=== PATIENT | female | born 1950 | race Caucasian/White ===

== ENCOUNTER → 2016-08-15 | Outpatient (CLI) | payer BC ==
[~2016-08-15] MED LIST: ASP81TEC PO; ATR20T PO; CA C1TAB53 PO; CETI10TA17 PO; CYAN100071 PO; DCS100C PO; INSU100I10 SQ; INSU100I17 SQ; LATA2.5D5 OP; LIOT5TAB3 PO; LVT.05T PO; MAGN400C PO; MULT-963 PO; OMEP20CA12 PO; QUIN40TA17 PO; TIMO10DR OP; TRIA15CR TOP; VITA1CAP59 PO
--- NOTE | 2016-08-15 11:24 | Diagnostic Imaging Report ---
Bilateral screening mammogram. The current study was also evaluated with a Computer Aided Detection (CAD) system. INDICATION: Screening. No current complaints stated on the questionnaire. COMPARISON: 07/10/2015. FINDINGS: The breasts are composed of heterogeneously dense parenchyma which may decrease mammographic sensitivity. Numerous calcifications in the breasts more on the right side are seen similar to the prior exams. Stable nodularity in the parenchyma is also noted. Allowing for technique and positional differences, no suspicious change is seen. IMPRESSION: Dense breasts with no definite change. ACR BI-RADS Category 2: Benign findings. Result letter will be mailed to the patient. Note: At least 10% of breast cancer is not imaged by mammography. Dictated by: Dictated on workstation # [id number]
== END ==
LOC: RAD 09:51
PROVIDERS: ATTEND Nurse Practitioner Family
DX: Z12.31 Encounter for screening mammogram for malignant neoplasm of breast (principal)
CPT/HCPCS: 77067

== ENCOUNTER 2016-09-02 23:54 | Emergency (ER) | payer BC ==
[~2016-09-02] VITALS: Ht 167.6 cm; Wt 112.9 kg
[2016-09-03] MEDS ORDERED: TETANUS,DIPTH,PERTUSS P/F (BOOSTRIX) 0.5 ML VIAL IM ONE ×2 (00:50→04:15)
[2016-09-03] MEDS ORDERED: LIDOCAINE 1% INJ 20 ML (XYLOCAINE) VIAL ONE (00:50)
[2016-09-03 01:30] VITALS: BP 114/57
[2016-09-03 03:35] LABS: ALBUMIN 4.1 G/DL (3.2-4.5); BILIRUBIN,TOTAL 0.5 MG/DL (0.1-1.0); CALCIUM 8.7 MG/DL (8.5-10.1); CREATININE SERUM 1.66 MG/DL (0.60-1.30); INR 1.1 (0.8-1.4); POTASSIUM 4.5 MMOL/L (3.6-5.0); PROTHROMBIN TIME PATIENT 13.4 SEC (12.2-14.7); TOTAL PROTEIN 6.8 G/DL (6.4-8.2)
[2016-09-03 03:36] LABS: BASOPHILS # (AUTO) 0.1 10^3/uL (0.0-0.1); BASOPHILS % (AUTO) 1 % (0-10); EOSINOPHILS # (AUTO) 0.1 10^3/uL (0.0-0.3); EOSINOPHILS % (AUTO) 1 % (0-10); LYMPHOCYTES # (AUTO) 2.3 X 10^3 (1.0-4.0); LYMPHOCYTES % (AUTO) 30 % (12-44); MEAN CORPUSCULAR HEMOGLOBIN 32 PG (25-34); MEAN CORPUSCULAR HGB CONC 33 G/DL (32-36); MEAN CORPUSCULAR VOLUME 96 FL (80-99); MEAN PLATELET VOLUME 10.4 FL (7.4-10.4); MONOCYTES # (AUTO) 0.7 X 10^3 (0.0-1.0); MONOCYTES % (AUTO) 9 % (0-12); NEUTROPHILS # (AUTO) 4.5 X 10^3 (1.8-7.8); NEUTROPHILS % (AUTO) 59 % (42-75); PLATELET COUNT 235 10^3/uL (130-400); RED BLOOD COUNT 3.86 10^6/uL (4.35-5.85); RED CELL DISTRIBUTION WIDTH 14.3 % (10.0-14.5); WHITE BLOOD COUNT 7.7 10^3/uL (4.3-11.0)
--- NOTE | 2016-09-03 03:40 | ED Fall/Injury ---
General Stated Complaint: FALL,HEAD INJURY Source: patient Exam Limitations: no limitations History of Present Illness Time seen by provider: 00:05 Initial Comments This 65-year-old woman presents to the emergency room with head injury after falling in the parking lot of a local establishment. She reports she drank too much alcohol and stumbled in the parking lot resulting in injury. She denies any pain other than her forehead. She denies injury to any other part of the body. She is alert and oriented. She smells of alcohol but is not obviously intoxicated. She has 2 lacerations on her forehead with localized swelling. Bleeding is minimal. Allergies and Home Medications Allergies Uncoded Allergies: CODIENE (Allergy, 11/23/12) PCN (Allergy, 11/23/12) Home Medications Aspirin 81 Mg Tabec, 81 MG PO DAILY, (Reported) Atorvastatin 20 Mg Tablet, 20 MG PO DAILY, (Reported) Calcium Carbonate 1 Tab.chew Tab.chew, 1 TAB.CHEW PO DAILY, (Reported) Cetirizine Hcl 10 Mg Tablet, 10 MG PO DAILY, (Reported) Cyanocobalamin (Vitamin B-12) 1,000 Mcg Tablet.er, 1,000 MCG PO ONCE WEEKLY, ( Reported) Docusate Sodium 100 Mg Capsule, 100 MG PO DAILY, (Reported) Dorzolamide/Timolol 10 Ml Soln, 1 DROP OP Q12HR, (Reported) 1 DROP TO AFFECTED EYE Insulin Aspart 100 Unit/1 Ml Insuln.pen, 18 UNIT SQ AC, (Reported) Insulin Glargine,Hum.rec.anlog 300 Unit/3 Ml Insuln.pen, 17 UNITS SQ HS, ( Reported) Latanoprost 2.5 Ml Drops, 1 DROP OP HS, (Reported) 1 DROP TO AFFECTED EYE Levothyroxine Sodium 50 Mcg Tablet, 50 MCG PO DAILY, (Reported) Liothyronine Sodium 5 Mcg Tablet, 5 MCG PO DAILY, (Reported) Magnesium Oxide 400 Mg Capsule, 400 MG PO DAILY, (Reported) Multivitamin 1 Each Tablet, 1 TAB PO DAILY, (Reported) Omeprazole 20 Mg Capsule.dr, 20 MG PO DAILY, (Reported) Quinapril Hcl 40 Mg Tablet, 40 MG PO DAILY, (Reported) Triamcinolone Acetonide 15 Gm Cream.gm., 1 APPLIC TOP BID, (Reported) APPLY TO AFFECTED AREA(S) BID Vitamin B Complex 1 Cap Capsule, 1 CAP PO DAILY, (Reported) Constitutional: no symptoms reported Eyes: No Symptoms Reported Ears, Nose, Mouth, Throat: no symptoms reported Respiratory: no symptoms reported Cardiovascular: no symptoms reported Gastrointestinal: no symptoms reported Genitourinary: no symptoms reported Musculoskeletal: no symptoms reported Skin: see HPI Psychiatric/Neurological: See HPI Past Fjskjws-Hbgzpe-Grhsqv Hx Patient Social History Recent Foreign Travel: No Contact w/Someone Who Travel: No Immunizations Up To Date Date of Pneumonia Vaccine: Mar 25, 2008 Surgeries HX Surgeries: Yes Surgeries: Abdominal (gastric bypass), Eye Surgery (cataract), Hysterectomy, Orthopedic (carpal tunnel) Respiratory Hx Respiratory Disorders: No Cardiovascular Hx Cardiac Disorders: Yes Cardiac Disorders: High Cholesterol, Hypertension Neurological Hx Neurological Disorders: No Gastrointestinal Hx Gastrointestinal Disorders: No Musculoskeletal Hx Musculoskeletal Disorders: No Endocrine Hx Endocrine Disorders: Yes Endocrine Disorders: Hypothyroidsim, Diabetes, Non-Insulin dep Cancer Hx Cancer: No Psychosocial Hx Psychiatric Problems: No Integumentary HX Skin/Integumentary Disorder: No Physical Exam Vital Signs Capillary Refill : General Appearance: WD/WN, no apparent distress HEENT: PERRL/EOMI, pharynx normal, other (2 lacerations on the forehead, 2 cm and 1 cm, with localized swelling) Neck: non-tender, full range of motion, supple, normal inspection Cardiovascular: regular rate, rhythm, no edema, no murmur Respiratory: lungs clear, normal breath sounds, no respiratory distress, no accessory muscle use Gastrointestinal: normal bowel sounds, non tender, soft Back: normal inspection Extremities: normal range of motion, non-tender, normal inspection, no pedal edema 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, no motor/sensory deficits, alert, normal mood/affect, oriented x 3 Skin: normal color, warm/dry, other (see above) [place]enden Coma Score Best Eye Response: (4) Open Spontaneously Best Verbal Response: (5) Oriented Best Motor Response: (6) Obeys Commands Mattie Total: 15 Laceration Repair : Wound Location: Face Other Wound Location upper central forehead Wound Length (cm): 2 Wound's Depth, Shape: linear, sub Q Wound Explored: clean Irrigated w/ Saline (ccs): 60 Betadine Prep?: Yes Anesthesia: 1% Lidocaine Volume Anesthetic (ccs): 2 Suture: Prolene Suture Size: 5-0 Number of Sutures: 3 Sterile Dressing Applied?: No Progress/Results/Core Measures Results/Orders Lab Results Laboratory Tests Test 09/03/16 00:21 Range/Units My Orders Orders - RODOLFO RAPP MD Alcohol (09/03/16 00:21) Comprehensive Metabolic Panel (09/03/16 00:21) Protime With Inr (09/03/16 00:21) Partial Thromboplastin Time (09/03/16 00:21) Cbc With Automated Diff (09/03/16 00:21) Diagnostic Imaging Diagonstic Imaging: CT Plain Films/CT/US/NM/MRI: c-spine, head Comments CT head and cervical spine viewed by me and Stat Rad report reviewed. No acute injuries identified. Departure Impression Impression: Primary Impression: Fall on same level from stumbling Qualified Codes: W01.0XXA - Fall on same level from slipping, tripping and stumbling without subsequent striking against object, initial encounter Additional Impressions: Laceration of forehead without complication Qualified Codes: S01.81XA - Laceration without foreign body of other part of head, initial encounter Alcohol intoxication Qualified Codes: F10.129 - Alcohol abuse with intoxication, unspecified Disposition: HOME, SELF-CARE Condition: Improved Departure-Patient Inst. Decision time for Depature: 01:00 Referrals: MEDHAT MELENDEZ MD (PCP/Family) Primary Care Physician RODOLFO RAPP MD Sep 03, 2016 03:40
[2016-09-03] MEDS ORDERED: LIDOCAINE 1% INJ 20 ML (XYLOCAINE) VIAL INJ ONE (04:15)
--- NOTE | 2016-09-03 06:39 | Diagnostic Imaging Report ---
PROCEDURE: CT head and CT cervical spine without contrast. TECHNIQUE: Multiple contiguous axial images were obtained through the brain and cervical spine without the use of intravenous contrast. Sagittal and coronal reformations through the cervical spine were then performed. INDICATION: Fall with laceration to forehead. CT head: The ventricles and cortical gyral pattern are normal. There is no intracranial hemorrhage. No mass effect or shift of midline. No extra axial fluid collection. No intracranial hemorrhage. Basal cisterns and CP angles are normal. Mastoid air cells are well-aerated. No calvarial fractures. IMPRESSION: Negative CT head without. CT cervical spine: Sagittal and coronal reformatted images show good alignment. Body height is well maintained. There is loss of disc space consistent with advanced degenerative cervical disc disease. There is degenerative facet disease as well. The atlantoaxial joint is in good alignment. There are no fractures. IMPRESSION: Advanced degenerative cervical disc disease with no acute abnormalities. These findings are in agreement with the preliminary report. Dictated by: Dictated on workstation # [id number]
--- OUTSIDE RECORDS SUMMARY | 2016-09-07 04:08 | XMS REPORT | Continuity of Care Document ---
Author Author [facility] Organization [facility] Address Unknown Phone Unavailable Allergies Active Description Code Type Severity Reaction Onset Reported/Identified Relationship to Patient Clinical Status Yes CODIENE CODIENE Unknown N/A 11/23/2012 Yes PCN PCN Unknown N/A 11/23/2012 Medications Problems Date Dx Coded Attending Type Code Diagnosis Diagnosed By 03/22/2011 Ot 327.23 OBSTRUCTIVE SLEEP APNEA (ADULT) (PEDIATR 11/23/2012 MISAEL BOLDEN, ANIL Valenzuela Ot 455.6 HEMORRHOIDS NOS 11/23/2012 MISAEL BOLDEN, ANIL Valenzuela Ot V12.72 PERSONAL HISTORY OF COLONIC POLYPS 11/23/2012 MISAEL BOLDEN, ANIL Valenzuela Ot V16.0 FAMILY HX-GI MALIGNANCY 11/23/2012 MISAEL BOLDEN, ANIL Valenzuela Ot V76.51 SCREEN MAL NEOP-COLON 05/22/2014 SANDIP BOLDEN, DEBI Mcdonald Ot 793.82 05/22/2014 DEBI OROPEZA MD Ot 793.89 05/22/2014 DEBI OROPEZA MD Ot V76.12 07/10/2015 Ot 793.81 07/10/2015 Ot V76.12 07/10/2015 Ot V76.12 07/10/2015 ANIL DOUGLAS MD Ot V72.84 07/10/2015 DEBI OROPEZA MD Ot V76.12 07/10/2015 DEBI OROPEZA MD Ot 793.82 07/10/2015 DEBI OROPEZA MD Ot 793.89 07/10/2015 DEBI OROPEZA MD Ot V76.12 07/13/2015 LIU VO Ot Z12.31 07/26/2015 LIU VO Ot Z12.31 03/18/2016 ROSCOE BOLDEN, KONRAD S Ot E11.9 TYPE 2 DIABETES MELLITUS WITHOUT COMPLIC 03/18/2016 ROSCOE BOLDEN, AHMED S Ot E78.5 HYPERLIPIDEMIA, UNSPECIFIED 03/18/2016 ROSCOE BOLDEN, KONRAD S Ot I12.9 HYPERTENSIVE CHRONIC KIDNEY DISEASE W ST 03/18/2016 KONRAD MALHOTRA MD Ot N18.3 CHRONIC KIDNEY DISEASE, STAGE 3 ( MODERAT 08/15/2016 Ot V76.12 OTH SCREEN MAMMO-MALIGN NEOPLASM OF RAYRAY 08/15/2016 MISAEL BOLDEN, ANIL Valenzuela Ot V72.84 EXAM PRE-OPERATIVE NOS 08/15/2016 DEBI OROPEZA MD Ot V76.12 OTH SCREEN MAMMO-MALIGN NEOPLASM OF RAYRAY 08/15/2016 DEBI OROPEZA MD Ot 793.82 INCONCLUSIVE MAMMOGRAM 08/15/2016 DEBI OROPEZA MD Ot 793.89 OTH (ABN) FINDINGS ON RADIOLOGICAL EXAMI 08/15/2016 DEBI OROPEZA MD Ot V76.12 OTH SCREEN MAMMO-MALIGN NEOPLASM OF RAYRAY 08/15/2016 LIU VO Ot Z12.31 ENCNTR SCREEN MAMMOGRAM FOR MALIGNANT NE 08/15/2016 ROSCOE BOLDEN, KONRAD Jiménez Ot E11.9 TYPE 2 DIABETES MELLITUS WITHOUT COMPLIC 08/15/2016 KONRAD MALHOTRA MD Ot E78.5 HYPERLIPIDEMIA, UNSPECIFIED 08/15/2016 ROSCOE BOLDEN, KONRAD Jiménez Ot I12.9 HYPERTENSIVE CHRONIC KIDNEY DISEASE W ST 08/15/2016 KONRAD MALHOTRA MD Ot N18.3 CHRONIC KIDNEY DISEASE, STAGE 3 ( MODERAT 08/18/2016 LIU VO Ot Z12.31 ENCNTR SCREEN MAMMOGRAM FOR MALIGNANT NE 08/28/2016 LIU VO Ot Z12.31 ENCNTR SCREEN MAMMOGRAM FOR MALIGNANT NE Procedures Results Test Result Range Comprehensive metabolic panel - 09/03/16 00:21 Serum or plasma sodium measurement (moles/volume) 138 mmol/ L 135-145 Serum or plasma potassium measurement (moles/volume) 4.5 mmol/L 3.6-5.0 Serum or plasma chloride measurement (moles/volume) 106 mmol /L 98-107 Carbon dioxide 18 mmol/L 21-32 Serum or plasma anion gap determination (moles/volume) 14 mmol/L 5-14 Serum or plasma urea nitrogen measurement (mass/volume) 34 mg/dL 7-18 Serum or plasma creatinine measurement (mass/volume) 1.66 mg /dL 0.60-1.30 Serum or plasma urea nitrogen/creatinine mass ratio 20 NRG Serum or plasma creatinine measurement with calculation of estimated glomerular filtration rate 31 NRG Serum or plasma glucose measurement (mass/volume) 356 mg/dL 70-105 Serum or plasma calcium measurement (mass/volume) 8.7 mg/dL 8.5-10.1 Serum or plasma total bilirubin measurement (mass/volume) 0.5 mg/dL 0.1-1.0 Serum or plasma alkaline phosphatase measurement (enzymatic activity/volume) 88 U/L 40-136 Serum or plasma aspartate aminotransferase measurement (enzymatic activity/ volume) 20 U/L 5-34 Serum or plasma alanine aminotransferase measurement (enzymatic activity/volume ) 15 U/L 0-55 Serum or plasma protein measurement (mass/volume) 6.8 g/dL 6.4-8.2 Serum or plasma albumin measurement (mass/volume) 4.1 g/dL 3.2-4.5 Serum or plasma ethanol measurement (mass/volume) - 09/03/16 00:21 Serum or plasma ethanol measurement (mass/volume) 189 mg/dL <10 PT panel in platelet poor plasma by coagulation assay - 09/03/16 00:21 Prothrombin time (PT) in platelet poor plasma by coagulation assay 13.4 s 12.2-14.7 INR in platelet poor plasma or blood by coagulation assay 1.1 0.8-1.4 Activated partial thromboplastin time (aPTT) in platelet poor plasma bycoagulation assay - 09/03/16 00:21 Activated partial thromboplastin time (aPTT) in platelet poor plasma bycoagulation assay 28 s 24-35 Complete blood count (CBC) with automated white blood cell (WBC) differential - 09/03/16 00:21 Blood leukocytes automated count (number/volume) 7.7 10*3/ uL 4.3-11.0 Blood erythrocytes automated count (number/volume) 3.86 10*6 /uL 4.35-5.85 Venous blood hemoglobin measurement (mass/volume) 12.3 g/dL 11.5-16.0 Blood hematocrit (volume fraction) 37 % 35-52 Automated erythrocyte mean corpuscular volume 96 [foz_us] 80-99 Automated erythrocyte mean corpuscular hemoglobin (mass per erythrocyte) 32 pg 25-34 Automated erythrocyte mean corpuscular hemoglobin concentration measurement ( mass/volume) 33 g/dL 32-36 Automated erythrocyte distribution width ratio 14.3 % 10.0-14.5 Automated blood platelet count (count/volume) 235 10*3/uL 130-400 Automated blood platelet mean volume measurement 10.4 [foz_ us] 7.4-10.4 Automated blood neutrophils/100 leukocytes 59 % 42-75 Automated blood lymphocytes/100 leukocytes 30 % 12-44 Blood monocytes/100 leukocytes 9 % 0-12 Automated blood eosinophils/100 leukocytes 1 % 0-10 Automated blood basophils/100 leukocytes 1 % 0-10 Blood neutrophils automated count (number/volume) 4.5 10*3 1.8-7.8 Blood lymphocytes automated count (number/volume) 2.3 10*3 1.0-4.0 Blood monocytes automated count (number/volume) 0.7 10*3 0.0-1.0 Automated eosinophil count 0.1 10*3/uL 0.0-0.3 Automated blood basophil count (count/volume) 0.1 10*3/uL 0.0-0.1 Encounters ACCT No. Visit Date/Time Discharge Status Pt. Type Provider Facility Loc./Unit Complaint [id number] 09/02/2016 23:54:00 2016 01:30:00 DIS Emergency RODOLFO RAPP MD [facility] ER FALL,HEAD INJURY [id number] 04/25/2014 08:55:00 2013 23:59:59 CLS Outpatient DEBI OROPEZA MD [facility] RAD SCREENING [id number] 01/10/2013 09:05:00 2012 23:59:59 CLS Outpatient DEBI OROPEZA MD [facility] RAD SCREENING [id number] 11/23/2012 07:03:00 2012 10:10:00 DIS Outpatient ANIL DOUGLAS MD [facility] SDC POSITIVE GASTRIUM POLYPS [id number] 11/19/2012 13:19:00 2012 23:59:59 CLS Outpatient ANIL DOUGLAS MD [facility] PREOP GASTRIC POLYPS [id number] 08/15/2016 09:51:00 ACT Outpatient LIU VO [facility] RAD SCREENING [id number] 03/07/2016 08:20:00 ACT Outpatient ROSCOE BOLDEN , KONRAD Jiménez [facility] RAD HLP,CHRONIC KIDNEY DISEASE [id number] 07/10/2015 11:05:00 ACT Outpatient LIU VO [facility] RAD SCREENING [id number] 10/03/2011 09:58:00 Document Registration [id number] 03/21/2011 20:04:00 Document Registration [id number] 04/26/2010 09:32:00 Document Registration
== END 2016-09-03 01:30 | disposition home or self-care (01) ==
LOC: ER 23:54 → EDUNIT# 23:54 → ER 09-03 01:30
DX: S01.81XA Laceration without foreign body of other part of head, initial encounter (principal); F10.129 Alcohol abuse with intoxication, unspecified; Z23 Encounter for immunization; I10 Essential (primary) hypertension; E11.69 Type 2 diabetes mellitus with other specified complication; Z79.82 Long term (current) use of aspirin; Z79.4 Long term (current) use of insulin; Z79.899 Other long term (current) drug therapy; Y90.6 Blood alcohol level of 120-199 mg/100 ml; W01.0XXA Fall on same level from slipping, tripping and stumbling without subsequent striking against object, initial encounter; Y92.481 Parking lot as the place of occurrence of the external cause; Y99.8 Other external cause status
CPT/HCPCS: 12011; 36415; 70450; 72125; 80053; 80320; 85025; 85610; 85730; 90471; 90715

== ENCOUNTER 2016-09-08 09:45 | Emergency (ER) | payer BC ==
[~2016-09-08] VITALS: Ht 167.6 cm; Wt 112.5 kg
[2016-09-08 10:03] VITALS: BP 119/52
--- OUTSIDE RECORDS SUMMARY | 2016-09-23 17:48 | XMS REPORT | Continuity of Care Document ---
Author Author [facility] Organization [facility] Address Unknown Phone Unavailable Allergies Active Description [...] HYPERTENSIVE CHRONIC KIDNEY DISEASE W ST 03/18/2016 ROSCOE BOLDEN, KONRAD Jiménez Ot N18.3 CHRONIC KIDNEY DISEASE, STAGE 3 [...] TYPE 2 DIABETES MELLITUS WITHOUT COMPLIC 08/15/2016 ROSCOE BOLDEN, KONRAD Jiménez Ot E78.5 HYPERLIPIDEMIA, UNSPECIFIED 08/15/2016 ROSCOE BOLDEN, KONRAD Jiménez Ot I12.9 HYPERTENSIVE CHRONIC KIDNEY DISEASE W ST 08/15/2016 KONRAD MALHOTRA MD Ot N18.3 CHRONIC KIDNEY DISEASE, STAGE 3 ( MODERAT 08/18/2016 LIU VO Ot Z12.31 ENCNTR SCREEN MAMMOGRAM FOR MALIGNANT NE 08/28/2016 LIU VO Ot Z12.31 ENCNTR SCREEN MAMMOGRAM FOR MALIGNANT NE 09/03/2016 RODOLFO RAPP MD Ot E11.69 TYPE 2 DIABETES MELLITUS WITH OTHER SPEC 09/03/2016 RODOLFO RAPP MD Ot F10.129 ALCOHOL ABUSE WITH INTOXICATION, UNSPECI 09/03/2016 RODOLFO RAPP MD Ot I10 ESSENTIAL (PRIMARY) HYPERTENSION 09/03/2016 RODOLFO RAPP MD Ot S01.81XA LACERATION W/O FOREIGN BODY OF OTH PART 09/03/2016 RODOLFO RAPP MD Ot W01.0XXA FALL SAME LEV FROM SLIP/TRIP W/O STRIKE 09/03/2016 RODOLFO RAPP MD Ot Y90.6 BLOOD ALCOHOL LEVEL OF 120-199 MG/ 100 ML 09/03/2016 RODOLFO RAPP MD Ot Y92.[address] OF OCCURRENCE O 09/03/2016 RODOLFO RAPP MD Ot Y99.8 OTHER EXTERNAL CAUSE STATUS 09/03/2016 RODOLFO RAPP MD Ot Z23 ENCOUNTER FOR IMMUNIZATION 09/03/2016 RODOLFO RAPP MD Ot Z79.4 JACKSPOOLER (CURRENT) USE OF INSULIN 09/03/2016 RODOLFO RAPP MD Ot Z79.82 JACKSPOOLER (CURRENT) USE OF ASPIRIN 09/03/2016 RODOLFO RAPP MD Ot Z79.899 OTHER LONG-TERM (CURRENT) DRUG THERAPY 09/04/2016 RODOLFO RAPP MD Ot E11.69 TYPE 2 DIABETES MELLITUS WITH OTHER SPEC 09/04/2016 RODOLFO RAPP MD Ot F10.129 ALCOHOL ABUSE WITH INTOXICATION, UNSPECI 09/04/2016 RODOLFO RAPP MD Ot I10 ESSENTIAL (PRIMARY) HYPERTENSION 09/04/2016 RODOLFO RAPP MD Ot S01.81XA LACERATION W/O FOREIGN BODY OF OTH PART 09/04/2016 RODOLFO RAPP MD Ot W01.0XXA FALL SAME LEV FROM SLIP/TRIP W/O STRIKE 09/04/2016 RODOLFO RAPP MD Ot Y90.6 BLOOD ALCOHOL LEVEL OF 120-199 MG/ 100 ML 09/04/2016 RODOLFO RAPP MD Ot Y92.[address] OF OCCURRENCE O 09/04/2016 RODOLFO RAPP MD Ot Y99.8 OTHER EXTERNAL CAUSE STATUS 09/04/2016 RODOLFO RAPP MD Ot Z23 ENCOUNTER FOR IMMUNIZATION 09/04/2016 RODOLFO RAPP MD Ot Z79.4 LONG-TERM (CURRENT) USE OF INSULIN 09/04/2016 RODOLFO RAPP MD Ot Z79.82 LONG-TERM (CURRENT) USE OF ASPIRIN 09/04/2016 RODOLFO RAPP MD, Ot Z79.899 OTHER JACKSPOOLER (CURRENT) DRUG THERAPY 09/05/2016 RODOLFO RAPP MD Ot E11.69 TYPE 2 DIABETES MELLITUS WITH OTHER SPEC 09/05/2016 RODOLFO RAPP MD Ot F10.129 ALCOHOL ABUSE WITH INTOXICATION, UNSPECI 09/05/2016 RODOLFO RAPP MD Ot I10 ESSENTIAL (PRIMARY) HYPERTENSION 09/05/2016 RODOLFO RAPP MD Ot S01.81XA LACERATION W/O FOREIGN BODY OF OTH PART 09/05/2016 RODOLFO RAPP MD, Ot W01.0XXA FALL SAME LEV FROM SLIP/TRIP W/O STRIKE 09/05/2016 RODOLFO RAPP MD Ot Y90.6 BLOOD ALCOHOL LEVEL OF 120-199 MG/ 100 ML 09/05/2016 RODOLFO RAPP MD, Ot Y92.[address] OF OCCURRENCE O 09/05/2016 RODOLFO RAPP MD, Ot Y99.8 OTHER EXTERNAL CAUSE STATUS 09/05/2016 RODOLFO RAPP MD, Ot Z23 ENCOUNTER FOR IMMUNIZATION 09/05/2016 RODOLFO RAPP MD Ot Z79.4 LONG-TERM (CURRENT) USE OF INSULIN 09/05/2016 RODOLFO RAPP MD Ot Z79.82 JACKSPOOLER (CURRENT) USE OF ASPIRIN 09/05/2016 RODOLFO RAPP MD, Ot Z79.899 OTHER JACKSPOOLER (CURRENT) DRUG THERAPY 09/08/2016 Ot V76.12 OTH SCREEN MAMMO-MALIGN NEOPLASM OF RAYRAY 09/08/2016 MISAEL BOLDEN, ANIL Valenzuela Ot V72.84 EXAM PRE-OPERATIVE NOS 09/08/2016 DEBI OROPEZA MD Ot V76.12 OTH SCREEN MAMMO-MALIGN NEOPLASM OF RAYRAY 09/08/2016 DEBI OROPEZA MD Ot 793.82 INCONCLUSIVE MAMMOGRAM 09/08/2016 DEBI OROPEZA MD Ot 793.89 OTH (ABN) FINDINGS ON RADIOLOGICAL EXAMI 09/08/2016 DEBI OROPEZA MD Ot V76.12 OTH SCREEN MAMMO-MALIGN NEOPLASM OF RAYRAY 09/08/2016 LIU VO Ot Z12.31 ENCNTR SCREEN MAMMOGRAM FOR MALIGNANT NE 09/08/2016 KONRAD MALHOTRA MD Ot E11.9 TYPE 2 DIABETES MELLITUS WITHOUT COMPLIC 09/08/2016 KONRAD MALHOTRA MD S Ot E78.5 HYPERLIPIDEMIA, UNSPECIFIED 09/08/2016 KONRAD MALHOTRA MD S Ot I12.9 HYPERTENSIVE CHRONIC KIDNEY DISEASE W ST 09/08/2016 KONRAD MALHOTRA MD Ot N18.3 CHRONIC KIDNEY DISEASE, STAGE 3 ( MODERAT 09/08/2016 LIU VO Ot Z12.31 ENCNTR SCREEN MAMMOGRAM FOR MALIGNANT NE 09/08/2016 DEBBIE HIGGINS MD Ot S01.81XD LACERATION W/O FOREIGN BODY OF OTH PART 09/09/2016 DEBBIE HIGGINS MD Ot S01.81XD LACERATION W/O FOREIGN BODY OF OTH PART 09/15/2016 Ot V76.12 OTH SCREEN MAMMO-MALIGN NEOPLASM OF RAYRAY 09/15/2016 ANIL DOUGLAS MD Ot V72.84 EXAM PRE-OPERATIVE NOS 09/15/2016 DEBI OROPEZA MD Ot V76.12 OTH SCREEN MAMMO-MALIGN NEOPLASM OF RAYRAY 09/15/2016 DEBI OROPEZA MD Ot 793.82 INCONCLUSIVE MAMMOGRAM 09/15/2016 DEBI OROPEZA MD Ot 793.89 OTH (ABN) FINDINGS ON RADIOLOGICAL EXAMI 09/15/2016 DEBI OROPEZA MD Ot V76.12 OTH SCREEN MAMMO-MALIGN NEOPLASM OF RAYRAY 09/15/2016 LIU VO Ot Z12.31 ENCNTR SCREEN MAMMOGRAM FOR MALIGNANT NE 09/15/2016 KONRAD MALHOTRA MD Ot E11.9 TYPE 2 DIABETES MELLITUS WITHOUT COMPLIC 09/15/2016 KONRAD MALHOTRA MD S Ot E78.5 HYPERLIPIDEMIA, UNSPECIFIED 09/15/2016 KONRAD MALHOTRA MD Ot I12.9 HYPERTENSIVE CHRONIC KIDNEY DISEASE W ST 09/15/2016 KONRAD MALHOTRA MD Ot N18.3 CHRONIC KIDNEY DISEASE, STAGE 3 ( MODERAT 09/15/2016 GILDA LIUMONALISA SMITH Ot Z12.31 ENCNTR SCREEN MAMMOGRAM FOR MALIGNANT NE 09/16/2016 YULIET JOHNSON MD Ot J30.9 ALLERGIC RHINITIS, UNSPECIFIED 09/16/2016 YULIET JOHNSON MD, Ot J32.9 CHRONIC SINUSITIS, UNSPECIFIED Procedures Results Test Result Range Comprehensive metabolic [...] Status Pt. Type Provider Facility Loc./Unit Complaint [id number] 09/08/2016 09:48:00 2016 09:57:00 DIS Emergency GISELA BOLDEN, DEBBIE Valenzuela [facility] ER SUTURE REMOVAL [id number] 09/02/2016 23:54:00 2016 01:30:00 DIS Emergency DIONTE BOLDEN, RODOLFO Ortiz [facility] ER FALL,HEAD INJURY [id number] 04/25/2014 08:55:00 2013 23:59:59 CLS Outpatient DEBI OROPEZA MD [facility] RAD SCREENING [id number] 01/10/2013 09:05:00 2012 23:59:59 CLS Outpatient DEBI OROPEZA MD [facility] RAD SCREENING [id number] 11/23/2012 07:03:00 2012 10:10:00 DIS Outpatient ANIL DOUGLAS MD [facility] SDC POSITIVE GASTRIUM POLYPS [id number] 11/19/2012 13:19:00 2012 23:59:59 CLS Outpatient ANIL DOUGLAS MD [facility] PREOP GASTRIC POLYPS [id number] 09/15/2016 09:52:00 ACT Outpatient ELIZABETH BOLDEN, YULIET Rich [facility] RAD CHRONIC SINUSITIS [id number] 08/15/2016 09:51:00 ACT Outpatient LIU VOP [facility] RAD SCREENING [id number] 03/07/2016 08:20:00 ACT Outpatient ROSCOE BOLDEN , KONRAD Jiménez [facility] RAD HLP,CHRONIC KIDNEY DISEASE [id number] 07/10/2015 11:05:00 ACT Outpatient LIU VO DIRECTOR OF KIDS [facility] RAD SCREENING [id number] 10/03/2011 09:58:00 Document Registration [id number] 03/21/2011 20:04:00 Document Registration [id number] 04/26/2010 09:32:00 Document Registration
== END 2016-09-08 09:57 | disposition home or self-care (01) ==
LOC: EDUNIT# 09:45 → ER 09:48
DX: S01.81XD Laceration without foreign body of other part of head, subsequent encounter (principal)

== ENCOUNTER → 2016-09-15 | Outpatient (CLI) | payer MEDICARE, OTHER ==
--- NOTE | 2016-09-15 11:01 | Diagnostic Imaging Report ---
PROCEDURE: CT sinuses without contrast TECHNIQUE: Multiple contiguous axial images were obtained through the sinuses without the use of intravenous contrast. Coronal and sagittal reformations were then performed. INDICATION: Allergic rhinitis. There are no previous CT sinus examinations available for comparison. FINDINGS: The CT head exam performed on 09/03/16 noted mild mucosal thickening of the ethmoid sinuses. The sinuses are otherwise generally clear. On this exam, there is again mild mucosal thickening of the ethmoid sinuses. There is a dense septation extending through the left maxillary antrum and left maxillary antrum is slightly hypoplastic compared to the right. The ostiomeatal complex on the left is patent. There is very mild mucosal thickening involving the ostiomeatal complex on the right. The sinuses are otherwise clear. The sphenoid and frontal sinuses are unremarkable. The bone window show no evidence for fracture or for destructive lesion. The orbits are symmetrical and within normal limits. IMPRESSION: 1. As noted on the previous CT head exam, there is mild mucosal thickening of the ethmoid sinuses. 2. There is also a dense septation extending to the left maxillary antrum and there is mild mucosal thickening about the ostiomeatal complex on the right. The sinuses are otherwise clear. Dictated by: Dictated on workstation # [id number]
== END ==
LOC: RAD 09:52
PROVIDERS: ATTEND Otolaryngology Otolaryngology/Facial Plastic Surgery
DX: J32.9 Chronic sinusitis, unspecified (principal); J30.9 Allergic rhinitis, unspecified
CPT/HCPCS: 70486

== ENCOUNTER 2017-09-08 11:15 | Inpatient (IN) | payer MEDICARE, OTHER ==
[~2017-09-08] VITALS: Ht 167.6 cm; Wt 116.3 kg
[2017-09-08] MEDS ORDERED: fentaNYL INJECTION 100 MCG/2 ML AMP IVP ONE (11:30)
--- NOTE | 2017-09-08 11:30 | ED Hip Pain/Injury ---
General Chief Complaint: Hip/Pelvic Problems Stated Complaint: FALL History of Present Illness Date Seen by Provider: Sep 08, 2017 Time Seen by Provider: 11:26 Initial Comments Patient is 66-year-old female who is brought in by [facility] for complaints of falling and left hip pain. Patient reports she was ambulating down one step and slipped and fell onto her left hip striking her left elbow and hitting her head. She denies any head or neck pain at this time and denies any LOC. Timing/Duration: just prior to arrival Severity: mild Location: hip (L) Method of Injury: fell Allergies and Home Medications Allergies Uncoded Allergies: CODIENE (Allergy, 11/23/12) PCN (Allergy, 11/23/12) Home Medications Aspirin 81 Mg Tabec, 81 MG PO DAILY, (Reported) Atorvastatin 20 Mg Tablet, 20 MG PO DAILY, (Reported) Calcium Carbonate 1 Tab.chew Tab.chew, 1 TAB.CHEW PO DAILY, (Reported) Cetirizine Hcl 10 Mg Tablet, 10 MG PO DAILY, (Reported) Cyanocobalamin (Vitamin B-12) 1,000 Mcg Tablet.er, 1,000 MCG PO ONCE WEEKLY, ( Reported) Docusate Sodium 100 Mg Capsule, 100 MG PO DAILY, (Reported) Dorzolamide/Timolol 10 Ml Soln, 1 DROP OP Q12HR, (Reported) 1 DROP TO AFFECTED EYE Insulin Aspart 100 Unit/1 Ml Insuln.pen, 18 UNIT SQ AC, (Reported) Insulin Glargine,Hum.rec.anlog 300 Unit/3 Ml Insuln.pen, 17 UNITS SQ HS, ( Reported) Latanoprost 2.5 Ml Drops, 1 DROP OP HS, (Reported) 1 DROP TO AFFECTED EYE Levothyroxine Sodium 50 Mcg Tablet, 50 MCG PO DAILY, (Reported) Liothyronine Sodium 5 Mcg Tablet, 5 MCG PO DAILY, (Reported) Magnesium Oxide 400 Mg Capsule, 400 MG PO DAILY, (Reported) Multivitamin 1 Each Tablet, 1 TAB PO DAILY, (Reported) Omeprazole 20 Mg Capsule.dr, 20 MG PO DAILY, (Reported) Quinapril Hcl 40 Mg Tablet, 40 MG PO DAILY, (Reported) Triamcinolone Acetonide 15 Gm Cream.gm., 1 APPLIC TOP BID, (Reported) APPLY TO AFFECTED AREA(S) BID Vitamin B Complex 1 Cap Capsule, 1 CAP PO DAILY, (Reported) Patient Home Medication List Home Medication List Reviewed: Yes Constitutional: no symptoms reported, see HPI EENTM: see HPI, no symptoms reported Respiratory: no symptoms reported Cardiovascular: no symptoms reported, see HPI Gastrointestinal: no symptoms reported, see HPI Genitourinary: no symptoms reported, see HPI Musculoskeletal: see HPI, joint pain (left hip. ), other (left hip pain) Skin: no symptoms reported, see HPI Psychiatric/Neurological: No Symptoms Reported, See HPI Past Agtwyik-Abdlyt-Eaaigm Hx Patient Social History Recent Hopitalizations: No Immunizations Up To Date Date of Pneumonia Vaccine: Mar 25, 2008 Date of Influenza Vaccine: Apr 15, 2016 Seasonal Allergies Seasonal Allergies: No Surgeries Surgeries: Abdominal, Eye Surgery, Hysterectomy, Orthopedic Cardiovascular Cardiac Disorders: High Cholesterol, Hypertension Endocrine Endocrine Disorders: Hypothyroidsim, Diabetes, Non-Insulin dep HEENT HEENT Disorders: Cataract, Glaucoma Physical Exam Vital Signs Vital Signs - First Documented 09/08/17 11:15 Temp 98.3 Pulse 70 Resp 16 B/P (MAP) 147/68 (94) Pulse Ox 98 O2 Delivery Room Air Capillary Refill : General Appearance: No Apparent Distress, WD/WN HEENT: PERRL/EOMI, TMs Normal Neck: Full Range of Motion, Normal Inspection, Non Tender Cardiovascular: Regular Rate, Rhythm, No Edema, No Gallop, No JVD, No Murmur, Normal Peripheral Pulses Respiratory: Lungs Clear, Normal Breath Sounds, No Accessory Muscle Use, No Respiratory Distress Peripheral Pulses: 2+ Left Dors-Pedis (L) Gastrointestinal: Normal Bowel Sounds, No Organomegaly, No Pulsatile Mass, Non Tender, Soft Extremity: Normal Capillary Refill, No Pedal Edema, Other (left leg is shortened and externally rotated on exam. 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 Norm as Tested Skin: Normal Color, Warm/Dry Laceration Repair : Suture Size: 5-0 Progress/Results/Core Measures Results/Orders Lab Results Laboratory Tests Test 09/08/17 11:50 09/08/17 13:03 Range/Units White Blood Count 7.1 4.3-11.0 10^3/uL Red Blood Count 4.03 L 4.35-5.85 10^6/uL Hemoglobin 12.6 11.5-16.0 G/DL Hematocrit 37 35-52 % Mean Corpuscular Volume 93 80-99 FL Mean Corpuscular Hemoglobin 31 25-34 PG Mean Corpuscular Hemoglobin Concent 34 32-36 G/DL Red Cell Distribution Width 12.9 10.0-14.5 % Platelet Count 253 130-400 10^3/uL Mean Platelet Volume 10.5 H 7.4-10.4 FL Neutrophils (%) (Auto) 70 42-75 % Lymphocytes (%) (Auto) 18 12-44 % Monocytes (%) (Auto) 8 0-12 % Eosinophils (%) (Auto) 4 0-10 % Basophils (%) (Auto) 0 0-10 % Neutrophils # (Auto) 5.0 1.8-7.8 X 10^3 Lymphocytes # (Auto) 1.3 1.0-4.0 X 10^3 Monocytes # (Auto) 0.6 0.0-1.0 X 10^3 Eosinophils # (Auto) 0.3 0.0-0.3 10^3/uL Basophils # (Auto) 0.0 0.0-0.1 10^3/uL Sodium Level 138 135-145 MMOL/L Potassium Level 4.6 3.6-5.0 MMOL/L Chloride Level 106 98-107 MMOL/L Carbon Dioxide Level 23 21-32 MMOL/L Anion Gap 9 5-14 MMOL/L Blood Urea Nitrogen 34 H 7-18 MG/DL Creatinine 1.65 H 0.60-1.30 MG/DL Estimat Glomerular Filtration Rate 31 BUN/Creatinine Ratio 21 Glucose Level 131 H 70-105 MG/DL Calcium Level 9.2 8.5-10.1 MG/DL Total Bilirubin 0.6 0.1-1.0 MG/DL Aspartate Amino Transf (AST/SGOT) 26 5-34 U/L Alanine Aminotransferase (ALT/SGPT) 14 0-55 U/L Alkaline Phosphatase 114 40-136 U/L Total Protein 7.1 6.4-8.2 GM/DL Albumin 4.3 3.2-4.5 GM/DL My Orders Orders - WILSON MACIAS APRN Pelvis With Left Hip 2-3 Views (09/08/17 11:23) Cbc With Automated Diff (09/08/17 11:23) Comprehensive Metabolic Panel (09/08/17 11:23) Ua Culture If Indicated (09/08/17 11:23) Rivera Cath Insertion (09/08/17 11:23) Saline Lock/Iv-Start (09/08/17 11:23) Ct Head/Cervical Spine Wo (09/08/17 11:23) Ekg Tracing (09/08/17 11:23) Fentanyl Injection (Sublimaze Injection (09/08/17 11:30) Chest 1 View, Ap/Pa Only (09/08/17 12:21) Hydromorphone Injection (Dilaudid Inject (09/08/17 12:45) Medications Given in ED Current Medications Medications Dose Ordered Sig/Seth Route Start Time Stop Time Status Last Admin Dose Admin Fentanyl Citrate 50 mcg ONCE ONCE IVP 09/08/17 11:30 09/08/17 11:31 DC 09/08/17 11:55 50 MCG Hydromorphone HCl 0.5 mg ONCE ONCE IVP 09/08/17 12:45 09/08/17 12:46 DC 09/08/17 13:08 0.5 MG Vital Signs/I&O Vital Sign - Last 12Hours 09/08/17 09/08/17 09/08/17 11:15 11:55 13:08 Temp 98.3 97.3 97.3 Pulse 70 Resp 16 B/P (MAP) 147/68 (94) Pulse Ox 98 O2 Delivery Room Air Diagnostic Imaging Diagonstic Imaging: Xray Comments NAME: LIZETH TARIQ [facility] REC#: [id number] PT STATUS: REG ER : 1950 PHYSICIAN: WILSON MACIAS APRN ADMIT DATE: 09/08/17/ER Draft Date of Exam:09/08/17 PELVIS WITH LEFT HIP 2-3 VIEWS INDICATION: Fall with left hip pain AP pelvis and AP and lateral views of the left hip are obtained. There is a lucency in the left femoral neck in its mid to inferior portion, compatible with nondisplaced fracture. No other fractures are visualized. There are underlying degenerative changes of both hip joints of moderate severity. There is no lytic or blastic lesion. IMPRESSION: Nondisplaced left femoral neck fracture. 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 Dictated on workstation # [id number] Dict: 09/08/17 1249 Trans: 09/08/17 1252 [facility] [id number] Interpreted by: TORIN ALMAGUER MD Electronically signed by: Departure Communication (Admissions) Time/Spoke to Admitting Phy: 12:[address] Hurley will consult in regards to Insulin dependent DM and CKD. Time/Spoke to Consulting Phy: 12:41 Communication/Consulting Dr Wright will see patient this evening, play to repair in AM. Progress Notes We have achieved minimal pain control in the emergency room with 2-3 doses of 50 Micrograms of fentanyl. We will switch to Dilaudid. Impression Impression: Primary Impression: Closed left hip fracture Disposition: ADMITTED INPATIENT Condition: Stable Admissions Decision to Admit Reason: Admit from ER (Trauma) Decision to Admit/Date: Sep 08, 2017 Time/Decision to Admit Time: 12:42 Departure-Patient Inst. Referrals: MEDHAT HURLEY MD (PCP/Family) Primary Care Physician WILSON MACIAS APRN Sep 08, 2017 11:30
[2017-09-08 11:59] LABS: BASOPHILS % (AUTO) 0 % (0-10); EOSINOPHILS # (AUTO) 0.3 10^3/uL (0.0-0.3); EOSINOPHILS % (AUTO) 4 % (0-10); HEMATOCRIT 37 % (35-52); HEMOGLOBIN 12.6 G/DL (11.5-16.0); LYMPHOCYTES # (AUTO) 1.3 X 10^3 (1.0-4.0); LYMPHOCYTES % (AUTO) 18 % (12-44); MEAN CORPUSCULAR HEMOGLOBIN 31 PG (25-34); MEAN CORPUSCULAR HGB CONC 34 G/DL (32-36); MEAN CORPUSCULAR VOLUME 93 FL (80-99); MEAN PLATELET VOLUME 10.5 FL (7.4-10.4); MONOCYTES # (AUTO) 0.6 X 10^3 (0.0-1.0); MONOCYTES % (AUTO) 8 % (0-12); NEUTROPHILS % (AUTO) 70 % (42-75); PLATELET COUNT 253 10^3/uL (130-400); RED BLOOD COUNT 4.03 10^6/uL (4.35-5.85); RED CELL DISTRIBUTION WIDTH 12.9 % (10.0-14.5); WHITE BLOOD COUNT 7.1 10^3/uL (4.3-11.0)
[2017-09-08 12:20] LABS: ALBUMIN 4.3 GM/DL (3.2-4.5); BILIRUBIN,TOTAL 0.6 MG/DL (0.1-1.0); CALCIUM 9.2 MG/DL (8.5-10.1); CREATININE SERUM 1.65 MG/DL (0.60-1.30); POTASSIUM 4.6 MMOL/L (3.6-5.0); TOTAL PROTEIN 7.1 GM/DL (6.4-8.2)
--- NOTE | 2017-09-08 12:29 | Diagnostic Imaging Report ---
Clinical indication: Patient fell in hit head. Patient has no complaints of headache and neck pain. Exam: Head CT without IV contrast. Axial CT scan of the cervical spine with sagittal and coronal reformations. Comparison: CT scan of the head and cervical spine dated 09/03/2016. Findings: Head CT: There is no evidence of acute cerebral infarct, intracranial hemorrhage, or gross mass effect. The brain parenchymal volume appears appropriate for patient's age. There is normal samson-white matter distinction. There is no significant midline shift or herniation. There is no evidence of hydrocephalus. The basal cisterns are unremarkable. The skull, extracranial soft tissue, and orbits are unremarkable. There is mild ethmoid sinus, left maxillary sinus mucosal thickening. Temporal bones show no significant abnormality. Cervical spine: There is no evidence of acute cervical spine fracture or dislocation. There is no significant change at multilevel cervical spine degenerative disease with vertebral body spurs. There is at least mild central canal narrowing at the C5-C6 level due to posterior disc spurs and moderate bilateral neural foramen narrowing. There is solid intervertebral bony bridging at the C5-C6 level again seen. There is no significant neck soft tissue abnormality. Visualized upper lung tuttle are clear. Impression: 1: There is no evidence of acute intracranial process. 2: Stable cervical spine degenerative disease with no acute fracture or dislocation. Dictated by: Dictated on workstation # [id number]
[2017-09-08] MEDS ORDERED: HYDROmorphone (DILAUDID) 2 MG/ML VIAL IVP ONE (12:45)
--- NOTE | 2017-09-08 12:51 | Diagnostic Imaging Report ---
INDICATION: Fall with left hip pain. TECHNIQUE: A frontal chest was obtained at 1243 hours. FINDINGS: The heart and mediastinal silhouette are normal in appearance. The lungs are clear. There is no pneumothorax or pleural fluid. IMPRESSION: No acute process in the chest. Dictated by: Dictated on workstation # [id number]
--- NOTE | 2017-09-08 12:52 | Diagnostic Imaging Report ---
INDICATION: Fall with left hip pain AP pelvis and AP and lateral views of the left hip are obtained. There is a lucency in the left femoral neck in its mid to inferior portion, compatible with nondisplaced fracture. No other fractures are visualized. There are underlying degenerative changes of both hip joints of moderate severity. There is no lytic or blastic lesion. IMPRESSION: Nondisplaced left femoral neck fracture. 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 Dictated by: Dictated on workstation # [id number]
[2017-09-08 13:10] LABS: BILIRUBIN,URINE NEGATIVE (NEGATIVE); CLARITY,URINE CLEAR; COLOR,URINE YELLOW; GLUCOSE, URINE (UA) NEGATIVE (NEGATIVE); KETONES,URINE NEGATIVE (NEGATIVE); LEUKOCYTE ESTERASE ,URINE NEGATIVE (NEGATIVE); NITRITE,URINE NEGATIVE (NEGATIVE); PH,URINE 5 (5-9); PROTEIN,URINE NEGATIVE (NEGATIVE); UROBILINOGEN,URINE NORMAL (NORMAL)
[2017-09-08 13:33] LABS: BACTERIA,URINE NEGATIVE /HPF; WBC,URINE RARE /HPF
--- OUTSIDE RECORDS SUMMARY | 2017-09-08 13:35 | XMS REPORT | CCD ---
Author Author Janette Burns MD, [facility] Address [address] [place] [address] Phone Care Team Providers Care Glass Beveller Name Role Phone PP Unavailable CCM Unavailable Summary Purpose Interface Exchange Insurance Providers Payer name Policy type / Coverage type Covered green party ID Effective Begin Date Effective End Date WPS Medicare Part B Medicare Part B [id number] Unknown [employer] Medicare Part B [id number] Unknown Family history Father Diagnosis Age At Onset Diabetes mellitus Type 2 Unknown Heart disease Unknown Aunt Diagnosis Age At Onset Breast cancer Unknown Mother Diagnosis Age At Onset Heart disease Unknown Diabetes mellitus Type 2 Unknown Uncle Diagnosis Age At Onset Colon cancer Unknown Prostate Cancer Unknown Social History Social History Element Codes Description Effective Dates Marital status Unknown Single 11/02/2014 Number of children Unknown 0 11/02/2014 Employment Unknown Retired 11/02/[address]: 743379 Currently drinks alcohol 11/02/2014 Frequency of drinks SNOMED CT: 066125940 1-4 drinks per week 11/02/2014 Allergies, Adverse Reactions, Alerts Allergies, Adverse Reactions, Alerts data not found Past Medical History Illness Codes Condition Status Onset Date Resolved Date Bilateral primary osteoarthritis of hip ICD-9: 715.95 ICD-10: M16.0 Active 02/17/2017 Unknown Essential (primary) hypertension ICD-9: 401.9 ICD-10: I10 Active 04/14/2016 Unknown Hypothyroidism, unspecified ICD-9: 244.9 ICD-10: E03.9 Active 04/14/2016 Unknown Mixed hyperlipidemia ICD-9: 272.2 ICD-10: E78.2 Active 02/17/2017 Unknown Type 2 diabetes mellitus without complications ICD-9: 250.00 ICD-10: E11.9 Active 04/30/2016 Unknown Encounter for general adult medical examination with abnormal findings ICD-9: V70.0 ICD-10: Z00.01 Active 11/19/2016 Unknown Acute bronchitis, unspecified ICD-9: 466.0 ICD-10: J20.9 Active 11/18/2016 Unknown Cough ICD-9: 786.2 ICD-10: R05 Active 09/12/2015 Unknown Mixed hyperlipidemia ICD-9: 272.4 ICD-10: E78.2 Active 04/30/2016 Unknown Encounter for screening mammogram for malignant neoplasm of breast ICD-9: V76.12 ICD-10: Z12.31 Active 08/12/2016 Unknown Acute laryngopharyngitis ICD-9: 465.0 ICD-10: J06.0 Active 07/30/2016 Unknown Fever, unspecified ICD -9: 780.60 ICD-10: R50.9 Active 07/30/2016 Unknown Other acute sinusitis ICD-9: 461.8 ICD-10: J01.80 Active 07/30/2016 Unknown Other allergic rhinitis ICD-9: 477.8 ICD-10: J30.89 Active 06/03/2016 Unknown Allergic rhinitis due to pollen ICD-9: 477.0 ICD-10: J30.1 Active 01/16/2016 Unknown Headache ICD-9: 784.0 ICD-10: R51 Active 01/16/2016 Unknown Other effects of high altitude, initial encounter ICD-9: 993.2 ICD-10: T70.29XA Active 01/16/2016 Unknown Morbid (severe) obesity due to excess calories ICD-9: 278.01 ICD-10: E66.01 Active 12/31/2015 Unknown Acute recurrent maxillary sinusitis ICD-9: 461.0 ICD-10: J01.01 Active 09/12/2015 Unknown Influenza vaccination administered at current visit ICD-9: V04.81 Active 03/05/2015 Unknown Diabetes Unknown Active 11/02/2014 Unknown Hyperlipidemia Unknown Active 11/02/2014 Unknown Hypertension Unknown Active 11/02/2014 Unknown Hypothryroidism Unknown Active 11/02/2014 Unknown Diabetes mellitus ICD- 9: 250.00 Active 11/01/2014 Unknown ESSENTIAL HYPERTENSION ICD-9: 401.9 Active 11/01/2014 Unknown Hyperlipidemia ICD-9: 272.4 Active 11/01/2014 Unknown Hypothyroidism ICD-9: 244.9 Active 11/01/2014 Unknown Problems Condition Codes Effective Dates Condition Status Bilateral primary osteoarthritis of hip ICD-9: 715.95 ICD-10: M16.0 02/17/2017 Active Essential (primary) hypertension ICD-9: 401.9 ICD-10: I10 04/14/2016 Active Hypothyroidism, unspecified ICD-9: 244.9 ICD-10: E03.9 04/14/2016 Active Mixed hyperlipidemia ICD-9: 272.2 ICD-10: E78.2 02/17/2017 Active Type 2 diabetes mellitus without complications ICD-9: 250.00 ICD-10: E11.9 04/30/2016 Active Encounter for general adult medical examination with abnormal findings ICD-9: V70.0 ICD-10: Z00.01 11/19/2016 Active Acute bronchitis, unspecified ICD-9: 466.0 ICD-10: J20.9 11/18/2016 Active Cough ICD-9: 786.2 ICD-10: R05 09/12/2015 Active Mixed hyperlipidemia ICD-9: 272.4 ICD-10: E78.2 04/30/2016 Active Encounter for screening mammogram for malignant neoplasm of breast ICD-9: V76.12 ICD-10: Z12.31 08/12/2016 Active Acute laryngopharyngitis ICD-9: 465.0 ICD-10: J06.0 07/30/2016 Active Fever, unspecified ICD -9: 780.60 ICD-10: R50.9 07/30/2016 Active Other acute sinusitis ICD-9: 461.8 ICD-10: J01.80 07/30/2016 Active Other allergic rhinitis ICD-9: 477.8 ICD-10: J30.89 06/03/2016 Active Allergic rhinitis due to pollen ICD-9: 477.0 ICD-10: J30.1 01/16/2016 Active Headache ICD-9: 784.0 ICD-10: R51 01/16/2016 Active Other effects of high altitude, initial encounter ICD-9: 993.2 ICD-10: T70.29XA 01/16/2016 Active Morbid (severe) obesity due to excess calories ICD-9: 278.01 ICD-10: E66.01 12/31/2015 Active Acute recurrent maxillary sinusitis ICD-9: 461.0 ICD-10: J01.01 09/12/2015 Active Influenza vaccination administered at current visit ICD-9: V04.81 03/05/2015 Active Diabetes Unknown 11/02/2014 Active Hyperlipidemia Unknown 11/02/2014 Active Hypertension Unknown 11/02/2014 Active Hypothryroidism Unknown 11/02/2014 Active Diabetes mellitus ICD- 9: 250.00 11/01/2014 Active ESSENTIAL HYPERTENSION ICD-9: 401.9 11/01/2014 Active Hyperlipidemia ICD-9: 272.4 11/01/2014 Active Hypothyroidism ICD-9: 244.9 11/01/2014 Active Medications Medication Codes Instructions Start Date Stop Date Status Fill Instructions levothyroxine 50 mcg tablet RxNorm: 372988 1 Tablet(s) PO daily TAKE ONE TABLET BY MOUTH DAILY 07/22/2017 04/17/2018 Active quinapril 40 mg tablet RxNorm: 763231 Tablet(s) TAKE ONE TABLET BY MOUTH DAILY 07/22/2017 04/17/2018 Active liothyronine 5 mcg tablet RxNorm: 717739 1 Tablet(s) PO daily 07/22/2017 04/17/2018 Active quinapril 40 mg tablet RxNorm: 459723 TAKE ONE TABLET BY MOUTH DAILY 05/25/2017 07/21/2017 Inactive Tresiba FlexTouch U-200 200 unit/mL (3 mL) subcutaneous insulin pen RxNorm: 1486392 25 Unit(s) SQ daily 05/22/20172017 Active Toujeo SoloStar 300 unit/mL (1.5 mL) subcutaneous insulin pen RxNorm: 9854793 INJECT 25 UNITS UNDER THE SKIN AT BEDTIME 03/27/2017 05/21/2017 Inactive gemfibrozil 600 mg tablet RxNorm: 467549 Tablet(s) TAKE ONE TABLET BY MOUTH TWICE A DAY 03/12/2017 02/04/2018 Active Novolog Flexpen 100 unit/mL subcutaneous RxNorm: 5344686 INJECT 20 UNITS UNDER THE SKIN BEFORE MEALS 02/26/20172017 Active quinapril 40 mg tablet RxNorm: 194706 TAKE ONE TABLET BY MOUTH DAILY 02/26/2017 05/24/2017 Inactive atorvastatin 20 mg tablet RxNorm: 614096 Tablet(s) TAKE ONE TABLET BY MOUTH DAILY 11/18/2016 07/15/2017 Inactive BD Ultra-Fine Ada Pen [place] 32 gauge x 5/32" RxNorm: USE 1 FOUR TIMES A DAY 11/18/2016 04/16/2017 Inactive Dx) E11.9 OneTouch Ultra Test strips RxNorm: 1 test Miscellaneous TID No Stop Date Active E11.9 Zithromax Z-Bernabe 250 mg tablet RxNorm: 242412 1 Tablet(s) PO UD 11/18/2016 11/22/2016 Inactive liothyronine 5 mcg tablet RxNorm: 568114 1 Tablet(s) PO daily TAKE ONE TABLET BY MOUTH DAILY 11/18/2016 07/21/2017 Inactive Diamox Sequels 500 mg capsule,extended release RxNorm: 924218 1 Capsule(s) PO BID 11/18/2016 11/27/2016 Inactive levothyroxine 50 mcg tablet RxNorm: 819463 1 Tablet(s) PO daily TAKE ONE TABLET BY MOUTH DAILY 11/18/2016 07/21/2017 Inactive Novolog Flexpen 100 unit/mL subcutaneous RxNorm: 0528784 INJECT 20 UNITS UNDER THE SKIN BEFORE MEALS 10/02/20162016 Inactive liothyronine 5 mcg tablet RxNorm: 971192 TAKE ONE TABLET BY MOUTH DAILY 10/02/2016 11/17/2016 Inactive Tamiflu 75 mg capsule RxNorm: 418179 1 Capsule(s) PO BID 201607/30/2016 Inactive Tamiflu 75 mg capsule RxNorm: 525699 1 Capsule(s) PO BID 201608/04/2016 Inactive Zithromax Z-Bernabe 250 mg tablet RxNorm: 958434 1 Tablet(s) PO UD 07/30/2016 No Stop Date Active prednisone 20 mg tablet RxNorm: 735241 2 Tablet(s) PO daily 08/03/2016 Inactive BD Ultra-Fine Ada Pen [place] 32 gauge x 5/32" RxNorm: USE 1 FOUR TIMES A DAY 07/08/2016 11/17/2016 Inactive Dx) E11.9 doxycycline hyclate 100 mg capsule RxNorm: 5567990 1 Capsule(s) PO BID 06/04/2016 02/16/2017 Inactive Kenalog 40 mg/mL suspension for injection RxNorm: 7105594 Milliliter(s) Inj 06/04/2016 06/04/2016 Inactive gemfibrozil 600 mg tablet RxNorm: 935157 TAKE ONE TABLET BY MOUTH TWICE A DAY 05/09/2016 03/11/2017 Inactive quinapril 40 mg tablet RxNorm: 637246 TAKE ONE TABLET BY MOUTH DAILY 04/28/2016 02/25/2017 Inactive Novolog Flexpen 100 unit/mL subcutaneous RxNorm: 5540119 INJECT 20 UNITS UNDER THE SKIN BEFORE MEALS 04/28/20162016 Inactive Novolog Flexpen 100 unit/mL subcutaneous RxNorm: 6371512 INJECT 20 UNITS UNDER THE SKIN BEFORE MEALS 04/28/20162015 Inactive Diamox Sequels 500 mg capsule,extended release RxNorm: 287311 1 Capsule(s) PO daily 02/25/2016 03/05/2016 Inactive liothyronine 5 mcg tablet RxNorm: 063530 1 Tablet(s) PO daily TAKE ONE TABLET BY MOUTH DAILY 02/25/2016 08/22/2016 Inactive Diamox Sequels 500 mg capsule,extended release RxNorm: 019956 1 Capsule(s) PO daily 02/25/2016 02/24/2016 Inactive Toujeo SoloStar 300 unit/mL (1.5 mL) subcutaneous insulin pen RxNorm: 2008112 25 Unit(s) SQ QHS 02/25/2016 08/22/2016 Inactive BD Ultra-Fine Ada Pen [place] 32 gauge x 5/32" RxNorm: USE 1 FOUR TIMES A DAY 02/07/2016 07/07/2016 Inactive Kenalog 40 mg/mL suspension for injection RxNorm: 2790195 Milliliter(s) Inj 01/17/2016 01/17/2016 Inactive doxycycline hyclate 100 mg capsule RxNorm: 4959617 1 Capsule(s) PO BID 01/03/2016 01/02/2016 Inactive doxycycline hyclate 100 mg capsule RxNorm: 5334346 1 Capsule(s) PO BID 01/03/2016 01/12/2016 Inactive atorvastatin 20 mg tablet RxNorm: 411832 TAKE ONE TABLET BY MOUTH DAILY 12/18/2015 06/14/2016 Inactive levothyroxine 50 mcg tablet RxNorm: 627972 TAKE ONE TABLET BY MOUTH DAILY 12/18/2015 06/14/2016 Inactive atorvastatin 20 mg tablet RxNorm: 072576 TAKE ONE TABLET BY MOUTH DAILY 12/17/2015 08/12/2016 Inactive levothyroxine 50 mcg tablet RxNorm: 321710 TAKE ONE TABLET BY MOUTH DAILY 12/17/2015 12/17/2015 Inactive levothyroxine 50 mcg tablet RxNorm: 178931 TAKE ONE TABLET BY MOUTH DAILY 12/17/2015 12/16/2015 Inactive atorvastatin 20 mg tablet RxNorm: 255944 TAKE ONE TABLET BY MOUTH DAILY 12/17/2015 12/17/2015 Inactive levothyroxine 50 mcg tablet RxNorm: 852042 TAKE ONE TABLET BY MOUTH DAILY 12/17/2015 12/16/2015 Inactive atorvastatin 20 mg tablet RxNorm: 096376 TAKE ONE TABLET BY MOUTH DAILY 12/17/2015 12/16/2015 Inactive Novolog Flexpen 100 unit/mL subcutaneous RxNorm: 4741984 INJECT 20 UNITS UNDER THE SKIN BEFORE MEALS 10/30/20152015 Inactive liothyronine 5 mcg tablet RxNorm: 212959 TAKE ONE TABLET BY MOUTH DAILY 10/16/2015 02/12/2016 Inactive Tessalon Perles 100 mg capsule RxNorm: 129901 1 -2 Capsule(s) PO TID as needed 09/13/2015 09/22/2015 Inactive Kenalog 40 mg/mL suspension for injection RxNorm: 7534826 Milliliter(s) Inj 09/13/2015 09/13/2015 Inactive Levaquin 500 mg tablet RxNorm: 023985 1 Tablet(s) PO daily 09/19/2015 Inactive levothyroxine 50 mcg tablet RxNorm: 353011 TAKE ONE TABLET BY MOUTH DAILY 06/11/2015 10/08/2015 Inactive atorvastatin 20 mg tablet RxNorm: 081009 TAKE ONE TABLET BY MOUTH DAILY 06/11/2015 10/08/2015 Inactive gemfibrozil 600 mg tablet RxNorm: 296722 1 Tablet(s) PO BID 10/05/2015 Inactive quinapril 40 mg tablet RxNorm: 203417 TAKE ONE TABLET BY MOUTH DAILY 05/09/2015 04/27/2016 Inactive gemfibrozil 600 mg tablet RxNorm: 195906 TAKE ONE TABLET BY MOUTH TWICE A DAY 05/09/2015 05/02/2016 Inactive Novolog Flexpen 100 unit/mL subcutaneous RxNorm: 2424394 20 Unit(s) SQ AC 04/11/2015 10/29/2015 Inactive Breeze 2 Test Strips RxNorm: 1 Miscellaneous TID 03/19/2015 11/17/2016 Inactive DX E11.9 100 strips Breeze 2 Test Strips RxNorm: 1 Miscellaneous TID 03/19/2015 03/18/2015 Inactive DX E11.9 BD Ultra-Fine Ada Pen [place] 32 gauge x 5/32" RxNorm: USE 1 FOUR TIMES A DAY 03/14/2015 02/06/2016 Inactive Toujeo SoloStar 300 unit/mL (1.5 mL) subcutaneous insulin pen RxNorm: 9758034 25 Unit(s) SQ QHS 03/06/2015 07/03/2015 Inactive triamcinolone acetonide 55 mcg nasal spray aerosol RxNorm: 8156806 2 [place] in each NASAL daily 02/23/2015 07/22/2015 Inactive liothyronine 5 mcg tablet RxNorm: 865636 1 Tablet(s) PO daily 02/23/2015 10/15/2015 Inactive triamcinolone acetonide 55 mcg nasal spray aerosol RxNorm: 8749594 2 [place] in each NASAL daily 02/23/2015 02/22/2015 Inactive quinapril 40 mg tablet RxNorm: 464002 TAKE ONE TABLET BY MOUTH DAILY 02/12/2015 05/08/2015 Inactive quinapril 40 mg tablet RxNorm: 523111 1 Tablet(s) PO daily 02/10/2015 Inactive atorvastatin 20 mg tablet RxNorm: 457861 1 Tablet(s) PO daily 12/25/2014 06/10/2015 Inactive levothyroxine 50 mcg tablet RxNorm: 227498 1 Tablet(s) PO daily 12/25/2014 06/10/2015 Inactive BD Ultra-Fine Ada Pen [place] 32 gauge x 5/32" RxNorm: USE 1 FOUR TIMES A DAY 12/22/2014 01/20/2015 Inactive gemfibrozil 600 mg tablet RxNorm: 245945 1 Tablet(s) PO BID 07/201412/13/2014 Inactive gemfibrozil 600 mg tablet RxNorm: 736262 1 Tablet(s) PO BID 07/201405/08/2015 Inactive Lantus Solostar 100 unit/mL (3 mL) subcutaneous insulin pen RxNorm: 106704 25 Unit(s) SQ QHS 11/15/2014 03/05/2015 Inactive WelChol 625 mg tablet RxNorm: 652344 3 Tablet(s) PO BID 201411/12/2014 Inactive WelChol 625 mg tablet RxNorm: 388609 3 Tablet(s) PO BID 201412/13/2014 Inactive BD Ultra-Fine Ada Pen [place] 32 x 5/32" RxNorm: 1 test Miscellaneous QID 11/02/2014 12/22/2014 Inactive dx 250.02 quinapril 40 mg tablet RxNorm: 160234 1 Tablet(s) PO daily 12/01/2014 Inactive liothyronine 5 mcg tablet RxNorm: 001506 1 Tablet(s) PO daily 11/02/2014 01/30/2015 Inactive levothyroxine 50 mcg tablet RxNorm: 032681 1 Tablet(s) PO daily 11/02/2014 12/24/2014 Inactive atorvastatin 20 mg tablet RxNorm: 210033 1 Tablet(s) PO daily 11/02/2014 12/24/2014 Inactive Novolog Flexpen 100 unit/mL subcutaneous RxNorm: 6496179 20 Unit(s) SQ AC 11/02/2014 04/10/2015 Inactive magnesium 500 mg tablet RxNorm: 1 Tablet(s) PO daily No Start Date Active Zyrtec 10 mg tablet RxNorm: 3109549 1 Tablet(s) PO No Start Date Active Nasacort nasal RxNorm : 545812 nasal No Start Date Active Centrum Silver oral RxNorm: 05223 oral No Start Date Active B Complex 1 oral RxNorm: 03419 oral No Start Date Active Lumigan 0.01 % eye drops RxNorm: 9420744 1 gtt ou Drop(s) OPH QHS No Start Date Active Cosopt 22.3 mg-6.8 mg/mL eye drops RxNorm: 584638 1 Drop(s) ou OPH BID No Start Date Active omeprazole 20 mg capsule,delayed release RxNorm: 210151 1 Capsule(s) PO daily No Start Date Active Aspirin Low Dose 81 mg tablet,delayed release RxNorm: 563906 1 Tablet(s) PO daily No Start Date Active docusate sodium 100 mg tablet RxNorm: 1621251 Tablet(s) PO No Start Date Active triamcinolone acetonide (bulk) 100 % powder RxNorm: miscellaneous No Start Date 02/23/2015 Inactive Lantus Solostar 100 unit/mL (3 mL) subcutaneous insulin pen RxNorm: 381441 20 Unit(s) SQ QHS No Start Date 11/14/2014 Inactive Medication Administered Medication Codes Instructions Start Date Status Kenalog 40 mg/mL suspension for injection RxNorm: 5689084 Milliliter 06/04/2016 No longer Active Kenalog 40 mg/mL suspension for injection RxNorm: 7089449 Milliliter 01/17/2016 No longer Active Kenalog 40 mg/mL suspension for injection RxNorm: 6740987 Milliliter 09/13/2015 No longer Active Immunizations Vaccine Codes Date Status Influenza CVX: 141 04/04/2017 completed Influenza CVX: 141 04/26/2016 completed Influenza CVX: 141 03/06/2015 completed Assessments Condition Codes Effective Dates Mixed hyperlipidemia ICD-10: E78.2 ICD-9: 272.2 05/22/2017 Type 2 diabetes mellitus without complications ICD-10: E11.9 ICD-9: 250.00 05/22/2017 Hypothyroidism, unspecified ICD-10: E03.9 ICD-9: 244.9 05/22/2017 Essential (primary) hypertension ICD-10: I10 ICD-9: 401.9 05/22/2017 Bilateral primary osteoarthritis of hip ICD-10: M16.0 ICD-9: 715.95 02/17/2017 Encounter for general adult medical examination with abnormal findings ICD-10: Z00.01 ICD-9: V70.0 11/19/2016 Cough ICD-10: R05 ICD-9: 786.2 11/18/2016 Mixed hyperlipidemia ICD-10: E78.2 ICD-9: 272.4 11/18/2016 Acute bronchitis, unspecified ICD-10: J20.9 ICD-9: 466.0 11/18/2016 Encounter for screening mammogram for malignant neoplasm of breast ICD-10: Z12.31 ICD-9: V76.12 08/12/2016 Acute laryngopharyngitis ICD-10: J06.0 ICD-9: 465.0 07/30/2016 Other acute sinusitis ICD-10: J01.80 ICD-9: 461.8 07/30/2016 Other allergic rhinitis ICD-10: J30.89 ICD-9: 477.8 07/30/2016 Headache ICD-10: R51 ICD-9: 784.0 01/17/2016 Allergic rhinitis due to pollen ICD-10: J30.1 ICD-9: 477.0 01/17/2016 Other effects of high altitude, initial encounter ICD-10: T70.29XA ICD-9: 993.2 01/17/2016 Morbid (severe) obesity due to excess calories ICD-10: E66.01 ICD-9: 278.01 01/01/2016 Acute recurrent maxillary sinusitis ICD-10: J01.01 ICD-9: 461.0 09/13/2015 Influenza vaccination administered at current visit ICD-9: V04.81 03/06/2015 ESSENTIAL HYPERTENSION ICD-9: 401.9 03/06 Diabetes mellitus ICD-9: 250.00 2014 Hypothyroidism ICD-9: 244.9 11/02/2014 Hyperlipidemia ICD-9: 272.4 11/02/2014 Reason For Visit Reason For Visit Effective Dates Notes diabetes mellitus 05/22/2017 diabetes mellitus 02/17/2017 Annual Medicare Wellness Exam 11/19/2016 diabetes mellitus 11/18/2016 diabetes mellitus 08/12/2016 sinus congestion 07/30/2016 sinus congestion 06/04/2016 diabetes mellitus 05/01/2016 headache 01/17/2016 diabetes mellitus 01/01/2016 diabetes mellitus 10/02/2015 cough 09/13/2015 diabetes mellitus 07/03/2015 diabetes mellitus 03/06/2015 diabetes mellitus 11/02/2014 Results Observation Observation Code Item Item Code Result Date Lipid Ord30 CHOL 172 mg/dL 05/22/2017 Lipid Ord30 HDL 55.0 mg/dl 05/22/2017 Lipid Ord30 TRIG 159 mg/dL 05/22/2017 Lipid Ord30 LDL 85 mg/dL 05/22/2017 Lipid Ord30 C/HDL 3.1 Ratio 05/22/2017 Free T4 Zvj617 FREE T4 0.70 ng/dL 05/22/2017 Comp Metabolic Nbd007 NA 139 mEq/L 05/22/2017 Comp Metabolic Qgu248 K 4.6 mEq/L 05/22/2017 Comp Metabolic Ama702 CL 104 mEq/L 05/22/2017 Comp Metabolic Ezr183 CO2 23.0 mEq/L 05/22/2017 Comp Metabolic Msq738 ANION GAP 17 05/22/2017 Comp Metabolic Xpv138 GLUCOSE 154 mg/dL 05/22/2017 Comp Metabolic Ayg121 Creat 1.6 mg/dL 05/22/2017 Comp Metabolic Dsl787 eGFR 34 ml/min/1.73m2 05/22/2017 Comp Metabolic Xfb321 BUN 40 mg/dL 05/22/2017 Comp Metabolic Khp186 B/C Ratio 24.5 Ratio 05/22/2017 Comp Metabolic Edz342 CALCIUM 9.7 mg/dL 05/22/2017 Comp Metabolic Zha341 ALK PHOS 111 U/L 05/22/2017 Comp Metabolic Wmb704 AST(SGOT) 24 U/L 05/22/2017 Comp Metabolic Toi029 ALT(SGPT) 13 U/L 05/22/2017 Comp Metabolic Nqt211 BILI T 0.7 mg/dL 05/22/2017 Comp Metabolic Xhj972 ALBUMIN 4.6 g/dL 05/22/2017 Comp Metabolic Sqy839 TPRO 6.9 g/dL 05/22/2017 Comp Metabolic Sti357 GLOB 2.3 g/dL 05/22/2017 Comp Metabolic Sbc938 A/G Ratio 2.1 Ratio 05/22/2017 Comp Metabolic Swa808 Osmo 290 mOsmo 05/22/2017 Cbc With Differential Ord2 WBC 6.47 K/ul 05/22/2017 Cbc With Differential Ord2 RBC 4.10 M/ul 05/22/2017 Cbc With Differential Ord2 HGB 13.1 g/dl 05/22/2017 Cbc With Differential Ord2 Neut% 63.8 % 05/22/2017 Cbc With Differential Ord2 HCT 39.9 % 05/22/2017 Cbc With Differential Ord2 Lymph% 20.6 % 05/22/2017 Cbc With Differential Ord2 MCV 97.3 fl 05/22/2017 Cbc With Differential Ord2 [place]% 10.5 % 05/22/2017 Cbc With Differential Ord2 MCH 32.0 pg 05/22/2017 Cbc With Differential Ord2 MCHC 32.8 pg 05/22/2017 Cbc With Differential Ord2 Eos% 4.3 % 05/22/2017 Cbc With Differential Ord2 PLT 220 K/ul 05/22/2017 Cbc With Differential Ord2 Baso% 0.8 % 05/22/2017 Cbc With Differential Ord2 RDW 13.9 % 05/22/2017 Cbc With Differential Ord2 Neut ABS# 4.13 K/ul 05/22/2017 Cbc With Differential Ord2 Lymph ABS# 1.33 K/ul 05/22/2017 Cbc With Differential Ord2 [place] ABS# 0.7 K/ul 05/22/2017 Cbc With Differential Ord2 Eos ABS# 0.3 K/ul 05/22/2017 Cbc With Differential Ord2 Baso ABS# 0.1 K/ul 05/22/2017 %Hba1C Hhj689 % HbA1c 88405-0 6.4 % 05/22/2017 %Hba1C Jjm267 Gluc Ave 137 mg/dL 05/22/2017 Tsh Ord6 hTSH II 3.09 uIU/mL 05/22/2017 Lipid Ord30 CHOL 170 mg/dL 11/18/2016 Lipid Ord30 HDL 51.0 mg/dl 11/18/2016 Lipid Ord30 TRIG 105 mg/dL 11/18/2016 Lipid Ord30 LDL 98 mg/dL 11/18/2016 Lipid Ord30 C/HDL 3.3 Ratio 11/18/2016 Comp Metabolic Pvc908 NA 139 mEq/L 11/18/2016 Comp Metabolic Occ377 K 5.2 mEq/L 11/18/2016 Comp Metabolic Fko262 CL 103 mEq/L 11/18/2016 Comp Metabolic Sfm438 CO2 27.0 mEq/L 11/18/2016 Comp Metabolic Fde521 ANION GAP 14 11/18/2016 Comp Metabolic Odj785 GLUCOSE 166 mg/dL 11/18/2016 Comp Metabolic Pws096 Creat 1.7 mg/dL 11/18/2016 Comp Metabolic Bfv072 eGFR 33 ml/min/1.73m2 11/18/2016 Comp Metabolic Aeb446 BUN 37 mg/dL 11/18/2016 Comp Metabolic Lxk069 B/C Ratio 22.2 Ratio 11/18/2016 Comp Metabolic Mtj131 CALCIUM 9.1 mg/dL 11/18/2016 Comp Metabolic Iyd111 ALK PHOS 106 U/L 11/18/2016 Comp Metabolic Yal219 AST(SGOT) 20 U/L 11/18/2016 Comp Metabolic Glr346 ALT(SGPT) 13 U/L 11/18/2016 Comp Metabolic Bmu467 BILI T 0.8 mg/dL 11/18/2016 Comp Metabolic Sfm907 ALBUMIN 4.1 g/dL 11/18/2016 Comp Metabolic Psf831 TPRO 6.5 g/dL 11/18/2016 Comp Metabolic Orn764 GLOB 2.4 g/dL 11/18/2016 Comp Metabolic Zix466 A/G Ratio 1.7 Ratio 11/18/2016 Comp Metabolic May203 Osmo 290 mOsmo 11/18/2016 %Hba1C Tbf553 % HbA1c 20378-9 6.6 % 11/18/2016 %Hba1C Dbh923 Gluc Ave 143 mg/dL 11/18/2016 Free T4 Wdh010 FREE T4 0.66 ng/dL 11/18/2016 Cbc With Differential Ord2 WBC 7.43 K/ul 11/18/2016 Cbc With Differential Ord2 RBC 4.02 M/ul 11/18/2016 Cbc With Differential Ord2 HGB 12.9 g/dl 11/18/2016 Cbc With Differential Ord2 Neut% 64.7 % 11/18/2016 Cbc With Differential Ord2 HCT 38.0 % 11/18/2016 Cbc With Differential Ord2 MCV 94.5 fl 11/18/2016 Cbc With Differential Ord2 Lymph% 22.6 % 11/18/2016 Cbc With Differential Ord2 [place]% 8.2 % 11/18/2016 Cbc With Differential Ord2 MCH 32.1 pg 11/18/2016 Cbc With Differential Ord2 MCHC 33.9 pg 11/18/2016 Cbc With Differential Ord2 Eos% 4.0 % 11/18/2016 Cbc With Differential Ord2 Baso% 0.5 % 11/18/2016 Cbc With Differential Ord2 PLT 277 K/ul 11/18/2016 Cbc With Differential Ord2 Neut ABS# 4.80 K/ul 11/18/2016 Cbc With Differential Ord2 RDW 12.9 % 11/18/2016 Cbc With Differential Ord2 Lymph ABS# 1.68 K/ul 11/18/2016 Cbc With Differential Ord2 [place] ABS# 0.6 K/ul 11/18/2016 Cbc With Differential Ord2 Eos ABS# 0.3 K/ul 11/18/2016 Cbc With Differential Ord2 Baso ABS# 0.0 K/ul 11/18/2016 Tsh Ord6 hTSH II 1.86 uIU/mL 11/18/2016 C A/B FLU 0755241 Influenza A Scr Positive 07/30/2016 C A/B FLU 0051267 Influenza B Scr Negative 07/30/2016 Review of Systems System Result Effective Dates Constitutional No recent illness 2016 Constitutional No anorexia 05/22/2017 Constitutional No night sweats 2016 Constitutional No chills 05/22/2017 Constitutional No diaphoresis 05/22/2017 Constitutional No fatigue 05/22/2017 Constitutional No fever 05/22/2017 Constitutional No insomnia 05/22/2017 Constitutional No malaise 05/22/2017 Constitutional No weight loss 05/22/2017 Constitutional No weight gain 05/22/2017 Eyes No blindness 05/22/2017 Eyes No eye erythema 05/22/2017 Eyes No vision change 05/22/2017 Ears/Nose/Throat/Neck No dizziness 2016 Ears/Nose/Throat/Neck No headache 2016 Ears/Nose/Throat/Neck nasal allergies 01/2017 Cardiovascular No chest pain/pressure 01/2017 Cardiovascular No dyspnea 05/22/2017 Cardiovascular No edema 05/22/2017 Cardiovascular No fatigue 05/22/2017 Respiratory No chest congestion 2016 Respiratory No chest tightness 2016 Respiratory No dyspnea 05/22/2017 Gastrointestinal No abdominal pain 2016 Gastrointestinal No dysphagia 05/22/2017 Gastrointestinal No nausea 05/22/2017 Gastrointestinal No vomiting 05/22/2017 Genitourinary/Nephrology No anuria/oliguria 05/22/2017 Genitourinary/Nephrology No dysuria 05/22 Musculoskeletal arthralgia(s) 05/22/2017 Dermatologic No rash 05/22/2017 Dermatologic No sores 05/22/2017 Neurologic No alteration of consciousness 05/22/2017 Neurologic No dizziness 05/22/2017 Neurologic No mental status change 2016 Psychiatric No anxiety 05/22/2017 Psychiatric No depression 05/22/2017 Hematologic/Lymphatic No abnormal ecchymoses 05/22/2017 Hematologic/Lymphatic No abnormal bleeding and bruising 05/22/2017 Ears/Nose/Throat/Neck nasal discharge 01/2017 Respiratory cough 05/22/2017 Constitutional No recent illness 2016 Constitutional No anorexia 02/17/2017 Constitutional No night sweats 2016 Constitutional No chills 02/17/2017 Constitutional No diaphoresis 02/17/2017 Constitutional No fatigue 02/17/2017 Constitutional No fever 02/17/2017 Constitutional No insomnia 02/17/2017 Constitutional No malaise 02/17/2017 Constitutional No weight loss 02/17/2017 Constitutional No weight gain 02/17/2017 Eyes No blindness 02/17/2017 Eyes No eye erythema 02/17/2017 Eyes No vision change 02/17/2017 Ears/Nose/Throat/Neck No dizziness 2016 Ears/Nose/Throat/Neck No headache 2016 Ears/Nose/Throat/Neck nasal allergies 10/2016 Cardiovascular No chest pain/pressure 10/2016 Cardiovascular No dyspnea 02/17/2017 Cardiovascular No edema 02/17/2017 Cardiovascular No fatigue 02/17/2017 Respiratory No chest congestion 2016 Respiratory No chest tightness 2016 Respiratory No dyspnea 02/17/2017 Gastrointestinal No abdominal pain 2016 Gastrointestinal No dysphagia 02/17/2017 Gastrointestinal No nausea 02/17/2017 Gastrointestinal No vomiting 02/17/2017 Genitourinary/Nephrology No anuria/oliguria 02/17/2017 Genitourinary/Nephrology No dysuria 02/17 Musculoskeletal arthralgia(s) 02/17/2017 Dermatologic No rash 02/17/2017 Dermatologic No sores 02/17/2017 Neurologic No alteration of consciousness 02/17/2017 Neurologic No dizziness 02/17/2017 Neurologic No mental status change 2016 Psychiatric No anxiety 02/17/2017 Psychiatric No depression 02/17/2017 Hematologic/Lymphatic No abnormal ecchymoses 02/17/2017 Hematologic/Lymphatic No abnormal bleeding and bruising 02/17/2017 Constitutional No chills 11/19/2016 Constitutional No diaphoresis 11/19/2016 Constitutional No fever 11/19/2016 Eyes No eye discharge 11/19/2016 Eyes No eye erythema 11/19/2016 Eyes No vision change 11/19/2016 Ears/Nose/Throat/Neck No nasal allergies 11/19/2016 Cardiovascular No chest pain/pressure 12/2016 Respiratory cough 11/19/2016 Gastrointestinal No abdominal pain 2016 Neurologic No alteration of consciousness 11/19/2016 Ears/Nose/Throat/Neck No nasal discharge 11/19/2016 Respiratory No dyspnea 11/19/2016 Neurologic No mental status change 2016 Constitutional recent illness 11/18/2016 Constitutional No anorexia 11/18/2016 Constitutional No night sweats 2016 Constitutional No chills 11/18/2016 Constitutional No diaphoresis 11/18/2016 Constitutional No fatigue 11/18/2016 Constitutional No fever 11/18/2016 Constitutional No insomnia 11/18/2016 Constitutional No malaise 11/18/2016 Constitutional No weight loss 11/18/2016 Constitutional No weight gain 11/18/2016 Eyes No eye discharge 11/18/2016 Eyes No eye erythema 11/18/2016 Eyes No vision change 11/18/2016 Ears/Nose/Throat/Neck No dizziness 2016 Ears/Nose/Throat/Neck No headache 2016 Ears/Nose/Throat/Neck No nasal allergies 11/18/2016 Ears/Nose/Throat/Neck No otalgia 2016 Ears/Nose/Throat/Neck No sinus congestion 11/18/2016 Ears/Nose/Throat/Neck No sore throat 11/2016 Cardiovascular No chest pain/pressure 11/2016 Respiratory cough 11/18/2016 Gastrointestinal No abdominal pain 2016 Gastrointestinal No constipation 2016 Gastrointestinal No diarrhea 11/18/2016 Gastrointestinal nausea 11/18/2016 Gastrointestinal No vomiting 11/18/2016 Genitourinary/Nephrology No dysuria 11/18 Musculoskeletal No joint complaint 2016 Dermatologic No rash 11/18/2016 Neurologic No alteration of consciousness 11/18/2016 Respiratory productive sputum 11/18/2016 Psychiatric No anxiety 11/18/2016 Constitutional recent illness 08/12/2016 Constitutional No anorexia 08/12/2016 Constitutional No night sweats 2016 Constitutional No chills 08/12/2016 Constitutional No diaphoresis 08/12/2016 Constitutional No fatigue 08/12/2016 Constitutional No fever 08/12/2016 Constitutional No insomnia 08/12/2016 Constitutional No malaise 08/12/2016 Constitutional No weight loss 08/12/2016 Constitutional No weight gain 08/12/2016 Eyes No blindness 08/12/2016 Eyes No eye erythema 08/12/2016 Eyes No vision change 08/12/2016 Ears/Nose/Throat/Neck No dizziness 2016 Ears/Nose/Throat/Neck No headache 2016 Ears/Nose/Throat/Neck nasal allergies Cardiovascular No chest pain/pressure Cardiovascular No dyspnea 08/12/2016 Cardiovascular No edema 08/12/2016 Cardiovascular No fatigue 08/12/2016 Respiratory No chest congestion 2016 Respiratory No chest tightness 2016 Respiratory No dyspnea 08/12/2016 Gastrointestinal No abdominal pain 2016 Gastrointestinal No dysphagia 08/12/2016 Gastrointestinal No nausea 08/12/2016 Gastrointestinal No vomiting 08/12/2016 Genitourinary/Nephrology No anuria/oliguria 08/12/2016 Genitourinary/Nephrology No dysuria 08/12 Musculoskeletal No stiffness 08/12/2016 Musculoskeletal No swelling 08/12/2016 Musculoskeletal No arthralgia(s) 2016 Dermatologic No rash 08/12/2016 Dermatologic No sores 08/12/2016 Neurologic No alteration of consciousness 08/12/2016 Neurologic No dizziness 08/12/2016 Neurologic No mental status change 2016 Psychiatric No anxiety 08/12/2016 Psychiatric No depression 08/12/2016 Hematologic/Lymphatic No abnormal ecchymoses 08/12/2016 Hematologic/Lymphatic No abnormal bleeding and bruising 08/12/2016 Constitutional recent illness 07/30/2016 Constitutional No chills 07/30/2016 Constitutional No diaphoresis 07/30/2016 Constitutional No fever 07/30/2016 Eyes No eye erythema 07/30/2016 Ears/Nose/Throat/Neck nasal allergies Ears/Nose/Throat/Neck nasal discharge Ears/Nose/Throat/Neck postnasal drip Ears/Nose/Throat/Neck sinus congestion Cardiovascular No chest pain/pressure Cardiovascular No dyspnea 07/30/2016 Respiratory No chest congestion 2016 Respiratory cough 07/30/2016 Respiratory No dyspnea 07/30/2016 Gastrointestinal No abdominal pain 2016 Gastrointestinal No constipation 2016 Gastrointestinal No diarrhea 07/30/2016 Gastrointestinal No nausea 07/30/2016 Gastrointestinal No vomiting 07/30/2016 Dermatologic No rash 07/30/2016 Neurologic No alteration of consciousness 07/30/2016 Neurologic No mental status change 2016 Ears/Nose/Throat/Neck headache 2016 Constitutional recent illness 06/04/2016 Constitutional No diaphoresis 06/04/2016 Constitutional No fever 06/04/2016 Eyes No eye erythema 06/04/2016 Ears/Nose/Throat/Neck nasal allergies Ears/Nose/Throat/Neck nasal discharge Ears/Nose/Throat/Neck postnasal drip Ears/Nose/Throat/Neck sinus congestion Cardiovascular No chest pain/pressure Cardiovascular No dyspnea 06/04/2016 Respiratory cough 06/04/2016 Respiratory No dyspnea 06/04/2016 Gastrointestinal No abdominal pain 2015 Dermatologic No rash 06/04/2016 Neurologic No alteration of consciousness 06/04/2016 Neurologic No mental status change 2015 Gastrointestinal No vomiting 06/04/2016 Gastrointestinal No nausea 06/04/2016 Constitutional No recent illness 2015 Constitutional No anorexia 05/01/2016 Constitutional No night sweats 2015 Constitutional No chills 05/01/2016 Constitutional No fever 05/01/2016 Constitutional No insomnia 05/01/2016 Constitutional No malaise 05/01/2016 Constitutional No weight loss 05/01/2016 Constitutional No weight gain 05/01/2016 Constitutional No diaphoresis 05/01/2016 Constitutional No fatigue 05/01/2016 Eyes No blindness 05/01/2016 Eyes No eye erythema 05/01/2016 Eyes No vision change 05/01/2016 Ears/Nose/Throat/Neck No dizziness 2015 Ears/Nose/Throat/Neck No headache 2015 Cardiovascular No chest pain/pressure Cardiovascular No dyspnea 05/01/2016 Cardiovascular No edema 05/01/2016 Cardiovascular No fatigue 05/01/2016 Respiratory No chest congestion 2015 Respiratory No chest tightness 2015 Respiratory No dyspnea 05/01/2016 Ears/Nose/Throat/Neck nasal allergies Gastrointestinal No abdominal pain 2015 Gastrointestinal No dysphagia 05/01/2016 Gastrointestinal No nausea 05/01/2016 Gastrointestinal No vomiting 05/01/2016 Genitourinary/Nephrology No dysuria 05/01 Genitourinary/Nephrology No anuria/oliguria 05/01/2016 Musculoskeletal No stiffness 05/01/2016 Musculoskeletal No swelling 05/01/2016 Musculoskeletal No arthralgia(s) 2015 Dermatologic No rash 05/01/2016 Dermatologic No sores 05/01/2016 Neurologic No alteration of consciousness 05/01/2016 Neurologic No dizziness 05/01/2016 Neurologic No mental status change 2015 Psychiatric No anxiety 05/01/2016 Psychiatric No depression 05/01/2016 Hematologic/Lymphatic No abnormal ecchymoses 05/01/2016 Hematologic/Lymphatic No abnormal bleeding and bruising 05/01/2016 Constitutional recent illness 01/17/2016 Constitutional No anorexia 01/17/2016 Constitutional No night sweats 2015 Constitutional No chills 01/17/2016 Constitutional No diaphoresis 01/17/2016 Constitutional fatigue 01/17/2016 Constitutional No fever 01/17/2016 Constitutional No insomnia 01/17/2016 Constitutional No malaise 01/17/2016 Constitutional No weight loss 01/17/2016 Constitutional No weight gain 01/17/2016 Eyes No eye discharge 01/17/2016 Eyes No eye erythema 01/17/2016 Eyes No vision change 01/17/2016 Ears/Nose/Throat/Neck No dizziness 2015 Ears/Nose/Throat/Neck headache 2015 Ears/Nose/Throat/Neck No nasal allergies 01/17/2016 Ears/Nose/Throat/Neck No otalgia 2015 Ears/Nose/Throat/Neck sinus congestion Ears/Nose/Throat/Neck No sore throat 09/2015 Cardiovascular No chest pain/pressure 09/2015 Respiratory No cough 01/17/2016 Gastrointestinal No abdominal pain 2015 Gastrointestinal No constipation 2015 Gastrointestinal No diarrhea 01/17/2016 Gastrointestinal nausea 01/17/2016 Gastrointestinal No vomiting 01/17/2016 Musculoskeletal No joint complaint 2015 Genitourinary/Nephrology No dysuria 01/16 Dermatologic No rash 01/17/2016 Neurologic No alteration of consciousness 01/17/2016 Constitutional No recent illness 2015 Constitutional No anorexia 01/01/2016 Constitutional No night sweats 2015 Constitutional No chills 01/01/2016 Constitutional No diaphoresis 01/01/2016 Constitutional No fatigue 01/01/2016 Constitutional No fever 01/01/2016 Constitutional No insomnia 01/01/2016 Constitutional No malaise 01/01/2016 Constitutional No weight loss 01/01/2016 Constitutional No weight gain 01/01/2016 Constitutional No obesity 01/01/2016 Eyes No eye discharge 01/01/2016 Eyes No eye erythema 01/01/2016 Ears/Nose/Throat/Neck nasal allergies Ears/Nose/Throat/Neck nasal discharge Ears/Nose/Throat/Neck No otalgia 2015 Ears/Nose/Throat/Neck sinus congestion Ears/Nose/Throat/Neck No sore throat Cardiovascular No chest pain/pressure Cardiovascular No dyspnea 01/01/2016 Respiratory No chest tightness 2015 Respiratory No cigarette smoking 2015 Respiratory No dyspnea 01/01/2016 Gastrointestinal No abdominal pain 2015 Gastrointestinal No constipation 2015 Genitourinary/Nephrology No dysuria 12/31 Musculoskeletal No joint complaint 2015 Musculoskeletal No muscle weakness 2015 Musculoskeletal No myalgias 01/01/2016 Dermatologic No rash 01/01/2016 Dermatologic No sores 01/01/2016 Ears/Nose/Throat/Neck No dizziness 2015 Ears/Nose/Throat/Neck No headache 2015 Gastrointestinal No diarrhea 01/01/2016 Gastrointestinal No vomiting 01/01/2016 Gastrointestinal No odynophagia 2015 Neurologic No alteration of consciousness 01/01/2016 Psychiatric No depression 01/01/2016 Constitutional No recent illness 2015 Constitutional No anorexia 10/02/2015 Constitutional No night sweats 2015 Constitutional No chills 10/02/2015 Constitutional No diaphoresis 10/02/2015 Constitutional No fatigue 10/02/2015 Constitutional No fever 10/02/2015 Constitutional No insomnia 10/02/2015 Constitutional No malaise 10/02/2015 Constitutional No weight loss 10/02/2015 Constitutional No weight gain 10/02/2015 Constitutional obesity 10/02/2015 Eyes No vision change 10/02/2015 Ears/Nose/Throat/Neck No dizziness 2015 Ears/Nose/Throat/Neck No nasal allergies 10/02/2015 Ears/Nose/Throat/Neck No nasal discharge 10/02/2015 Cardiovascular edema 10/02/2015 Respiratory No chest congestion 2015 Respiratory No chest tightness 2015 Respiratory No cigarette smoking 2015 Respiratory No cough 10/02/2015 Gastrointestinal No constipation 2015 Gastrointestinal No diarrhea 10/02/2015 Genitourinary/Nephrology No dysuria 10/01 Musculoskeletal No bone pain 10/02/2015 Musculoskeletal No joint complaint 2015 Musculoskeletal No muscle weakness 2015 Musculoskeletal No myalgias 10/02/2015 Dermatologic No rash 10/02/2015 Dermatologic No sores 10/02/2015 Psychiatric No anxiety 10/02/2015 Psychiatric No depression 10/02/2015 Constitutional No recent illness 2015 Constitutional No anorexia 09/13/2015 Constitutional No night sweats 2015 Constitutional No chills 09/13/2015 Constitutional No diaphoresis 09/13/2015 Constitutional No fatigue 09/13/2015 Constitutional No fever 09/13/2015 Constitutional No insomnia 09/13/2015 Constitutional No malaise 09/13/2015 Constitutional No weight loss 09/13/2015 Constitutional No weight gain 09/13/2015 Constitutional No obesity 09/13/2015 Respiratory cough 09/13/2015 Respiratory productive sputum 09/13/2015 Respiratory No cigarette smoking 2015 Respiratory No chest tightness 2015 Respiratory chest congestion 09/13/2015 Respiratory dyspnea on exertion 2015 Respiratory No dyspnea 09/13/2015 Cardiovascular No chest pain/pressure Cardiovascular No dyspnea 09/13/2015 Ears/Nose/Throat/Neck nasal allergies Ears/Nose/Throat/Neck nasal discharge Ears/Nose/Throat/Neck headache 2015 Ears/Nose/Throat/Neck No otalgia 2015 Ears/Nose/Throat/Neck sinus congestion Ears/Nose/Throat/Neck No sore throat Ears/Nose/Throat/Neck otitis media 2015 Ears/Nose/Throat/Neck postnasal drip Eyes No eye discharge 09/13/2015 Eyes No eye erythema 09/13/2015 Gastrointestinal No constipation 2015 Gastrointestinal diarrhea 09/13/2015 Gastrointestinal No abdominal pain 2015 Genitourinary/Nephrology No dysuria 09/12 Musculoskeletal No myalgias 09/13/2015 Musculoskeletal No muscle weakness 2015 Musculoskeletal No joint complaint 2015 Dermatologic No rash 09/13/2015 Dermatologic No sores 09/13/2015 Constitutional No recent illness 2015 Constitutional No anorexia 07/03/2015 Constitutional No night sweats 2015 Constitutional No chills 07/03/2015 Constitutional No diaphoresis 07/03/2015 Constitutional No fatigue 07/03/2015 Constitutional No fever 07/03/2015 Constitutional No insomnia 07/03/2015 Constitutional No malaise 07/03/2015 Constitutional No weight loss 07/03/2015 Constitutional No weight gain 07/03/2015 Constitutional obesity 07/03/2015 Eyes No vision change 07/03/2015 Ears/Nose/Throat/Neck No nasal allergies 07/03/2015 Ears/Nose/Throat/Neck No nasal discharge 07/03/2015 Ears/Nose/Throat/Neck No dizziness 2015 Cardiovascular edema 07/03/2015 Respiratory No cough 07/03/2015 Respiratory No cigarette smoking 2015 Respiratory No chest congestion 2015 Respiratory No chest tightness 2015 Gastrointestinal No constipation 2015 Gastrointestinal No diarrhea 07/03/2015 Musculoskeletal No bone pain 07/03/2015 Musculoskeletal No joint complaint 2015 Musculoskeletal No myalgias 07/03/2015 Musculoskeletal No muscle weakness 2015 Genitourinary/Nephrology No dysuria 07/03 Dermatologic No rash 07/03/2015 Dermatologic No sores 07/03/2015 Psychiatric No depression 07/03/2015 Psychiatric No anxiety 07/03/2015 Constitutional night sweats 03/06/2015 Constitutional No chills 03/06/2015 Constitutional No anorexia 03/06/2015 Constitutional No recent illness 2014 Constitutional weight loss 03/06/2015 Constitutional No weight gain 03/06/2015 Constitutional obesity 03/06/2015 Constitutional No malaise 03/06/2015 Constitutional No insomnia 03/06/2015 Constitutional No fever 03/06/2015 Constitutional No fatigue 03/06/2015 Constitutional No diaphoresis 03/06/2015 Eyes No vision change 03/06/2015 Ears/Nose/Throat/Neck nasal allergies Ears/Nose/Throat/Neck No nasal discharge 03/06/2015 Ears/Nose/Throat/Neck No nasal pain 03/06 Ears/Nose/Throat/Neck No otalgia 2014 Ears/Nose/Throat/Neck No otitis media Ears/Nose/Throat/Neck No postnasal drip 03/06/2015 Cardiovascular No chest pain/pressure Cardiovascular No palpitations 2014 Cardiovascular No exercise intolerance Cardiovascular No orthopnea 03/06/2015 Cardiovascular No fatigue 03/06/2015 Respiratory No chest congestion 2014 Respiratory No cigarette smoking 2014 Respiratory No chest tightness 2014 Respiratory No productive sputum 2014 Respiratory No dyspnea 03/06/2015 Respiratory No nocturnal cough 2014 Gastrointestinal No constipation 2014 Gastrointestinal No diarrhea 03/06/2015 Gastrointestinal No nausea 03/06/2015 Gastrointestinal No melena 03/06/2015 Gastrointestinal No vomiting 03/06/2015 Genitourinary/Nephrology No dysuria 03/06 Genitourinary/Nephrology nocturia 2014 Genitourinary/Nephrology No polyuria Musculoskeletal No arthralgia(s) 2014 Musculoskeletal No myalgias 03/06/2015 Musculoskeletal No joint complaint 2014 Musculoskeletal No swelling 03/06/2015 Dermatologic No rash 03/06/2015 Dermatologic No sores 03/06/2015 Psychiatric No anxiety 03/06/2015 Psychiatric No depression 03/06/2015 Endocrine diabetes mellitus type 2 2014 Constitutional No recent illness 2014 Constitutional No anorexia 11/02/2014 Constitutional No night sweats 2014 Constitutional No chills 11/02/2014 Constitutional No diaphoresis 11/02/2014 Constitutional No fatigue 11/02/2014 Constitutional No fever 11/02/2014 Constitutional No insomnia 11/02/2014 Constitutional No malaise 11/02/2014 Constitutional No weight loss 11/02/2014 Constitutional No weight gain 11/02/2014 Eyes No eye discharge 11/02/2014 Eyes No eye erythema 11/02/2014 Ears/Nose/Throat/Neck No dizziness 2014 Ears/Nose/Throat/Neck No headache 2014 Cardiovascular No chest pain/pressure Cardiovascular No dyspnea 11/02/2014 Cardiovascular No edema 11/02/2014 Respiratory No cough 11/02/2014 Gastrointestinal No abdominal pain 2014 Gastrointestinal No constipation 2014 Gastrointestinal No diarrhea 11/02/2014 Genitourinary/Nephrology No dysuria 11/02 Musculoskeletal No joint complaint 2014 Dermatologic No rash 11/02/2014 Dermatologic No sores 11/02/2014 Neurologic No alteration of consciousness 11/02/2014 Psychiatric No anxiety 11/02/2014 Psychiatric No depression 11/02/2014 Physical Exam Exam Name System Name Item Name Status Result Effective Dates Notes Full Exam - General 1994 Constitutional general appearance Development: well developed 05/22/2017 None Full Exam - General 1994 Constitutional general appearance Development: appears stated age 1205/22/2017 None Full Exam - General 1994 Constitutional general appearance Overall: in no acute distress 05/22/2017 None Full Exam - General 1994 Constitutional general appearance Overall: well nourished 05/22/2017 None Full Exam - General 1994 Constitutional general appearance Nourishment: obese 05/22/2017 None Full Exam - General 1994 Constitutional general appearance Hygiene/Attention to Grooming: good hygiene 05/22/2017 None Full Exam - General 1994 Eyes conjunctiva /eyelids Overall: conjunctiva clear 05/22/2017 None Full Exam - General 1994 Eyes conjunctiva /eyelids Overall: cornea clear 05/22/2017 None Full Exam - General 1994 Eyes conjunctiva /eyelids Overall: eyelids normal 05/22/2017 None Full Exam - General 1994 Eyes pupils and irises Overall: pupils equal, round, reactive to light and accomodation 05/22/2017 None Full Exam - General 1994 Ears/Nose/Throat external ear Overall: normal appearance 05/22/2017 None Full Exam - General 1994 Ears/Nose/Throat external ear Overall: no masses 05/22/2017 None Full Exam - General 1994 Ears/Nose/Throat external ear Overall: normal mastoids 05/22/2017 None Full Exam - General 1994 Ears/Nose/Throat otoscopic exam Overall: external auditory canals clear 05/22/2017 None Full Exam - General 1994 Ears/Nose/Throat otoscopic exam Overall: tympanic membranes clear 05/22/2017 None Full Exam - General 1994 Ears/Nose/Throat otoscopic exam External auditory canal: minimal cerumen 05/22/2017 None Full Exam - General 1994 Ears/Nose/Throat otoscopic exam Tympanic membrane: air- fluid level 05/22/2017 None Full Exam - General 1994 Ears/Nose/Throat lips/teeth/gingiva Overall: benign lips 05/22/2017 None Full Exam - General 1995 Ears/Nose/Throat lips/teeth/gingiva Overall: normal dentition 05/22/2017 None Full Exam - General 1994 Ears/Nose/Throat lips/teeth/gingiva Overall: benign gingiva 05/22/2017 None Full Exam - General 1994 Ears/Nose/Throat lips/teeth/gingiva Overall: no masses 05/22/2017 None Full Exam - General 1994 Ears/Nose/Throat oral cavity/pharynx/larynx Overall: oral mucosa clear 05/22/2017 None Full Exam - General 1994 Ears/Nose/Throat oral cavity/pharynx/larynx Overall: oropharyngeal mucosa clear 05/22/2017 None Full Exam - General 1994 Ears/Nose/Throat oral cavity/pharynx/larynx Overall: no masses 05/22/2017 None Full Exam - General 1994 Respiratory auscultation Overall: breath sounds clear bilaterally 05/22/2017 None Full Exam - General 1994 Respiratory respiratory effort/rhythm Overall: no retractions 05/22/2017 None Full Exam - General 1994 Respiratory respiratory effort/rhythm Overall: normal rate 05/22/2017 None Full Exam - General 1994 Cardiovascular extremities Overall: no clubbing 05/22/2017 None Full Exam - General 1994 Cardiovascular auscultation of heart Overall: regular rate 05/22/2017 None Full Exam - General 1994 Cardiovascular auscultation of heart Overall: normal heart sounds 05/22/2017 None Full Exam - General 1994 Cardiovascular auscultation of heart Overall: no murmurs 05/22/2017 None Full Exam - General 1994 Abdomen abdominal exam Overall: no tenderness 05/22/2017 None Full Exam - General 1994 Abdomen abdominal exam Overall: normal bowel sounds 05/22/2017 None Full Exam - General 1994 Musculoskeletal gait and station Overall: normal gait 05/22/2017 None Full Exam - General 1994 Musculoskeletal gait and station Overall: normal station 05/22/2017 None Full Exam - General 1994 Integument inspection of skin Overall: few scattered moles, no gross abnormalities 05/22/2017 None Full Exam - General 1994 Neurologic mental status Overall: alert 05/22/2017 None Full Exam - General 1994 Neurologic mental status Overall: oriented 05/22/2017 None Full Exam - General 1994 Psychiatric orientation/consciousness Overall: oriented to person, place and time 05/22/2017 None Full Exam - General 1994 Psychiatric behavior/psychomotor activity Overall: no tics, normal psychomotor activity 05/22/2017 None Full Exam - General 1994 Psychiatric mood and affect Overall: normal mood and affect 05/22/2017 None Full Exam - General 1994 Psychiatric mood and affect Mood: happy 05/22/2017 None Full Exam - General 1994 Psychiatric appearance Overall: well-groomed, good eye contact 05/22/2017 None Full Exam - General 1994 Psychiatric thought Overall: normal form and content 05/22/2017 None Full Exam - General 1994 Constitutional general appearance Development: well developed 02/17/2017 None Full Exam - General 1994 Constitutional general appearance Development: appears stated age 0902/17/2017 None Full Exam - General 1994 Constitutional general appearance Overall: in no acute distress 02/17/2017 None Full Exam - General 1994 Constitutional general appearance Overall: well nourished 02/17/2017 None Full Exam - General 1994 Constitutional general appearance Nourishment: obese 02/17/2017 None Full Exam - General 1994 Constitutional general appearance Hygiene/Attention to Grooming: good hygiene 02/17/2017 None Full Exam - General 1994 Eyes conjunctiva /eyelids Overall: conjunctiva clear 02/17/2017 None Full Exam - General 1994 Eyes conjunctiva /eyelids Overall: cornea clear 02/17/2017 None Full Exam - General 1994 Eyes conjunctiva /eyelids Overall: eyelids normal 02/17/2017 None Full Exam - General 1994 Eyes pupils and irises Overall: pupils equal, round, reactive to light and accomodation 02/17/2017 None Full Exam - General 1994 Ears/Nose/Throat external ear Overall: normal appearance 02/17/2017 None Full Exam - General 1994 Ears/Nose/Throat external ear Overall: no masses 02/17/2017 None Full Exam - General 1994 Ears/Nose/Throat external ear Overall: normal mastoids 02/17/2017 None Full Exam - General 1994 Ears/Nose/Throat otoscopic exam Overall: external auditory canals clear 02/17/2017 None Full Exam - General 1994 Ears/Nose/Throat otoscopic exam Overall: tympanic membranes clear 02/17/2017 None Full Exam - General 1994 Ears/Nose/Throat otoscopic exam External auditory canal: minimal cerumen 02/17/2017 None Full Exam - General 1994 Ears/Nose/Throat otoscopic exam Tympanic membrane: air- fluid level 02/17/2017 None Full Exam - General 1994 Ears/Nose/Throat lips/teeth/gingiva Overall: benign lips 02/17/2017 None Full Exam - General 1995 Ears/Nose/Throat lips/teeth/gingiva Overall: normal dentition 02/17/2017 None Full Exam - General 1994 Ears/Nose/Throat lips/teeth/gingiva Overall: benign gingiva 02/17/2017 None Full Exam - General 1994 Ears/Nose/Throat lips/teeth/gingiva Overall: no masses 02/17/2017 None Full Exam - General 1994 Ears/Nose/Throat oral cavity/pharynx/larynx Overall: oral mucosa clear 02/17/2017 None Full Exam - General 1994 Ears/Nose/Throat oral cavity/pharynx/larynx Overall: oropharyngeal mucosa clear 02/17/2017 None Full Exam - General 1994 Ears/Nose/Throat oral cavity/pharynx/larynx Overall: no masses 02/17/2017 None Full Exam - General 1994 Respiratory auscultation Overall: breath sounds clear bilaterally 02/17/2017 None Full Exam - General 1994 Respiratory respiratory effort/rhythm Overall: no retractions 02/17/2017 None Full Exam - General 1994 Respiratory respiratory effort/rhythm Overall: normal rate 02/17/2017 None Full Exam - General 1994 Cardiovascular extremities Overall: no clubbing 02/17/2017 None Full Exam - General 1994 Cardiovascular auscultation of heart Overall: regular rate 02/17/2017 None Full Exam - General 1994 Cardiovascular auscultation of heart Overall: normal heart sounds 02/17/2017 None Full Exam - General 1994 Cardiovascular auscultation of heart Overall: no murmurs 02/17/2017 None Full Exam - General 1994 Abdomen abdominal exam Overall: no tenderness 02/17/2017 None Full Exam - General 1994 Abdomen abdominal exam Overall: normal bowel sounds 02/17/2017 None Full Exam - General 1994 Musculoskeletal gait and station Overall: normal gait 02/17/2017 None Full Exam - General 1994 Musculoskeletal gait and station Overall: normal station 02/17/2017 None Full Exam - General 1994 Integument inspection of skin Overall: few scattered moles, no gross abnormalities 02/17/2017 None Full Exam - General 1994 Neurologic mental status Overall: alert 02/17/2017 None Full Exam - General 1994 Neurologic mental status Overall: oriented 02/17/2017 None Full Exam - General 1994 Psychiatric orientation/consciousness Overall: oriented to person, place and time 02/17/2017 None Full Exam - General 1994 Psychiatric behavior/psychomotor activity Overall: no tics, normal psychomotor activity 02/17/2017 None Full Exam - General 1994 Psychiatric mood and affect Overall: normal mood and affect 02/17/2017 None Full Exam - General 1994 Psychiatric mood and affect Mood: happy 02/17/2017 None Full Exam - General 1994 Psychiatric appearance Overall: well-groomed, good eye contact 02/17/2017 None Full Exam - General 1994 Psychiatric thought Overall: normal form and content 02/17/2017 None Full Exam - General 1994 Constitutional general appearance Overall: well developed 11/19/2016 None Full Exam - General 1994 Constitutional general appearance Overall: in no acute distress 11/19/2016 None Full Exam - General 1994 Constitutional general appearance Overall: well nourished 11/19/2016 None Full Exam - General 1994 Constitutional general appearance Nourishment: obese 11/19/2016 None Full Exam - General 1994 Constitutional general appearance Evidence of Distress: in no acute distress 11/19/2016 None Full Exam - General 1994 Constitutional general appearance Hygiene/Attention to Grooming: good hygiene 11/19/2016 None Full Exam - General 1994 Eyes conjunctiva /eyelids Overall: conjunctiva clear 11/19/2016 None Full Exam - General 1994 Ears/Nose/Throat lips/teeth/gingiva Overall: benign lips 11/19/2016 None Full Exam - General 1994 Ears/Nose/Throat oral cavity/pharynx/larynx Overall: oral mucosa clear 11/19/2016 None Full Exam - General 1994 Respiratory respiratory effort/rhythm Overall: no retractions 11/19/2016 None Full Exam - General 1994 Respiratory respiratory effort/rhythm Overall: normal rate 11/19/2016 None Full Exam - General 1994 Musculoskeletal gait and station Overall: normal gait 11/19/2016 None Full Exam - General 1994 Musculoskeletal gait and station Overall: normal station 11/19/2016 None Full Exam - General 1994 Psychiatric orientation/consciousness Overall: oriented to person, place and time 11/19/2016 None Full Exam - General 1994 Psychiatric mood and affect Overall: normal mood and affect 11/19/2016 None Full Exam - General 1994 Psychiatric mood and affect Mood: happy 11/19/2016 None Full Exam - General 1994 Psychiatric appearance Overall: well-groomed, good eye contact 11/19/2016 None Full Exam - General 1994 Eyes conjunctiva /eyelids Overall: eyelids normal 11/19/2016 None Full Exam - General 1994 Musculoskeletal head and neck Overall: head atraumatic 11/19/2016 None Full Exam - General 1994 Constitutional general appearance Overall: well developed 11/18/2016 None Full Exam - General 1994 Constitutional general appearance Overall: in no acute distress 11/18/2016 None Full Exam - General 1994 Constitutional general appearance Overall: well nourished 11/18/2016 None Full Exam - General 1994 Constitutional general appearance Nourishment: obese 11/18/2016 None Full Exam - General 1994 Constitutional general appearance Evidence of Distress: in no acute distress 11/18/2016 None Full Exam - General 1994 Constitutional general appearance Hygiene/Attention to Grooming: good hygiene 11/18/2016 None Full Exam - General 1994 Eyes conjunctiva /eyelids Overall: conjunctiva clear 11/18/2016 None Full Exam - General 1994 Eyes conjunctiva /eyelids Overall: cornea clear 11/18/2016 None Full Exam - General 1994 Eyes conjunctiva /eyelids Overall: eyelids normal 11/18/2016 None Full Exam - General 1994 Eyes pupils and irises Overall: pupils equal, round, reactive to light and accomodation 11/18/2016 None Full Exam - General 1994 Ears/Nose/Throat external ear Overall: normal appearance 11/18/2016 None Full Exam - General 1994 Ears/Nose/Throat external ear Overall: no masses 11/18/2016 None Full Exam - General 1995 Ears/Nose/Throat external ear Overall: normal mastoids 11/18/2016 None Full Exam - General 1994 Ears/Nose/Throat otoscopic exam External auditory canal: minimal cerumen 11/18/2016 None Full Exam - General 1994 Ears/Nose/Throat otoscopic exam Tympanic membrane: air- fluid level 11/18/2016 None Full Exam - General 1994 Ears/Nose/Throat lips/teeth/gingiva Overall: benign lips 11/18/2016 None Full Exam - General 1994 Ears/Nose/Throat lips/teeth/gingiva Overall: normal dentition 11/18/2016 None Full Exam - General 1994 Ears/Nose/Throat lips/teeth/gingiva Overall: benign gingiva 11/18/2016 None Full Exam - General 1995 Ears/Nose/Throat lips/teeth/gingiva Overall: no masses 11/18/2016 None Full Exam - General 1995 Ears/Nose/Throat oral cavity/pharynx/larynx Overall: oral mucosa clear 11/18/2016 None Full Exam - General 1995 Ears/Nose/Throat oral cavity/pharynx/larynx Overall: oropharyngeal mucosa clear 11/18/2016 None Full Exam - General 1995 Ears/Nose/Throat oral cavity/pharynx/larynx Overall: no masses 11/18/2016 None Full Exam - General 1994 Respiratory auscultation Overall: breath sounds clear bilaterally 11/18/2016 None Full Exam - General 1994 Respiratory respiratory effort/rhythm Overall: no retractions 11/18/2016 None Full Exam - General 1994 Respiratory respiratory effort/rhythm Overall: normal rate 11/18/2016 None Full Exam - General 1994 Cardiovascular extremities Overall: no clubbing 11/18/2016 None Full Exam - General 1994 Cardiovascular auscultation of heart Overall: regular rate 11/18/2016 None Full Exam - General 1994 Cardiovascular auscultation of heart Overall: normal heart sounds 11/18/2016 None Full Exam - General 1994 Cardiovascular auscultation of heart Overall: no murmurs 11/18/2016 None Full Exam - General 1994 Abdomen abdominal exam Overall: no tenderness 11/18/2016 None Full Exam - General 1994 Abdomen abdominal exam Overall: normal bowel sounds 11/18/2016 None Full Exam - General 1994 Musculoskeletal gait and station Overall: normal gait 11/18/2016 None Full Exam - General 1994 Musculoskeletal gait and station Overall: normal station 11/18/2016 None Full Exam - General 1994 Integument inspection of skin Overall: few scattered moles, no gross abnormalities 11/18/2016 None Full Exam - General 1994 Psychiatric orientation/consciousness Overall: oriented to person, place and time 11/18/2016 None Full Exam - General 1994 Psychiatric behavior/psychomotor activity Overall: no tics, normal psychomotor activity 11/18/2016 None Full Exam - General 1994 Psychiatric mood and affect Overall: normal mood and affect 11/18/2016 None Full Exam - General 1994 Psychiatric mood and affect Mood: happy 11/18/2016 None Full Exam - General 1994 Psychiatric appearance Overall: well-groomed, good eye contact 11/18/2016 None Full Exam - General 1994 Constitutional general appearance Development: well developed 08/12/2016 None Full Exam - General 1994 Constitutional general appearance Development: appears stated age 0208/12/2016 None Full Exam - General 1994 Constitutional general appearance Overall: in no acute distress 08/12/2016 None Full Exam - General 1994 Constitutional general appearance Overall: well nourished 08/12/2016 None Full Exam - General 1994 Constitutional general appearance Nourishment: obese 08/12/2016 None Full Exam - General 1994 Constitutional general appearance Hygiene/Attention to Grooming: good hygiene 08/12/2016 None Full Exam - General 1994 Eyes conjunctiva /eyelids Overall: conjunctiva clear 08/12/2016 None Full Exam - General 1994 Eyes conjunctiva /eyelids Overall: cornea clear 08/12/2016 None Full Exam - General 1994 Eyes conjunctiva /eyelids Overall: eyelids normal 08/12/2016 None Full Exam - General 1994 Eyes pupils and irises Overall: pupils equal, round, reactive to light and accomodation 08/12/2016 None Full Exam - General 1994 Ears/Nose/Throat external ear Overall: normal appearance 08/12/2016 None Full Exam - General 1995 Ears/Nose/Throat external ear Overall: no masses 08/12/2016 None Full Exam - General 1994 Ears/Nose/Throat external ear Overall: normal mastoids 08/12/2016 None Full Exam - General 1994 Ears/Nose/Throat otoscopic exam Overall: external auditory canals clear 08/12/2016 None Full Exam - General 1994 Ears/Nose/Throat otoscopic exam Overall: tympanic membranes clear 08/12/2016 None Full Exam - General 1994 Ears/Nose/Throat otoscopic exam External auditory canal: minimal cerumen 08/12/2016 None Full Exam - General 1994 Ears/Nose/Throat otoscopic exam Tympanic membrane: air- fluid level 08/12/2016 None Full Exam - General 1994 Ears/Nose/Throat lips/teeth/gingiva Overall: benign lips 08/12/2016 None Full Exam - General 1994 Ears/Nose/Throat lips/teeth/gingiva Overall: normal dentition 08/12/2016 None Full Exam - General 1994 Ears/Nose/Throat lips/teeth/gingiva Overall: benign gingiva 08/12/2016 None Full Exam - General 1994 Ears/Nose/Throat lips/teeth/gingiva Overall: no masses 08/12/2016 None Full Exam - General 1994 Ears/Nose/Throat oral cavity/pharynx/larynx Overall: oral mucosa clear 08/12/2016 None Full Exam - General 1994 Ears/Nose/Throat oral cavity/pharynx/larynx Overall: oropharyngeal mucosa clear 08/12/2016 None Full Exam - General 1994 Ears/Nose/Throat oral cavity/pharynx/larynx Overall: no masses 08/12/2016 None Full Exam - General 1994 Respiratory auscultation Overall: breath sounds clear bilaterally 08/12/2016 None Full Exam - General 1994 Respiratory respiratory effort/rhythm Overall: no retractions 08/12/2016 None Full Exam - General 1994 Respiratory respiratory effort/rhythm Overall: normal rate 08/12/2016 None Full Exam - General 1994 Cardiovascular extremities Overall: no clubbing 08/12/2016 None Full Exam - General 1994 Cardiovascular auscultation of heart Overall: regular rate 08/12/2016 None Full Exam - General 1994 Cardiovascular auscultation of heart Overall: normal heart sounds 08/12/2016 None Full Exam - General 1994 Cardiovascular auscultation of heart Overall: no murmurs 08/12/2016 None Full Exam - General 1994 Abdomen abdominal exam Overall: no tenderness 08/12/2016 None Full Exam - General 1994 Abdomen abdominal exam Overall: normal bowel sounds 08/12/2016 None Full Exam - General 1994 Musculoskeletal gait and station Overall: normal gait 08/12/2016 None Full Exam - General 1994 Musculoskeletal gait and station Overall: normal station 08/12/2016 None Full Exam - General 1994 Integument inspection of skin Overall: few scattered moles, no gross abnormalities 08/12/2016 None Full Exam - General 1994 Neurologic mental status Overall: alert 08/12/2016 None Full Exam - General 1994 Neurologic mental status Overall: oriented 08/12/2016 None Full Exam - General 1994 Psychiatric orientation/consciousness Overall: oriented to person, place and time 08/12/2016 None Full Exam - General 1994 Psychiatric behavior/psychomotor activity Overall: no tics, normal psychomotor activity 08/12/2016 None Full Exam - General 1994 Psychiatric mood and affect Overall: normal mood and affect 08/12/2016 None Full Exam - General 1994 Psychiatric mood and affect Mood: happy 08/12/2016 None Full Exam - General 1994 Psychiatric appearance Overall: well-groomed, good eye contact 08/12/2016 None Full Exam - General 1994 Psychiatric thought Overall: normal form and content 08/12/2016 None Full Exam - ENT Constitutional general appearance Overall: well nourished 07/30/2016 None Full Exam - ENT Constitutional general appearance Overall: well developed 07/30/2016 None Full Exam - ENT Constitutional general appearance Overall: in no acute distress 07/30/2016 None Full Exam - ENT Ears/Nose/Throat otoscopic exam Overall: external auditory canals normal 07/30/2016 None Full Exam - ENT Ears/Nose/Throat otoscopic exam Left tympanic membrane: air -fluid level 07/30/2016 None Full Exam - ENT Ears/Nose/Throat otoscopic exam Right tympanic membrane: air-fluid level 07/30/2016 None Full Exam - ENT Ears/Nose/Throat nasal mucosa, septum, turbinates Drainage: clear 07/30/2016 None Full Exam - ENT Ears/Nose/Throat nasal mucosa, septum, turbinates Drainage: yellow 07/30/2016 None Full Exam - ENT Ears/Nose/Throat lips/ teeth/gingiva Overall: benign lips 07/30/2016 None Full Exam - ENT Ears/Nose/Throat oropharynx Posterior Pharynx: clear post nasal drainage 07/30/2016 None Full Exam - ENT Face and Head palpation Left maxillary sinus: tender 07/30/2016 None Full Exam - ENT Face and Head palpation Right maxillary sinus: tender 07/30/2016 None Full Exam - ENT Respiratory inspection Overall: no retractions 07/30/2016 None Full Exam - ENT Respiratory inspection Overall: normal rate None Full Exam - ENT Respiratory auscultation Overall: breath sounds clear bilaterally 07/30/2016 None Full Exam - ENT Cardiovascular auscultation of heart Overall: regular rate 07/30/2016 None Full Exam - ENT Cardiovascular auscultation of heart Overall: normal heart sounds 07/30/2016 None Full Exam - ENT Lymphatic palpation of lymph nodes Overall: anterior cervical chain benign 07/30/2016 None Full Exam - ENT Lymphatic palpation of lymph nodes Overall: posterior cervical chain benign 07/30/2016 None Full Exam - ENT Neurologic mood and affect Overall: normal mood 07/30/2016 None Full Exam - ENT Neurologic mood and affect Overall: normal affect 07/30/2016 None Full Exam - ENT Neurologic orientation Overall: oriented to person, place and time 07/30/2016 None Full Exam - ENT Constitutional general appearance Overall: well nourished 06/04/2016 None Full Exam - ENT Constitutional general appearance Overall: well developed 06/04/2016 None Full Exam - ENT Constitutional general appearance Overall: in no acute distress 06/04/2016 None Full Exam - ENT Ears/Nose/Throat otoscopic exam Overall: external auditory canals normal 06/04/2016 None Full Exam - ENT Ears/Nose/Throat otoscopic exam Left tympanic membrane: air -fluid level 06/04/2016 None Full Exam - ENT Ears/Nose/Throat otoscopic exam Right tympanic membrane: air-fluid level 06/04/2016 None Full Exam - ENT Ears/Nose/Throat nasal mucosa, septum, turbinates Drainage: clear 06/04/2016 None Full Exam - ENT Ears/Nose/Throat nasal mucosa, septum, turbinates Drainage: yellow 06/04/2016 None Full Exam - ENT Ears/Nose/Throat lips/ teeth/gingiva Overall: benign lips 06/04/2016 None Full Exam - ENT Ears/Nose/Throat oropharynx Posterior Pharynx: clear post nasal drainage 06/04/2016 None Full Exam - ENT Face and Head palpation Left maxillary sinus: tender 06/04/2016 None Full Exam - ENT Face and Head palpation Right maxillary sinus: tender 06/04/2016 None Full Exam - ENT Respiratory inspection Overall: no retractions 06/04/2016 None Full Exam - ENT Respiratory inspection Overall: normal rate None Full Exam - ENT Respiratory auscultation Overall: breath sounds clear bilaterally 06/04/2016 None Full Exam - ENT Cardiovascular auscultation of heart Overall: regular rate 06/04/2016 None Full Exam - ENT Cardiovascular auscultation of heart Overall: normal heart sounds 06/04/2016 None Full Exam - ENT Lymphatic palpation of lymph nodes Overall: anterior cervical chain benign 06/04/2016 None Full Exam - ENT Lymphatic palpation of lymph nodes Overall: posterior cervical chain benign 06/04/2016 None Full Exam - ENT Neurologic mood and affect Overall: normal mood 06/04/2016 None Full Exam - ENT Neurologic mood and affect Overall: normal affect 06/04/2016 None Full Exam - ENT Neurologic orientation Overall: oriented to person, place and time 06/04/2016 None Full Exam - ENT Respiratory auscultation Right lower lung field: expiratory wheezes 06/04/2016 None Full Exam - ENT Respiratory auscultation Right lower lung field: rhonchi 06/04/2016 None Full Exam - General 1994 Constitutional general appearance Development: well developed 05/01/2016 None Full Exam - General 1994 Constitutional general appearance Development: appears stated age 1105/01/2016 None Full Exam - General 1994 Constitutional general appearance Overall: in no acute distress 05/01/2016 None Full Exam - General 1994 Eyes pupils and irises Overall: pupils equal, round, reactive to light and accomodation 05/01/2016 None Full Exam - General 1994 Ears/Nose/Throat otoscopic exam Overall: external auditory canals clear 05/01/2016 None Full Exam - General 1994 Ears/Nose/Throat otoscopic exam Overall: tympanic membranes clear 05/01/2016 None Full Exam - General 1994 Ears/Nose/Throat oral cavity/pharynx/larynx Overall: oral mucosa clear 05/01/2016 None Full Exam - General 1994 Respiratory auscultation Overall: breath sounds clear bilaterally 05/01/2016 None Full Exam - General 1994 Respiratory respiratory effort/rhythm Overall: no retractions 05/01/2016 None Full Exam - General 1994 Respiratory respiratory effort/rhythm Overall: normal rate 05/01/2016 None Full Exam - General 1994 Cardiovascular auscultation of heart Overall: regular rate 05/01/2016 None Full Exam - General 1994 Cardiovascular auscultation of heart Overall: normal heart sounds 05/01/2016 None Full Exam - General 1994 Cardiovascular auscultation of heart Overall: no murmurs 05/01/2016 None Full Exam - General 1994 Abdomen abdominal exam Overall: no tenderness 05/01/2016 None Full Exam - General 1994 Abdomen abdominal exam Overall: normal bowel sounds 05/01/2016 None Full Exam - General 1994 Neurologic mental status Overall: alert 05/01/2016 None Full Exam - General 1994 Neurologic mental status Overall: oriented 05/01/2016 None Full Exam - General 1994 Psychiatric orientation/consciousness Overall: oriented to person, place and time 05/01/2016 None Full Exam - General 1994 Psychiatric mood and affect Overall: normal mood and affect 05/01/2016 None Full Exam - General 1994 Psychiatric thought Overall: normal form and content 05/01/2016 None Full Exam - General 1994 Constitutional general appearance Overall: well nourished 05/01/2016 None Full Exam - General 1994 Constitutional general appearance Nourishment: obese 05/01/2016 None Full Exam - General 1994 Constitutional general appearance Hygiene/Attention to Grooming: good hygiene 05/01/2016 None Full Exam - General 1994 Eyes conjunctiva /eyelids Overall: conjunctiva clear 05/01/2016 None Full Exam - General 1994 Eyes conjunctiva /eyelids Overall: cornea clear 05/01/2016 None Full Exam - General 1994 Eyes conjunctiva /eyelids Overall: eyelids normal 05/01/2016 None Full Exam - General 1994 Ears/Nose/Throat external ear Overall: normal appearance 05/01/2016 None Full Exam - General 1994 Ears/Nose/Throat external ear Overall: no masses 05/01/2016 None Full Exam - General 1994 Ears/Nose/Throat external ear Overall: normal mastoids 05/01/2016 None Full Exam - General 1994 Ears/Nose/Throat otoscopic exam External auditory canal: minimal cerumen 05/01/2016 None Full Exam - General 1994 Ears/Nose/Throat otoscopic exam Tympanic membrane: air- fluid level 05/01/2016 None Full Exam - General 1994 Ears/Nose/Throat lips/teeth/gingiva Overall: benign lips 05/01/2016 None Full Exam - General 1994 Ears/Nose/Throat lips/teeth/gingiva Overall: normal dentition 05/01/2016 None Full Exam - General 1994 Ears/Nose/Throat lips/teeth/gingiva Overall: benign gingiva 05/01/2016 None Full Exam - General 1994 Ears/Nose/Throat lips/teeth/gingiva Overall: no masses 05/01/2016 None Full Exam - General 1994 Ears/Nose/Throat oral cavity/pharynx/larynx Overall: oropharyngeal mucosa clear 05/01/2016 None Full Exam - General 1994 Ears/Nose/Throat oral cavity/pharynx/larynx Overall: no masses 05/01/2016 None Full Exam - General 1994 Cardiovascular extremities Overall: no clubbing 05/01/2016 None Full Exam - General 1994 Musculoskeletal gait and station Overall: normal gait 05/01/2016 None Full Exam - General 1994 Musculoskeletal gait and station Overall: normal station 05/01/2016 None Full Exam - General 1994 Integument inspection of skin Overall: few scattered moles, no gross abnormalities 05/01/2016 None Full Exam - General 1994 Psychiatric behavior/psychomotor activity Overall: no tics, normal psychomotor activity 05/01/2016 None Full Exam - General 1994 Psychiatric mood and affect Mood: happy 05/01/2016 None Full Exam - General 1994 Psychiatric appearance Overall: well-groomed, good eye contact 05/01/2016 None Full Exam - General 1994 Constitutional general appearance Overall: well developed 01/17/2016 None Full Exam - General 1994 Constitutional general appearance Overall: in no acute distress 01/17/2016 None Full Exam - General 1994 Constitutional general appearance Overall: well nourished 01/17/2016 None Full Exam - General 1994 Constitutional general appearance Nourishment: obese 01/17/2016 None Full Exam - General 1994 Constitutional general appearance Evidence of Distress: in no acute distress 01/17/2016 None Full Exam - General 1994 Constitutional general appearance Hygiene/Attention to Grooming: good hygiene 01/17/2016 None Full Exam - General 1994 Eyes conjunctiva /eyelids Overall: conjunctiva clear 01/17/2016 None Full Exam - General 1994 Eyes conjunctiva /eyelids Overall: cornea clear 01/17/2016 None Full Exam - General 1994 Eyes conjunctiva /eyelids Overall: eyelids normal 01/17/2016 None Full Exam - General 1994 Eyes pupils and irises Overall: pupils equal, round, reactive to light and accomodation 01/17/2016 None Full Exam - General 1994 Ears/Nose/Throat external ear Overall: normal appearance 01/17/2016 None Full Exam - General 1994 Ears/Nose/Throat external ear Overall: no masses 01/17/2016 None Full Exam - General 1994 Ears/Nose/Throat external ear Overall: normal mastoids 01/17/2016 None Full Exam - General 1994 Ears/Nose/Throat lips/teeth/gingiva Overall: benign lips 01/17/2016 None Full Exam - General 1994 Ears/Nose/Throat lips/teeth/gingiva Overall: normal dentition 01/17/2016 None Full Exam - General 1994 Ears/Nose/Throat lips/teeth/gingiva Overall: benign gingiva 01/17/2016 None Full Exam - General 1994 Ears/Nose/Throat lips/teeth/gingiva Overall: no masses 01/17/2016 None Full Exam - General 1994 Ears/Nose/Throat oral cavity/pharynx/larynx Overall: oral mucosa clear 01/17/2016 None Full Exam - General 1994 Ears/Nose/Throat oral cavity/pharynx/larynx Overall: oropharyngeal mucosa clear 01/17/2016 None Full Exam - General 1994 Ears/Nose/Throat oral cavity/pharynx/larynx Overall: no masses 01/17/2016 None Full Exam - General 1994 Respiratory auscultation Overall: breath sounds clear bilaterally 01/17/2016 None Full Exam - General 1994 Respiratory respiratory effort/rhythm Overall: no retractions 01/17/2016 None Full Exam - General 1994 Respiratory respiratory effort/rhythm Overall: normal rate 01/17/2016 None Full Exam - General 1994 Cardiovascular extremities Overall: no clubbing 01/17/2016 None Full Exam - General 1994 Cardiovascular auscultation of heart Overall: regular rate 01/17/2016 None Full Exam - General 1994 Cardiovascular auscultation of heart Overall: normal heart sounds 01/17/2016 None Full Exam - General 1994 Cardiovascular auscultation of heart Overall: no murmurs 01/17/2016 None Full Exam - General 1994 Abdomen abdominal exam Overall: no tenderness 01/17/2016 None Full Exam - General 1994 Abdomen abdominal exam Overall: normal bowel sounds 01/17/2016 None Full Exam - General 1994 Musculoskeletal gait and station Overall: normal gait 01/17/2016 None Full Exam - General 1994 Musculoskeletal gait and station Overall: normal station 01/17/2016 None Full Exam - General 1994 Integument inspection of skin Overall: few scattered moles, no gross abnormalities 01/17/2016 None Full Exam - General 1994 Psychiatric orientation/consciousness Overall: oriented to person, place and time 01/17/2016 None Full Exam - General 1994 Psychiatric behavior/psychomotor activity Overall: no tics, normal psychomotor activity 01/17/2016 None Full Exam - General 1994 Psychiatric mood and affect Overall: normal mood and affect 01/17/2016 None Full Exam - General 1994 Psychiatric mood and affect Mood: happy 01/17/2016 None Full Exam - General 1994 Psychiatric appearance Overall: well-groomed, good eye contact 01/17/2016 None Full Exam - General 1994 Ears/Nose/Throat otoscopic exam Tympanic membrane: air- fluid level 01/17/2016 None Full Exam - General 1994 Ears/Nose/Throat otoscopic exam External auditory canal: minimal cerumen 01/17/2016 None Full Exam - General 1994 Constitutional general appearance Overall: well developed 01/01/2016 None Full Exam - General 1994 Constitutional general appearance Overall: in no acute distress 01/01/2016 None Full Exam - General 1994 Constitutional general appearance Overall: well nourished 01/01/2016 None Full Exam - General 1994 Constitutional general appearance Nourishment: obese 01/01/2016 None Full Exam - General 1994 Constitutional general appearance Evidence of Distress: in no acute distress 01/01/2016 None Full Exam - General 1994 Constitutional general appearance Hygiene/Attention to Grooming: good hygiene 01/01/2016 None Full Exam - General 1994 Eyes conjunctiva /eyelids Overall: conjunctiva clear 01/01/2016 None Full Exam - General 1994 Eyes conjunctiva /eyelids Overall: cornea clear 01/01/2016 None Full Exam - General 1994 Eyes conjunctiva /eyelids Overall: eyelids normal 01/01/2016 None Full Exam - General 1994 Eyes pupils and irises Overall: pupils equal, round, reactive to light and accomodation 01/01/2016 None Full Exam - General 1994 Ears/Nose/Throat external ear Overall: normal appearance 01/01/2016 None Full Exam - General 1994 Ears/Nose/Throat external ear Overall: no masses 01/01/2016 None Full Exam - General 1994 Ears/Nose/Throat external ear Overall: normal mastoids 01/01/2016 None Full Exam - General 1994 Ears/Nose/Throat lips/teeth/gingiva Overall: benign lips 01/01/2016 None Full Exam - General 1994 Ears/Nose/Throat lips/teeth/gingiva Overall: normal dentition 01/01/2016 None Full Exam - General 1994 Ears/Nose/Throat lips/teeth/gingiva Overall: benign gingiva 01/01/2016 None Full Exam - General 1994 Ears/Nose/Throat lips/teeth/gingiva Overall: no masses 01/01/2016 None Full Exam - General 1994 Ears/Nose/Throat oral cavity/pharynx/larynx Overall: oral mucosa clear 01/01/2016 None Full Exam - General 1994 Ears/Nose/Throat oral cavity/pharynx/larynx Overall: oropharyngeal mucosa clear 01/01/2016 None Full Exam - General 1994 Ears/Nose/Throat oral cavity/pharynx/larynx Overall: no masses 01/01/2016 None Full Exam - General 1994 Respiratory auscultation Overall: breath sounds clear bilaterally 01/01/2016 None Full Exam - General 1994 Respiratory respiratory effort/rhythm Overall: no retractions 01/01/2016 None Full Exam - General 1994 Respiratory respiratory effort/rhythm Overall: normal rate 01/01/2016 None Full Exam - General 1994 Cardiovascular extremities Overall: no clubbing 01/01/2016 None Full Exam - General 1994 Cardiovascular auscultation of heart Overall: regular rate 01/01/2016 None Full Exam - General 1994 Cardiovascular auscultation of heart Overall: normal heart sounds 01/01/2016 None Full Exam - General 1994 Cardiovascular auscultation of heart Overall: no murmurs 01/01/2016 None Full Exam - General 1994 Abdomen abdominal exam Overall: no tenderness 01/01/2016 None Full Exam - General 1994 Abdomen abdominal exam Overall: normal bowel sounds 01/01/2016 None Full Exam - General 1994 Musculoskeletal gait and station Overall: normal gait 01/01/2016 None Full Exam - General 1994 Musculoskeletal gait and station Overall: normal station 01/01/2016 None Full Exam - General 1994 Integument inspection of skin Overall: few scattered moles, no gross abnormalities 01/01/2016 None Full Exam - General 1994 Psychiatric orientation/consciousness Overall: oriented to person, place and time 01/01/2016 None Full Exam - General 1994 Psychiatric behavior/psychomotor activity Overall: no tics, normal psychomotor activity 01/01/2016 None Full Exam - General 1994 Psychiatric mood and affect Overall: normal mood and affect 01/01/2016 None Full Exam - General 1994 Psychiatric mood and affect Mood: happy 01/01/2016 None Full Exam - General 1994 Psychiatric appearance Overall: well-groomed, good eye contact 01/01/2016 None Full Exam - General 1994 Constitutional general appearance Overall: well developed 10/02/2015 None Full Exam - General 1994 Constitutional general appearance Overall: in no acute distress 10/02/2015 None Full Exam - General 1994 Constitutional general appearance Overall: well nourished 10/02/2015 None Full Exam - General 1994 Constitutional general appearance Stature/Body Habitus: symmetric body 10/02/2015 None Full Exam - General 1994 Constitutional general appearance Nourishment: obese 10/02/2015 None Full Exam - General 1994 Constitutional general appearance Evidence of Distress: in no acute distress 10/02/2015 None Full Exam - General 1994 Constitutional general appearance Hygiene/Attention to Grooming: good hygiene 10/02/2015 None Full Exam - General 1994 Eyes conjunctiva /eyelids Overall: conjunctiva clear 10/02/2015 None Full Exam - General 1994 Eyes conjunctiva /eyelids Overall: cornea clear 10/02/2015 None Full Exam - General 1994 Eyes conjunctiva /eyelids Overall: eyelids normal 10/02/2015 None Full Exam - General 1994 Eyes pupils and irises Overall: pupils equal, round, reactive to light and accomodation 10/02/2015 None Full Exam - General 1994 Ears/Nose/Throat external ear Overall: normal appearance 10/02/2015 None Full Exam - General 1994 Ears/Nose/Throat external ear Overall: no masses 10/02/2015 None Full Exam - General 1994 Ears/Nose/Throat external ear Overall: normal mastoids 10/02/2015 None Full Exam - General 1994 Ears/Nose/Throat lips/teeth/gingiva Overall: benign lips 10/02/2015 None Full Exam - General 1994 Ears/Nose/Throat lips/teeth/gingiva Overall: normal dentition 10/02/2015 None Full Exam - General 1994 Ears/Nose/Throat lips/teeth/gingiva Overall: benign gingiva 10/02/2015 None Full Exam - General 1994 Ears/Nose/Throat lips/teeth/gingiva Overall: no masses 10/02/2015 None Full Exam - General 1994 Ears/Nose/Throat oral cavity/pharynx/larynx Overall: oral mucosa clear 10/02/2015 None Full Exam - General 1994 Ears/Nose/Throat oral cavity/pharynx/larynx Overall: oropharyngeal mucosa clear 10/02/2015 None Full Exam - General 1994 Ears/Nose/Throat oral cavity/pharynx/larynx Overall: no masses 10/02/2015 None Full Exam - General 1994 Respiratory auscultation Overall: breath sounds clear bilaterally 10/02/2015 None Full Exam - General 1994 Respiratory respiratory effort/rhythm Overall: no retractions 10/02/2015 None Full Exam - General 1994 Respiratory respiratory effort/rhythm Overall: normal rate 10/02/2015 None Full Exam - General 1994 Cardiovascular extremities Overall: no clubbing 10/02/2015 None Full Exam - General 1994 Cardiovascular auscultation of heart Overall: regular rate 10/02/2015 None Full Exam - General 1994 Cardiovascular auscultation of heart Overall: normal heart sounds 10/02/2015 None Full Exam - General 1994 Cardiovascular auscultation of heart Overall: no murmurs 10/02/2015 None Full Exam - General 1994 Abdomen abdominal exam Overall: no tenderness 10/02/2015 None Full Exam - General 1994 Abdomen abdominal exam Overall: normal bowel sounds 10/02/2015 None Full Exam - General 1994 Musculoskeletal gait and station Overall: normal gait 10/02/2015 None Full Exam - General 1994 Musculoskeletal gait and station Overall: normal station 10/02/2015 None Full Exam - General 1994 Integument inspection of skin Overall: few scattered moles, no gross abnormalities 10/02/2015 None Full Exam - General 1994 Psychiatric orientation/consciousness Overall: oriented to person, place and time 10/02/2015 None Full Exam - General 1994 Psychiatric behavior/psychomotor activity Overall: no tics, normal psychomotor activity 10/02/2015 None Full Exam - General 1994 Psychiatric mood and affect Overall: normal mood and affect 10/02/2015 None Full Exam - General 1994 Psychiatric mood and affect Mood: happy 10/02/2015 None Full Exam - General 1994 Psychiatric appearance Overall: well-groomed, good eye contact 10/02/2015 None Full Exam - General 1994 Cardiovascular extremities Overall: no clubbing 09/13/2015 None Full Exam - General 1994 Cardiovascular auscultation of heart Overall: regular rate 09/13/2015 None Full Exam - General 1994 Cardiovascular auscultation of heart Overall: normal heart sounds 09/13/2015 None Full Exam - General 1994 Cardiovascular auscultation of heart Overall: no murmurs 09/13/2015 None Full Exam - General 1994 Respiratory respiratory effort/rhythm Overall: normal rate 09/13/2015 None Full Exam - General 1994 Respiratory respiratory effort/rhythm Overall: no retractions 09/13/2015 None Full Exam - General 1994 Respiratory auscultation Overall: breath sounds clear bilaterally 09/13/2015 None Full Exam - General 1994 Ears/Nose/Throat internal nose Sinus tenderness: right frontal 09/13/2015 None Full Exam - General 1994 Ears/Nose/Throat internal nose Sinus tenderness: left frontal 09/13/2015 None Full Exam - General 1994 Ears/Nose/Throat internal nose Sinus tenderness: left maxillary 09/13/2015 None Full Exam - General 1994 Ears/Nose/Throat internal nose Sinus tenderness: right maxillary 09/13/2015 None Full Exam - General 1994 Ears/Nose/Throat internal nose Drainage: thick 09/13/2015 green Full Exam - General 1994 Ears/Nose/Throat oral cavity/pharynx/larynx Oropharynx: erythema 09/13/2015 mild Full Exam - General 1994 Ears/Nose/Throat oral cavity/pharynx/larynx Overall: oral mucosa clear 09/13/2015 None Full Exam - General 1994 Ears/Nose/Throat oral cavity/pharynx/larynx Submandibular gland: nontender 09/13/2015 None Full Exam - General 1994 Ears/Nose/Throat oral cavity/pharynx/larynx Overall: tonsils benign 09/13/2015 None Full Exam - General 1994 Ears/Nose/Throat oral cavity/pharynx/larynx Overall: no masses 09/13/2015 None Full Exam - General 1994 Ears/Nose/Throat otoscopic exam Overall: tympanic membranes clear 09/13/2015 None Full Exam - General 1994 Ears/Nose/Throat otoscopic exam Overall: external auditory canals clear 09/13/2015 None Full Exam - General 1994 Ears/Nose/Throat lips/teeth/gingiva Overall: benign gingiva 09/13/2015 None Full Exam - General 1994 Ears/Nose/Throat lips/teeth/gingiva Overall: no masses 09/13/2015 None Full Exam - General 1994 Ears/Nose/Throat lips/teeth/gingiva Overall: normal dentition 09/13/2015 None Full Exam - General 1994 Ears/Nose/Throat lips/teeth/gingiva Overall: benign lips 09/13/2015 None Full Exam - General 1994 Eyes conjunctiva /eyelids Overall: conjunctiva clear 09/13/2015 None Full Exam - General 1994 Eyes conjunctiva /eyelids Overall: eyelids normal 09/13/2015 None Full Exam - General 1994 Eyes conjunctiva /eyelids Overall: cornea clear 09/13/2015 None Full Exam - General 1994 Eyes pupils and irises Overall: pupils equal, round, reactive to light and accomodation 09/13/2015 None Full Exam - General 1994 Constitutional general appearance Overall: well nourished 09/13/2015 None Full Exam - General 1994 Constitutional general appearance Overall: well developed 09/13/2015 None Full Exam - General 1994 Constitutional general appearance Overall: in no acute distress 09/13/2015 None Full Exam - General 1994 Musculoskeletal gait and station Overall: normal station 09/13/2015 None Full Exam - General 1994 Musculoskeletal gait and station Overall: normal gait 09/13/2015 None Full Exam - General 1994 Integument inspection of skin Overall: no rash, lesions 09/13/2015 None Full Exam - General 1994 Psychiatric orientation/consciousness Overall: oriented to person, place and time 09/13/2015 None Full Exam - General 1994 Psychiatric mood and affect Overall: normal mood and affect 09/13/2015 None Full Exam - General 1994 Psychiatric appearance Overall: well-groomed, good eye contact 09/13/2015 None Full Exam - General 1994 Constitutional general appearance Overall: well nourished 07/03/2015 None Full Exam - General 1994 Constitutional general appearance Overall: well developed 07/03/2015 None Full Exam - General 1994 Constitutional general appearance Overall: in no acute distress 07/03/2015 None Full Exam - General 1994 Ears/Nose/Throat oral cavity/pharynx/larynx Overall: oropharyngeal mucosa clear 07/03/2015 None Full Exam - General 1994 Ears/Nose/Throat oral cavity/pharynx/larynx Overall: no masses 07/03/2015 None Full Exam - General 1994 Ears/Nose/Throat oral cavity/pharynx/larynx Overall: oral mucosa clear 07/03/2015 None Full Exam - General 1994 Ears/Nose/Throat lips/teeth/gingiva Overall: benign gingiva 07/03/2015 None Full Exam - General 1994 Ears/Nose/Throat lips/teeth/gingiva Overall: no masses 07/03/2015 None Full Exam - General 1994 Ears/Nose/Throat lips/teeth/gingiva Overall: normal dentition 07/03/2015 None Full Exam - General 1994 Ears/Nose/Throat lips/teeth/gingiva Overall: benign lips 07/03/2015 None Full Exam - General 1994 Ears/Nose/Throat external ear Overall: no masses 07/03/2015 None Full Exam - General 1994 Ears/Nose/Throat external ear Overall: normal appearance 07/03/2015 None Full Exam - General 1994 Ears/Nose/Throat external ear Overall: normal mastoids 07/03/2015 None Full Exam - General 1994 Eyes conjunctiva /eyelids Overall: conjunctiva clear 07/03/2015 None Full Exam - General 1994 Eyes conjunctiva /eyelids Overall: eyelids normal 07/03/2015 None Full Exam - General 1994 Eyes conjunctiva /eyelids Overall: cornea clear 07/03/2015 None Full Exam - General 1994 Eyes pupils and irises Overall: pupils equal, round, reactive to light and accomodation 07/03/2015 None Full Exam - General 1994 Respiratory respiratory effort/rhythm Overall: normal rate 07/03/2015 None Full Exam - General 1994 Respiratory respiratory effort/rhythm Overall: no retractions 07/03/2015 None Full Exam - General 1994 Respiratory auscultation Overall: breath sounds clear bilaterally 07/03/2015 None Full Exam - General 1994 Cardiovascular extremities Overall: no clubbing 07/03/2015 None Full Exam - General 1994 Cardiovascular auscultation of heart Overall: regular rate 07/03/2015 None Full Exam - General 1994 Cardiovascular auscultation of heart Overall: normal heart sounds 07/03/2015 None Full Exam - General 1994 Cardiovascular auscultation of heart Overall: no murmurs 07/03/2015 None Full Exam - General 1994 Constitutional general appearance Nourishment: obese 07/03/2015 None Full Exam - General 1994 Constitutional general appearance Evidence of Distress: in no acute distress 07/03/2015 None Full Exam - General 1994 Constitutional general appearance Hygiene/Attention to Grooming: good hygiene 07/03/2015 None Full Exam - General 1994 Constitutional general appearance Stature/Body Habitus: symmetric body 07/03/2015 None Full Exam - General 1994 Abdomen abdominal exam Overall: no tenderness 07/03/2015 None Full Exam - General 1994 Abdomen abdominal exam Overall: normal bowel sounds 07/03/2015 None Full Exam - General 1994 Musculoskeletal gait and station Overall: normal station 07/03/2015 None Full Exam - General 1994 Musculoskeletal gait and station Overall: normal gait 07/03/2015 None Full Exam - General 1994 Integument inspection of skin Overall: few scattered moles, no gross abnormalities 07/03/2015 None Full Exam - General 1994 Psychiatric orientation/consciousness Overall: oriented to person, place and time 07/03/2015 None Full Exam - General 1994 Psychiatric behavior/psychomotor activity Overall: no tics, normal psychomotor activity 07/03/2015 None Full Exam - General 1994 Psychiatric mood and affect Overall: normal mood and affect 07/03/2015 None Full Exam - General 1994 Psychiatric mood and affect Mood: happy 07/03/2015 None Full Exam - General 1994 Psychiatric appearance Overall: well-groomed, good eye contact 07/03/2015 None Full Exam - General 1994 Constitutional general appearance Overall: well developed 03/06/2015 None Full Exam - General 1994 Constitutional general appearance Overall: in no acute distress 03/06/2015 None Full Exam - General 1994 Constitutional general appearance Overall: well nourished 03/06/2015 None Full Exam - General 1994 Eyes conjunctiva /eyelids Overall: conjunctiva clear 03/06/2015 None Full Exam - General 1994 Eyes conjunctiva /eyelids Overall: cornea clear 03/06/2015 None Full Exam - General 1994 Eyes conjunctiva /eyelids Overall: eyelids normal 03/06/2015 None Full Exam - General 1994 Eyes pupils and irises Overall: pupils equal, round, reactive to light and accomodation 03/06/2015 None Full Exam - General 1994 Ears/Nose/Throat otoscopic exam Overall: external auditory canals clear 03/06/2015 None Full Exam - General 1994 Ears/Nose/Throat otoscopic exam Overall: tympanic membranes clear 03/06/2015 None Full Exam - General 1994 Ears/Nose/Throat oral cavity/pharynx/larynx Overall: oral mucosa clear 03/06/2015 None Full Exam - General 1994 Ears/Nose/Throat oral cavity/pharynx/larynx Overall: oropharyngeal mucosa clear 03/06/2015 None Full Exam - General 1994 Ears/Nose/Throat oral cavity/pharynx/larynx Overall: no masses 03/06/2015 None Full Exam - General 1994 Respiratory auscultation Overall: breath sounds clear bilaterally 03/06/2015 None Full Exam - General 1994 Respiratory respiratory effort/rhythm Overall: no retractions 03/06/2015 None Full Exam - General 1994 Respiratory respiratory effort/rhythm Overall: normal rate 03/06/2015 None Full Exam - General 1994 Cardiovascular extremities Edema present: pitting 03/06/2015 None Full Exam - General 1994 Cardiovascular extremities Edema present: severity 1+ - 4 +: 1+ 03/06/2015 None Full Exam - General 1994 Cardiovascular auscultation of heart Overall: regular rate 03/06/2015 None Full Exam - General 1994 Cardiovascular auscultation of heart Overall: normal heart sounds 03/06/2015 None Full Exam - General 1994 Abdomen abdominal exam Overall: no tenderness 03/06/2015 None Full Exam - General 1994 Abdomen abdominal exam Overall: normal bowel sounds 03/06/2015 None Full Exam - General 1994 Musculoskeletal gait and station Overall: normal gait 03/06/2015 None Full Exam - General 1994 Musculoskeletal gait and station Overall: normal station 03/06/2015 None Full Exam - General 1994 Musculoskeletal head and neck Overall: head atraumatic 03/06/2015 None Full Exam - General 1994 Musculoskeletal head and neck Overall: cervical spine benign 03/06/2015 None Full Exam - General 1994 Integument inspection of skin Overall: no rash, lesions 03/06/2015 None Full Exam - General 1994 Neurologic cranial nerves Overall: crainial nerves 2 - 12 grossly intact 03/06/2015 None Full Exam - General 1994 Psychiatric orientation/consciousness Overall: oriented to person, place and time 03/06/2015 None Full Exam - General 1994 Psychiatric orientation/consciousness Overall: oriented to person, place and time 11/02/2014 None Full Exam - General 1994 Neurologic cranial nerves Overall: crainial nerves 2 - 12 grossly intact 11/02/2014 None Full Exam - General 1994 Integument inspection of skin Overall: no rash, lesions 11/02/2014 None Full Exam - General 1994 Musculoskeletal gait and station Overall: normal station 11/02/2014 None Full Exam - General 1994 Musculoskeletal gait and station Overall: normal gait 11/02/2014 None Full Exam - General 1994 Musculoskeletal head and neck Overall: cervical spine benign 11/02/2014 None Full Exam - General 1994 Musculoskeletal head and neck Overall: head atraumatic 11/02/2014 None Full Exam - General 1994 Abdomen abdominal exam Overall: no tenderness 11/02/2014 None Full Exam - General 1994 Abdomen abdominal exam Overall: normal bowel sounds 11/02/2014 None Full Exam - General 1994 Cardiovascular auscultation of heart Overall: regular rate 11/02/2014 None Full Exam - General 1994 Cardiovascular auscultation of heart Overall: normal heart sounds 11/02/2014 None Full Exam - General 1994 Cardiovascular extremities Edema present: pitting 11/02/2014 None Full Exam - General 1994 Cardiovascular extremities Edema present: severity 1+ - 4 +: 1+ 11/02/2014 None Full Exam - General 1994 Respiratory auscultation Overall: breath sounds clear bilaterally 11/02/2014 None Full Exam - General 1994 Respiratory respiratory effort/rhythm Overall: normal rate 11/02/2014 None Full Exam - General 1994 Respiratory respiratory effort/rhythm Overall: no retractions 11/02/2014 None Full Exam - General 1994 Ears/Nose/Throat otoscopic exam Overall: tympanic membranes clear 11/02/2014 None Full Exam - General 1994 Ears/Nose/Throat otoscopic exam Overall: external auditory canals clear 11/02/2014 None Full Exam - General 1994 Ears/Nose/Throat oral cavity/pharynx/larynx Overall: oropharyngeal mucosa clear 11/02/2014 None Full Exam - General 1994 Ears/Nose/Throat oral cavity/pharynx/larynx Overall: no masses 11/02/2014 None Full Exam - General 1994 Ears/Nose/Throat oral cavity/pharynx/larynx Overall: oral mucosa clear 11/02/2014 None Full Exam - General 1994 Constitutional general appearance Overall: well nourished 11/02/2014 None Full Exam - General 1994 Constitutional general appearance Overall: well developed 11/02/2014 None Full Exam - General 1994 Constitutional general appearance Overall: in no acute distress 11/02/2014 None Full Exam - General 1994 Eyes conjunctiva /eyelids Overall: conjunctiva clear 11/02/2014 None Full Exam - General 1994 Eyes conjunctiva /eyelids Overall: eyelids normal 11/02/2014 None Full Exam - General 1994 Eyes conjunctiva /eyelids Overall: cornea clear 11/02/2014 None Full Exam - General 1994 Eyes pupils and irises Overall: pupils equal, round, reactive to light and accomodation 11/02/2014 None Procedures Procedure Codes Date INITIAL PREVENTIVE EXAM CPT-4: G0402 11/19/2016 TRIAMCINOLONE ACET INJ NOS CPT-4: J3301 06/04/2016 TRIAMCINOLONE ACET INJ NOS CPT-4: J3301 01/17/2016 TRIAMCINOLONE ACET INJ NOS CPT-4: J3301 09/13/2015 IMMUNIZATION ADMIN CPT -4: 17787 03/06/2015 FLU VACC 4 CARIDAD 3 YRS PLUS IM SNOMED CT: [id number] CPT-4: 50008 03/06/2015 Vital Signs Date Vital 05/22/2017 Blood Pressure 1: 116/54 Code : 8480-6 BMI: 39.2 Code : 71360-3 Heart Rate 1 : 76 bpm Height: 5'6" SpO2: 95% Weight: 243 lbs 02/17/2017 Blood Pressure 1: 124/58 Code : 8480-6 BMI: 39.5 Code : 74776-7 Heart Rate 1 : 73 bpm Height: 5'6" SpO2: 96% Weight: 245 lbs 11/19/2016 Blood Pressure 1: 132/76 Code : 8480-6 BMI: 39.7 Code : 82695-1 Heart Rate 1 : 78 bpm Height: 5'6" SpO2: 98% Waist Measure (cm): 127 cm Weight: 246 lbs 11/18/2016 Blood Pressure 1: 126/64 Code : 8480-6 BMI: 40.3 Code : 21758-1 Heart Rate 1 : 75 bpm Height: 5'6" SpO2: 95% Weight: 249 lbs 8 oz 08/12/2016 Blood Pressure 1: 130/72 Code : 8480-6 BMI: 40.2 Code : 57163-7 Heart Rate 1 : 77 bpm Height: 5'6" SpO2: 97% Weight: 249 lbs 07/30/2016 Blood Pressure 1: 128/60 Code : 8480-6 BMI: 40.7 Code : 44744-4 Heart Rate 1 : 76 bpm Height: 5'6" SpO2: 96% Temperature: 37.2 (C) / 98.9 (F) Weight: 252 lbs 06/04/2016 Blood Pressure 1: 124/62 Code : 8480-6 BMI: 41.0 Code : 81043-7 Heart Rate 1 : 78 bpm Height: 5'6" SpO2: 97% Weight: 254 lbs 05/01/2016 Blood Pressure 1: 128/80 Code : 8480-6 BMI: 41.5 Code : 20466-9 Heart Rate 1 : 72 bpm Height: 5'6" SpO2: 97% Weight: 257 lbs 01/17/2016 Blood Pressure 1: 130/79 Code : 8480-6 BMI: 41.6 Code : 00663-0 Heart Rate 1 : 78 bpm Height: 5'6" SpO2: 96% Weight: 258 lbs 01/01/2016 Blood Pressure 1: 128/88 Code : 8480-6 BMI: 42.0 Code : 71699-6 Heart Rate 1 : 76 bpm Height: 5'6" SpO2: 96% Weight: 260 lbs 10/02/2015 Blood Pressure 1: 136/68 Code : 8480-6 BMI: 42.0 Code : 36342-9 Heart Rate 1 : 73 bpm Height: 5'6" SpO2: 97% Weight: 260 lbs 09/13/2015 Blood Pressure 1: 144/72 Code : 8480-6 BMI: 42.6 Code : 29160-7 Heart Rate 1 : 76 bpm Height: 5'6" SpO2: 97% Weight: 264 lbs 07/03/2015 Blood Pressure 1: 138/76 Code : 8480-6 Blood Pressure 1: 150/72 Code: 8480-6 BMI: 43.4 Code: 42929-0 Heart Rate 1: 78 bpm Height: 5'6" SpO2: 98% Weight: 269 lbs 03/06/2015 Blood Pressure 1: 124/72 Code : 8480-6 BMI: 42.6 Code : 66221-0 Heart Rate 1 : 74 bpm Height: 5'6" SpO2: 96% Weight: 264 lbs 11/02/2014 Blood Pressure 1: 132/78 Code : 8480-6 BMI: 43.3 Code : 68356-2 Heart Rate 1 : 76 bpm Height: 5'6" Weight: 268 lbs Functional Status No Functional Status data History of Present Illness Symptom Name Status Result Effective Date Notes diabetes mellitus Quality insulin dependent 05/22/2017 None diabetes mellitus Severity mild 05/22/2017 None diabetes mellitus Significant Medications insulin 05/22/2017 None diabetes mellitus Alleviating Factors medication 05/22/2017 None diabetes mellitus Alleviating Factors diet 05/22/2017 None diabetes mellitus Nutrition ADA diet 05/22/2017 None diabetes mellitus Pertinent Findings dizziness 05/22/2017 from the flu/ coughing diabetes mellitus Pertinent Findings Denies nausea 05/22/2017 None diabetes mellitus Pertinent Findings Denies nocturia 05/22/2017 None diabetes mellitus Pertinent Findings Denies numbness 05/22/2017 None diabetes mellitus Pertinent Findings Denies tingling 05/22/2017 None diabetes mellitus Pertinent Findings Denies vomiting 05/22/2017 None diabetes mellitus Onset of Symptom onset as an adult 05/22/2017 None hip pain Location on the left 05/22/2017 None hip pain Location on the right 05/22/2017 None hip pain Quality sharp pain 05/22/2017 None hip pain Quality intermittent 05/22/2017 None hip pain Quality worsening 05/22/2017 None hip pain Onset and Resolution gradual in onset 05/22/2017 None hip pain Onset of Symptom 3 months ago 05/22/2017 None hip pain Frequency of Episodes daily 05/22/2017 None hip pain Pertinent Findings decreased range of motion 05/22/2017 None hip pain Pertinent Findings limping 05/22/2017 None hip pain Pertinent Findings pain with movement 05/22/2017 None hip pain Pertinent Findings stiffness 05/22/2017 None diabetes mellitus Quality insulin dependent 02/17/2017 None diabetes mellitus Severity mild 02/17/2017 None diabetes mellitus Significant Medications insulin 02/17/2017 None diabetes mellitus Alleviating Factors medication 02/17/2017 None diabetes mellitus Alleviating Factors diet 02/17/2017 None diabetes mellitus Nutrition ADA diet 02/17/2017 None diabetes mellitus Pertinent Findings dizziness 02/17/2017 from the flu/ coughing diabetes mellitus Pertinent Findings Denies nausea 02/17/2017 None diabetes mellitus Pertinent Findings Denies nocturia 02/17/2017 None diabetes mellitus Pertinent Findings Denies numbness 02/17/2017 None diabetes mellitus Pertinent Findings Denies tingling 02/17/2017 None diabetes mellitus Pertinent Findings Denies vomiting 02/17/2017 None diabetes mellitus Onset of Symptom onset as an adult 02/17/2017 None diabetes mellitus Test results Pt checking blood glucose at home, see scanned readings 2016 None diabetes mellitus Glucose monitoring twice daily 02/17/2017 None hip pain Location on the left 02/17/2017 None hip pain Location on the right 02/17/2017 None hip pain Quality sharp pain 02/17/2017 None hip pain Quality intermittent 02/17/2017 None hip pain Quality worsening 02/17/2017 None hip pain Onset and Resolution gradual in onset 02/17/2017 None hip pain Onset of Symptom 3 months ago 02/17/2017 None hip pain Frequency of Episodes daily 02/17/2017 None hip pain Pertinent Findings decreased range of motion 02/17/2017 None hip pain Pertinent Findings limping 02/17/2017 None hip pain Pertinent Findings pain with movement 02/17/2017 None hip pain Pertinent Findings stiffness 02/17/2017 None Annual Medicare Wellness Exam Alcohol Use drinks 6 days per week 11/19/2016 None Annual Medicare Wellness Exam Aspirin Use yes 11/19/2016 81mg qod Annual Medicare Wellness Exam Blood Glucose (self reported) high (126 or higher) 11/19/2016 None Annual Medicare Wellness Exam Blood Pressure (self reported ) diagnosed with hypertension 11/19/2016 None Annual Medicare Wellness Exam Cholesterol (self reported) diagnosed with elevated cholesterol 2016 None Annual Medicare Wellness Exam Depression (last 6 months) almost never 11/19/2016 None Annual Medicare Wellness Exam Depression or Hopelessness almost never 11/19/2016 None Annual Medicare Wellness Exam Describe Your Health good 11/19/2016 None Annual Medicare Wellness Exam Exercise Habits exercises 3 days per week 11/19/2016 bike 30 min Annual Medicare Wellness Exam Handling Stress usually vane effectively 11/19/2016 None Annual Medicare Wellness Exam Hours of Sleep 7 11/19/2016 None Annual Medicare Wellness Exam Interaction with Friends yes 11/19/2016 None Annual Medicare Wellness Exam Interests & Pleasure almost all of the time 11/19/2016 None Annual Medicare Wellness Exam Life Satisfaction satisfied 11/19/2016 None Annual Medicare Wellness Exam Motor Vehicle Safety always fastens seat belt: y 11/19/2016 None Annual Medicare Wellness Exam Smoking and Tobacco Use non smoker 11/19/2016 None Annual Medicare Wellness Exam Nutrition servings of vegetables / fruit per day: 4 11/19/2016 None Annual Medicare Wellness Exam Nutrition servings of high fiber / whole grain per day: 2 11/19/2016 None Annual Medicare Wellness Exam Nutrition servings of fried food / high fat foods per day: 1 2016 None Annual Medicare Wellness Exam Social & Emotional Support always 11/19/2016 None Annual Medicare Wellness Exam Stress almost never 11/19/2016 None Annual Medicare Wellness Exam Sun Exposure protects skin when outdoors: y 11/19/2016 None diabetes mellitus Quality insulin dependent 11/18/2016 None diabetes mellitus Severity mild 11/18/2016 None diabetes mellitus Significant Medications insulin 11/18/2016 None diabetes mellitus Alleviating Factors medication 11/18/2016 None diabetes mellitus Alleviating Factors diet 11/18/2016 None diabetes mellitus Nutrition ADA diet 11/18/2016 None diabetes mellitus Pertinent Findings dizziness 11/18/2016 from the flu/ coughing diabetes mellitus Pertinent Findings Denies nausea 11/18/2016 None diabetes mellitus Pertinent Findings Denies nocturia 11/18/2016 None diabetes mellitus Pertinent Findings Denies numbness 11/18/2016 None diabetes mellitus Pertinent Findings Denies tingling 11/18/2016 None diabetes mellitus Pertinent Findings Denies vomiting 11/18/2016 None diabetes mellitus Onset of Symptom onset as an adult 11/18/2016 None cough Location in the larynx 11/18/2016 None cough Quality acute None cough Quality intermittent 11/18/2016 None cough Quality hacking 11/18/2016 None cough Quality productive 11/18/2016 None cough Onset and Resolution sudden in onset 11/18/2016 None cough Onset of Symptom 1 weeks ago 11/18/2016 None cough Pertinent Findings Denies fever 11/18/2016 None cough Pertinent Findings Denies chest discomfort 11/18/2016 None cough Pertinent Findings Denies dyspnea 11/18/2016 None cough Pertinent Findings Denies hoarseness 11/18/2016 None cough Pertinent Findings Denies muscle aches 11/18/2016 None cough Pertinent Findings nasal congestion 11/18/2016 None cough Pertinent Findings sputum production 11/18/2016 None cough Pertinent Findings purulent sputum 11/18/2016 None cough Pertinent Findings post nasal drip 11/18/2016 None diabetes mellitus Test results Pt checking blood glucose at home, see scanned readings 2016 None diabetes mellitus Blood glucose levels between 60 and 120 11/18/2016 None diabetes mellitus Blood glucose levels greater than 120 11/18/2016 None diabetes mellitus Quality insulin dependent 08/12/2016 None diabetes mellitus Severity mild 08/12/2016 None diabetes mellitus Significant Medications insulin 08/12/2016 None diabetes mellitus Alleviating Factors medication 08/12/2016 None diabetes mellitus Alleviating Factors diet 08/12/2016 None diabetes mellitus Nutrition ADA diet 08/12/2016 None diabetes mellitus Pertinent Findings dizziness 08/12/2016 from the flu/ coughing diabetes mellitus Pertinent Findings Denies nausea 08/12/2016 None diabetes mellitus Pertinent Findings Denies nocturia 08/12/2016 None diabetes mellitus Onset of Symptom onset as an adult 08/12/2016 None diabetes mellitus Test results Pt checking blood glucose at home, see scanned readings 2016 None diabetes mellitus Pertinent Findings Denies tingling 08/12/2016 None diabetes mellitus Pertinent Findings Denies vomiting 08/12/2016 None diabetes mellitus Pertinent Findings Denies numbness 08/12/2016 None sinus congestion Location on both sides 07/30/2016 None sinus congestion Quality fullness 07/30/2016 None sinus congestion Quality pressure 07/30/2016 None sinus congestion Onset and Resolution sudden in onset 07/30/2016 None sinus congestion Onset of Symptom 4 days ago 07/30/2016 None sinus congestion Frequency of Episodes daily 07/30/2016 None headache Location diffusely 07/30/2016 None headache Quality constant 07/30/2016 None headache Onset and Resolution sudden in onset 07/30/2016 None headache Onset of Symptom 4 days ago 07/30/2016 None sinus congestion Pertinent Findings cough 07/30/2016 None sinus congestion Pertinent Findings Denies fever 07/30/2016 None sinus congestion Pertinent Findings hoarseness 07/30/2016 None sinus congestion Location on both sides 06/04/2016 None sinus congestion Quality constant 06/04/2016 None sinus congestion Quality fullness 06/04/2016 None sinus congestion Quality pressure 06/04/2016 None sinus congestion Onset and Resolution sudden in onset 06/04/2016 None sinus congestion Onset of Symptom 1 weeks ago 06/04/2016 None sinus congestion Frequency of Episodes daily 06/04/2016 None sinus congestion Pertinent Findings cough 06/04/2016 None sinus congestion Pertinent Findings hoarseness 06/04/2016 None sinus congestion Pertinent Findings fever 06/04/2016 None diabetes mellitus Quality insulin dependent 05/01/2016 None diabetes mellitus Severity mild 05/01/2016 None diabetes mellitus Significant Medications insulin 05/01/2016 None diabetes mellitus Alleviating Factors medication 05/01/2016 None diabetes mellitus Alleviating Factors diet 05/01/2016 None diabetes mellitus Nutrition ADA diet 05/01/2016 None diabetes mellitus Pertinent Findings Denies dizziness 05/01/2016 None diabetes mellitus Pertinent Findings Denies nausea 05/01/2016 None diabetes mellitus Pertinent Findings Denies nocturia 05/01/2016 None diabetes mellitus Onset of Symptom onset as an adult 05/01/2016 None headache Location in the frontal area 01/17/2016 None headache Location in the left temporal region 01/17/2016 None headache Quality intermittent 01/17/2016 None headache Quality sharp 01/17/2016 None headache Quality pressure 01/17/2016 None headache Onset and Resolution ongoing 01/17/2016 None headache Onset of Symptom 2 weeks ago 01/17/2016 None headache Pertinent Findings awakens from sleep 01/17/2016 None headache Pertinent Findings Denies blurred vision 01/17/2016 None headache Pertinent Findings Denies nausea 01/17/2016 None headache Pertinent Findings jaw pain 01/17/2016 None diabetes mellitus Quality insulin dependent 01/01/2016 None diabetes mellitus Severity mild 01/01/2016 None diabetes mellitus Significant Medications insulin 01/01/2016 None diabetes mellitus Alleviating Factors medication 01/01/2016 None diabetes mellitus Alleviating Factors diet 01/01/2016 None diabetes mellitus Nutrition ADA diet 01/01/2016 None diabetes mellitus Pertinent Findings Denies dizziness 01/01/2016 None diabetes mellitus Pertinent Findings Denies nausea 01/01/2016 None diabetes mellitus Pertinent Findings Denies nocturia 01/01/2016 None diabetes mellitus Onset of Symptom onset as an adult 01/01/2016 None diabetes mellitus Glucose monitoring twice daily 01/01/2016 None diabetes mellitus Test results HgbA1c level 7.0 01/01/2016 None diabetes mellitus Quality insulin dependent 10/02/2015 None diabetes mellitus Severity mild 10/02/2015 None diabetes mellitus Significant Medications insulin 10/02/2015 None diabetes mellitus Alleviating Factors medication 10/02/2015 None diabetes mellitus Alleviating Factors diet 10/02/2015 None diabetes mellitus Nutrition ADA diet 10/02/2015 None diabetes mellitus Pertinent Findings Denies dizziness 10/02/2015 None diabetes mellitus Pertinent Findings Denies nausea 10/02/2015 None diabetes mellitus Pertinent Findings Denies nocturia 10/02/2015 None diabetes mellitus Onset of Symptom onset as an adult 10/02/2015 None diabetes mellitus Test results Pt checking blood glucose at home, see scanned readings 2015 None diabetes mellitus Glucose monitoring twice daily 10/02/2015 None diabetes mellitus Test results HgbA1c level 6.5 10/02/2015 None cough Location in the lung 09/13/2015 None cough Quality productive 09/13/2015 None cough Quality interrupts sleep 09/13/2015 None cough Onset and Resolution sudden in onset 09/13/2015 None cough Onset of Symptom 2 weeks ago 09/13/2015 None cough Frequency of Episodes daily 09/13/2015 None sinus congestion Onset and Resolution sudden in onset 09/13/2015 None sinus congestion Onset of Symptom 2 weeks ago 09/13/2015 None sore throat Location on both sides 09/13/2015 None sore throat Quality dull 09/13/2015 None sore throat Quality constant 09/13/2015 None sore throat Quality aching 09/13/2015 None sore throat Quality scratchy 09/13/2015 None sore throat Onset and Resolution sudden in onset 09/13/2015 None sore throat Onset of Symptom 2 weeks ago 09/13/2015 None diabetes mellitus Quality insulin dependent 07/03/2015 None diabetes mellitus Severity mild 07/03/2015 None diabetes mellitus Significant Medications insulin 07/03/2015 None diabetes mellitus Alleviating Factors medication 07/03/2015 None diabetes mellitus Alleviating Factors diet 07/03/2015 None diabetes mellitus Nutrition ADA diet 07/03/2015 None diabetes mellitus Pertinent Findings Denies dizziness 07/03/2015 None diabetes mellitus Pertinent Findings Denies nausea 07/03/2015 None diabetes mellitus Pertinent Findings Denies nocturia 07/03/2015 None diabetes mellitus Onset of Symptom onset as an adult 07/03/2015 None diabetes mellitus Test results Pt checking blood glucose at home, see scanned readings 2015 None diabetes mellitus Glucose monitoring twice daily 07/03/2015 None diabetes mellitus Test results Pt checking blood glucose at home, see scanned readings 2014 Fasting BG 111 This AM diabetes mellitus Glucose monitoring fasting 03/06/2015 None diabetes mellitus Glucose monitoring twice daily 03/06/2015 None diabetes mellitus Exercise moderate exercise 03/06/2015 riding stationary bike 30 min a day diabetes mellitus Quality insulin dependent 03/06/2015 None diabetes mellitus Severity mild 03/06/2015 None diabetes mellitus Test results HgbA1c level 6.5 03/06/2015 None diabetes mellitus Blood glucose levels greater than 120 03/06/2015 None diabetes mellitus Blood glucose levels between 60 and 120 03/06/2015 None diabetes mellitus Significant Medications insulin 03/06/2015 None diabetes mellitus Alleviating Factors medication 03/06/2015 None diabetes mellitus Alleviating Factors diet 03/06/2015 None diabetes mellitus Nutrition ADA diet 03/06/2015 None diabetes mellitus Onset of Symptom onset as an adult 03/06/2015 None diabetes mellitus Pertinent Findings Denies dizziness 03/06/2015 None diabetes mellitus Pertinent Findings Denies nocturia 03/06/2015 None diabetes mellitus Pertinent Findings Denies nausea 03/06/2015 None diabetes mellitus Quality IDDM 11/02/2014 None diabetes mellitus Test results Pt checking blood glucose at home, see scanned readings 2014 None diabetes mellitus Glucose monitoring twice daily 11/02/2014 occ 3 x diabetes mellitus Pertinent Findings Denies dizziness 11/02/2014 None diabetes mellitus Pertinent Findings Denies dyspnea 11/02/2014 None diabetes mellitus Pertinent Findings Denies numbness 11/02/2014 None hypertension Blood Pressure Values not checking blood pressure at home 11/02/2014 None hypertension Pertinent Findings Denies anxiety 11/02/2014 None hypertension Pertinent Findings Denies dizziness 11/02/2014 None hypertension Pertinent Findings Denies dyspnea 11/02/2014 None hypertension Pertinent Findings Denies edema 11/02/2014 None hypertension Pertinent Findings obesity 11/02/2014 None hyperlipidemia Pertinent Findings Denies edema 11/02/2014 None diabetes mellitus Severity mild 11/02/2014 None diabetes mellitus Significant Medications insulin 11/02/2014 None diabetes mellitus Alleviating Factors medication 11/02/2014 None diabetes mellitus Onset of Symptom onset as an adult 11/02/2014 None Advance Directives No Advance Directive data Encounters Encounter Performer Location Codes Date ([id number]) [id number] EST. PATIENT, LEVEL IV Diagnosis: Type 2 diabetes mellitus without complications[ICD10: E11.9] Diagnosis: Mixed hyperlipidemia[ICD10: E78.2] Diagnosis: Essential (primary) hypertension[ICD10: I10] Diagnosis: Hypothyroidism, unspecified[ICD10: E03.9] Janette Hurley MD, [facility] CPT-4: 67793 05/22/2017 [id number]) [id number] EST. PATIENT, LEVEL IV Diagnosis: Type 2 diabetes mellitus without complications[ICD10: E11.9] Diagnosis: Hypothyroidism, unspecified[ICD10: E03.9] Diagnosis: Essential (primary) hypertension[ICD10: I10] Diagnosis: Mixed hyperlipidemia[ICD10: E78.2] Diagnosis: Bilateral primary osteoarthritis of hip[ICD10: M16.0] Janette Hurley MD, [facility] CPT-4: 75743 02/17/2017 [id number]) [id number] EST. PATIENT, LEVEL IV Diagnosis: Essential (primary) hypertension[ICD10: I10] Diagnosis: Mixed hyperlipidemia[ICD10: E78.2] Diagnosis: Hypothyroidism, unspecified[ICD10: E03.9] Diagnosis: Type 2 diabetes mellitus without complications[ICD10: E11.9] Diagnosis: Cough[ICD10: R05] Diagnosis: Acute bronchitis, unspecified[ICD10: J20.9] Janette Hurley MD, [facility] CPT-4: 83182 11/18/2016 ([id number]) 04579 EST. PATIENT, LEVEL IV Diagnosis: Type 2 diabetes mellitus without complications[ICD10: E11.9] Diagnosis: Hypothyroidism, unspecified[ICD10: E03.9] Diagnosis: Mixed hyperlipidemia[ICD10: E78.2] Diagnosis: Essential (primary) hypertension[ICD10: I10] Diagnosis: Encounter for screening mammogram for malignant neoplasm of breast[ ICD10: Z12.31] Janette Hurley MD, [facility] CPT-4: 41531 08/12/2016 13774 EST. PATIENT, LEVEL IV Diagnosis: Acute laryngopharyngitis[ICD10: J06.0] Diagnosis: Other acute sinusitis[ICD10: J01.80] Diagnosis: Other allergic rhinitis[ICD10: J30.89] Britta Hurley MD, [facility] CPT-4: 16411 07/30/2016 23034 EST. PATIENT, LEVEL IV Diagnosis: Other allergic rhinitis[ICD10: J30.89] Diagnosis: Other acute sinusitis[ICD10: J01.80] Britta Hurley MD, [facility] CPT-4: 24707 06/04/2016 ([id number]) [id number] EST. PATIENT, LEVEL III Diagnosis: Type 2 diabetes mellitus without complications[ICD10: E11.9] Diagnosis: Mixed hyperlipidemia[ICD10: E78.2] Janette Hurley MD, [facility] CPT-4: 16375 05/01/2016 ([id number]) 64554 EST. PATIENT, LEVEL III Diagnosis: Allergic rhinitis due to pollen[ICD10: J30.1] Diagnosis: Headache[ICD10: R51] Diagnosis: Other effects of high altitude, initial encounter[ICD10: T70.29XA] Janette Hurley MD, [facility] CPT-4: 87921 01/17/2016 ([id number]) [id number] EST. PATIENT, LEVEL IV Diagnosis: Essential (primary) hypertension[ICD10: I10] Diagnosis: Type 2 diabetes mellitus without complications[ICD10: E11.9] Diagnosis: Allergic rhinitis due to pollen[ICD10: J30.1] Diagnosis: Mixed hyperlipidemia[ICD10: E78.2] Diagnosis: Morbid (severe) obesity due to excess calories[ICD10: E66.01] Janette Hurley MD, [facility] CPT-4: 96887 01/01/2016 ([id number] [id number] EST. PATIENT, LEVEL IV Diagnosis: Type 2 diabetes mellitus without complications[ICD10: E11.9] Diagnosis: Essential (primary) hypertension[ICD10: I10] Diagnosis: Mixed hyperlipidemia[ICD10: E78.2] Diagnosis: Hypothyroidism, unspecified[ICD10: E03.9] Diagnosis: Morbid (severe) obesity due to excess calories[ICD10: E66.01] Janette Hurley MD, [facility] CPT-4: 82860 10/02/2015 ([id number]) 79965 EST. PATIENT, LEVEL III Diagnosis: Acute recurrent maxillary sinusitis[ICD10: J01.01] Diagnosis: Cough[ICD10: R05] Janette Hurley MD, [facility] CPT-4: 75122 09/13/2015 ([id number]) 07643 EST. PATIENT, LEVEL IV Diagnosis: Essential (primary) hypertension[ICD10: I10] Diagnosis: Mixed hyperlipidemia[ICD10: E78.2] Diagnosis: Hypothyroidism, unspecified[ICD10: E03.9] Diagnosis: Type 2 diabetes mellitus without complications[ICD10: E11.9] Janette Hurley MD, [facility] CPT-4: 24437 07/03/2015 ([id number]) 37662 EST. PATIENT, LEVEL III Diagnosis: Diabetes mellitus[ICD9: 250.00] Diagnosis: ESSENTIAL HYPERTENSION[ICD9: 401.9] Diagnosis: Influenza vaccination administered at current visit[ICD9: V04.81] Janette Hurley MD, [facility] CPT-4: 59669 03/06/2015 ([id number]) OFFICE VISIT, NEW - LEVEL 4 Diagnosis: Diabetes mellitus[ICD9: 250.00] Diagnosis: ESSENTIAL HYPERTENSION[ICD9: 401.9] Diagnosis: Hypothyroidism[ICD9: 244.9] Diagnosis: Hyperlipidemia[ICD9: 272.4] Janette Hurley MD, [facility] CPT-4: 52860 11/02/2014 Plan of Care Planned Activity Notes Codes Status Date Appointment: [phone] (30 min) Complex 05/22/2017 Patient Education: Patient Medication Summary Completed 05/22/2017 Patient Education: Obesity Completed 05/22/2017 Appointment: Janette Burns WPtel: [address] [place], [place] [phone] (15 min) Moderate 02/17/2017 Patient Education: Patient Medication Summary Completed 02/17/2017 Patient Education: Obesity Completed 02/17/2017 Care Plan: Comp Metabolic Pending 02/17/2017 Care Plan: Cbc With Differential Pending 02/17/2017 Care Plan: %Hba1C LOINC : 23922-9 Pending 02/17/2017 Care Plan: Tsh Pending 02/17/2017 Care Plan: Lipid Pending 02/17/2017 Care Plan: Free T4 coming Pending 02/17/2017 Appointment: Britta Ahuja WPtel: [address] [place], [place] [phone] - Welcome [facility] Medicare visit 11/19/2016 Patient Education: Patient Medication Summary Completed 11/19/2016 Appointment: Janette Burns WPtel: [address] [place], [place] [phone] (15 min) Moderate 11/18/2016 Patient Education: Patient Medication Summary Completed 11/18/2016 Referral: Syed Castaneda [address] Referral Completed 08/13/2016 Appointment: Janette Burns WPtel: [address] [place], [place] [phone] (15 min) Moderate 08/12/2016 Patient Education: Patient Medication Summary Completed 08/12/2016 Patient Education: Obesity Completed 08/12/2016 Care Plan: Comp Metabolic Pending 08/12/2016 Care Plan: Cbc With Differential Pending 08/12/2016 Care Plan: %Hba1C LOINC : 24224-7 Pending 08/12/2016 Care Plan: Tsh Pending 08/12/2016 Care Plan: Lipid Pending 08/12/2016 Care Plan: Free T4 Pending 08/12/2016 Care Plan: Referral Order SNOMED-CT : [id number] Pending 08/03/2016 Appointment: [id number] [id number] ([facility] Complex 07/30/2016 Patient Education: Patient Medication Summary Completed 07/30/2016 Appointment: Britta Ahuja [facility]el[id number] (15 min) Moderate 06/04/2016 Patient Education: Patient Medication Summary Completed 06/04/2016 Appointment: Janette Burns WPtel: [phone] (15 min) Moderate 05/01/2016 Patient Education: Patient Medication Summary Completed 05/01/2016 Patient Education: Obesity Completed 05/01/2016 Care Plan: %Hba1C pt to come tomorrow fasting LOINC : 45677-8 Pending 05/01/2016 Care Plan: Lipid Pending 05/01/2016 Patient Education: Patient Medication Summary Completed 04/15/2016 Care Plan: Tsh Pending 04/15/2016 Care Plan: Lipid Pending 04/15/2016 Patient Education: Patient Medication Summary Completed 01/17/2016 Patient Education: Obesity Completed 01/17/2016 Patient Education: Patient Medication Summary Completed 01/01/2016 Patient Education: Obesity Completed 01/01/2016 Care Plan: Free T4 Pending 01/01/2016 Care Plan: BMI Above normal followup SELF-MGMT EDUC & TRAIN 1 PT Pending 2015 Appointment: Janette Burns [facility]el[phone] (15 min) Moderate 10/02/2015 Patient Education: Patient Medication Summary Completed 10/02/2015 Patient Education: Obesity Completed 10/02/2015 Patient Education: Hypertension Completed 10/02/2015 Care Plan: Comp Metabolic Pending 10/02/2015 Care Plan: Cbc With Differential Pending 10/02/2015 Care Plan: %Hba1C LOINC : 30716-3 Pending 10/02/2015 Care Plan: Free T4 Pending 10/02/2015 Care Plan: BMI Above normal followup SELF-MGMT EDUC & TRAIN 1 PT Pending 2015 Care Plan: Tsh Pending 10/02/2015 Patient Education: Patient Medication Summary Completed 09/13/2015 Patient Education: Obesity Completed 09/13/2015 Appointment: (30 min) Complex 07/03/2015 Patient Education: Patient Medication Summary Completed 07/03/2015 Patient Education: Hypertension Completed 07/03/2015 Care Plan: Tsh Pending 07/03/2015 Care Plan: Free T4 Pending 07/03/2015 Care Plan: Comp Metabolic Pending 07/03/2015 Care Plan: Lipid Pending 07/03/2015 Care Plan: %Hba1C LOINC : 24484-1 Pending 07/03/2015 Appointment: Follow up 03/06/2015 Patient Education: Patient Medication Summary Completed 03/06/2015 Patient Education: Hypertension Completed 03/06/2015 Appointment: (S) New Patient 11/02/2014 Patient Education: Patient Medication Summary Completed 11/02/2014 Patient Education: Hypertension Completed 11/02/2014 Care Plan: COMPLETE CBC AUTOMATED LOINC : 41014-6 Ordered 11/02/2014 Appointment: (S) New Patient 10/30/2014 [facility] [place] Referral Completed Instructions No Instructions
[2017-09-08] MEDS ORDERED: LIOT5TAB3 PO (14:43)
[2017-09-08] MEDS ORDERED: FURO20TA4 PO (14:43)
[2017-09-08] MEDS ORDERED: ATOR20TA66 PO (14:43)
[2017-09-08] MEDS ORDERED: AMLO2.5T PO (14:43)
[2017-09-08] MEDS ORDERED: LEVO50TA6 PO (14:43)
[2017-09-08] MEDS ORDERED: INSU200I4 SQ (14:43)
[2017-09-08] MEDS ORDERED: INSU100I14 SQ (14:43)
[2017-09-08] MEDS ORDERED: DORZ1DRO6 OU (14:43)
[2017-09-08] MEDS ORDERED: BIMA2.5D4 OU (14:43)
[2017-09-08] MEDS ORDERED: DICL100G18 TP (14:43)
[2017-09-08] MEDS ORDERED: GEMF600T3 PO (14:43)
[2017-09-08] MEDS ORDERED: QUIN40TA14 PO (14:43)
[2017-09-08] MEDS ORDERED: ONDANSETRON 4 MG/2 ML (SDV) Z0FRAN IV PRN (14:45)
[2017-09-08] MEDS ORDERED: CATHETER FLUSH 10 ML SYR IV PRN (14:45)
[2017-09-08 15:00] VITALS: BP 137/60
[2017-09-08] MEDS ORDERED: CHOL500050 PO (15:17)
[2017-09-08] MEDS ORDERED: VITA1CAP PO (15:17)
[2017-09-08] MEDS ORDERED: CETI10TA17 PO (15:17)
[2017-09-08] MEDS ORDERED: ASPI-983 PO (15:17)
[2017-09-08] MEDS ORDERED: MAGN400T6 PO (15:17)
[2017-09-08] MEDS ORDERED: OMEP20CA12 PO (15:17)
[2017-09-08] MEDS ORDERED: MULT-1029 PO (15:17)
[2017-09-08] MEDS: NS IV 1000 ML 1,000 ML IV SCH ×2 (15:21→22:30)
[2017-09-08] MEDS: HYDROmorphone (DILAUDID) 2 MG/ML VIAL IV PRN ×4 (15:21→23:47)
[2017-09-08] MEDS ORDERED: FLUT9.9S NSEACH (15:25)
--- NOTE | 2017-09-08 16:47 | HISTORY AND PHYSICAL ---
DATE OF SERVICE: This will be for regular inpatient admission due to fracture with limited mobility and pain management issues as well as comorbidities including obesity and diabetes mellitus. HISTORY OF PRESENT ILLNESS: The patient is a 66-year-old female who presented to the Emergency Department after tripping and falling, landing on her left hip. She was found to have a nondisplaced femoral neck fracture on the left. She denies paresthesias. She denies antecedent pain. She denies loss of consciousness. REVIEW OF SYSTEMS: No recent chest pain, shortness of breath or dysuria. ALLERGIES: TO CODEINE AND PENICILLIN. MEDICATIONS: 1. Aspirin. 2. Atorvastatin. 3. Calcium. 4. Cetirizine. 5. Docusate sodium. 6. Insulin. 7. Levothyroxine. 8. Magnesium oxide. 9. Omeprazole. 10. Quinapril. PAST MEDICAL HISTORY: Significant for hypercholesterolemia, hypertension, hypothyroidism, diabetes mellitus, glaucoma and cataracts. PAST SURGICAL HISTORY: Cataract, hysterectomy. PHYSICAL EXAMINATION: GENERAL: The patient is a well-developed, well-nourished, no acute distress. HEENT: Normocephalic, atraumatic. Pupils are equal, round and reactive to light. Oropharynx is clear. NECK: Supple, no lymphadenopathy. LUNGS: Clear to auscultation bilaterally. HEART: Regular rate and rhythm. ABDOMEN: Soft, nontender, nondistended. EXTREMITIES: Left lower extremity is painful along the lateral aspect of her hip. She has symmetric pulses with symmetric sensation to light touch. She has intact dorsiflexion and plantarflexion of the toes. RADIOGRAPHS: Reveal nondisplaced left femoral neck fracture. IMPRESSION: Nondisplaced left femoral neck fracture. PLAN: Open reduction and percutaneous screw fixation, left femoral neck. The risks, benefits, options, and recovery have been discussed at length with the patient. She understands and wishes to proceed. Job ID: [id number] DocumentID: [id number] Dictated Date: 09/08/2017 16:31:50 Dehydrator Date: 09/08/2017 16:46:28 Dictated By: YULIET SWEET MD
[2017-09-08] MEDS: inSUlin (REGULAR) HUMAN 1 UNIT/0.01 ML (CHARGE PER UNIT) SC SCH ×2 (16:58→22:29)
[2017-09-08 20:00] VITALS: BP 122/58
--- NOTE | 2017-09-08 20:11 | Consultation ---
History of Present Illness History of Present Illness Patient Consulted On(angelita/time) 09/08/17 20:06 Date Seen by Provider: Sep 08, 2017 Time Seen by Provider: 19:30 Reason for Visit: left hip fracture History of Present Illness PT IS A 66 Y/O FEMALE WHO IS KNOWN TO ME FROM CLINIC. SHE PRESENTED TO THE HOSPITAL AFTER MISSING A STEP IN HER SCREENED IN PORCH AND FALLING ONTO THE CONCRETE AND STRIKING HER LEFT HIP. SHE WAS BROUGHT TO THE EMERGENCY DEPARTMENT BY HER PARTNER AND FOUND TO HAVE A NONDISPLACED LEFT FEMORAL NECK FRACTURE. Allergies and Home Medications Allergies Coded Allergies: Penicillins (Verified Allergy, Unknown, 09/08/17) RASH codeine (Verified Adverse Reaction, Unknown, 09/08/17) NAUSEA/VOMING Home Medications Amlodipine Besylate 2.5 Mg Tablet, 2.5 MG PO DAILY, (Reported) STILL TAKING QUINAPRIL / HAS NOT STARTED YET / JUST CALLED IN YESTERDAY Aspirin 81 Mg Tablet.dr, 81 MG PO Q48H, (Reported) Atorvastatin Calcium 20 Mg Tablet, 20 MG PO HS, (Reported) Bimatoprost 2.5 Ml Drops, 1 DROP OU HS, (Reported) Cetirizine HCl 10 Mg Tablet, 10 MG PO DAILY, (Reported) Cholecalciferol (Vitamin D3) 5,000 Unit Capsule, 5,000 UNIT PO DAILY, (Reported) Diclofenac Sodium 100 Gm Gel..gram., 2 GM TP QID, (Reported) APPLIES TO LEFT HIP Dorzolamide/Timolol/Pf 1 Each Droperette, 1 DROP OU BID, (Reported) Fluticasone Propionate 9.9 Ml [place].susp, 2 SPRAY NSEACH DAILY, (Reported) 2 SPRAYS PER NOSTRIL DAILY X 2 DAYS THEN 1 SPRAY DAILY Furosemide 20 Mg Tablet, 40 MG PO Q48H, (Reported) TAKES 2 (20 MG) TABLETS Gemfibrozil 600 Mg Tablet, 600 MG PO BID, (Reported) Insulin Aspart 300 Units/3 Ml Solution, 20 UNITS SQ AC, (Reported) Insulin Degludec 200 Unit/1 Ml Insuln.pen, 25 UNITS SQ HS, (Reported) WILL HOLD DOSE IF BLOOD SUGAR IS 140 OR BELOW Levothyroxine Sodium 50 Mcg Tablet, 50 MCG PO DAILY, (Reported) Liothyronine Sodium 5 Mcg Tablet, 5 MCG PO DAILY, (Reported) Magnesium Oxide 400 Mg Tablet, 400 MG PO DAILY, (Reported) Multivit-Min/FA/Lycopene/Lut 1 Each Tablet, 1 TAB PO DAILY, (Reported) Omeprazole 20 Mg Capsule.dr, 20 MG PO DAILY, (Reported) Quinapril HCl 40 Mg Tablet, 40 MG PO HS, (Reported) Vitamin B Complex 1 Each Capsule, 1 CAP PO DAILY, (Reported) Patient Home Medication List Home Medication List Reviewed: Yes Past Qkcnamq-Wsggca-Qlpcql Hx Patient Social History Alcohol Use: Occasionally Uses Number of Drinks Today: 0 Recreational Drug Use: No Smoking Status: Never a Smoker 2nd Hand Smoke Exposure: Yes Recent Foreign Travel: No Contact w/Someone Who Travel: No Recent Infectious Disease Expo: No Recent Hopitalizations: No Physical Abuse: No Sexual Abuse: No Mistreated: No Fear: No Immunizations Up To Date Date of Pneumonia Vaccine: Mar 25, 2008 Date of Influenza Vaccine: Mar 15, 2017 Seasonal Allergies Seasonal Allergies: No Surgeries History of Surgeries: Yes (GASTRIC BYPASS, CARPEL TUNNEL BILAT, CATARACTS REMOVED) Surgeries: Abdominal, Eye Surgery, Hysterectomy, Orthopedic Respiratory History of Respiratory Disorde: No Cardiovascular History of Cardiac Disorders: Yes Cardiac Disorders: High Cholesterol, Hypertension Neurological History of Neurological Disord: No Reproductive System : No Genitourinary History of Genitourinary Disor: Yes (CKD) Gastrointestinal History of Gastrointestinal Di: No Musculoskeletal History of Musculoskeletal Dis: No Endocrine History of Endocrine Disorders: Yes Endocrine Disorders: Hypothyroidsim, Diabetes, Non-Insulin dep Are Your Blood Sugars Over 250: No HEENT History of HEENT Disorders: Yes HEENT Disorders: Cataract, Glaucoma Cancer History of Cancer: No Psychosocial History of Psychiatric Problem: No Integumentary History of Skin or Integumenta: No Blood Transfusions History of Blood Disorders: No Adverse Reaction to a Blood Tr: No Reviewed Nursing Assessment Reviewed/Agree w Nursing PMH: Yes Family Medical History Significant Family History: Heart Disease, Diabetes, Hypertension Family Medial History: Cardiovascular disease 19 FATHER 19 MOTHER Diabetes mellitus 19 FATHER 19 MOTHER Glaucoma 19 FATHER 19 MOTHER Hypertension 19 FATHER 19 MOTHER Review of Systems-General Constitutional: No chills, No diaphoresis, No malaise, weakness EENTM: No hoarseness, No throat swelling Respiratory: No cough, No dyspnea on exertion Cardiovascular: No chest pain, No palpitations Gastrointestinal: No abdominal pain, No nausea, No vomiting Genitourinary: no symptoms reported : No Musculoskeletal: other (LEFT HIP PAIN) Skin: no symptoms reported Psychiatric/Neurological: Denies Anxiety, Denies Depressed All Other Systems Reviewed Negative Unless Noted: Yes Physical Exam-General Problems Physical Exam Vital Signs Vital Signs - First Documented 09/08/17 11:15 Temp 98.3 Pulse 70 Resp 16 B/P (MAP) 147/68 (94) Pulse Ox 98 O2 Delivery Room Air Capillary Refill : Less Than 3 SecondsLess Than 3 Seconds General Appearance: WD/WN, moderate distress (DUE TO PAIN) Eyes: Bilateral Eye Normal Inspection, Bilateral Eye PERRL, Bilateral Eye EOMI HEENT: PERRL/EOMI, pharynx normal Neck: non-tender, supple, normal inspection Respiratory: chest non-tender, lungs clear, normal breath sounds, no respiratory distress Cardiovascular: regular rate, rhythm, systolic murmur Gastrointestinal: normal bowel sounds, non tender, soft, no organomegaly, no pulsatile mass Rectal: deferred Extremities: normal capillary refill Neurologic/Psychiatric: alert, normal mood/affect, oriented x 3 Skin: warm/dry, other (HEMOSIDERAN PIGMENT CHANGES BILATERAL LOWER EXTREMITIES) Assessment/Plan Assessment/Plan Admission Diagnosis/Plan NONDISPLACED LEFT FEMORAL NECK FRACTURE HYPERTENSION DIABETES MELLITUS HYPOTHYROIDISM HYPERLIPIDEMIA ESOPHAGEAL REFLUX NONDISPLACED LEFT FEMORAL NECK FRACTURE - PLAN IS FOR SURGICAL FIXATION TOMORROW BY DR. SWEET. WILL THEN SEE IF PT WOULD BE ABLE TO QUALIFY OR PARTICIPATE IN INPATIENT REHAB - DEPENDING ON HIS POST-OP INSTRUCTIONS FOR ACTIVITY. HYPERTENSION - STOP QUINAPRIL AND START ON AMLODIPINE. DIABETES MELLITUS - RESTART HOME MEDICATIONS - CHECK FSBS HYPOTHYROIDISM - RESTART THYROID MEDICATIONS HYPERLIPIDEMIA - RESTART LIPITOR. ESOPHAGEAL REFLUX - RESTART OMEPRAZOLE Admission Status: Inpatient Order (span 2 midnights) Reason for Inpatient Admission: PT HAS A NONDISPLACED HIP FRACTURE, WILL NEED AT LEAST TWO MIDNIGHTS - SURGICAL FIXATION PLANNED TOMORROW WHICH WILL BE HER SECOND MIDNIGHT AND SHE WILL NEED AT LEAST ONE MORE DAY AFTER SURGERY INPATIENT AND POSSIBLY BE TRANSFERRED TO INPATIENT REHAB AFTER HIP FRACTURE REPAIR IS COMPLETED. Clinical Quality Measures DVT/VTE Risk/Contraindication: Risk Factor Score Per Nursin RFS Level Per Nursing on Admit: 4+=Very High MEDHAT MELENDEZ MD Sep 08, 2017 20:11
[2017-09-08] MEDS ORDERED: INSULIN DEGLUDEC 25 UNIT SQ SCH (21:00)
[2017-09-08] MEDS ORDERED: DORZOLAMIDE OU SCH (21:00)
[2017-09-08] MEDS ORDERED: TIMOLOL OU SCH (21:00)
[2017-09-08] MEDS ORDERED: NON-FORMULARY MEDICATION 1 EA EA (Bimatoprost (Lumigan) 1 DROP) OU SCH (21:00)
[2017-09-09 00:18] VITALS: BP 113/55
[2017-09-09] MEDS: LATANOPROST 0.005% (XALATAN) OPHTH SOLN 2.5 ML OU SCH ×2 (02:39→21:26)
[2017-09-09] MEDS: DORZOLAMIDE/TIMOLOL (COSOPT) 2-0.5% 10 ML BTL OU SCH ×3 (02:39→21:26)
[2017-09-09] MEDS: GEMFIBROZIL 600 MG (LOPID) TAB PO SCH ×3 (02:40→21:27)
[2017-09-09] MEDS: ATORVASTATIN 20 MG (LIPITOR) TABLET PO SCH ×2 (02:40→21:27)
[2017-09-09] MEDS: inSUlin DETERMIR 1 UNIT/0.01 ML (LEVEMIR) CHARGE PER UNIT SQ SCH ×2 (02:40→21:28)
[2017-09-09] MEDS: HYDROmorphone (DILAUDID) 2 MG/ML VIAL IV PRN ×3 (03:57→08:33)
[2017-09-09 04:00] VITALS: BP 160/69
[2017-09-09] MEDS: LEVOTHYROXINE 50 MCG (LEVOTHROID) TAB PO SCH (05:53)
[2017-09-09] MEDS: inSUlin ASPART (NovoLOG) 1 UNIT/0.01 ML (CHARGE PER UNIT) SC SCH ×3 (05:53→19:47)
[2017-09-09] MEDS: PANTOPRAZOLE 20 MG TABLET (PROTONIX) PO SCH (05:54)
[2017-09-09] MEDS: NS IV 1000 ML 1,000 ML IV SCH ×3 (05:55→17:42)
[2017-09-09] MEDS: inSUlin (REGULAR) HUMAN 1 UNIT/0.01 ML (CHARGE PER UNIT) SC SCH ×4 (05:57→21:27)
[2017-09-09] MEDS ORDERED: NON-FORMULARY MEDICATION 1 EA EA (Insulin Aspart (Novolog Flexpen) 20 UNITS) SQ SCH (06:00)
[2017-09-09 08:00] VITALS: BP 161/69
[2017-09-09] MEDS: amLODIPine 2.5MG (NORVASC) TAB PO SCH (08:32)
[2017-09-09] MEDS: MAGNESIUM OXIDE (MAG-OX)400 MG TAB PO SCH (08:36)
[2017-09-09] MEDS: LORATADINE (CLARITIN) 10 MG TAB PO SCH (08:36)
[2017-09-09] MEDS: VITAMIN D3 5,000 UNITS (CHOLECALCIFEROL ) CAPSULE PO SCH (08:36)
--- NOTE | 2017-09-09 08:41 | Progress Note ---
Subjective Date Seen by Provider: Sep 09, 2017 Time Seen by Provider: 08:45 Subjective/Events-last exam PT REPORTS THAT SHE IS FEELING QUITE A BIT OF DISCOMFORT FROM HER HIP - WAITING TO GO TO SURGERY TODAY. sHE REPORTS HAVING A REALLY ROUGH NIGHT LAST NIGHT. Review of Systems General: No Chills HEENT: No Visual Changes Pulmonary: No Dyspnea, No Cough Cardiovascular: No: Chest Pain, Palpitations Genitourinary: Other (AVINA IN PLACE) Musculoskeletal: leg pain (LEFT HIP PAIN) Neurological: Weakness Objective Exam Last Set of Vital Signs Vital Signs Date Time Temp Pulse Resp B/P (MAP) Pulse Ox O2 Delivery O2 Flow Rate FiO2 09/09/17 04:00 98.2 88 19 160/69 (99) 96 Room Air Capillary Refill : Less Than 3 SecondsLess Than 3 Seconds I&O Intake and Output 09/09/17 00:00 Intake Total 200 ml Output Total 1350 ml Balance -1150 ml Intake Oral 200 ml Output Urine Total 1350 ml Daily Weight Change No General: Alert, Oriented X3, Cooperative HEENT: Atraumatic, PERRLA Neck: Supple Lungs: Clear to Auscultation Heart: Regular Rate Abdomen: Normal Bowel Sounds, Soft Skin: Other (BRUISING LEFT HIP) Psych/Mental Status: Mental Status NL, Mood NL Results Lab Laboratory Tests 09/08/17 11:50: White Blood Count 7.1, Red Blood Count 4.03L, Hemoglobin 12.6, Hematocrit 37, Mean Corpuscular Volume 93, Mean Corpuscular Hemoglobin 31, Mean Corpuscular Hemoglobin Concent 34, Red Cell Distribution Width 12.9, Platelet Count 253, Mean Platelet Volume 10.5H, Neutrophils (%) (Auto) 70, Lymphocytes (%) (Auto) 18 , Monocytes (%) (Auto) 8, Eosinophils (%) (Auto) 4, Basophils (%) (Auto) 0, Neutrophils # (Auto) 5.0, Lymphocytes # (Auto) 1.3, Monocytes # (Auto) 0.6, Eosinophils # (Auto) 0.3, Basophils # (Auto) 0.0, Sodium Level 138, Potassium Level 4.6, Chloride Level 106, Carbon Dioxide Level 23, Anion Gap 9, Blood Urea Nitrogen 34H, Creatinine 1.65H, Estimat Glomerular Filtration Rate 31, BUN/ Creatinine Ratio 21, Glucose Level 131H, Calcium Level 9.2, Total Bilirubin 0.6 , Aspartate Amino Transf (AST/SGOT) 26, Alanine Aminotransferase (ALT/SGPT) 14, Alkaline Phosphatase 114, Total Protein 7.1, Albumin 4.3 09/08/17 13:03: Urine Color YELLOW, Urine Clarity CLEAR, Urine pH 5, Urine Specific [place] 1.010L, Urine Protein NEGATIVE, Urine Glucose (UA) NEGATIVE, Urine Ketones NEGATIVE, Urine Nitrite NEGATIVE, Urine Bilirubin NEGATIVE, Urine Urobilinogen NORMAL, Urine Leukocyte Esterase NEGATIVE, Urine RBC (Auto) NEGATIVE, Urine RBC NONE, Urine WBC RARE, Urine Squamous Epithelial Cells 2-5, Urine Crystals NONE, Urine Bacteria NEGATIVE, Urine Casts NONE, Urine Mucus NEGATIVE, Urine Culture Indicated NO 09/08/17 16:27: Glucometer 192H 09/08/17 20:59: Glucometer 185H 09/09/17 05:40: Glucometer 179H Assessment/Plan Assessment/Plan Assess & Plan/Chief Complaint NONDISPLACED LEFT FEMORAL NECK FRACTURE HYPERTENSION DIABETES MELLITUS HYPOTHYROIDISM HYPERLIPIDEMIA ESOPHAGEAL REFLUX NONDISPLACED LEFT FEMORAL NECK FRACTURE - PLAN IS FOR SURGICAL FIXATION TODAY BY DR. SWEET. WILL SEE IF PT WILL QUALIFY FOR INPATIENT REHAB. HYPERTENSION - STARTED ON AMLODIPINE. DIABETES MELLITUS - RESTARTED HOME MEDICATIONS - CHECK FSBS HYPOTHYROIDISM - RESTARTED THYROID MEDICATIONS HYPERLIPIDEMIA - RESTARTED LIPITOR. ESOPHAGEAL REFLUX - RESTARTED OMEPRAZOLE Clinical Quality Measures DVT/VTE Risk/Contraindication: Risk Factor Score Per Nursin RFS Level Per Nursing on Admit: 4+=Very High MEDHAT MELENDEZ MD Sep 09, 2017 08:41
[2017-09-09] MEDS ORDERED: NON-FORMULARY MEDICATION 1 EA EA (Cetirizine HCl 10 MG) PO SCH (09:00)
[2017-09-09] MEDS ORDERED: NON-FORMULARY MEDICATION 1 EA EA (Cholecalciferol (Vitamin D3) (Vitamin D) 5,000 UNIT) PO SCH (09:00)
[2017-09-09] MEDS ORDERED: OMEPRAZOLE 20 MG (PriLOSEC) CAP NON-FORMULARY PO SCH (09:00)
[2017-09-09] MEDS ORDERED: morphine PCA 30 MG/30 ML VIAL IV PRN (10:30)
[2017-09-09] MEDS ORDERED: ONDANSETRON 4 MG/2 ML (SDV) Z0FRAN IVP PRN ×2 (10:30→14:15)
[2017-09-09] MEDS ORDERED: ACETAMINOPHEN 325 MG TABLET/CAPLET (TYLENOL) PO PRN (10:30)
[2017-09-09] MEDS ORDERED: PATIENT MAY USE OWN MED,SINGLE MED PO SCH (10:45)
[2017-09-09] MEDS: LIOTHYRONINE 5 MCG PO SCH (11:27)
[2017-09-09] MEDS ORDERED: HYDROmorphone (DILAUDID) 2 MG/ML VIAL IVP PRN (11:30)
--- NOTE | 2017-09-09 11:58 | Progress Note-Pre Operative ---
Pre-Operative Progress Note H&P Reviewed The H&P was reviewed, patient examined and no changes noted. Date Seen by Provider: Sep 09, 2017 Time Seen by Provider: 11:57 Date H&P Reviewed: Sep 09, 2017 Time H&P Reviewed: 11:57 Pre-Operative Diagnosis: left femoral neck fracture, closed, nondisplaced YULIET SWEET MD Sep 09, 2017 11:58
--- NOTE | 2017-09-09 11:59 | Progress Note-Post Operative ---
Post-Operative Progess Note Surgeon (s)/Coffee Machine Technician (s) Surgeon YULIET SWEET MD Coffee Machine Technician: Ariel Francis Pre-Operative Diagnosis left femoral neck fracture, closed, nondisplaced Post-Operative Diagnosis left femoral neck fracture, closed, nondisplaced Procedure & Operative Findings Date of Procedure 09/09/17 Procedure Performed/Findings closed reduction and percutaneous fixation of the left femoral neck Anesthesia Type GETA Estimated Blood Loss Estimated blood loss (mL): 100 ml Specimens/Packing Specimens Removed none Packing: none YULIET SWEET MD Sep 09, 2017 11:59
[2017-09-09] MEDS ORDERED: ceFAZolin 2 GM IV Premixed 50 ML IV ONE (12:15)
[2017-09-09] MEDS ORDERED: fentaNYL INJECTION 100 MCG/2 ML AMP ONE (12:26)
[2017-09-09] MEDS ORDERED: LIDOCAINE PF 2% 5 ML (XYLOCAINE) VIAL ONE (12:26)
[2017-09-09] MEDS ORDERED: proPOfol 200 MG/20 ML (DIPRIVAN) VIAL IV ONE (12:26)
[2017-09-09] MEDS ORDERED: SEVOFLURANE (ULTANE) 15 ML INHAL SOLN ONE ×4 (12:26→13:33)
[2017-09-09] MEDS ORDERED: ceFAZolin 1,000 MG (ANCEF) VIAL ONE (12:27)
[2017-09-09] MEDS: LACTATED RINGERS 1,000 ML IV PRN ×2 (12:27→13:30)
[2017-09-09] MEDS ORDERED: ONDANSETRON 4 MG/2 ML (SDV) Z0FRAN ONE (13:00)
[2017-09-09] MEDS ORDERED: SUCCINYLCHOLINE INJ 100 MG/5 ML SYR ONE (13:00)
[2017-09-09] MEDS ORDERED: PHENYLEPHRINE 100 MCG/ML 10 ML (ANESTHESIA) SYR ONE (13:11)
[2017-09-09] MEDS ORDERED: BUPIVACAINE 0.5% 30 ML (SENSORCAINE) VIAL ONE (13:34)
--- NOTE | 2017-09-09 13:51 | Progress Note-Post Operative ---
Post-Operative Progess Note Surgeon (s)/Powerhouse Helper (s) Surgeon YULIET SWEET MD Powerhouse Helper: Ariel Francis Pre-Operative Diagnosis left femoral neck fracture, closed, nondisplaced Post-Operative Diagnosis left femoral neck fracture, closed, nondisplaced Procedure & Operative Findings Date of Procedure 09/09/17 Procedure Performed/Findings closed reduction and percutaneous screw fixation of the left femoral neck Anesthesia Type GETA Estimated Blood Loss Estimated blood loss (mL): minimal Specimens/Packing Specimens Removed none Packing: none YULIET SWEET MD Sep 09, 2017 13:51
--- NOTE | 2017-09-09 14:00 | Anesthesia-General Post-Op ---
General Patient Condition Mental Status/LOC: Same as Preop Cardiovascular: Satisfactory Nausea/Vomiting: Absent Respiratory: Satisfactory Pain: Controlled Complications: Absent Post Op Complications Complications None Follow Up Care/Instructions Patient Instructions None needed. Anesthesia/Patient Condition Patient Condition Patient is doing well, no complaints, stable vital signs, no apparent adverse anesthesia problems. No complications reported per nursing. UVALDO PETERSON CRNA Sep 09, 2017 14:00
[2017-09-09] MEDS: morphine INJ 10 MG/ML 1ML (SYR OR VIAL) IVP PRN ×4 (14:05→14:20)
[2017-09-09] MEDS ORDERED: morphine INJ 10 MG/ML 1ML (SYR OR VIAL) ONE (14:06)
--- NOTE | 2017-09-09 14:11 | Diagnostic Imaging Report ---
INDICATION: Left hip pinning. DESCRIPTION OF PROCEDURE: Fluoroscopy was obtained in the OR during left hip pinning. One minute and 28 seconds of fluoroscopy time was utilized. Two images were obtained demonstrating three partially threaded screws transfixing the left hip. IMPRESSION: Fluoroscopy for left hip pinning. Dictated by: Dictated on workstation # [id number]
[2017-09-09 16:00] VITALS: BP 128/56
[2017-09-09] MEDS: FUROSEMIDE 20 MG (LASIX) TAB PO SCH (16:25)
[2017-09-09] MEDS: DICLOFENAC 1% GEL 100 GM (VOLTAREN) TUBE TP SCH ×3 (16:25→21:28)
[2017-09-09 20:00] VITALS: BP 142/63
--- NOTE | 2017-09-09 20:37 | OPERATIVE REPORT ---
DATE OF SERVICE: 09/09/2017 PREOPERATIVE DIAGNOSIS: Closed nondisplaced left femoral neck fracture. POSTOPERATIVE DIAGNOSIS: Closed nondisplaced left femoral neck fracture. PROCEDURE PERFORMED: Closed reduction and percutaneous screw fixation of the left femoral neck. SURGEON: Syed Wright MD. AIR SUPPORT OPERATIONS OPERATOR: Ariel Thrasher, who assisted throughout the procedure and closed the incision. ANESTHESIA: General endotracheal by Deyanira Sen. ESTIMATED BLOOD LOSS: 100 mL. DRAINS: None. COMPLICATIONS: None. MATERIALS: Synthes cannulated 7.3 cannulated screws. POSTOPERATIVE PLAN: Toe touch weightbearing left lower extremity for 6 weeks. CONDITION: The patient was transferred to the recovery room awake and in stable condition. STATEMENT OF MEDICAL NECESSITY: The patient is a 66-year-old female, who fell yesterday sustaining a nondisplaced left femoral neck fracture. The patient was counseled regarding treatment options. It was elected to proceed with percutaneous screw fixation. The patient understood that there was a risk of nonunion and need for total hip arthroplasty in the future. DESCRIPTION OF PROCEDURE: After risks and benefits of procedure were discussed and questions were answered, informed consent was signed and placed in the chart. The operative site was confirmed in the preoperative holding area initialed by the surgeon. The patient was then transferred to the operating room. After adequate levels of general endotracheal anesthetic were obtained, a timeout was called confirming the operative site. The patient was carefully placed on the fracture table. Fluoroscopy in the AP and lateral planes revealed anatomic alignment of the femoral neck. The left hip was then prepped and draped in the usual sterile fashion. A 5 cm longitudinal incision was made on the lateral aspect of the hip. The iliotibial band was incised in line with the incision. Three guidewires were passed into the femoral head and these were all felt to be in excellent position in the AP and lateral planes. These were then overdrilled and 7.3 mm cannulated screws were placed with excellent purchase obtained. Fluoroscopy in the AP and lateral planes revealed well reduced fracture. The femur moved as a unit when viewing radiographically under C-arm control. The wound was copiously irrigated, 2-0 Vicryl was used to reapproximate the subcutaneous tissue. Skin was closed with 4-0 nylon vertical mattress interrupted fashion. The incision was infiltrated with plain Marcaine. A soft dressing was applied and the patient was transferred to recovery room awake and stable condition. Job ID: [id number] DocumentID: [id number] Dictated Date: 09/09/2017 13:57:22 Pastor Date: 09/09/2017 20:37:00 Dictated By: SYED WRIGHT MD
[2017-09-09] MEDS: ceFAZolin INJECTION 1,000 MG in NS (IVPB) 100 ML IV SCH (21:28)
[2017-09-10] VITALS (7 sets, daily range): BP systolic 120–138; BP diastolic 58–63
[2017-09-10] MEDS: NS IV 1000 ML 1,000 ML IV SCH (03:23)
[2017-09-10] MEDS: ceFAZolin INJECTION 1,000 MG in NS (IVPB) 100 ML IV SCH (05:06)
[2017-09-10 05:54] LABS: HEMOGLOBIN 10.8 G/DL (11.5-16.0)
[2017-09-10] MEDS: inSUlin ASPART (NovoLOG) 1 UNIT/0.01 ML (CHARGE PER UNIT) SC SCH ×3 (06:10→16:29)
[2017-09-10] MEDS: LEVOTHYROXINE 50 MCG (LEVOTHROID) TAB PO SCH (06:13)
[2017-09-10] MEDS: PANTOPRAZOLE 20 MG TABLET (PROTONIX) PO SCH (06:13)
[2017-09-10] MEDS: LIOTHYRONINE 5 MCG PO SCH (06:14)
--- NOTE | 2017-09-10 07:50 | Progress Note-Standard ---
Standard Progress Note Progress Notes/Assess & Plan Date Seen by Provider: Sep 10, 2017 Time Seen by Provider: 07:49 Progress/Assessment & Plan No complaints Vital Signs Date Time Temp Pulse Resp B/P (MAP) Pulse Ox O2 Delivery O2 Flow Rate FiO2 09/10/17 06:27 12 09/10/17 04:00 99.4 92 12 132/59 (83) 99 Nasal Cannula 3.00 09/10/17 01:36 99 Nasal Cannula 2.00 09/10/17 00:00 99.8 91 12 135/63 (87) 99 Nasal Cannula 3.00 09/09/17 21:00 98 Nasal Cannula 2.00 09/09/17 20:00 100.5 102 11 142/63 (89) 98 Nasal Cannula 3.00 09/09/17 19:08 97 Nasal Cannula 2.00 09/09/17 16:09 96 Nasal Cannula 2.00 09/09/17 16:00 99.1 105 128/56 (80) 93 Room Air 09/09/17 11:15 Room Air 09/09/17 08:00 98.4 94 18 161/69 (99) 91 Room Air I & O 09/10/17 07:00 Intake Total 1500 ml Output Total 2150 ml Balance -650 ml Laboratory Tests Test 09/09/17 15:41 09/09/17 20:39 09/10/17 05:44 09/10/17 06:00 Range/Units Glucometer 230 H 219 H 176 H 70-110 MG/DL Hemoglobin 10.8 L 11.5-16.0 G/DL Hematocrit 34 L 35-52 % LLE--dressing intact. Intact DF and PF of toes and ankle. Sensation intact throughout. Pulses sym. s/p ORIF L hip TTWB CLAUDIO ORDOÑEZs eval for YULIET NAVARRO MD Sep 10, 2017 07:50
[2017-09-10] MEDS ORDERED: morphine INJ 4 MG/ML 1 ML (VIAL/SYRINGE) IVP PRN (08:00)
--- NOTE | 2017-09-10 08:35 | Progress Note ---
Subjective Date Seen by Provider: Sep 10, 2017 Time Seen by Provider: 08:35 Subjective/Events-last exam PT REPORTS THAT SHE HAD ANOTHER BAD NIGHT LAST NIGHT - SHE DID NOT HAVE OPTIMAL PAIN CONTROL. SHE REPORTS THAT WORKING WITH THERAPY THIS MORNING CAUSED HER TO HAVE DIZZINESS AND NAUSEA FROM THE PAIN. Review of Systems General: Fatigue HEENT: No Head Aches Pulmonary: No Dyspnea, No Cough Cardiovascular: No: Chest Pain, Palpitations Gastrointestinal: No: Nausea, Abdominal Pain Musculoskeletal: leg pain (LEFT HIP) Neurological: Weakness, No: Confusion Objective Exam Last Set of Vital Signs Vital Signs Date Time Temp Pulse Resp B/P (MAP) Pulse Ox O2 Delivery O2 Flow Rate FiO2 09/10/17 06:27 12 09/10/17 04:00 99.4 92 132/59 (83) 99 Nasal Cannula 3.00 Capillary Refill : Less Than 3 SecondsLess Than 3 Seconds I&O Intake and Output 09/10/17 00:00 Intake Total 3101 ml Output Total 1850 ml Balance 1251 ml Intake Oral 100 ml IV Total 3001 ml Output Urine Total 1850 ml General: Alert, Oriented X3, Cooperative HEENT: Atraumatic, PERRLA Neck: Supple Lungs: Clear to Auscultation Heart: Regular Rate Abdomen: Normal Bowel Sounds, Soft Extremities: Other (SURGICAL SITE WITH OPERATIVE DRESSING IN PLACE) Neuro: Cranial Nerves 3-12 NL Psych/Mental Status: Mental Status NL, Mood NL Results Lab Laboratory Tests 09/09/17 15:41: Glucometer 230H 09/09/17 20:39: Glucometer 219H 09/10/17 05:44: Hemoglobin 10.8L, Hematocrit 34L 09/10/17 06:00: Glucometer 176H Microbiology 09/08/17 MRSA Screen - Final, Complete MRSA not isolated Assessment/Plan Assessment/Plan Assess & Plan/Chief Complaint NONDISPLACED LEFT FEMORAL NECK FRACTURE HYPERTENSION DIABETES MELLITUS HYPOTHYROIDISM HYPERLIPIDEMIA ESOPHAGEAL REFLUX NONDISPLACED LEFT FEMORAL NECK FRACTURE - SURGICAL FIXATION YESTERDAY - SEE DR. SWEET'S NOTE. PLAN FOR INPT REHAB EVAL TODAY. PAIN NOT OPTIMALLY CONTROLLED - CONTINUE WITH ORAL MEDS - MAKE SURE TO HAVE PAIN MEDICATION PRIOR TO PHYSICAL THERAPY. HYPERTENSION - STARTED ON AMLODIPINE. DIABETES MELLITUS - RESTARTED HOME MEDICATIONS - CHECK FSBS HYPOTHYROIDISM - RESTARTED THYROID MEDICATIONS HYPERLIPIDEMIA - RESTARTED LIPITOR. ESOPHAGEAL REFLUX - RESTARTED OMEPRAZOLE Clinical Quality Measures DVT/VTE Risk/Contraindication: Risk Factor Score Per Nursin RFS Level Per Nursing on Admit: 4+=Very High MEDHAT MELENDEZ MD Sep 10, 2017 08:35
[2017-09-10] MEDS: ENOXAPARIN 40 MG/0.4 ML (LOVENOX) SYR SC SCH (09:19)
[2017-09-10] MEDS: inSUlin (REGULAR) HUMAN 1 UNIT/0.01 ML (CHARGE PER UNIT) SC SCH ×4 (09:19→20:48)
[2017-09-10] MEDS: DORZOLAMIDE/TIMOLOL (COSOPT) 2-0.5% 10 ML BTL OU SCH ×2 (09:21→20:49)
[2017-09-10] MEDS: MAGNESIUM OXIDE (MAG-OX)400 MG TAB PO SCH (09:22)
[2017-09-10] MEDS: GEMFIBROZIL 600 MG (LOPID) TAB PO SCH ×2 (09:22→20:48)
[2017-09-10] MEDS: LORATADINE (CLARITIN) 10 MG TAB PO SCH (09:22)
[2017-09-10] MEDS: VITAMIN D3 5,000 UNITS (CHOLECALCIFEROL ) CAPSULE PO SCH (09:23)
[2017-09-10] MEDS: amLODIPine 2.5MG (NORVASC) TAB PO SCH (09:23)
[2017-09-10] MEDS: DICLOFENAC 1% GEL 100 GM (VOLTAREN) TUBE TP SCH ×4 (09:23→20:48)
[2017-09-10] MEDS: oxyCODONE/APAP 5/325MG (PERCOCET 5) TABLET PO PRN ×3 (09:29→18:48)
--- NOTE | 2017-09-10 10:05 | Physical Therapy Evaluation ---
PT Evaluation-General Medical Diagnosis Admission Date Sep 08, 2017 at 13:01 Medical Diagnosis: left femoral neck fracture Onset Date: Sep 08, 2017 Therapy Diagnosis Therapy Diagnosis: debility and weakness Height/Weight Height (Feet): 5 Height (Inches): 6.00 Weight (Pounds): 256 Weight (Ounces): 7.0 Precautions Precautions/Isolations: Standard Precautions Weight Bear Status Right Lower Extremity: Right Full Weight Bearing Left Lower Extremity: Left Touch Toe Bearing Referral Physician: Kyle Reason for Referral: Evaluation/Treatment Medical History Pertinent Medical History: DM, HTN, Hypothroidism Additional Medical History morbid obesity Current History slipped and fell down 1 step landing on left hip and hitting head and elbow Reviewed History: Yes Social History Home: Single Level Current Living Status: Significant Other Entry Into Home: Stairs Without Railing PT Steps Into Home: 4 PT Steps Inside Home: 2 Prior/Core FIM Prior Level of Function Functional [place] Measure 0=Not Assessed/NA 4=Minimal Assistance 1=Total Assistance 5=Supervision or Setup 2=Maximal Assistance 6=Modified [place] 3=Moderate Assistance 7=Complete [place] Bed Mobility: 7 Transfers (B,C,W/C) (FIM): 7 Gait: 7 Locomotion: 7 PT Evaluation-Current Subjective Patient agrees to PT. Pain Numeric Pain Scale: 10-Worst Possible Pain Location: Left Location Body Site: Hip Pain Description: Acute Objective Patient Orientation: Normal For Age Problem Solving: Good Attachments: Oxygen, Rivera Catheter, IV ROM/Strength ROM Lower Extremities left LE limited due to pain right LE WFL Strength Lower Extremities left LE 3/5 grossly right LE 5/5 grossly Integumentary/Posture Integumentary refer to nursing notes Bladder Incontinence: Rivera Cath Posture WNL Neuromuscular (Tone, Coordination, Reflexes) grossly intact Sensory Vision: Wears Glasses Hearing: Functional Sensation Right Lower Extremit: Intact Sensation Left Lower Extremity: Intact Transfers Functional [place] Measure 0=Not Assessed/NA 4=Minimal Assistance 1=Total Assistance 5=Supervision or Setup 2=Maximal Assistance 6=Modified [place] 3=Moderate Assistance 7=Complete [place] Transfers (B, C, W/C) (FIM): 3 Scootin Rollin Supine to/from Sit: 3 Sit to/from Stand: 3 Gait Mode of Locomotion: Walk Anticipated Mode of Locomotion: Walk Gait (FIM): 1 Distance (FIM): 1=up to 49 ft Distance: 5' Gait Level of Assist: 3 Gait Persons Needed: 1 Gait Assistive Device: FWW Comments/Gait Description Patient is able to maintain TTWB left LE, however, became light headed and diaphoretic and required assist to return to EOB to sit Balance Sitting Static: Normal Sitting Dynamic: Normal Standing Static: Fair Standing Dynamic: Fair Treatment BP, SAO2 and HR taken due to patient becoming lightheaded and diaphoretic. RN called to assist. [facility]. Assessment/Needs 66 y.o. female, will benefit from skilled PT to address functional strength and mobility to improve current LOF and to safely return to bed with family at maximum LOF. Rehab Potential: Good PT Snf Goals Snf Goals PT Cartoonist Special Effects Goals Time Frame: Sep 25, 2017 Transfers (B,C,W/C) (FIM): 6 Gait (FIM): 6 Gait distance (FIM): 3=150 ft Gait Level of Assist: 6 Gait Assistive Device: FWW Stairs (FIM): 2 # of Steps: 4 Stairs Level Of Assist: 5 PT Plan Problem List Problem List: Activity Tolerance, Functional Strength, Safety, Balance, Gait, Transfer, Bed Mobility, ROM Treatment/Plan Treatment Plan: Continue Plan of Care Treatment Plan: Bed Mobility, Education, Functional Activity Phoebe, Functional Strength, Gait, Safety, Therapeutic Exercise, Transfers Treatment Duration: Sep 25, 2017 Frequency: 11 times per week Estimated Hrs Per Day: 1 hour per day Patient and/or Family Agrees t: Yes Time/GCodes Time In: 815 Time Out: 900 Total Billed Treatment Time: 45 Total Billed Treatment 1 visit EVMod 25 min FA 20 min ERA STRAUSS PT Sep 10, 2017 10:04
--- NOTE | 2017-09-10 14:34 | Physical Therapy Daily Note ---
PT Daily Note-Current Subjective Patient agrees to PT. Rates left hip pain 7/10 with RN issuing meds. Pain Numeric Pain Scale: 7 Location: Left Location Body Site: Hip Pain Description: Acute Mental Status Patient Orientation: Normal For Age Attachments: Rivera Catheter Transfers Functional [place] Measure 0=Not Assessed/NA 4=Minimal Assistance 1=Total Assistance 5=Supervision or Setup 2=Maximal Assistance 6=Modified [place] 3=Moderate Assistance 7=Complete IndependenceIRFPAI Quality Coding Scale 6 Independent with activity with or without an assistive device 5 Patient requires set up or clean up by helper. Patient completes activity by themselves 4 Supervision or touching assist (CGA). [place] provide cues , steadying assist 3 The helper provides less than half the effort to complete the activity 2 The helper provides more than half the effort to complete the activity 1 Dependent. The helper does all the effort to complete an activity 7 Patient refused to complete or attempt activity 9 The patient did not perform the activity before the current illness or injury 88 Not attempted due to Medical conditions or safety concerns Transfers (B, C, W/C) (FIM): 4 Scootin Supine to/from Sit: 4 Sit to/from Stand: 4 Weight Bearing Right Lower Extremity: Right Full Weight Bearing Left Lower Extremity: Left Touch Toe Bearing Gait Training Gait (FIM): 1 Distance (FIM): 1=up to 49 ft Distance: 20' Gait Level of Assist: 4 Gait Persons Needed: 1 Gait Assistive Device: FWW slow, patient is able to maintain TTWB left LE with use of FWW Exercises Supine Ex: Ankle pumps, Quad Set, Heel Slides Supine Reps: 15 Seated Therapy Exercises: Ankle pumps, Long arc quads Seated Reps: 15 Assessment Patient progressing slowly with treatment plan. From a PT standpoint, patient would benefit from short stay in ARU to ensure safe return to home with significant other. PT Group Home Goals Motor Operator Goals PT Group Home Goals Time Frame: Sep 25, 2017 Transfers (B,C,W/C) (FIM): 6 Gait (FIM): 6 Gait distance (FIM): 3=150 ft Gait Level of Assist: 6 Gait Assistive Device: FWW Stairs (FIM): 2 # of Steps: 4 Stairs Level Of Assist: 5 PT Plan Treatment/Plan Treatment Plan: Continue Plan of Care Treatment Plan: Bed Mobility, Education, Functional Activity Phoebe, Functional Strength, Gait, Safety, Therapeutic Exercise, Transfers Treatment Duration: Sep 25, 2017 Frequency: 11 times per week Estimated Hrs Per Day: 1 hour per day Patient and/or Family Agrees t: Yes Discharge Recommendations Therapy D/C Recommendations: Acute Rehab Equpiment Recommendations-D/C: Front Wheeled Walker Time/GCodes Time In: 1325 Time Out: 1348 Total Billed Treatment Time: 23 Total Billed Treatment 1 visit GT 14 min EX 9 min ERA STRAUSS PT Sep 10, 2017 14:34
[2017-09-10] MEDS: inSUlin DETERMIR 1 UNIT/0.01 ML (LEVEMIR) CHARGE PER UNIT SQ SCH (20:48)
[2017-09-10] MEDS: ATORVASTATIN 20 MG (LIPITOR) TABLET PO SCH (20:48)
[2017-09-10] MEDS: LATANOPROST 0.005% (XALATAN) OPHTH SOLN 2.5 ML OU SCH (20:50)
[2017-09-11 03:49] VITALS: BP 139/63
[2017-09-11] MEDS: oxyCODONE/APAP 5/325MG (PERCOCET 5) TABLET PO PRN ×2 (04:12→09:29)
[2017-09-11 05:09] LABS: HEMOGLOBIN 9.5 G/DL (11.5-16.0)
[2017-09-11] MEDS: inSUlin (REGULAR) HUMAN 1 UNIT/0.01 ML (CHARGE PER UNIT) SC SCH (05:29)
[2017-09-11] MEDS: LEVOTHYROXINE 50 MCG (LEVOTHROID) TAB PO SCH (05:29)
[2017-09-11] MEDS: LIOTHYRONINE 5 MCG PO SCH (05:29)
[2017-09-11] MEDS: PANTOPRAZOLE 20 MG TABLET (PROTONIX) PO SCH (05:29)
--- NOTE | 2017-09-11 07:08 | Progress Note-Standard ---
Standard Progress Note Progress Notes/Assess & Plan Date Seen by Provider: Sep 11, 2017 Time Seen by Provider: 07:06 Progress/Assessment & Plan No complaints Vital Signs Date Time Temp Pulse Resp B/P (MAP) Pulse Ox O2 Delivery O2 Flow Rate FiO2 09/10/17 06:27 12 09/10/17 04:00 99.4 92 12 132/59 (83) 99 Nasal Cannula 3.00 09/10/17 01:36 99 Nasal Cannula 2.00 09/10/17 00:00 99.8 91 12 135/63 (87) 99 Nasal Cannula 3.00 09/09/17 21:00 98 Nasal Cannula 2.00 09/09/17 20:00 100.5 102 11 142/63 (89) 98 Nasal Cannula 3.00 09/09/17 19:08 97 Nasal Cannula 2.00 09/09/17 16:09 96 Nasal Cannula 2.00 09/09/17 16:00 99.1 105 128/56 (80) 93 Room Air 09/09/17 11:15 Room Air 09/09/17 08:00 98.4 94 18 161/69 (99) 91 Room Air I & O 09/10/17 07:00 Intake Total 1500 ml Output Total 2150 ml Balance -650 ml Laboratory Tests Test 09/09/17 15:41 09/09/17 20:39 09/10/17 05:44 09/10/17 06:00 Range/Units Glucometer 230 H 219 H 176 H 70-110 MG/DL Hemoglobin 10.8 L 11.5-16.0 G/DL Hematocrit 34 L 35-52 % LLE--dressing intact. Intact DF and PF of toes and ankle. Sensation intact throughout. Pulses sym. s/p ORIF L hip TTWB LE ECTOR Rivera SCDs eval for IRU Final Diagnosis no complaints Vital Signs Date Time Temp Pulse Resp B/P (MAP) Pulse Ox O2 Delivery O2 Flow Rate FiO2 09/11/17 03:49 97.7 98 16 139/63 (88) 95 Room Air 09/10/17 23:32 98.8 90 14 132/63 (86) 96 Room Air 09/10/17 20:00 98.2 97 18 128/60 (82) 97 Room Air 09/10/17 16:01 98.3 88 16 128/60 (82) 97 Nasal Cannula 3.00 09/10/17 15:00 Room Air 09/10/17 12:00 98.7 97 20 120/58 (78) 93 Nasal Cannula 3.00 09/10/17 08:30 12 09/10/17 08:30 Nasal Cannula 2.00 09/10/17 08:00 99.1 91 20 138/60 (86) 97 Nasal Cannula 2.00 09/10/17 08:00 99.1 91 20 138/60 (86) 97 Nasal Cannula 3.00 I & O 09/11/17 07:00 Intake Total 2580 ml Output Total 1900 ml Balance 680 ml Laboratory Tests Test 09/10/17 11:12 09/10/17 15:32 09/10/17 20:04 09/11/17 05:00 Range/Units Glucometer 249 H 153 H 217 H 70-110 MG/DL Hemoglobin 9.5 L 11.5-16.0 G/DL Hematocrit 29 L 35-52 % Test 09/11/17 05:08 Range/Units Glucometer 211 H 70-110 MG/DL L hip incision clean and dry. No calf tenderness s/p ORIF L hip PT/OT would benefit from IRF--ok to transfer when qualifies SCDs--spoke with nurse about lack of scds as patient is at higher risk of DVT YULIET SWEET MD Sep 11, 2017 07:08
[2017-09-11 07:58] VITALS: BP 131/62
[2017-09-11] MEDS: ASPIRIN E.C. 81 MG (ECOTRIN) TAB PO SCH ×2 (09:20→10:10)
--- NOTE | 2017-09-11 09:20 | Progress Note ---
Subjective Date Seen by Provider: Sep 11, 2017 Time Seen by Provider: 09:20 Subjective/Events-last exam PT REPORTS THAT SHE IS FEELING BETTER TODAY- HER PAIN IS IMPROVED AND SHE WORKED WITH THERAPY FAIRLY WELL THIS MORNING. Review of Systems General: Fatigue HEENT: No Dysphasia Pulmonary: No Dyspnea, No Cough Cardiovascular: No: Chest Pain Gastrointestinal: No: Nausea, Abdominal Pain Musculoskeletal: leg pain (LEFT HIP) Neurological: Weakness Objective Exam Last Set of Vital Signs Vital Signs Date Time Temp Pulse Resp B/P (MAP) Pulse Ox O2 Delivery O2 Flow Rate FiO2 09/11/17 07:58 97.4 85 18 131/62 (85) 94 Room Air 09/10/17 16:01 3.00 Capillary Refill : Less Than 3 SecondsLess Than 3 Seconds I&O Intake and Output 09/11/17 00:00 Intake Total 2480 ml Output Total 1750 ml Balance 730 ml Intake Oral 1930 ml IV Total 550 ml Output Urine Total 1750 ml General: Alert, Oriented X3, Cooperative HEENT: Atraumatic, PERRLA Neck: Supple Lungs: Clear to Auscultation, Normal Air Movement Heart: Regular Rate Abdomen: Normal Bowel Sounds, Soft Psych/Mental Status: Mental Status NL, Mood NL Results Lab Laboratory Tests 09/10/17 11:12: Glucometer 249H 09/10/17 15:32: Glucometer 153H 09/10/17 20:04: Glucometer 217H 09/11/17 05:00: Hemoglobin 9.5L, Hematocrit 29L 09/11/17 05:08: Glucometer 211H Microbiology 09/08/17 MRSA Screen - Final, Complete MRSA not isolated Assessment/Plan Assessment/Plan Assess & Plan/Chief Complaint NONDISPLACED LEFT FEMORAL NECK FRACTURE HYPERTENSION DIABETES MELLITUS HYPOTHYROIDISM HYPERLIPIDEMIA ESOPHAGEAL REFLUX UNCONTROLLED PAIN CONSTIPATION NONDISPLACED LEFT FEMORAL NECK FRACTURE - SURGICAL FIXATION ON 09/09/17 - SEE DR. SWEET'S NOTE. PLAN FOR INPT REHAB PLACEMENT TODAY. PAIN NOT OPTIMALLY CONTROLLED - CONTINUE WITH ORAL MEDS - MAKE SURE TO HAVE PAIN MEDICATION PRIOR TO PHYSICAL THERAPY. HYPERTENSION - STARTED ON AMLODIPINE. DIABETES MELLITUS - RESTARTED HOME MEDICATIONS - CHECK FSBS HYPOTHYROIDISM - RESTARTED THYROID MEDICATIONS HYPERLIPIDEMIA - RESTARTED LIPITOR. ESOPHAGEAL REFLUX - RESTARTED OMEPRAZOLE CONSTIPATION - STARTED SENNA S TODAY Clinical Quality Measures DVT/VTE Risk/Contraindication: Risk Factor Score Per Nursin RFS Level Per Nursing on Admit: 4+=Very High MEDHAT MELENDEZ MD Sep 11, 2017 09:20
[2017-09-11] MEDS: ENOXAPARIN 40 MG/0.4 ML (LOVENOX) SYR SC SCH (09:21)
[2017-09-11] MEDS: inSUlin ASPART (NovoLOG) 1 UNIT/0.01 ML (CHARGE PER UNIT) SC SCH (09:21)
[2017-09-11] MEDS: VITAMIN D3 5,000 UNITS (CHOLECALCIFEROL ) CAPSULE PO SCH (09:23)
[2017-09-11] MEDS: amLODIPine 2.5MG (NORVASC) TAB PO SCH (09:23)
[2017-09-11] MEDS: LORATADINE (CLARITIN) 10 MG TAB PO SCH (09:23)
[2017-09-11] MEDS: DORZOLAMIDE/TIMOLOL (COSOPT) 2-0.5% 10 ML BTL OU SCH (09:24)
[2017-09-11] MEDS: MAGNESIUM OXIDE (MAG-OX)400 MG TAB PO SCH (09:24)
[2017-09-11] MEDS: GEMFIBROZIL 600 MG (LOPID) TAB PO SCH (09:24)
[2017-09-11] MEDS ORDERED: SENNA W/DOCUSATE (SENOKOT S) TABLET ONE (09:25)
[2017-09-11] MEDS ORDERED: SENNA W/DOCUSATE (SENOKOT S) TABLET PO ONE (09:30)
[2017-09-11] MEDS: DICLOFENAC 1% GEL 100 GM (VOLTAREN) TUBE TP SCH (10:11)
[2017-09-11] MEDS: FUROSEMIDE 20 MG (LASIX) TAB PO SCH (10:11)
--- NOTE | 2017-09-12 03:52 | DISCHARGE SUMMARY ---
DATE OF SERVICE: DIAGNOSES: 1. Left femoral neck fracture. 2. Renal insufficiency. 3. Diabetes mellitus. 4. . 5. Hypertension. 6. Hypothyroidism. 7. Glaucoma. PROCEDURES: Open reduction and internal fixation of the left femoral neck. SUMMARY: The patient is a 66-year-old female who was admitted of the left femoral neck fracture. The following morning, she underwent open reduction and internal fixation of left femoral neck without complications. Postoperatively, she was progressing well. She had no calf tenderness. Negative Homans sign. She was tolerating her diet well and tolerating pain with oral pain medications. CONDITION AT DISCHARGE: Good. DISCHARGE DISPOSITION: Transfer to the inpatient rehabilitation unit for continued physical and occupational therapy. Job ID: [id number] DocumentID: [id number] Dictated Date: 09/11/2017 19:00:08 Gang Worker Date: 09/12/2017 03:50:56 Dictated By: YULIET SWEET MD
== END 2017-09-11 10:40 | DRG 481 ==
LOC: EDUNIT# 11:15 → ER 11:16 → 4TH 13:01
PROVIDERS: ADMIT Orthopaedic Surgery; ATTEND Orthopaedic Surgery
PROC: 0QS734Z Reposition Left Upper Femur with Internal Fixation Device, Percutaneous Approach (ICD-10-PCS; principal; 2017-09-09 12:27)
DX: S72.002A Fracture of unspecified part of neck of left femur, initial encounter for closed fracture (principal); E11.9 Type 2 diabetes mellitus without complications; I12.9 Hypertensive chronic kidney disease with stage 1 through stage 4 chronic kidney disease, or unspecified chronic kidney disease; N18.9 Chronic kidney disease, unspecified; Z68.41 Body mass index [BMI] 40.0-44.9, adult; E66.9 Obesity, unspecified; E03.9 Hypothyroidism, unspecified; H40.9 Unspecified glaucoma; K21.9 Gastro-esophageal reflux disease without esophagitis; E78.00 Pure hypercholesterolemia, unspecified; K59.00 Constipation, unspecified; Z98.84 Bariatric surgery status; W10.9XXA Fall (on) (from) unspecified stairs and steps, initial encounter; Y92.008 Other place in unspecified non-institutional (private) residence as the place of occurrence of the external cause
CPT/HCPCS: 36415; 51702; 70450; 71045; 72125; 80053; 81000; 82962; 85014; 85018; 85025; 87081; 93005; 94664; 94760; 96374; 96375

== ENCOUNTER 2017-09-11 09:33 | Inpatient (IN) | payer MEDICARE, OTHER ==
[~2017-09-11] VITALS: Ht 167.6 cm; Wt 107.0 kg
[~2017-09-11 09:33] MED LIST changes: +AMLO2.5T PO; +ASPI-983 PO; +ATOR20TA66 PO; +BIMA2.5D4 OU; +CHOL500050 PO; +DICL100G18 TP; +DORZ1DRO6 OU; +FLUT9.9S NSEACH; +FURO20TA4 PO; +GEMF600T3 PO; +INSU100I14 SQ; +INSU200I4 SQ; +LEVO50TA6 PO; +MAGN400T6 PO; +MULT-1029 PO; +QUIN40TA14 PO; +VITA1CAP PO
[2017-09-11 11:03] VITALS: BP 138/75
--- OUTSIDE RECORDS SUMMARY | 2017-09-11 11:25 | XMS REPORT | Continuity of Care Document ---
Author Author [facility] Organization [facility] Address Unknown Phone Unavailable Allergies Active Description Code Type Severity Reaction Onset Reported/Identified Relationship to Patient Clinical Status Yes CODIENE CODIENE Unknown N/A 11/23/2012 Yes PCN PCN Unknown N/ A 11/23/2012 Medications There is no data. Problems Date Dx Coded Attending Type Code [...] VO Ot Z12.31 03/18/2016 ROSCOE BOLDEN, KONRAD Jiménez Ot E11.9 TYPE 2 DIABETES MELLITUS WITHOUT COMPLIC 03/18/2016 ROSCOE BOLDEN, KONRAD Jiménez Ot E78.5 HYPERLIPIDEMIA, UNSPECIFIED 03/18/2016 ROSCOE BOLDEN, KONRAD S Ot I12.9 HYPERTENSIVE CHRONIC KIDNEY DISEASE W ST 03/18/2016 KONRAD MALHOTRA MD Ot N18.3 CHRONIC KIDNEY DISEASE, STAGE 3 (MODERAT 08/15/2016 Ot V76.12 OTH SCREEN MAMMO-MALIGN NEOPLASM OF RAYRAY 08/15/2016 MISAEL BOLDEN, ANIL Valenzuela Ot V72.84 EXAM PRE-OPERATIVE NOS 08/15/2016 SANDIP BOLDEN, DEBI Mcdonald Ot V76.12 OTH SCREEN MAMMO-MALIGN NEOPLASM OF RAYRAY 08/15/2016 DEBI OROPEZA MD Ot 793.82 INCONCLUSIVE MAMMOGRAM 08/15/2016 DEBI OROPEZA MD Ot 793.89 OTH (ABN) FINDINGS ON RADIOLOGICAL EXAMI 08/15/2016 DEBI OROPEZA MD Ot V76.12 OTH SCREEN MAMMO-MALIGN NEOPLASM OF RAYRAY 08/15/2016 LIU VO Ot Z12.31 ENCNTR SCREEN MAMMOGRAM FOR MALIGNANT NE 08/15/2016 KONRAD MALHOTRA MD Ot E11.9 TYPE 2 DIABETES MELLITUS WITHOUT COMPLIC 08/15/2016 KONRAD MALHOTRA MD Ot E78.5 HYPERLIPIDEMIA, UNSPECIFIED 08/15/2016 KONRAD MALHOTRA MD Ot I12.9 HYPERTENSIVE CHRONIC KIDNEY DISEASE W ST 08/15/2016 KONRAD MALHOTRA MD Ot N18.3 CHRONIC KIDNEY DISEASE, STAGE 3 (MODERAT 08/18/2016 LIU VO Ot Z12.31 ENCNTR SCREEN [...] Ot Y90.6 BLOOD ALCOHOL LEVEL OF 120-199 MG/100 ML 09/03/2016 RODOLFO RAPP MD Ot Y92.[address] OF OCCURRENCE O 09/03/2016 RODOLFO RAPP MD Ot Y99.8 OTHER EXTERNAL CAUSE STATUS 09/03/2016 RODOLFO RAPP MD Ot Z23 ENCOUNTER FOR IMMUNIZATION 09/03/2016 RODOLFO RAPP MD, Ot Z79.4 SNF (CURRENT) USE OF INSULIN 09/03/2016 RODOLFO RAPP MD Ot Z79.82 CORPORATE COMMUNICATIONS INTERN (CURRENT) USE OF ASPIRIN 09/03/2016 RODOLFO RAPP MD Ot Z79.899 OTHER CORPORATE COMMUNICATIONS INTERN (CURRENT) DRUG THERAPY 09/04/2016 RODOLFO RAPP MD [...] LEV FROM SLIP/TRIP W/O STRIKE 09/04/2016 RODOLFO RPAP MD Ot Y90.6 BLOOD ALCOHOL LEVEL OF 120-199 MG/100 ML 09/04/2016 RODOLFO RAPP MD Ot Y92.[address] OF OCCURRENCE O 09/04/2016 RODOLFO RAPP MD Ot Y99.8 OTHER EXTERNAL CAUSE STATUS 09/04/2016 RODOLFO RAPP MD Ot Z23 ENCOUNTER FOR IMMUNIZATION 09/04/2016 RODOLFO RAPP MD Ot Z79.4 CORPORATE COMMUNICATIONS INTERN (CURRENT) USE OF INSULIN 09/04/2016 RODOLFO RAPP MD, Ot Z79.82 CORPORATE COMMUNICATIONS INTERN (CURRENT) USE OF ASPIRIN 09/04/2016 RODOLFO RAPP MD, Ot Z79.899 OTHER SNF (CURRENT) DRUG THERAPY 09/05/2016 RODOLFO RAPP MD Ot E11.69 TYPE 2 DIABETES MELLITUS WITH OTHER SPEC 09/05/2016 RODOLFO RAPP MD Ot F10.129 ALCOHOL ABUSE WITH INTOXICATION, UNSPECI 09/05/2016 RODOLFO RAPP MD, Ot I10 ESSENTIAL (PRIMARY) HYPERTENSION 09/05/2016 RODOLFO RAPP MD, Ot S01.81XA LACERATION W/O FOREIGN BODY OF OTH PART 09/05/2016 RODOLFO RAPP MD, Ot W01.0XXA FALL SAME LEV FROM SLIP/TRIP W/O STRIKE 09/05/2016 RODOLFO RAPP MD, Ot Y90.6 BLOOD ALCOHOL LEVEL OF 120-199 MG/100 ML 09/05/2016 RODOLFO RAPP MD, Ot Y92.[address] OF OCCURRENCE O 09/05/2016 RODOLFO RAPP MD, Ot Y99.8 OTHER EXTERNAL CAUSE STATUS 09/05/2016 RODOLFO RAPP MD, Ot Z23 ENCOUNTER FOR IMMUNIZATION 09/05/2016 RODOLFO RAPP MD, Ot Z79.4 SNF (CURRENT) USE OF INSULIN 09/05/2016 RODOLFO RAPP MD Ot Z79.82 SNF (CURRENT) USE OF ASPIRIN 09/05/2016 RODOLFO RAPP MD, Ot Z79.899 OTHER CORPORATE COMMUNICATIONS INTERN (CURRENT) DRUG THERAPY 09/08/2016 Ot V76.12 OTH [...] FOR MALIGNANT NE 09/08/2016 KONRAD MALHOTRA MD S Ot E11.9 TYPE 2 DIABETES MELLITUS WITHOUT COMPLIC 09/08/2016 KONRAD MALHOTRA MD S Ot E78.5 HYPERLIPIDEMIA, UNSPECIFIED 09/08/2016 ROSCOE BOLDEN, KONRAD S Ot I12.9 HYPERTENSIVE CHRONIC KIDNEY DISEASE W ST 09/08/2016 KONRAD MALHOTRA MD S Ot N18.3 CHRONIC KIDNEY DISEASE, STAGE 3 (MODERAT 09/08/2016 LIU VO Ot Z12.31 ENCNTR SCREEN MAMMOGRAM FOR MALIGNANT NE 09/08/2016 DEBBIE HIGGINS MD Ot S01.81XD LACERATION W/O FOREIGN BODY OF OTH PART 09/09/2016 DEBBIE HIGGINS MD Ot S01.81XD LACERATION W/O FOREIGN BODY OF OTH PART 09/15/2016 Ot V76.12 OTH SCREEN MAMMO-MALIGN NEOPLASM OF RAYRAY 09/15/2016 MISAEL BOLDEN, ANIL Valenzuela Ot V72.84 EXAM PRE-OPERATIVE NOS 09/15/2016 DEBI OROPEZA MD Ot V76.12 OTH SCREEN MAMMO-MALIGN NEOPLASM OF RAYRAY 09/15/2016 DEBI OROPEZA MD Ot 793.82 INCONCLUSIVE MAMMOGRAM 09/15/2016 DEBI OROPEZA MD Ot 793.89 OTH (ABN) FINDINGS ON RADIOLOGICAL EXAMI 09/15/2016 DEBI OROPEZA MD Ot V76.12 OTH SCREEN MAMMO-MALIGN NEOPLASM OF RAYRAY 09/15/2016 LIU VO Ot Z12.31 ENCNTR SCREEN MAMMOGRAM FOR MALIGNANT NE 09/15/2016 ROSCOE BOLDEN, KONRAD S Ot E11.9 TYPE 2 DIABETES MELLITUS WITHOUT COMPLIC 09/15/2016 KONRAD MALHOTRA MD S Ot E78.5 HYPERLIPIDEMIA, UNSPECIFIED 09/15/2016 ROSCOE BOLDEN, KONRAD Jiménez Ot I12.9 HYPERTENSIVE CHRONIC KIDNEY DISEASE W ST 09/15/2016 ROSCOE BOLDEN, KONRAD Jiménez Ot N18.3 CHRONIC KIDNEY DISEASE, STAGE 3 (MODERAT 09/15/2016 LIU VO LUIS Ot Z12.31 ENCNTR SCREEN MAMMOGRAM FOR MALIGNANT NE 09/16/2016 YULIET JOHNSON MD Ot J30.9 ALLERGIC RHINITIS, UNSPECIFIED 09/16/2016 YULIET JOHNSON MD Ot J32.9 CHRONIC SINUSITIS, UNSPECIFIED 10/06/2016 YULIET JOHNSON MD, Ot J30.9 ALLERGIC RHINITIS, UNSPECIFIED 10/06/2016 YULIET JOHNSON MD, Ot J32.9 CHRONIC SINUSITIS, UNSPECIFIED Procedures There is no data. Results Test Result Range Comprehensive metabolic panel - 09/03/16 00:21 Serum or plasma sodium measurement (moles/volume) 138 mmol/L 135-145 Serum or plasma potassium measurement (moles/volume) 4.5 mmol/L 3.6-5.0 Serum or plasma chloride measurement (moles/volume) 106 mmol/L 98-107 Carbon dioxide 18 mmol/L 21-32 Serum or plasma anion gap determination (moles/volume) 14 mmol/L 5-14 Serum or plasma urea nitrogen measurement (mass/volume) 34 mg/dL 7-18 Serum or plasma creatinine measurement (mass/volume) 1.66 mg/dL 0.60-1.30 Serum or plasma urea nitrogen/creatinine mass [...] 00:21 Blood leukocytes automated count (number/volume) 7.7 10*3/uL 4.3-11.0 Blood erythrocytes automated count (number/volume) 3.86 10*6/uL 4.35-5.85 Venous blood hemoglobin measurement (mass/volume) 12.3 [...] Automated blood platelet mean volume measurement 10.4 [foz_us] 7.4-10.4 Automated blood neutrophils/100 leukocytes 59 % [...] blood basophil count (count/volume) 0.1 10*3/uL 0.0-0.1 Complete blood count (CBC) with automated white blood cell (WBC) differential - 09/08/17 11:50 Blood leukocytes automated count (number/volume) 7.1 10*3/uL 4.3-11.0 Blood erythrocytes automated count (number/volume) 4.03 10*6/uL 4.35-5.85 Venous blood hemoglobin measurement (mass/volume) 12.6 g/dL 11.5-16.0 Blood hematocrit (volume fraction) 37 % 35-52 Automated erythrocyte mean corpuscular volume 93 [foz_us] 80-99 Automated erythrocyte mean corpuscular hemoglobin (mass per erythrocyte) 31 pg 25-34 Automated erythrocyte mean corpuscular hemoglobin concentration measurement ( mass/volume) 34 g/dL 32-36 Automated erythrocyte distribution width ratio 12.9 % 10.0-14.5 Automated blood platelet count (count/volume) 253 10*3/uL 130-400 Automated blood platelet mean volume measurement 10.5 [foz_us] 7.4-10.4 Automated blood neutrophils/100 leukocytes 70 % 42-75 Automated blood lymphocytes/100 leukocytes 18 % 12-44 Blood monocytes/100 leukocytes 8 % 0-12 Automated blood eosinophils/100 leukocytes 4 % 0-10 Automated blood basophils/100 leukocytes 0 % 0-10 Blood neutrophils automated count (number/volume) 5.0 10*3 1.8-7.8 Blood lymphocytes automated count (number/volume) 1.3 10*3 1.0-4.0 Blood monocytes automated count (number/volume) 0.6 10*3 0.0-1.0 Automated eosinophil count 0.3 10*3/uL 0.0-0.3 Automated blood basophil count (count/volume) 0.0 10*3/uL 0.0-0.1 Comprehensive metabolic panel - 09/08/17 11:50 Serum or plasma sodium measurement (moles/volume) 138 mmol/L 135-145 Serum or plasma potassium measurement (moles/volume) 4.6 mmol/L 3.6-5.0 Serum or plasma chloride measurement (moles/volume) 106 mmol/L 98-107 Carbon dioxide 23 mmol/L 21-32 Serum or plasma anion gap determination (moles/volume) 9 mmol/L 5-14 Serum or plasma urea nitrogen measurement (mass/volume) 34 mg/dL 7-18 Serum or plasma creatinine measurement (mass/volume) 1.65 mg/dL 0.60-1.30 Serum or plasma urea nitrogen/creatinine mass ratio 21 NRG Serum or plasma creatinine measurement with calculation of estimated glomerular filtration rate 31 NRG Serum or plasma glucose measurement (mass/volume) 131 mg/dL 70-105 Serum or plasma calcium measurement (mass/volume) 9.2 mg/dL 8.5-10.1 Serum or plasma total bilirubin measurement (mass/volume) 0.6 mg/dL 0.1-1.0 Serum or plasma alkaline phosphatase measurement (enzymatic activity/volume) 114 U/L 40-136 Serum or plasma aspartate aminotransferase measurement (enzymatic activity/ volume) 26 U/L 5-34 Serum or plasma alanine aminotransferase measurement (enzymatic activity/volume ) 14 U/L 0-55 Serum or plasma protein measurement (mass/volume) 7.1 g/dL 6.4-8.2 Serum or plasma albumin measurement (mass/volume) 4.3 g/dL 3.2-4.5 Complete urinalysis with reflex to culture - 09/08/17 13:03 Urine color determination YELLOW NRG Urine clarity determination CLEAR NRG Urine pH measurement by test strip 5 5-9 Specific gravity of urine by test strip 1.010 1.016- 1.022 Urine protein assay by test strip, semi-quantitative NEGATIVE NEGATIVE Urine glucose detection by automated test strip NEGATIVE NEGATIVE Erythrocytes detection in urine sediment by light microscopy NEGATIVE NEGATIVE Urine ketones detection by automated test strip NEGATIVE NEGATIVE Urine nitrite detection by test strip NEGATIVE NEGATIVE Urine total bilirubin detection by test strip NEGATIVE NEGATIVE Urine urobilinogen measurement by automated test strip (mass/volume) NORMAL NORMAL Urine leukocyte esterase detection by dipstick NEGATIVE NEGATIVE Automated urine sediment erythrocyte count by microscopy (number/high power field) NONE NRG Automated urine sediment leukocyte count by microscopy (number/high power field ) RARE NRG Bacteria detection in urine sediment by light microscopy NEGATIVE NRG Squamous epithelial cells detection in urine sediment by light microscopy 2-5 NRG Crystals detection in urine sediment by light microscopy NONE NRG Casts detection in urine sediment by light microscopy NONE NRG Mucus detection in urine sediment by light microscopy NEGATIVE NRG Complete urinalysis with reflex to culture NO NRG Capillary blood glucose measurement by glucometer (mass/volume) - 09/08/17 16: 27 Capillary blood glucose measurement by glucometer (mass/volume) 192 mg/dL 70-110 Methicillin resistant Staphylococcus aureus (MRSA) screening culture - 17:19 Methicillin resistant Staphylococcus aureus (MRSA) screening culture NEG NRG Capillary blood glucose measurement by glucometer (mass/volume) - 09/08/17 20: 59 Capillary blood glucose measurement by glucometer (mass/volume) 185 mg/dL 70-110 Capillary blood glucose measurement by glucometer (mass/volume) - 09/09/17 05: 40 Capillary blood glucose measurement by glucometer (mass/volume) 179 mg/dL 70-110 Capillary blood glucose measurement by glucometer (mass/volume) - 09/09/17 15: 41 Capillary blood glucose measurement by glucometer (mass/volume) 230 mg/dL 70-110 Capillary blood glucose measurement by glucometer (mass/volume) - 09/09/17 20: 39 Capillary blood glucose measurement by glucometer (mass/volume) 219 mg/dL 70-110 Whole blood hemoglobin and hematocrit panel - 09/10/17 05:44 Venous blood hemoglobin measurement (mass/volume) 10.8 g/dL 11.5-16.0 Blood hematocrit (volume fraction) 34 % 35-52 Capillary blood glucose measurement by glucometer (mass/volume) - 09/10/17 06: 00 Capillary blood glucose measurement by glucometer (mass/volume) 176 mg/dL 70-110 Capillary blood glucose measurement by glucometer (mass/volume) - 09/10/17 11: 12 Capillary blood glucose measurement by glucometer (mass/volume) 249 mg/dL 70-110 Capillary blood glucose measurement by glucometer (mass/volume) - 09/10/17 15: 32 Capillary blood glucose measurement by glucometer (mass/volume) 153 mg/dL 70-110 Capillary blood glucose measurement by glucometer (mass/volume) - 09/10/17 20: 04 Capillary blood glucose measurement by glucometer (mass/volume) 217 mg/dL 70-110 Whole blood hemoglobin and hematocrit panel - 09/11/17 05:00 Venous blood hemoglobin measurement (mass/volume) 9.5 g/dL 11.5-16.0 Blood hematocrit (volume fraction) 29 % 35-52 Capillary blood glucose measurement by glucometer (mass/volume) - 09/11/17 05: 08 Capillary blood glucose measurement by glucometer (mass/volume) 211 mg/dL 70-110 Encounters ACCT No. Visit Date/Time Discharge Status Pt. Type Provider Facility Loc./Unit Complaint [id number] 08/28/2017 09:00:00 08/28/2017 23:59:59 CLS Preadmit LIU VO [facility] RAD SCREENING [id number] 09/15/2016 09:52:00 09/15/2016 23:59:59 CLS Outpatient ELIZABETH BOLDEN, YULIET Rich [facility] RAD CHRONIC SINUSITIS [id number] 09/08/2016 09:48:00 09/08/2016 09:57:00 DIS Emergency GISELA BOLDEN, DEBBIE Valenzuela [facility] ER SUTURE REMOVAL [id number] 09/02/2016 23:54:00 09/03/2016 01:30:00 DIS Emergency DIONTE BOLDEN, RODOLFO Ortiz [facility] ER FALL,HEAD INJURY [id number] 08/15/2016 09:51:00 08/15/2016 23:59:59 CLS Outpatient LIU VO [facility] RAD SCREENING [id number] 03/07/2016 08:20:00 03/07/2016 23:59:59 CLS Outpatient ROSCOE BOLDEN, KONRAD Jiménez [facility] RAD HLP,CHRONIC KIDNEY DISEASE [id number] 07/10/2015 11:05:00 07/10/2015 23:59:59 CLS Outpatient LIU VO [facility] RAD SCREENING [id number] 04/25/2014 08:55:00 04/25/2014 23:59:59 CLS Outpatient DEBI OROPEZA MD [facility] RAD SCREENING [id number] 01/10/2013 09:05:00 01/10/2013 23:59:59 CLS Outpatient DEBI OROPEZA MD [facility] RAD SCREENING [id number] 11/23/2012 07:03:00 11/23/2012 10:10:00 DIS Outpatient MISAEL BOLDEN, ANIL Valenzuela [facility] SDC POSITIVE GASTRIUM POLYPS [id number] 11/19/2012 13:19:00 11/19/2012 23:59:59 CLS Outpatient MISAEL BOLDEN, ANIL Valenzuela [facility] PREOP GASTRIC POLYPS [id number] 09/08/2017 11:59:00 Document Registration [id number] 10/03/2011 09:58:00 Document Registration [id number] 03/21/2011 20:04:00 Document Registration [id number] 04/26/2010 09:32:00 Document Registration [id number] 05/01/2017 08:09:29 05/01/2017 23:59:59 CLS Outpatient
--- NOTE | 2017-09-11 11:29 | Physical Therapy Evaluation ---
PT Evaluation-General Medical Diagnosis Admission Date Sep 11, 2017 at 10:30 Medical Diagnosis: left femur fracture Onset Date: Sep 06, 2017 Therapy Diagnosis Therapy Diagnosis: debility/weakness Height/Weight Height (Feet): 5 Height (Inches): 6.00 Weight (Pounds): 256 Weight (Ounces): 7.0 Precautions Precautions/Isolations: Standard Precautions Weight Bear Status Right Lower Extremity: Right Full Weight Bearing Left Lower Extremity: Left Touch Toe Bearing Referral Physician: Rajesh Reason for Referral: Evaluation/Treatment Medical History Pertinent Medical History: DM, HTN, Hypothroidism Current History Transfer to ARU Reviewed History: Yes Social History Home: Single Level Current Living Status: Significant Other Entry Into Home: Stairs Without Railing PT Steps Into Home: 4 PT Steps Inside Home: 2 Significant Other has been instructed to put in a ramp due to patient's TTWB left LE Prior/Core FIM Prior Level of Function Functional [place] Measure 0=Not Assessed/NA 4=Minimal Assistance 1=Total Assistance 5=Supervision or Setup 2=Maximal Assistance 6=Modified [place] 3=Moderate Assistance 7=Complete [place] Bed Mobility: 7 Transfers (B,C,W/C) (FIM): 7 Gait: 7 Locomotion: 7 PT Evaluation-Current Subjective Patient agrees to ARU and to participate with therapies. Pain Numeric Pain Scale: 5-Moderate Pain Location: Left Location Body Site: Hip Pain Description: Acute Objective Patient Orientation: Normal For Age Problem Solving: Good ROM/Strength ROM Lower Extremities left LE limited due to pain and edema right LE WFL Strenght Lower Extremities left LE 3/5 grossly; right LE 5/5 grossly Integumentary/Posture Integumentary refer to nursing notes Bowel Incontinence: No Bladder Incontinence: No Posture WNL Neuromuscular (Tone, Coordination, Reflexes) grossly intact Sensory Vision: Wears Glasses Hearing: Functional Sensation Right Lower Extremit: Intact Sensation Left Lower Extremity: Intact Transfers Functional [place] Measure 0=Not Assessed/NA 4=Minimal Assistance 1=Total Assistance 5=Supervision or Setup 2=Maximal Assistance 6=Modified [place] 3=Moderate Assistance 7=Complete IndependenceIRFPAI Quality Coding Scale 6 Independent with activity with or without an assistive device 5 Patient requires set up or clean up by helper. Patient completes activity by themselves 4 Supervision or touching assist (CGA). Paradox provide cues , steadying assist 3 The helper provides less than half the effort to complete the activity 2 The helper provides more than half the effort to complete the activity 1 Dependent. The helper does all the effort to complete an activity 7 Patient refused to complete or attempt activity 9 The patient did not perform the activity before the current illness or injury 88 Not attempted due to Medical conditions or safety concerns Transfers (B, C, W/C) (FIM): 4 Scootin Rollin Roll Left to Right (QC): 4 Supine to/from Sit: 4 Sit to/from Stand: 4 Sit to Lying (QC): 4 Lying to Sitting/Side of Bed(Q: 4 Sit to Stand (QC): 4 Chair/Btj-jk-Cqmpo Xfer(QC): 4 Car Transfer (QC): 4 assist for Left LE Gait Does the Patient Walk?: Yes Mode of Locomotion: Walk Anticipated Mode of Locomotion: Both Gait (FIM): 2 Distance (FIM): 8=407-08 ft Walk 10 feet (QC): 4 Walk 50 ft with 2 Turns(QC): 4 Walk 150 ft (QC): 88 Walking 10ft/uneven surface-QC: 4 Distance: 50' x 4 Gait Level of Assist: 5 Gait Persons Needed: 1 Gait Assistive Device: FWW Comments/Gait Description Patient is able to comply with TTWB left LE short distances Wheelchair Training Does the Pt Use a Wheelchair?: Yes Wheelchair (FIM): 2 Wheelchair Distance (FIM): 8=193-64 ft Distance: 50' x 2 Wheelchair Level of Assist: 4 Wheel 50 ft with 2 turns (QC): 4 Wheel 150 ft (QC): 88 Type of Wheelchair: Manual Stairs Stairs (FIM): 1 #of Steps: 1 Level of Assist: 4 1 Step (curb) (QC): 4 4 Steps (QC): 88 Assistive Device: Walker 12 Steps (QC): 9 Balance Sitting Static: Normal Sitting Dynamic: Normal Standing Static: Normal Standing Dynamic: Normal Assessment/Needs 66 y.o. female, will benefit from skilled PT to address functional strength and mobility to improve current LOF and to safely return to home with spouse at maximum LOF. 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 Time Frame: Oct 09, 2017 Transfers (B,C,W/C) (FIM): 6 Sit to Lying (QC): 6 Lying-Sitting on Side/Bed(QC): 6 Sit to Stand (QC): 6 Rollin Roll Left to Right (QC): 6 Chair/Zug-om-Omcvu Xfer(QC): 6 Car Transfer (QC): 6 Does the Patient Walk: Yes Gait (FIM): 6 Gait distance (FIM): 3=150 ft Distance: 150' Walk 10 feet (QC): 6 Walk 10ft-Uneven Surface(QC): 6 Walk 50ft with 2 Turns (QC): 6 Walk 150 ft (QC): 6 Gait Level of Assist: 6 Gait Assistive Device: FWW Stairs (FIM): 2 # of Steps: 4 1 Step (curb) (QC): 5 4 Steps (QC): 5 12 Steps (QC): 9 Stairs Level Of Assist: 5 Picking up an Object (QC): 6 PT Plan Problem List Problem List: Activity Tolerance, Gait, Bed Mobility Treatment/Plan Treatment Plan: Continue Plan of Care Treatment Plan: Bed Mobility, Education, Functional Activity Phoebe, Functional Strength, Group Therapy, Gait, Safety, Therapeutic Exercise, Transfers Treatment Duration: Oct 09, 2017 Frequency: At least 5 of 7 days/Wk (IRF) Estimated Hrs Per Day: 1.5 hours per day Patient and/or Family Agrees t: Yes Safety Risks/Education Patient Education: Safety Issues Teaching Recipient: Patient Teaching Methods: Discussion Response to Teaching: Verbalize Understanding Discharge Recommendations Therapy D/C Recommendations: Home w/ Family Support, Physical Therapy Home Care Time/GCodes Time In: 1030 Time Out: 1115 Total Billed Treatment Time: 45 Total Billed Treatment 1 visit EVModC 45 min ERA STRAUSS PT Sep 11, 2017 11:29
--- NOTE | 2017-09-11 11:38 | ST Cognitive Linguistic Eval ---
Speech Evaluation-General Medical Diagnosis Left Femoral Neck Fracture Onset Date: Sep 11, 2017 Therapy Diagnosis Therapy Diagnosis: Cognitive Linguistic Skills WNL Referral Referring Physician: Dr. Kwabena Mena Reason for Referral: Evaluation/Treatment Cognitive Evaluation Medical History Pertinent Medical History: DM, HTN, Hypothroidism Reviewed History: Yes Speech PLF-Current Status Prior Level of Function The patient denied prior challenges with speech, language, or cognition. Subjective The patient was seated upright in her wheelchair upon entrance. The patient greeted the clinician and was agreeable to participation in the cognitive evaluation. Language Eval: Auditory Comprehends Simple Yes/No Ques: Functional Indent/Objects Multiple Samuel: Functional Ident/Pics in Multiple Samuel: Functional Follows 1-Step Commands: Functional Follows Complex Directions: Functional Follows General Conversations: Functional Language Eval: Verbal Language Completes Spontaneous Greeting: Functional Produces Auto, Serial Info: Functional Imitates Simple Words/Phrases: Functional Word Finding: Functional Requests Basic Needs: Functional States Basic Personal Info: Functional Expresses Complex Ideas: Functional Cognitive Patient Orientation The patient was independently oriented to self, location, month, day of week, and year. Objective Cognitive Domain Attention: WNL Memory: WNL Problem Solving: Functional Executive Functions: WNL Objective Impression The patient displayed cognitive linguistic skills within normal limits. Communication/Social Cognition Comprehension: 6 Expression: 6 Social Interaction: 6 Problem Solvin Memory: 6 Speech Patient Assess Expression of Ideas/Wants: Expression (4) Understanding Vebal Content: Understands (4) Brief Interview-Mental Status: Yes Repetition of Three Words: Three (3) Temporal Orientation: Year: Correct (3) Temporal Orientation: Month: Accurate within 5 days(2) Temporal Orientation: Day: Correct (1) Recall : Wear to say "Sock": Yes, no cue required (2) Recall : Color: Yes, no cue required (2) Recall : Bed: Yes, no cue required (2) Speech-Plan Treatment Plan Speech Therapy Treatment Plan: Discontinue ST Evaluation, only. Frequency: Modified Program (IRF) Estimated Hrs Per Day: Other Rehab Potential: Good Safety Risks/Education Teaching Recipient: Patient Teaching Methods: Discussion Response to Teaching: Verbalize Understanding Education Topics Provided: Results, Recommendations, Plan of Care Time Speech Therapy Time In: 11:15 Speech Therapy Time Out: 11:30 Total Billed Time: 15 Billed Treatment Time 1, FRAN SANCHEZ Sep 11, 2017 11:38
[2017-09-11] MEDS ORDERED: ACETAMINOPHEN 325 MG TABLET PO PRN (11:45)
[2017-09-11] MEDS ORDERED: PATIENT MAY USE OWN MED,SINGLE MED PO SCH (11:45)
[2017-09-11] MEDS ORDERED: CATHETER FLUSH 10 ML SYR IV PRN (11:45)
--- NOTE | 2017-09-11 11:57 | Consultation ---
History of Present Illness History of Present Illness Patient Consulted On(angelita/time) 09/11/17 11:57 Date Seen by Provider: Sep 11, 2017 Time Seen by Provider: 11:00 Reason for Visit: LEFT HIP FRACTURE History of Present Illness PT WAS INITIALLY ADMITTED TO THE HOSPITAL WITH LEFT HIP FRACTURE - PT HAD SURGICAL FIXATION AND IT WAS DETERMINED THAT SHE NEEDED INPATIENT REHAB FOR FURTHER STRENGTHENING AND THERAPY. Allergies and Home Medications Allergies Coded Allergies: Penicillins (Verified Allergy, Unknown, RASH, 09/10/17) RASH codeine (Verified Adverse Reaction, Unknown, N/V, 09/10/17) NAUSEA/VOMING Home Medications Amlodipine Besylate 2.5 Mg Tablet, 2.5 MG PO DAILY, (Reported) STILL TAKING QUINAPRIL / HAS NOT STARTED YET / JUST CALLED IN YESTERDAY Aspirin 81 Mg Tablet.dr, 81 MG PO Q48H, (Reported) Atorvastatin Calcium 20 Mg Tablet, 20 MG PO HS, (Reported) Bimatoprost 2.5 Ml Drops, 1 DROP OU HS, (Reported) Cetirizine HCl 10 Mg Tablet, 10 MG PO DAILY, (Reported) Cholecalciferol (Vitamin D3) 5,000 Unit Capsule, 5,000 UNIT PO DAILY, (Reported) Diclofenac Sodium 100 Gm Gel..gram., 2 GM TP QID, (Reported) APPLIES TO LEFT HIP Dorzolamide/Timolol/Pf 1 Each Droperette, 1 DROP OU BID, (Reported) Fluticasone Propionate 9.9 Ml Orosi.susp, 2 SPRAY NSEACH DAILY, (Reported) 2 SPRAYS PER NOSTRIL DAILY X 2 DAYS THEN 1 SPRAY DAILY Furosemide 20 Mg Tablet, 40 MG PO Q48H, (Reported) TAKES 2 (20 MG) TABLETS Gemfibrozil 600 Mg Tablet, 600 MG PO BID, (Reported) Insulin Aspart 300 Units/3 Ml Solution, 20 UNITS SQ AC, (Reported) Insulin Degludec 200 Unit/1 Ml Insuln.pen, 25 UNITS SQ HS, (Reported) WILL HOLD DOSE IF BLOOD SUGAR IS 140 OR BELOW Levothyroxine Sodium 50 Mcg Tablet, 50 MCG PO DAILY, (Reported) Liothyronine Sodium 5 Mcg Tablet, 5 MCG PO DAILY, (Reported) Magnesium Oxide 400 Mg Tablet, 400 MG PO DAILY, (Reported) Multivit-Min/FA/Lycopene/Lut 1 Each Tablet, 1 TAB PO DAILY, (Reported) Omeprazole 20 Mg Capsule.dr, 20 MG PO DAILY, (Reported) Quinapril HCl 40 Mg Tablet, 40 MG PO HS, (Reported) Vitamin B Complex 1 Each Capsule, 1 CAP PO DAILY, (Reported) Patient Home Medication List Home Medication List Reviewed: Yes Past Qtkxaud-Ryfdvi-Qpkelg Hx Patient Social History Alcohol Use: Denies Use Recreational Drug Use: No Smoking Status: Never a Smoker 2nd Hand Smoke Exposure: Yes Recent Foreign Travel: No Contact w/Someone Who Travel: No Recent Infectious Disease Expo: No Recent Hopitalizations: No Immunizations Up To Date Date of Pneumonia Vaccine: Mar 25, 2017 Date of Influenza Vaccine: Mar 15, 2017 Seasonal Allergies Seasonal Allergies: No Surgeries History of Surgeries: Yes (GASTRIC BYPASS, CARPEL TUNNEL BILAT, CATARACTS REMOVED) Surgeries: Abdominal, Eye Surgery, Hysterectomy, Orthopedic Respiratory History of Respiratory Disorde: No Currently Using CPAP: No Currently Using BIPAP: No Cardiovascular History of Cardiac Disorders: Yes Cardiac Disorders: High Cholesterol, Hypertension Neurological History of Neurological Disord: No Genitourinary History of Genitourinary Disor: Yes (CKD) Gastrointestinal History of Gastrointestinal Di: No Musculoskeletal History of Musculoskeletal Dis: No Endocrine History of Endocrine Disorders: Yes Endocrine Disorders: Hypothyroidsim, Diabetes, Non-Insulin dep HEENT History of HEENT Disorders: Yes HEENT Disorders: Cataract, Glaucoma Hearing Impairment: Denies Cancer History of Cancer: No Psychosocial History of Psychiatric Problem: No Integumentary History of Skin or Integumenta: No Blood Transfusions History of Blood Disorders: No Adverse Reaction to a Blood Tr: No Reviewed Nursing Assessment Reviewed/Agree w Nursing PMH: Yes Family Medical History Significant Family History: Heart Disease, Diabetes, Hypertension Family Medial History: Cardiovascular disease 19 FATHER 19 MOTHER Diabetes mellitus 19 FATHER 19 MOTHER Glaucoma 19 FATHER 19 MOTHER Hypertension 19 FATHER 19 MOTHER Review of Systems-General Constitutional: No chills, No dizziness, No fever, No malaise, No weakness EENTM: No hoarseness, No throat pain Respiratory: No cough, No dyspnea on exertion, No short of breath Gastrointestinal: No abdominal pain, No constipation, No diarrhea, No nausea, No vomiting Genitourinary: no symptoms reported Musculoskeletal: other (LEFT HIP PAIN) Skin: no symptoms reported Psychiatric/Neurological: Denies Anxiety, Depressed All Other Systems Reviewed Negative Unless Noted: Yes Physical Exam-General Problems Physical Exam Vital Signs Vital Signs - First Documented 09/11/17 11:03 Temp 97.7 Pulse 87 Resp 18 B/P (MAP) 138/75 (96) Pulse Ox 97 O2 Delivery Room Air Capillary Refill : General Appearance: WD/WN, no apparent distress Eyes: Bilateral Eye Normal Inspection, Bilateral Eye PERRL, Bilateral Eye EOMI HEENT: PERRL/EOMI Neck: non-tender, supple, normal inspection Respiratory: chest non-tender, lungs clear, normal breath sounds, no respiratory distress Cardiovascular: regular rate, rhythm Gastrointestinal: normal bowel sounds, non tender, soft Rectal: deferred Extremities: non-tender, normal inspection, no pedal edema, no calf tenderness , normal capillary refill Neurologic/Psychiatric: dish person II-XII nml as tested, no motor/sensory deficits, alert, normal mood/affect, oriented x 3 Skin: warm/dry Lymphatic: no adenopathy Assessment/Plan Assessment/Plan Admission Diagnosis/Plan NONDISPLACED LEFT FEMORAL NECK FRACTURE HYPERTENSION DIABETES MELLITUS HYPOTHYROIDISM HYPERLIPIDEMIA ESOPHAGEAL REFLUX UNCONTROLLED PAIN CONSTIPATION NONDISPLACED LEFT FEMORAL NECK FRACTURE - SURGICAL FIXATION ON 09/09/17 - SEE DR. SWEET'S NOTE. ADMITTED TO INPATIENT REHAB TODAY. PAIN WITH IMPROVED CONTROL ON ORAL MEDS - MAKE SURE TO HAVE PAIN MEDICATION PRIOR TO PHYSICAL THERAPY. HYPERTENSION - RESTARTED ON AMLODIPINE. DIABETES MELLITUS - RESTARTED HOME MEDICATIONS - CHECK FSBS ACHS HYPOTHYROIDISM - RESTARTED THYROID MEDICATIONS HYPERLIPIDEMIA - RESTARTED LIPITOR. ESOPHAGEAL REFLUX - RESTARTED OMEPRAZOLE CONSTIPATION - STARTED SENNA S TODAY Admission Status: Inpatient Order (span 2 midnights) Reason for Inpatient Admission: PT REQUIRES INPATIENT REHAB ADMISSION AND WILL REQUIRE MORE T PATEL 2 MIDNIGHTS FOR STRENGTHENING Clinical Quality Measures DVT/VTE Risk/Contraindication: Risk Factor Score Per Nursin RFS Level Per Nursing on Admit: 4+=Very High MEDHAT MELENDEZ MD Sep 11, 2017 11:57
--- NOTE | 2017-09-11 12:54 | Occupational Therapy Eval ---
OT Evaluation-General/PLF Medical Diagnosis Admission Date Sep 11, 2017 at 10:30 Medical Diagnosis: Left Femoral Neck Fracture Onset Date: Sep 11, 2017 Therapy Diagnosis Therapy Diagnosis: Weakness Height/Weight Height (Feet): 5 Height (Inches): 6.00 Weight (Pounds): 256 Weight (Ounces): 7.0 Precautions Precautions/Isolations: Fall Prevention, Standard Precautions Weight Bear Status Weight Bearing Restriction: Touch Toe Bearing Location Restriction: L LE Referral Physician: Rajesh Referral Reason: Activity Tolerance, Self Care, Evaluation/Treatment, Strengthening/ROM Medical History Pertinent Medical History: DM, HTN, Hypothroidism Current History Pt. fell at home. Significant other present. Social History Home: Single Level Current Living Status: Significant Other Entry Into Home: Stairs Without Railing Steps Into Home: 4 Steps Inside Home: 2 ADL-Prior Level of Function ADL PLOF Comments Pt. was independent with all self care skills. DME/Equipment: Shower DME/Equipment Comments No equipment at home. Pt. states that they have a walk in shower, but only a 23 inch door to get to it, as they live in a historic home. Occupation: Retired Drive Self: Yes OT Current Status Subjective Pt. does not report pain to this therapist. Appearance Pt up in wheelchair. Agrees to shower. Mental Status/Objective Patient Orientation: Person, Place, Time, Situation Current Glasses/Contacts: Yes Upper Extremity ROM WFL bilateral UE Upper Extremity Strength 4/5 bilateral UE ADL-Treatment Functional [place] Measure 0=Not Assessed/NA 4=Minimal Assistance 1=Total Assistance 5=Supervision or Setup 2=Maximal Assistance 6=Modified [place] 3=Moderate Assistance 7=Complete IndependenceIRFPAI Quality Coding Scale 6 Independent with activity with or without an assistive device 5 Patient requires set up or clean up by helper. Patient completes activity by themselves 4 Supervision or touching assist (CGA). [place] provide cues , steadying assist 3 The helper provides less than half the effort to complete the activity 2 The helper provides more than half the effort to complete the activity 1 Dependent. The helper does all the effort to complete an activity 7 Patient refused to complete or attempt activity 9 The patient did not perform the activity before the current illness or injury 88 Not attempted due to Medical conditions or safety concerns Grooming (FIM): 5 (Set up to brush hair.) Bathing (FIM): 4 (Min assist to dry bottom in stance.) Shower/Bathe Self (QC): 4 Upper Body Dressing (FIM): 5 (SBA to don shirt and bra.) Upper Body Dressing (QC): 4 Lower Body Dressing (FIM): 3 (Pt. able to thread underwear and pants over feet. Requires assist in stance to pull them over hips. Pt. requires assist to don socks and shoes.) Lower Body Dressing (QC): 3 On/Off Footwear (QC): 2 Toileting (FIM): 4 Toileting Hygiene (QC): 4 Transfers (B, C, W/C) (FIM): 4 (Min assist for sit-stand and ambulation with walker.) Toilet/Commode Transfer (FIM): 4 Toilet Transfer (QC): 4 Shower Transfer (FIM): 4 Education OT Patient Education: Correct positioning, Modified ADL techniques, Progress toward Goal/Update tx plan, Purpose of tx/functional activities, Reviewed precautions, Rehab process, Transfer techniques Teaching Recipient: Patient Teaching Methods: Demonstration, Discussion Response to Teaching: Verbalize Understanding, Return Demonstration OT Short Term Goals Short Term Goals 1=Demonstrate adherence to instructed precautions during ADL tasks. 2=Patient will verbalize/demonstrate understanding of assistive devices/ modifications for ADL. 3=Patient will improve strength/tolerance for activity to enable patient to perform ADL's. OT Jail Goals Jail Goals Time Frame: Sep 25, 2017 Eating (FIM): 6 Eating (QC): 6 Groomin Oral Hygiene (QC): 6 Bathing(FIM): 5 Shower/Bathe Self (QC): 5 Upper Body Dressing(FIM): 6 Upper Body Dressing (QC): 6 Lower Body Dressing(FIM): 6 Lower Body Dressing (QC): 6 On/Off Footwear (QC): 6 Toileting(FIM): 6 Toileting Hygiene (QC): 6 Transfers (B,C,W/C) (FIM): 6 Toilet/Commode Transfer(FIM): 6 Toilet/Commode Transfer (QC): 6 Shower Transfer(FIM): 5 Additional Goals: 1-Demonstrate ADL Tasks, 2-Verbalize Understanding, 3- ImproveStrength/Phoebe 1=Demonstrate adherence to instructed precautions during ADL tasks. 2=Patient will verbalize/demonstrate understanding of assistive devices/ modifications for ADL. 3=Patient will improve strength/tolerance for activity to enable patient to perform ADL's. OT Education/Plan Problem List/Assessment Assessment: Decreased Activ Tolerance, Dependent Transfers, Impaired I ADL's, Impaired Self-Care Skills Discharge Recommendations Plan/Recommendations: Continue POC Therapy D/C Recommendations: Home w/ Family Support, Occupational Therapy Home Care Equpiment Recommendations-D/C: Hip Kit Comment Equipment needs will be determined closer to discharge. Treatment Plan/Plan of Care Treatment,Training & Education: Yes Patient would benefit from OT for education, treatment and training to promote independence in ADL's, mobility, safety and/or upper extremity function for ADL' s. Plan of Care: ADL Retraining, Functional Mobility, UE Funct Exercise/Act Treatment Duration: Sep 25, 2017 Frequency: At least 5 of 7 days/Wk (IRF) Estimated Hrs Per Day: 1.5 hours per day Agreement: Yes Rehab Potential: Good Time/GCodes Start Time: 11:30 Stop Time: 12:30 Total Time Billed (hr/min): 60 Billed Treatment Time 1, EVMx 15minutes, ADL x 45minutes ALEX BELLAMY OT Sep 11, 2017 12:54
--- NOTE | 2017-09-11 13:00 | PM&R Post Admission Assessment ---
Post Admission Physician Asses The preadmission screen agrees with the post admission assessment that the patient is a good candidate for inpatient rehabilitation. The patient will have a comprehensive program of inpatient rehabilitation with a goal of maximizing level of functional independence prior to discharge home with friend. The patient will have PT/OT ninety minutes per day, each discipline, five days a week for gait, strengthening, conditioning, balance, ADLs, any patient/family/caregiver training as necessary. Speech therapy to do cognitive assessment and treat as indicated. Rehabilitation nursing to assist with bowel, bladder, skin, wound care, medication administration, pain management. Ross Lift Operator to assist with discharge planning, community reentry. SCD's and Lovenox SUB cutfor DVT prophylaxis. She appears to be well motivated to participate in three hours of therapy a day. She should be able to tolerate three hours of therapy a day from a medical standpoint. She should benefit from the three hours of therapy a day. She has a reasonable discharge plan, reasonable discharge rehabilitation goals and a supportive family. She has various comorbidities that need to be closely monitored with medications and treatments adjusted on a daily basis as needed. These include: [] Barriers to discharge for this patient who had been independent prior to this are for her to be modified independent to supervision for ADLs and mobility skills prior to discharge home with friend, so as to lessen the burden of the caregivers. Risks for this patient include: 1. Fall 2. Fracture 3. DVT 4. Pulmonary embolism 5. Wound infection 6. Skin breakdown 7. Contractures 8. Poorly controlled pain 9. Urinary retention 10. UTI 11. Respiratory infection 12. Aspiration 13. Poorly controlled HTn 14. Poorly controlled DM Estimated Length of Stay: 14 days Prognosis: Rehab prognosis appears good for goal of discharge home with friend modified independent to supervision for ADLs and mobility skills. [facility] CODE 08.11 Etiologic DX Left mid cervical femoral neck fracture CLEVELAND KOROMA MD Sep 11, 2017 13:00
[2017-09-11] MEDS: DICLOFENAC 1% GEL 100 GM (VOLTAREN) TUBE TP SCH ×3 (13:43→21:14)
--- NOTE | 2017-09-11 14:22 | HISTORY AND PHYSICAL ---
DATE OF SERVICE: 09/11/2017 CHIEF COMPLAINT: Difficulty with walking. 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 The patient was admitted to [facility] and seen by orthopedics, and underwent percutaneous cannulated hip screw fixation of left femoral neck fracture on 09/09/2017. The patient was made toe-touch weightbearing left lower extremity postoperatively. The patient was started on therapies and felt to be appropriate for inpatient rehabilitation. She had been independent prior to this. Currently, she requires assistance for ADLs and mobility skills.She is mod assist for transfers.She is min assist for gait with WW for short distances.She is Min assist for Upper body dressing and mod assist for lower body dressing PAST MEDICAL HISTORY: Hypercholesterolemia, hypertension, hypothyroidism, diabetes mellitus, glaucoma, cataracts. PAST SURGICAL HISTORY: Cataract extraction with intraocular lens implant, hysterectomy. Denies any prior joint or spinal surgery. ALLERGIES: PENICILLIN, CODEINE. FAMILY HISTORY: Noncontributory. SOCIAL HISTORY: Essentially as per above. REVIEW OF SYSTEMS: Ten point review of systems significant for hip pain. MEDICATIONS: ASA 81 mg every other day, furosemide 40 mg p.o. every other day, vitamin D3 5000 units p.o. daily, Lovenox subq 40 mg daily for DVT prophylaxis, loratadine 10 mg p.o. daily, mag ox 400 mg p.o. daily, Norvasc 2.5 mg p.o. daily, Flonase 1 spray each nostril daily, vitamin B6 50 mg p.o. daily, Protonix 20 mg p.o. daily, multivitamins with minerals one tablet p.o. daily, levothyroxine 50 mcg p.o. daily, Lipitor 20 mg p.o. at bedtime, timolol eyedrops 1 drop to affected eye q.12h. Lopid 600 mg p.o. b.i.d., Xalatan one drop both eyes at bedtime, Levemir 25 units subq at bedtime, Accupril 40 mg p.o. at bedtime, sliding scale insulin regimen B, NovoLog insulin 20 units subcu AC, Voltaren gel apply topically q.i.d. to affected area, Percocet 5/325 1-2 tablets p.o. q.4 hours p.r.n. moderate pain, Tylenol 650 mg p.o. q.4 hours p.r.n. mild pain. PHYSICAL EXAMINATION: GENERAL: Significant for a pleasant female sitting in chair, somewhat obese, eating her lunch, in no acute distress. VITAL SIGNS: Within normal limits. She is afebrile, pulse is 87, respirations 18, blood pressure 130/75, O2 sat 97% on room air. HEENT: Vision, speech, hearing grossly intact. No oral lesion is noted. NECK: Supple without mass. HEART: Regular rhythm. LUNGS: Chest is clear. ABDOMEN: Soft, nontender. Bowel sounds present. EXTREMITIES: Trace edema left ankle, no calf tenderness. MUSCULOSKELETAL: She has functional active range of motion, both upper limbs and right lower limb. Left lower limb limited to hip due to recent fracture repair, distal okay. NEUROLOGIC: Sensation is grossly intact to touch. Cognition intact. Strength, she has functional strength both upper limbs. Strength, right lower extremity 5/5, left lower extremity 3/5 grossly. IMPRESSION: 1. Ambulatory dysfunction secondary to fall with resulting nondisplaced mid cervical femoral neck fracture status post percutaneous hip pinning, toe touch weightbearing, left lower extremity orthopedics.-Dr Wright 2. Hypothyroidism, on replacement. 3. Gastroesophageal reflux disease, on meds. 4. Hypertension, controlled with medication. 5. Obesity. 6. Hypercholesterolemia, on meds. 7. Diabetes mellitus type 2. 8. Glaucoma, on eyedrops. PLAN: The patient will have a comprehensive program of inpatient rehabilitation with goal to maximizing level of functional independence prior to discharge home with her friend. The patient will have PT, OT 90 minutes per day each discipline, 5 days a week for 14 days with a goal of returning home as per above, modified independent to supervision for ADLs, mobility skills. Please see post-admission physician evaluation, which is a separate document for further details. Speech therapy has assessed the patient, found her to be cognitively intact and they have signed off. Rehabilitation nursing assist with bowel, bladder, skin, wound care, medication administration, pain management and director of social media marketing with discharge planning, community reentry. Followup with Dr. Hurley, PCP and orthopedics as per the schedule. Lovenox subcu for DVT prophylaxis. Accu-Cheks q.i.d., a.c. and each day at bedtime. ESTIMATED LENGTH OF STAY: 14 days. PROGNOSIS: Rehab prognosis appears good for goal of discharging home, modified independent to supervision for ADLs and mobility skills with SO and HH. DIET: Carb consistent. CODE STATUS: Full code. Job ID: [id number] DocumentID: [id number] Dictated Date: 09/11/2017 12:56:31 Hot Roller Date: 09/11/2017 13:38:09 Dictated By: CLEVELAND KOROMA MD [facility]
[2017-09-11] MEDS: oxyCODONE/APAP 5/325MG (PERCOCET 5) TABLET PO PRN ×3 (14:27→23:17)
--- NOTE | 2017-09-11 15:09 | Therapy Group Daily Note ---
Therapy Daily Group Note Patient Education Topic Other List Below (AE for home,ARU expectations/expectations) Exercises LE Seated Exercise, UE Exercise Other/Notes Pt ambulated using FWW from room to MOU [facility] area for OT/PT group. Group consisted of introductions (name, place living, telling joke), socialization, UE /LE seated exercises, ARU description/expectations and education on AE for home use and resources. Pt was able to appropriately introduce self though required increased time to remember a funny story to tell. Pt did actively listen to peers introduce themselves. Pt contributed to conversations and discussions throughout group. Completed UE/LE exercises without difficulty. Pt verbalized understanding of different types of AE that was introduced in group. After group, pt ambulated using FWW to room and laid down in bed. Call light/phone in reach. All needs met in room. Start Time: 13:00 Stop Time: 14:20 Total Billed Treatment Time: 80 Total Billed Treatment 1-GRP FREDA WAKEFIELD Sep 11, 2017 15:09
[2017-09-11] MEDS: inSUlin (REGULAR) HUMAN 1 UNIT/0.01 ML (CHARGE PER UNIT) SC SCH ×2 (16:07→21:13)
[2017-09-11] MEDS: inSUlin ASPART (NovoLOG) 1 UNIT/0.01 ML (CHARGE PER UNIT) SC SCH (17:56)
[2017-09-11] MEDS: MILK OF MAGNESIA 400 MG/5 ML 30 ML UDC PO PRN (18:03)
[2017-09-11 18:50] VITALS: BP 123/70
[2017-09-11] MEDS: DORZOLAMIDE/TIMOLOL (COSOPT) 2-0.68% 10 ML BTL OU SCH (20:58)
[2017-09-11] MEDS: LATANOPROST 0.005% (XALATAN) OPHTH SOLN 2.5 ML OU SCH (20:59)
[2017-09-11] MEDS: SENNA W/DOCUSATE (SENOKOT S) TABLET PO SCH (21:01)
[2017-09-11] MEDS: GEMFIBROZIL 600 MG (LOPID) TAB PO SCH (21:01)
[2017-09-11] MEDS: ATORVASTATIN 20 MG (LIPITOR) TABLET PO SCH (21:01)
[2017-09-11] MEDS: QUINAPRIL 20 MG (ACCUPRIL) TAB PO SCH (21:01)
[2017-09-11] MEDS: POLYETHYLENE GLYCOL 17 GM (MIRALAX) PACK PO SCH (21:02)
[2017-09-11] MEDS: inSUlin DETERMIR 1 UNIT/0.01 ML (LEVEMIR) CHARGE PER UNIT SQ SCH (21:02)
[2017-09-12] MEDS: MULTIVIT W/MINERALS TAB (THERAGRAN M) PO SCH (05:20)
[2017-09-12] MEDS: LEVOTHYROXINE 50 MCG (LEVOTHROID) TAB PO SCH (05:20)
[2017-09-12] MEDS: oxyCODONE/APAP 5/325MG (PERCOCET 5) TABLET PO PRN ×4 (05:20→21:39)
[2017-09-12] MEDS: PANTOPRAZOLE 20 MG TABLET (PROTONIX) PO SCH (05:20)
[2017-09-12] MEDS: LIOTHYRONINE 5 MCG (CYTOMEL) TAB NON-FORMULARY PO SCH (05:20)
[2017-09-12] MEDS: inSUlin (REGULAR) HUMAN 1 UNIT/0.01 ML (CHARGE PER UNIT) SC SCH (05:38)
[2017-09-12 06:00] VITALS: BP 113/70
[2017-09-12] MEDS: GEMFIBROZIL 600 MG (LOPID) TAB PO SCH ×2 (08:13→20:37)
[2017-09-12] MEDS: SENNA W/DOCUSATE (SENOKOT S) TABLET PO SCH ×2 (08:13→20:38)
[2017-09-12] MEDS: VITAMIN D3 5,000 UNITS (CHOLECALCIFEROL ) CAPSULE PO SCH (08:13)
[2017-09-12] MEDS: LORATADINE (CLARITIN) 10 MG TAB PO SCH (08:13)
[2017-09-12] MEDS: ENOXAPARIN 40 MG/0.4 ML (LOVENOX) SYR SC SCH (08:13)
[2017-09-12] MEDS: PYRIDOXINE (VITAMIN B-6) 50 MG TABLET PO SCH (08:13)
[2017-09-12] MEDS: amLODIPine 2.5MG (NORVASC) TAB PO SCH (08:13)
[2017-09-12] MEDS: MAGNESIUM OXIDE (MAG-OX)400 MG TAB PO SCH (08:13)
[2017-09-12] MEDS: DORZOLAMIDE/TIMOLOL (COSOPT) 2-0.68% 10 ML BTL OU SCH ×2 (08:14→20:36)
[2017-09-12] MEDS: FLUTICASONE NASAL SPRAY (FLONASE) 16 GM BTL NS SCH (08:14)
[2017-09-12] MEDS: inSUlin ASPART (NovoLOG) 1 UNIT/0.01 ML (CHARGE PER UNIT) SC SCH ×4 (08:15→20:47)
[2017-09-12] MEDS: MILK OF MAGNESIA 400 MG/5 ML 30 ML UDC PO PRN ×2 (08:15→20:38)
--- NOTE | 2017-09-12 09:28 | Progress Note-Standard ---
Standard Progress Note Progress Notes/Assess & Plan Date Seen by Provider: Sep 12, 2017 Time Seen by Provider: 09:27 Progress/Assessment & Plan No complaints Vital Signs Date Time Temp Pulse Resp B/P (MAP) Pulse Ox O2 Delivery O2 Flow Rate FiO2 09/12/17 06:00 97.6 84 20 113/70 (84) 97 Room Air 09/11/17 18:50 99.0 101 18 123/70 (87) 94 Room Air 09/11/17 13:29 Room Air 09/11/17 11:03 97.7 87 18 138/75 (96) 97 Room Air I & O 09/12/17 07:00 Intake Total 750 ml Balance 750 ml Laboratory Tests Test 09/11/17 15:58 09/11/17 20:20 09/12/17 04:55 Range/Units Glucometer 125 H 159 H 125 H 70-110 MG/DL LLE--unable to perform SLR. no calf tenderness. Neg Bentley's s/p ORIF L hip continue PT/OT YULIET SWEET MD Sep 12, 2017 09:28
[2017-09-12] MEDS: DICLOFENAC 1% GEL 100 GM (VOLTAREN) TUBE TP SCH ×4 (09:47→20:40)
--- NOTE | 2017-09-12 12:06 | Physical Therapy Daily Note ---
PT Daily Note-Current Subjective Reports she walked to from the bathroom earlier with nursing. Transfers Functional [place] Measure 0=Not Assessed/NA 4=Minimal Assistance 1=Total Assistance 5=Supervision or Setup 2=Maximal Assistance 6=Modified [place] 3=Moderate Assistance 7=Complete IndependenceIRFPAI Quality Coding Scale 6 Independent with activity with or without an assistive device 5 Patient requires set up or clean up by helper. Patient completes activity by themselves 4 Supervision or touching assist (CGA). [place] provide cues , steadying assist 3 The helper provides less than half the effort to complete the activity 2 The helper provides more than half the effort to complete the activity 1 Dependent. The helper does all the effort to complete an activity 7 Patient refused to complete or attempt activity 9 The patient did not perform the activity before the current illness or injury 88 Not attempted due to Medical conditions or safety concerns Weight Bearing Right Lower Extremity: Right Full Weight Bearing Left Lower Extremity: Left Touch Toe Bearing Treatments Sit to stand with skilled cues for sequencing. Gait x 75 ft x 2 with FWW TTWB left. Pt up in chair post treatment with needs met. Assessment Current Status: Good Progress Low functional activity tolerance but pt is working to improve. Verbalized that she will walk to/from the bathroom with staff this weekend to increase her strength. PT Short Term Goals Short Term Goals Wheelchair Distance: 50' x 2 PT Standpipe Tender Goals Standpipe Tender Goals PT Alf Goals Time Frame: Oct 09, 2017 Transfers (B,C,W/C) (FIM): 6 Sit to Lying (QC): 6 Lying-Sitting on Side/Bed(QC): 6 Sit to Stand (QC): 6 Rollin Roll Left to Right (QC): 6 Chair/Bsz-jz-Upzpe Xfer(QC): 6 Car Transfer (QC): 6 Does the Patient Walk: Yes Gait (FIM): 6 Gait distance (FIM): 3=150 ft Distance: 150' Walk 10 feet (QC): 6 Walk 10ft-Uneven Surface(QC): 6 Walk 50ft with 2 Turns (QC): 6 Walk 150 ft (QC): 6 Gait Level of Assist: 6 Gait Assistive Device: FWW Stairs (FIM): 2 # of Steps: 4 1 Step (curb) (QC): 5 4 Steps (QC): 5 12 Steps (QC): 9 Stairs Level Of Assist: 5 Picking up an Object (QC): 6 PT Plan Problem List Problem List: Activity Tolerance, Functional Strength, Safety Treatment/Plan Treatment Plan: Continue Plan of Care Treatment Plan: Bed Mobility, Education, Functional Activity Phoebe, Functional Strength, Group Therapy, Gait, Safety, Therapeutic Exercise, Transfers Treatment Duration: Oct 09, 2017 Frequency: At least 5 of 7 days/Wk (IRF) Estimated Hrs Per Day: 1.5 hours per day Patient and/or Family Agrees t: Yes Safety Risks/Education Patient Education: Safety Issues Teaching Recipient: Patient Teaching Methods: Discussion Response to Teaching: Reinforcement Needed Time/GCodes Time In: 1025 Time Out: 1048 Total Billed Treatment Time: 23 Total Billed Treatment visit GT 23 FREDA DIAL PT Sep 12, 2017 12:05
--- NOTE | 2017-09-12 12:37 | Progress Note-Standard ---
Standard Progress Note Progress Notes/Assess & Plan Date Seen 09/12/17 Time Seen by Provider: 12:00 Assess & Plan/Chief Complaint Patient doing well but just not eating as much as she usually does at home and had lengthy discussions with the nurse regarding the scheduled insulin of NovoLog 20 units before meals and she has a history of hypoglycemia at night so she is open to abiding by a sliding scale with gentle insulin of NovoLog so will order sliding scale a today About to eat soup for supper Family the bedside Denies any pain currently although she does take 2 pain pills before physical therapy Bowel movement regimen is adequate No fever, vital signs stable, pleasant, up in wheelchair, family at bedside Regular rate and rhythm, clear to auscultation bilaterally No edema Assessment: Status post femoral neck fracture in need of inpatient rehabilitation for strengthening prior to going home Diabetes mellitus with frequent hypoglycemia and decreased in dietary consumption so will DC the scheduled NovoLog Hypertension Hypothyroidism GERD Plan: Monitor bowel function DC NovoLog 20 units before meals Sliding scale NovoLog a Monitor for falls MIKE PEREA DO Sep 12, 2017 12:37
[2017-09-12] MEDS ORDERED: inSUlin ASPART (NovoLOG) 1 UNIT/0.01 ML (CHARGE PER UNIT) SC SCH (16:00)
[2017-09-12 17:28] VITALS: BP 124/74
[2017-09-12] MEDS: LATANOPROST 0.005% (XALATAN) OPHTH SOLN 2.5 ML OU SCH (20:36)
[2017-09-12] MEDS: ATORVASTATIN 20 MG (LIPITOR) TABLET PO SCH (20:37)
[2017-09-12] MEDS: QUINAPRIL 20 MG (ACCUPRIL) TAB PO SCH (20:37)
[2017-09-12] MEDS: POLYETHYLENE GLYCOL 17 GM (MIRALAX) PACK PO SCH (20:38)
[2017-09-12] MEDS: inSUlin DETERMIR 1 UNIT/0.01 ML (LEVEMIR) CHARGE PER UNIT SQ SCH (20:40)
[2017-09-13 05:36] VITALS: BP 133/78
[2017-09-13] MEDS: inSUlin ASPART (NovoLOG) 1 UNIT/0.01 ML (CHARGE PER UNIT) SC SCH ×4 (05:41→20:56)
[2017-09-13] MEDS: PANTOPRAZOLE 20 MG TABLET (PROTONIX) PO SCH (05:43)
[2017-09-13] MEDS: LEVOTHYROXINE 50 MCG (LEVOTHROID) TAB PO SCH (05:43)
[2017-09-13] MEDS: MULTIVIT W/MINERALS TAB (THERAGRAN M) PO SCH (05:43)
[2017-09-13] MEDS: LIOTHYRONINE 5 MCG (CYTOMEL) TAB NON-FORMULARY PO SCH (05:44)
[2017-09-13] MEDS: VITAMIN D3 5,000 UNITS (CHOLECALCIFEROL ) CAPSULE PO SCH (08:27)
[2017-09-13] MEDS: FUROSEMIDE 20 MG (LASIX) TAB PO SCH (08:27)
[2017-09-13] MEDS: amLODIPine 2.5MG (NORVASC) TAB PO SCH (08:27)
[2017-09-13] MEDS: ASPIRIN E.C. 81 MG (ECOTRIN) TAB PO SCH (08:27)
[2017-09-13] MEDS: GEMFIBROZIL 600 MG (LOPID) TAB PO SCH ×2 (08:27→20:55)
[2017-09-13] MEDS: SENNA W/DOCUSATE (SENOKOT S) TABLET PO SCH ×2 (08:27→20:55)
[2017-09-13] MEDS: PYRIDOXINE (VITAMIN B-6) 50 MG TABLET PO SCH (08:27)
[2017-09-13] MEDS: MAGNESIUM OXIDE (MAG-OX)400 MG TAB PO SCH (08:27)
[2017-09-13] MEDS: LORATADINE (CLARITIN) 10 MG TAB PO SCH (08:27)
[2017-09-13] MEDS: oxyCODONE/APAP 5/325MG (PERCOCET 5) TABLET PO PRN ×3 (08:28→21:22)
[2017-09-13] MEDS: ENOXAPARIN 40 MG/0.4 ML (LOVENOX) SYR SC SCH (08:29)
[2017-09-13] MEDS: FLUTICASONE NASAL SPRAY (FLONASE) 16 GM BTL NS SCH (08:29)
[2017-09-13] MEDS: DORZOLAMIDE/TIMOLOL (COSOPT) 2-0.68% 10 ML BTL OU SCH ×2 (08:29→20:57)
[2017-09-13] MEDS: DICLOFENAC 1% GEL 100 GM (VOLTAREN) TUBE TP SCH ×4 (08:29→21:00)
--- NOTE | 2017-09-13 11:52 | Progress Note-Standard ---
Standard Progress Note Progress Notes/Assess & Plan Date Seen 09/13/17 Time Seen by Provider: 11:30 Assess & Plan/Chief Complaint Patient doing well + BM Family the bedside Denies any pain currently although she does take 2 pain pills before physical therapy Refuses insulin most of the time No fever, vital signs stable, pleasant, up in wheelchair, family at bedside Regular rate and rhythm, clear to auscultation bilaterally No edema Assessment: Status post femoral neck fracture in need of inpatient rehabilitation for strengthening prior to going home Diabetes mellitus with frequent hypoglycemia and decreased in dietary consumption so will DC the scheduled NovoLog Hypertension Hypothyroidism GERD Plan: Monitor bowel function Monitor for falls MIKE PEREA DO Sep 13, 2017 11:52
[2017-09-13 17:47] VITALS: BP 113/72
[2017-09-13] MEDS: QUINAPRIL 20 MG (ACCUPRIL) TAB PO SCH (20:55)
[2017-09-13] MEDS: POLYETHYLENE GLYCOL 17 GM (MIRALAX) PACK PO SCH (20:55)
[2017-09-13] MEDS: ATORVASTATIN 20 MG (LIPITOR) TABLET PO SCH (20:55)
[2017-09-13] MEDS: inSUlin DETERMIR 1 UNIT/0.01 ML (LEVEMIR) CHARGE PER UNIT SQ SCH (20:59)
[2017-09-13] MEDS: LATANOPROST 0.005% (XALATAN) OPHTH SOLN 2.5 ML OU SCH (21:23)
[2017-09-14] MEDS: oxyCODONE/APAP 5/325MG (PERCOCET 5) TABLET PO PRN ×4 (04:08→21:54)
[2017-09-14 05:43] VITALS: BP 127/73
[2017-09-14] MEDS: PANTOPRAZOLE 20 MG TABLET (PROTONIX) PO SCH (06:08)
[2017-09-14] MEDS: LEVOTHYROXINE 50 MCG (LEVOTHROID) TAB PO SCH (06:08)
[2017-09-14] MEDS: inSUlin ASPART (NovoLOG) 1 UNIT/0.01 ML (CHARGE PER UNIT) SC SCH ×4 (06:08→20:53)
[2017-09-14] MEDS: LIOTHYRONINE 5 MCG (CYTOMEL) TAB NON-FORMULARY PO SCH (06:08)
[2017-09-14] MEDS: MULTIVIT W/MINERALS TAB (THERAGRAN M) PO SCH (06:08)
--- NOTE | 2017-09-14 07:37 | Progress Note-Standard ---
Standard Progress Note Progress Notes/Assess & Plan Date Seen by Provider: Sep 14, 2017 Time Seen by Provider: 07:35 Progress/Assessment & Plan No complaints Vital Signs Date Time Temp Pulse Resp B/P (MAP) Pulse Ox O2 Delivery O2 Flow Rate FiO2 09/12/17 06:00 97.6 84 20 113/70 (84) 97 Room Air 09/11/17 18:50 99.0 101 18 123/70 (87) 94 Room Air 09/11/17 13:29 Room Air 09/11/17 11:03 97.7 87 18 138/75 (96) 97 Room Air I & O 09/12/17 07:00 Intake Total 750 ml Balance 750 ml Laboratory Tests Test 09/11/17 15:58 09/11/17 20:20 09/12/17 04:55 Range/Units Glucometer 125 H 159 H 125 H 70-110 MG/DL LLE--unable to perform SLR. no calf tenderness. Neg Bentley's s/p ORIF L hip continue PT/OT Final Diagnosis No complaints Vital Signs Date Time Temp Pulse Resp B/P (MAP) Pulse Ox O2 Delivery O2 Flow Rate FiO2 09/14/17 05:43 98.2 85 18 127/73 (91) 97 Room Air 09/13/17 17:47 96.4 79 14 113/72 (86) 95 Room Air I & O 09/14/17 07:00 Intake Total 1450 ml Balance 1450 ml Laboratory Tests Test 09/13/17 11:44 09/13/17 16:06 09/13/17 20:16 09/14/17 06:05 Range/Units Glucometer 256 H 241 H 231 H 233 H 70-110 MG/DL L hip incision clean and dry. no calf tenderness. Neg Bentley's s/p ORIF L hip continue PT/OT YULIET SWEET MD Sep 14, 2017 07:36
[2017-09-14] MEDS: MAGNESIUM OXIDE (MAG-OX)400 MG TAB PO SCH (08:48)
[2017-09-14] MEDS: VITAMIN D3 5,000 UNITS (CHOLECALCIFEROL ) CAPSULE PO SCH (08:48)
[2017-09-14] MEDS: amLODIPine 2.5MG (NORVASC) TAB PO SCH (08:48)
[2017-09-14] MEDS: LORATADINE (CLARITIN) 10 MG TAB PO SCH (08:48)
[2017-09-14] MEDS: ENOXAPARIN 40 MG/0.4 ML (LOVENOX) SYR SC SCH (08:49)
[2017-09-14] MEDS: GEMFIBROZIL 600 MG (LOPID) TAB PO SCH ×2 (08:49→20:52)
[2017-09-14] MEDS: SENNA W/DOCUSATE (SENOKOT S) TABLET PO SCH ×2 (08:50→20:52)
[2017-09-14] MEDS: PYRIDOXINE (VITAMIN B-6) 50 MG TABLET PO SCH (08:55)
[2017-09-14] MEDS: FLUTICASONE NASAL SPRAY (FLONASE) 16 GM BTL NS SCH (08:56)
[2017-09-14] MEDS: DORZOLAMIDE/TIMOLOL (COSOPT) 2-0.68% 10 ML BTL OU SCH ×2 (08:56→20:54)
[2017-09-14] MEDS: DICLOFENAC 1% GEL 100 GM (VOLTAREN) TUBE TP SCH ×4 (08:57→20:54)
--- NOTE | 2017-09-14 11:05 | Physical Therapy Daily Note ---
PT Daily Note-Current Subjective Pt. states she is in pain at 10/10 after short bout of gait and sit to sup TRF. Pt. shares that she has 2 steps at home and no railing but her room mate is having a contractor come look today at the situation. Pain Numeric Pain Scale: 10-Worst Possible Pain Location: Left Location Body Site: Knee Pain Description: Stabbing Comment: pt. states her pain extends hip to knee and is really more in her knee than Mental Status Patient Orientation: Normal For Age Transfers Functional [place] Measure 0=Not Assessed/NA 4=Minimal Assistance 1=Total Assistance 5=Supervision or Setup 2=Maximal Assistance 6=Modified [place] 3=Moderate Assistance 7=Complete IndependenceIRFPAI Quality Coding Scale 6 Independent with activity with or without an assistive device 5 Patient requires set up or clean up by helper. Patient completes activity by themselves 4 Supervision or touching assist (CGA). [place] provide cues , steadying assist 3 The helper provides less than half the effort to complete the activity 2 The helper provides more than half the effort to complete the activity 1 Dependent. The helper does all the effort to complete an activity 7 Patient refused to complete or attempt activity 9 The patient did not perform the activity before the current illness or injury 88 Not attempted due to Medical conditions or safety concerns Transfers (B, C, W/C) (FIM): 3 Scootin Rollin Supine to/from Sit: 3 Sit to/from Stand: 5 Bed to/from Chair: 5 Weight Bearing Right Lower Extremity: Right Full Weight Bearing Left Lower Extremity: Left Touch Toe Bearing Gait Training Does the Patient Walk?: Yes Gait (FIM): 2 Distance (FIM): 2=353-20 ft (50ftx2) Gait Level of Assist: 5 Gait Persons Needed: 1 Gait Assistive Device: FWW Wheelchair Training Does the Pt Use a Wheelchair?: Yes Wheelchair (FIM): 3 Wheelchair Level of Assist: 4 Type of Wheelchair: Manual instruction for turning and braking and manuevering Exercises Supine Ex: Ankle pumps, Quad Set, Rolling, Glut sets, Heel Slides, Short Arc Quads, Scooting, Hip abd/add Supine Reps: 15 Seated Therapy Exercises: Ankle pumps, Sit to stand, Long arc quads Seated Reps: 10 NuStep Minutes: 10 NuStep Workload: 2 Assessment Current Status: Good Progress pain limits function this date, sup to sit and sit to sup pts greatest challenge PT Short Term Goals Short Term Goals Wheelchair Distance: 50' x 2 PT Drum Drier Goals Drum Drier Goals PT Drum Drier Goals Time Frame: Oct 09, 2017 Transfers (B,C,W/C) (FIM): 6 Sit to Lying (QC): 6 Lying-Sitting on Side/Bed(QC): 6 Sit to Stand (QC): 6 Rollin Roll Left to Right (QC): 6 Chair/Tzr-zn-Occad Xfer(QC): 6 Car Transfer (QC): 6 Does the Patient Walk: Yes Gait (FIM): 6 Gait distance (FIM): 3=150 ft Distance: 150' Walk 10 feet (QC): 6 Walk 10ft-Uneven Surface(QC): 6 Walk 50ft with 2 Turns (QC): 6 Walk 150 ft (QC): 6 Gait Level of Assist: 6 Gait Assistive Device: FWW Stairs (FIM): 2 # of Steps: 4 1 Step (curb) (QC): 5 4 Steps (QC): 5 12 Steps (QC): 9 Stairs Level Of Assist: 5 Picking up an Object (QC): 6 PT Plan Treatment/Plan Treatment Plan: Continue Plan of Care Treatment Plan: Bed Mobility, Education, Functional Activity Phoebe, Functional Strength, Group Therapy, Gait, Safety, Therapeutic Exercise, Transfers Treatment Duration: Oct 09, 2017 Frequency: At least 5 of 7 days/Wk (IRF) Estimated Hrs Per Day: 1.5 hours per day Patient and/or Family Agrees t: Yes Safety Risks/Education Patient Education: Gait Training, Transfer Techniques, Correct Positioning, W/ C Management, Disease Process, Safety Issues Teaching Recipient: Patient Teaching Methods: Demonstration, Discussion Response to Teaching: Verbalize Understanding, Return Demonstration, Reinforcement Needed Time/GCodes Time In: 1000 Time Out: 1100 Total Billed Treatment Time: 60 Total Billed Treatment 1,GT25m,FA15m,EX20m G Codes Necessary: YOLANDA Gonzáles SCUTCHER TENDER Sep 14, 2017 11:05
--- NOTE | 2017-09-14 11:19 | Occupational Ther Daily Note ---
OT Current Status-Daily Note Subjective Pt seen in room, up in bed, agreeable to OT. Pt being given pain meds at this time. Appearance Alert, cooperative Mental Status/Objective Functional [place] Measure 0=Not Assessed/NA 4=Minimal Assistance 1=Total Assistance 5=Supervision or Setup 2=Maximal Assistance 6=Modified [place] 3=Moderate Assistance 7=Complete [place] ADL-Treatment Pt needed help to move L leg to EOB. She also had a little difficulty scooting forward to edge of bed, due to characteristics of mattress. She was able to stand from EOB with CGA, cues for hand placement, bed elevated a little. She walked slowly with CGA, FWW to bathroom and transferred with CGA to tall toilet , using grab bars and FWW. She managed clothing and hygiene herself. She got off toilet with CGA and walked to shower with CGA, FWW, transferring with min assist to shower bench, using grab bars, FWW. Pt educ use of long handled sponge for washing/drying lower legs. She bathed with help to wash bottom and CGA when standing and then walked back to toilet for dressing. She dressed upper body with setup and had pt educ in modified technique and use of dressing stick to help put pants on. CGA to stand and min assist to help pull pants up over hips, due to fatigue. Pt walked with CGA, FWW to w/c and got in chair with CGA. She was able to position w/c at sink and brushed teeth and hair with no help. Pt left up in w/c at sink, all needs met. Functional [place] Measure 0=Not Assessed/NA 4=Minimal Assistance 1=Total Assistance 5=Supervision or Setup 2=Maximal Assistance 6=Modified [place] 3=Moderate Assistance 7=Complete IndependenceIRFPAI Quality Coding Scale 6 Independent with activity with or without an assistive device 5 Patient requires set up or clean up by helper. Patient completes activity by themselves 4 Supervision or touching assist (CGA). [place] provide cues , steadying assist 3 The helper provides less than half the effort to complete the activity 2 The helper provides more than half the effort to complete the activity 1 Dependent. The helper does all the effort to complete an activity 7 Patient refused to complete or attempt activity 9 The patient did not perform the activity before the current illness or injury 88 Not attempted due to Medical conditions or safety concerns Grooming (FIM): 6 (Brushed teeth and hair, mod I, w/c level.) Bathing (FIM): 4 (CGA when standing. Help to wash bottom. washed and dried all other parts, setup. Shower bench, grab bars, hand held shower, long handled sponge) Upper Body (FIM): 5 (setup) Lower Body Dressing (FIM): 4 (A little help pulling pants up due to fatigue. pt educ use of dressing stick and mod technique. Did not do socks) Toileting (FIM): 4 (CGA to get up to manage clothing. ABle to manage hygiene. Tall toilet, grab bar) Toilet/Commode Transfer (FIM): 4 (CGA getting on and off tall toilet, grab bar , FWW.) Shower Transfer(FIM): 4 (CGA, FWW, shower bench) Education OT Patient Education: Modified ADL techniques, Purpose of tx/functional activities, Transfer techniques, Use of adapted equipment Teaching Recipient: Patient Teaching Methods: Demonstration, Discussion Response to Teaching: Verbalize Understanding, Return Demonstration OT Short Term Goals Short Term Goals 1=Demonstrate adherence to instructed precautions during ADL tasks. 2=Patient will verbalize/demonstrate understanding of assistive devices/ modifications for ADL. 3=Patient will improve strength/tolerance for activity to enable patient to perform ADL's. OT Military Science Instructor Goals Military Science Instructor Goals Time Frame: Sep 25, 2017 Eating (FIM): 6 Eating (QC): 6 Groomin Oral Hygiene (QC): 6 Bathing(FIM): 5 Shower/Bathe Self (QC): 5 Upper Body Dressing(FIM): 6 Upper Body Dressing (QC): 6 Lower Body Dressing(FIM): 6 Lower Body Dressing (QC): 6 On/Off Footwear (QC): 6 Toileting(FIM): 6 Toileting Hygiene (QC): 6 Transfers (B,C,W/C) (FIM): 6 Toilet/Commode Transfer(FIM): 6 Toilet/Commode Transfer (QC): 6 Shower Transfer(FIM): 5 Additional Goals: 1-Demonstrate ADL Tasks, 2-Verbalize Understanding, 3- ImproveStrength/[place]hoebe 1=Demonstrate adherence to instructed precautions during ADL tasks. 2=Patient will verbalize/demonstrate understanding of assistive devices/ modifications for ADL. 3=Patient will improve strength/tolerance for activity to enable patient to perform ADL's. OT Education/Plan Discharge Recommendations Plan/Recommendations: Continue POC Treatment Plan/Plan of Care Patient would benefit from OT for education, treatment and training to promote independence in ADL's, mobility, safety and/or upper extremity function for ADL' s. Plan of Care: ADL Retraining, Functional Mobility, UE Funct Exercise/Act Treatment Duration: Sep 25, 2017 Frequency: At least 5 of 7 days/Wk (IRF) Estimated Hrs Per Day: 1.5 hours per day Agreement: Yes Rehab Potential: Good Time/GCodes Start Time: 09:00 Stop Time: 10:00 Total Time Billed (hr/min): 60 Billed Treatment Time visit, 60 minutes ADL NIKIA DELUCA OT Sep 14, 2017 11:19
--- NOTE | 2017-09-14 14:25 | Occupational Ther Daily Note ---
OT Current Status-Daily Note Subjective Pt seen in room, up in w/c, agreeable to OT. Had pain meds recently. Appearance Alert, cooperative Mental Status/Objective Functional [place] Measure 0=Not Assessed/NA 4=Minimal Assistance 1=Total Assistance 5=Supervision or Setup 2=Maximal Assistance 6=Modified [place] 3=Moderate Assistance 7=Complete [place] ADL-Treatment Pt got up from w/c with SBA, pushing up from chair with both arms. Walked CGA, FWW to bathroom and managed clothing with CGA. Transferred on/off toilet with CGA, FWW and grab bar. Discussed BSC over toilet and pt preferred not to use it. Pt managed hygiene without help. Pt walked back to w/c with CGA, FWW, slow pace, with pt educ to try to get a little more distance between her feet to increase stability. Pt educ on effects on balance during ADLs when turning loose with either hand on FWW, with verbal understanding. Functional [place] Measure 0=Not Assessed/NA 4=Minimal Assistance 1=Total Assistance 5=Supervision or Setup 2=Maximal Assistance 6=Modified [place] 3=Moderate Assistance 7=Complete IndependenceIRFPAI Quality Coding Scale 6 Independent with activity with or without an assistive device 5 Patient requires set up or clean up by helper. Patient completes activity by themselves 4 Supervision or touching assist (CGA). [place] provide cues , steadying assist 3 The helper provides less than half the effort to complete the activity 2 The helper provides more than half the effort to complete the activity 1 Dependent. The helper does all the effort to complete an activity 7 Patient refused to complete or attempt activity 9 The patient did not perform the activity before the current illness or injury 88 Not attempted due to Medical conditions or safety concerns Other Treatment Pt education on 5 different bilat UE exercises with yellow theraband (gentle resistance). Pt was able to do 2 sets of 10 reps of each exercise, with initial visual and verbal cues and occasional physical assistance to do each movement correctly. Fewer cues with second set of reps. She was able to switch sides and track reps without assistance. Exercises to strengthen arms to help with transfers and standing during ADLs. Pt left up in w/c, all needs met. Education OT Patient Education: Exercise program, Progress toward Goal/Update tx plan, Purpose of tx/functional activities, Transfer techniques Teaching Recipient: Patient Teaching Methods: Demonstration, Discussion Response to Teaching: Verbalize Understanding, Return Demonstration, Reinforcement Needed OT Short Term Goals Short Term Goals 1=Demonstrate adherence to instructed precautions during ADL tasks. 2=Patient will verbalize/demonstrate understanding of assistive devices/ modifications for ADL. 3=Patient will improve strength/tolerance for activity to enable patient to perform ADL's. OT Nail Polish Brush Machine Feeder Goals Nail Polish Brush Machine Feeder Goals Time Frame: Sep 25, 2017 Eating (FIM): 6 Eating (QC): 6 Groomin Oral Hygiene (QC): 6 Bathing(FIM): 5 Shower/Bathe Self (QC): 5 Upper Body Dressing(FIM): 6 Upper Body Dressing (QC): 6 Lower Body Dressing(FIM): 6 Lower Body Dressing (QC): 6 On/Off Footwear (QC): 6 Toileting(FIM): 6 Toileting Hygiene (QC): 6 Transfers (B,C,W/C) (FIM): 6 Toilet/Commode Transfer(FIM): 6 Toilet/Commode Transfer (QC): 6 Shower Transfer(FIM): 5 Additional Goals: 1-Demonstrate ADL Tasks, 2-Verbalize Understanding, 3- ImproveStrength/[place] 1=Demonstrate adherence to instructed precautions during ADL tasks. 2=Patient will verbalize/demonstrate understanding of assistive devices/ modifications for ADL. 3=Patient will improve strength/tolerance for activity to enable patient to perform ADL's. OT Education/Plan Discharge Recommendations Plan/Recommendations: Continue POC Treatment Plan/Plan of Care Patient would benefit from OT for education, treatment and training to promote independence in ADL's, mobility, safety and/or upper extremity function for ADL' s. Plan of Care: ADL Retraining, Functional Mobility, UE Funct Exercise/Act Treatment Duration: Sep 25, 2017 Frequency: At least 5 of 7 days/Wk (IRF) Estimated Hrs Per Day: 1.5 hours per day Agreement: Yes Rehab Potential: Good Time/GCodes Start Time: 13:30 Stop Time: 14:00 Total Time Billed (hr/min): 30 Billed Treatment Time visit, ADL 10 minutes, exercise 20 minutes NIKIA DELUCA OT Sep 14, 2017 14:25
--- NOTE | 2017-09-14 14:31 | Physical Therapy Daily Note ---
PT Daily Note-Current Subjective At end of rx pt. rates pain at 8/10 in left hip and knee Pain Numeric Pain Scale: 8 Location: Left Location Body Site: Hip Pain Description: Ache Mental Status Patient Orientation: Normal For Age Transfers Functional [place] Measure 0=Not Assessed/NA 4=Minimal Assistance 1=Total Assistance 5=Supervision or Setup 2=Maximal Assistance 6=Modified [place] 3=Moderate Assistance 7=Complete IndependenceIRFPAI Quality Coding Scale 6 Independent with activity with or without an assistive device 5 Patient requires set up or clean up by helper. Patient completes activity by themselves 4 Supervision or touching assist (CGA). [place] provide cues , steadying assist 3 The helper provides less than half the effort to complete the activity 2 The helper provides more than half the effort to complete the activity 1 Dependent. The helper does all the effort to complete an activity 7 Patient refused to complete or attempt activity 9 The patient did not perform the activity before the current illness or injury 88 Not attempted due to Medical conditions or safety concerns pt. sit to stand from w/c and chair SBA, sit to supine required mod assist LLE Weight Bearing Right Lower Extremity: Right Full Weight Bearing Left Lower Extremity: Left Touch Toe Bearing Gait Training Does the Patient Walk?: Yes Gait Assistive Device: FWW 30 ft FWW CGA, slow, TTWB, pain escalates with gait and movement Exercises Supine Ex: Ankle pumps, Quad Set, Heel Slides (assist), Scooting, Hip abd/add ( assist) Supine Reps: 12 Assessment Current Status: Good Progress pain limits her function, pain meds seem to make pt. lethargic, has difficulty concentrating PT Short Term Goals Short Term Goals Wheelchair Distance: 50' x 2 PT Spark Plug Assembler Goals Group Home Goals PT Spark Plug Assembler Goals Time Frame: Oct 09, 2017 Transfers (B,C,W/C) (FIM): 6 Sit to Lying (QC): 6 Lying-Sitting on Side/Bed(QC): 6 Sit to Stand (QC): 6 Rollin Roll Left to Right (QC): 6 Chair/Lva-kj-Ftaen Xfer(QC): 6 Car Transfer (QC): 6 Does the Patient Walk: Yes Gait (FIM): 6 Gait distance (FIM): 3=150 ft Distance: 150' Walk 10 feet (QC): 6 Walk 10ft-Uneven Surface(QC): 6 Walk 50ft with 2 Turns (QC): 6 Walk 150 ft (QC): 6 Gait Level of Assist: 6 Gait Assistive Device: FWW Stairs (FIM): 2 # of Steps: 4 1 Step (curb) (QC): 5 4 Steps (QC): 5 12 Steps (QC): 9 Stairs Level Of Assist: 5 Picking up an Object (QC): 6 PT Plan Treatment/Plan Treatment Plan: Continue Plan of Care Treatment Plan: Bed Mobility, Education, Functional Activity Phoe[place], Functional Strength, Group Therapy, Gait, Safety, Therapeutic Exercise, Transfers Treatment Duration: Oct 09, 2017 Frequency: At least 5 of 7 days/Wk (IRF) Estimated Hrs Per Day: 1.5 hours per day Patient and/or Family Agrees t: Yes Safety Risks/Education Patient Education: Gait Training, Transfer Techniques, Correct Positioning, Disease Process, Safety Issues Teaching Recipient: Patient Teaching Methods: Demonstration, Discussion Response to Teaching: Verbalize Understanding, Return Demonstration, Reinforcement Needed Time/GCodes Time In: 1400 Time Out: 1430 Total Billed Treatment Time: 30 Total Billed Treatment 1,FA15m,EX15m G Codes Necessary: YOLANDA Gonzáles JIVE DEVELOPER Sep 14, 2017 14:31
[2017-09-14 18:28] VITALS: BP 134/73
--- NOTE | 2017-09-14 19:04 | PM & R (SOAP) Progress Note ---
Subjective Time Seen by Provider: 18:55 Subjective/Events-last exam Patient was seen in her room this evening Patient Mod assist for transfers Pain control adequate Appreciate PCP and DR Luo note Review of Systems Musculoskeletal: leg pain Objective Exam Last Set of Vital Signs Vital Signs Date Time Temp Pulse Resp B/P (MAP) Pulse Ox O2 Delivery O2 Flow Rate FiO2 09/14/17 18:28 97.6 88 20 134/73 (93) 100 Room Air Capillary Refill : Less Than 3 Seconds I&O Intake and Output 09/14/17 00:00 Intake Total 1450 ml Balance 1450 ml Intake Oral 1450 ml # Voids 5 # Bowel Movements 1 General: Alert, Oriented X3, Cooperative, No Acute Distress HEENT: Atraumatic, PERRLA, EOMI, Mucous Memb Moist/[place] Neck: Supple, No JVD Lungs: Clear to Auscultation Heart: Regular Rate Abdomen: Normal Bowel Sounds, Soft, No Tenderness Extremities: Other (trace edema left ankle) Neuro: Other (Strength LLE 3/5 RT %/5) Results Lab Laboratory Tests 09/11/17 20:20: Glucometer 159H 09/12/17 04:55: Glucometer 125H 09/12/17 11:27: Glucometer 227H 09/12/17 16:08: Glucometer 234H 09/12/17 20:19: Glucometer 231H 09/13/17 05:40: Glucometer 180H 09/13/17 11:44: Glucometer 256H 09/13/17 16:06: Glucometer 241H 09/13/17 20:16: Glucometer 231H 09/14/17 06:05: Glucometer 233H 09/14/17 12:12: Glucometer 271H 09/14/17 16:39: Glucometer 192H Assessment/Plan Assessment s/p orif Left nondispaced mid cervical femoral neck fracture dr rosario TTWB LLE Hypothyroidism on replacement GERD on meds HTN controlled obesity DM 2 glaucoma on eye drops Plan ContinuePT/OT Team Conference 09-16-17 Current labs and therapy notes reviewed. CLEVELAND KOROMA MD Sep 14, 2017 19:04
[2017-09-14] MEDS: QUINAPRIL 20 MG (ACCUPRIL) TAB PO SCH (20:51)
[2017-09-14] MEDS: inSUlin DETERMIR 1 UNIT/0.01 ML (LEVEMIR) CHARGE PER UNIT SQ SCH (20:52)
[2017-09-14] MEDS: ATORVASTATIN 20 MG (LIPITOR) TABLET PO SCH (20:52)
[2017-09-14] MEDS: LATANOPROST 0.005% (XALATAN) OPHTH SOLN 2.5 ML OU SCH (20:54)
[2017-09-14] MEDS: POLYETHYLENE GLYCOL 17 GM (MIRALAX) PACK PO SCH (20:56)
[2017-09-15 06:00] VITALS: BP 135/78
[2017-09-15] MEDS: inSUlin ASPART (NovoLOG) 1 UNIT/0.01 ML (CHARGE PER UNIT) SC SCH ×4 (06:25→20:54)
[2017-09-15] MEDS: LEVOTHYROXINE 50 MCG (LEVOTHROID) TAB PO SCH (06:31)
[2017-09-15] MEDS: MULTIVIT W/MINERALS TAB (THERAGRAN M) PO SCH (06:31)
[2017-09-15] MEDS: PANTOPRAZOLE 20 MG TABLET (PROTONIX) PO SCH (06:31)
[2017-09-15] MEDS: LIOTHYRONINE 5 MCG (CYTOMEL) TAB NON-FORMULARY PO SCH (06:31)
[2017-09-15] MEDS: oxyCODONE/APAP 5/325MG (PERCOCET 5) TABLET PO PRN ×4 (08:06→22:11)
[2017-09-15] MEDS: SENNA W/DOCUSATE (SENOKOT S) TABLET PO SCH ×2 (08:07→20:42)
[2017-09-15] MEDS: GEMFIBROZIL 600 MG (LOPID) TAB PO SCH ×2 (08:07→20:42)
[2017-09-15] MEDS: amLODIPine 2.5MG (NORVASC) TAB PO SCH (08:07)
[2017-09-15] MEDS: MAGNESIUM OXIDE (MAG-OX)400 MG TAB PO SCH (08:07)
[2017-09-15] MEDS: LORATADINE (CLARITIN) 10 MG TAB PO SCH (08:07)
[2017-09-15] MEDS: PYRIDOXINE (VITAMIN B-6) 50 MG TABLET PO SCH (08:07)
[2017-09-15] MEDS: ASPIRIN E.C. 81 MG (ECOTRIN) TAB PO SCH (08:08)
[2017-09-15] MEDS: FUROSEMIDE 20 MG (LASIX) TAB PO SCH (08:08)
[2017-09-15] MEDS: VITAMIN D3 5,000 UNITS (CHOLECALCIFEROL ) CAPSULE PO SCH (08:08)
[2017-09-15] MEDS: ENOXAPARIN 40 MG/0.4 ML (LOVENOX) SYR SC SCH (08:10)
[2017-09-15] MEDS: DORZOLAMIDE/TIMOLOL (COSOPT) 2-0.68% 10 ML BTL OU SCH ×2 (08:11→20:42)
[2017-09-15] MEDS: FLUTICASONE NASAL SPRAY (FLONASE) 16 GM BTL NS SCH (08:11)
[2017-09-15] MEDS: DICLOFENAC 1% GEL 100 GM (VOLTAREN) TUBE TP SCH ×4 (08:12→20:45)
--- NOTE | 2017-09-15 11:15 | Occupational Ther Daily Note ---
OT Current Status-Daily Note Subjective Pt initially seen at 8:30 but too uncomfortable so OT rescheduled to give pain meds time to work. Appearance Alert, cooperative Mental Status/Objective Functional [place] Measure 0=Not Assessed/NA 4=Minimal Assistance 1=Total Assistance 5=Supervision or Setup 2=Maximal Assistance 6=Modified [place] 3=Moderate Assistance 7=Complete [place] ADL-Treatment Pt was able to swing both legs over the edge of the bed and scoot to EOB without assistance. She stood with SBA, FWW and cues to push up, not pull up with walker. Walked with SBA, FWW to w/c and got into chair with SBA. Pt transported to sink but she locked brakes on w/c. Pt groomed, did sponge bath and dressed at sink or in the bathroom. Also discussed adapted equipment such as sock aid and dressing stick and how to obtain them. At end of tx, pt walked back to bed, SBA, FWW, sat with SBA, needed a little help to get L leg into bed but was able to get R leg in and scoot to straighten out in bed. Pt left up in bed, 4 rails up, all needs met. Pt pleased with progress today. Functional [place] Measure 0=Not Assessed/NA 4=Minimal Assistance 1=Total Assistance 5=Supervision or Setup 2=Maximal Assistance 6=Modified [place] 3=Moderate Assistance 7=Complete IndependenceIRFPAI Quality Coding Scale 6 Independent with activity with or without an assistive device 5 Patient requires set up or clean up by helper. Patient completes activity by themselves 4 Supervision or touching assist (CGA). [place] provide cues , steadying assist 3 The helper provides less than half the effort to complete the activity 2 The helper provides more than half the effort to complete the activity 1 Dependent. The helper does all the effort to complete an activity 7 Patient refused to complete or attempt activity 9 The patient did not perform the activity before the current illness or injury 88 Not attempted due to Medical conditions or safety concerns Grooming (FIM): 6 (Mod I to brush teeth, comb hair. ) Bathing (FIM): 5 (SBA when standing to wash bottom, which she was able to do by herself today. Pt educ on washing rich front before washing bottom to avoid infection. pt washed and dried all parts (chose not to wash legs or lower legs) with setup, sponge bath at sink, and also washed face and hands during bath.) Upper Body (FIM): 5 (Donned bra and shirt with setup. ) Lower Body Dressing (FIM): 5 (Pt used dressing stick to take socks off and sock aid to don them. pt educ on use of equipment. Used dressign stick to put on panties but not needed for slacks. Pt recalled modified techniques. Stood at sink to pull pants up herself, balancing on countertop or by leaning against sink. SBA when pulling pants up.) Transfers (B, C, W/C) (FIM): 4 (Able to get legs out of bed but needed help getting L leg into bed. ) Education OT Patient Education: Modified ADL techniques, Progress toward Goal/Update tx plan, Purpose of tx/functional activities, Safety issues, Transfer techniques, Use of adapted equipment Teaching Recipient: Patient Teaching Methods: Demonstration, Discussion Response to Teaching: Verbalize Understanding, Return Demonstration, Reinforcement Needed OT Short Term Goals Short Term Goals 1=Demonstrate adherence to instructed precautions during ADL tasks. 2=Patient will verbalize/demonstrate understanding of assistive devices/ modifications for ADL. 3=Patient will improve strength/tolerance for activity to enable patient to perform ADL's. OT Skilled Nursing Goals Boat Garnisher Goals Time Frame: Sep 25, 2017 Eating (FIM): 6 Eating (QC): 6 Groomin Oral Hygiene (QC): 6 Bathing(FIM): 5 Shower/Bathe Self (QC): 5 Upper Body Dressing(FIM): 6 Upper Body Dressing (QC): 6 Lower Body Dressing(FIM): 6 Lower Body Dressing (QC): 6 On/Off Footwear (QC): 6 Toileting(FIM): 6 Toileting Hygiene (QC): 6 Transfers (B,C,W/C) (FIM): 6 Toilet/Commode Transfer(FIM): 6 Toilet/Commode Transfer (QC): 6 Shower Transfer(FIM): 5 Additional Goals: 1-Demonstrate ADL Tasks, 2-Verbalize Understanding, 3- ImproveStrength/[place] 1=Demonstrate adherence to instructed precautions during ADL tasks. 2=Patient will verbalize/demonstrate understanding of assistive devices/ modifications for ADL. 3=Patient will improve strength/tolerance for activity to enable patient to perform ADL's. OT Education/Plan Discharge Recommendations Plan/Recommendations: Continue POC Treatment Plan/Plan of Care Patient would benefit from OT for education, treatment and training to promote independence in ADL's, mobility, safety and/or upper extremity function for ADL' s. Plan of Care: ADL Retraining, Functional Mobility, UE Funct Exercise/Act Treatment Duration: Sep 25, 2017 Frequency: At least 5 of 7 days/Wk (IRF) Estimated Hrs Per Day: 1.5 hours per day Agreement: Yes Rehab Potential: Good Time/GCodes Start Time: 09:00 Stop Time: 10:00 Total Time Billed (hr/min): 60 Billed Treatment Time visit, 60 minutes ADL NIKIA DELUCA OT Sep 15, 2017 11:15
--- NOTE | 2017-09-15 12:01 | Physical Therapy Daily Note ---
PT Daily Note-Current Subjective Pt laying Supine in bed upon arrival. Pt agrees to PT. Pain Numeric Pain Scale: 5-Moderate Pain Location: Left Location Body Site: Knee Pain Description: Throbbing Comment: Pt reports pain in knee while TTWB, more comfortable with flat foot. Mental Status Patient Orientation: Person, Place, Time, Situation Transfers Functional [place] Measure 0=Not Assessed/NA 4=Minimal Assistance 1=Total Assistance 5=Supervision or Setup 2=Maximal Assistance 6=Modified [place] 3=Moderate Assistance 7=Complete IndependenceIRFPAI Quality Coding Scale 6 Independent with activity with or without an assistive device 5 Patient requires set up or clean up by helper. Patient completes activity by themselves 4 Supervision or touching assist (CGA). [place] provide cues , steadying assist 3 The helper provides less than half the effort to complete the activity 2 The helper provides more than half the effort to complete the activity 1 Dependent. The helper does all the effort to complete an activity 7 Patient refused to complete or attempt activity 9 The patient did not perform the activity before the current illness or injury 88 Not attempted due to Medical conditions or safety concerns Scootin Rollin Roll Left to Right (QC): 5 Supine to/from Sit: 5 Sit to/from Stand: 5 Sit to Lying (QC): 4 Sit to Stand (QC): 5 Weight Bearing Right Lower Extremity: Right Full Weight Bearing Left Lower Extremity: Left Touch Toe Bearing Gait Training Does the Patient Walk?: Yes Distance (FIM): 3=150 ft Distance: 175' Walk 10 feet (QC): 4 Walk 50 ft with 2 Turns(QC): 4 Walk 150 ft (QC): 4 Gait Level of Assist: 4 Gait Persons Needed: 1 Gait Assistive Device: FWW Pt fatigues easily due to discomfort in L knee during ambulation. Pt has slow but steady david, no LOB. Wheelchair Training Does the Pt Use a Wheelchair?: Yes Wheelchair Distance: 3=150 ft Distance: 150' Wheelchair Level of Assist: 3 Wheel 50 ft with 2 turns (QC): 3 Type of Wheelchair: Manual Exercises Seated Therapy Exercises: Ankle pumps, Long arc quads, Hip flexion, Kicking activity Seated Reps: 15 NuStep Minutes: 10 NuStep Workload: 2 Treatments Pt transfers from Supine to EOB at [facility] then EOB to Standing at [facility]. Pt ambulates in hallway using FWW at CGA. Pt uses NuStep for 10m at [facility] 2 then Seated EX at EOM. Pt propelled back to room in [facility] at end of tx to rest Supine in bed. Pt has all needs met at end of tx including calllight in hand. Assessment Current Status: Good Progress Pt reports increased pain in L knee during ambulation which limits distance. PT Short Term Goals Short Term Goals Wheelchair Distance: 50' x 2 PT Jail Goals Economic Forecaster Goals PT Economic Forecaster Goals Time Frame: Oct 09, 2017 Transfers (B,C,W/C) (FIM): 6 Sit to Lying (QC): 6 Lying-Sitting on Side/Bed(QC): 6 Sit to Stand (QC): 6 Rollin Roll Left to Right (QC): 6 Chair/Nix[place]ig-[place]yu[place] Xfer(QC): 6 Car Transfer (QC): 6 Does the Patient Walk: Yes Gait (FIM): 6 Gait distance (FIM): 3=150 ft Distance: 150' Walk 10 feet (QC): 6 Walk 10ft-Uneven Surface(QC): 6 Walk 50ft with 2 Turns (QC): 6 Walk 150 ft (QC): 6 Gait Level of Assist: 6 Gait Assistive Device: FWW Stairs (FIM): 2 # of Steps: 4 1 Step (curb) (QC): 5 4 Steps (QC): 5 12 Steps (QC): 9 Stairs Level Of Assist: 5 Picking up an Object (QC): 6 PT Plan Problem List Problem List: Activity Tolerance, Functional Strength, Safety, Balance, Gait Treatment/Plan Treatment Plan: Continue Plan of Care Treatment Plan: Bed Mobility, Education, Functional Activity Pho[place], Functional Strength, Group Therapy, Gait, Safety, Therapeutic Exercise, Transfers Treatment Duration: Oct 09, 2017 Frequency: At least 5 of 7 days/Wk (IRF) Estimated Hrs Per Day: 1.5 hours per day Patient and/or Family Agrees t: Yes Safety Risks/Education Patient Education: Gait Training, Transfer Techniques, Correct Positioning, Safety Issues Teaching Recipient: Patient Teaching Methods: Discussion Response to Teaching: Verbalize Understanding Time/GCodes Time In: 1100 Time Out: 1200 Total Billed Treatment Time: 60 Total Billed Treatment 1, EX x2 (30m), FA (15m) & GT (15m) SHIN WELCH ROLLER OPERATOR Sep 15, 2017 12:01
--- NOTE | 2017-09-15 14:13 | PM & R (SOAP) Progress Note ---
Subjective Time Seen by Provider: 08:00 Subjective/Events-last exam Patient was seen in her room this AM Patient Mod assist for transfers Objective Exam Last Set of Vital Signs Vital Signs Date Time Temp Pulse Resp B/P (MAP) Pulse Ox O2 Delivery O2 Flow Rate FiO2 09/15/17 06:00 97.5 82 18 135/78 (97) 95 Room Air Capillary Refill : Less Than 3 Seconds I&O Intake and Output 09/15/17 00:00 Intake Total 1850 ml Balance 1850 ml Intake Oral 1850 ml # Voids 7 # Bowel Movements 1 General: Alert, Oriented X3, Cooperative, No Acute Distress HEENT: Atraumatic, PERRLA, EOMI, Mucous Memb Moist/[place] Neck: Supple, No JVD Lungs: Clear to Auscultation Heart: Regular Rate Abdomen: Normal Bowel Sounds, Soft, No Tenderness Extremities: Other (trace edema left ankle) Neuro: Other (Strength LLE 3/5 RT %/5) Results Lab Laboratory Tests 09/12/17 16:08: Glucometer 234H 09/12/17 20:19: Glucometer 231H 09/13/17 05:40: Glucometer 180H 09/13/17 11:44: Glucometer 256H 09/13/17 16:06: Glucometer 241H 09/13/17 20:16: Glucometer 231H 09/14/17 06:05: Glucometer 233H 09/14/17 12:12: Glucometer 271H 09/14/17 16:39: Glucometer 192H 09/14/17 20:23: Glucometer 257H 09/15/17 06:25: Glucometer 152H 09/15/17 11:56: Glucometer 259H Assessment/Plan Assessment s/p orif Left nondispaced mid cervical femoral neck fracture dr rosario TTWB LLE Hypothyroidism on replacement GERD on meds HTN controlled obesity DM 2 glaucoma on eye drops Plan ContinuePT/OT Team Conference tomorrow 09-16-17 Current labs and therapy notes reviewed. CLEVELAND KOROMA MD Sep 15, 2017 14:13
--- NOTE | 2017-09-15 14:31 | Occupational Ther Daily Note ---
OT Current Status-Daily Note Subjective Pt seen in potato inspector after PT, agreeable to OT. Said she is more comfortable with stool under her feet when using stationary w/c Appearance Alert, cooperative Mental Status/Objective Functional [place] Measure 0=Not Assessed/NA 4=Minimal Assistance 1=Total Assistance 5=Supervision or Setup 2=Maximal Assistance 6=Modified [place] 3=Moderate Assistance 7=Complete [place] ADL-Treatment Pt propelled w/c back to room and needed to toilet. After toileting, she walked to bed with SBA, FWW and was able to sit EOB with SBA. Cues to reach back before sitting. pt needed a little help to get L leg into bed but was able to reposition herself in bed. Pt left up in bed, 4 rails up, all needs met. Functional [place] Measure 0=Not Assessed/NA 4=Minimal Assistance 1=Total Assistance 5=Supervision or Setup 2=Maximal Assistance 6=Modified [place] 3=Moderate Assistance 7=Complete IndependenceIRFPAI Quality Coding Scale 6 Independent with activity with or without an assistive device 5 Patient requires set up or clean up by helper. Patient completes activity by themselves 4 Supervision or touching assist (CGA). [place] provide cues , steadying assist 3 The helper provides less than half the effort to complete the activity 2 The helper provides more than half the effort to complete the activity 1 Dependent. The helper does all the effort to complete an activity 7 Patient refused to complete or attempt activity 9 The patient did not perform the activity before the current illness or injury 88 Not attempted due to Medical conditions or safety concerns Toileting (FIM): 5 (SBA when standing to manage clothing. Able to manage hygiene. used BSC with flat seat which she reported was much more comfortable on her L leg and also had arms on both sides to gelp with getting up and down. FWW) Transfers (B, C, W/C) (FIM): 4 Toilet/Commode Transfer (FIM): 5 (SBA getting on and off BSC with flat seat. Pt reported arm rests were very helpful with transfer.) Other Treatment Pt did 12 minutes bilat UE exercise with arm bike set at 15W resistance, with one brief recovery period at midpoint. Worked at steady pace. To strengthen arms to help with transfers and with ADLs. Education OT Patient Education: Exercise program, Purpose of tx/functional activities, Transfer techniques, Use of adapted equipment Teaching Recipient: Patient Teaching Methods: Discussion Response to Teaching: Verbalize Understanding, Return Demonstration, Reinforcement Needed OT Short Term Goals Short Term Goals 1=Demonstrate adherence to instructed precautions during ADL tasks. 2=Patient will verbalize/demonstrate understanding of assistive devices/ modifications for ADL. 3=Patient will improve strength/tolerance for activity to enable patient to perform ADL's. OT [facility]cf Goals Chcf Goals Time Frame: Sep 25, 2017 Eating (FIM): 6 Eating (QC): 6 Groomin Oral Hygiene (QC): 6 Bathing(FIM): 5 Shower/Bathe Self (QC): 5 Upper Body Dressing(FIM): 6 Upper Body Dressing (QC): 6 Lower Body Dressing(FIM): 6 Lower Body Dressing (QC): 6 On/Off Footwear (QC): 6 Toileting(FIM): 6 Toileting Hygiene (QC): 6 Transfers (B,C,W/C) (FIM): 6 Toilet/Commode Transfer(FIM): 6 Toilet/Commode Transfer (QC): 6 Shower Transfer(FIM): 5 Additional Goals: 1-Demonstrate ADL Tasks, 2-Verbalize Understanding, 3- ImproveStrength/[place] 1=Demonstrate adherence to instructed precautions during ADL tasks. 2=Patient will verbalize/demonstrate understanding of assistive devices/ modifications for ADL. 3=Patient will improve strength/tolerance for activity to enable patient to perform ADL's. OT Education/Plan Discharge Recommendations Plan/Recommendations: Continue POC Treatment Plan/Plan of Care Patient would benefit from OT for education, treatment and training to promote independence in ADL's, mobility, safety and/or upper extremity function for ADL' s. Plan of Care: ADL Retraining, Functional Mobility, UE Funct Exercise/Act Treatment Duration: Sep 25, 2017 Frequency: At least 5 of 7 days/Wk (IRF) Estimated Hrs Per Day: 1.5 hours per day Agreement: Yes Rehab Potential: Good Time/GCodes Start Time: 13:30 Stop Time: 14:00 Total Time Billed (hr/min): 30 Billed Treatment Time visit, 15 minutes exercise, 15 minutes ADL NIKIA DELUCA OT Sep 15, 2017 14:30
--- NOTE | 2017-09-15 15:31 | Physical Therapy Daily Note ---
PT Daily Note-Current Subjective Pt laying Supine in bed upon arrival. Pt agrees to PT. Pain Numeric Pain Scale: 5-Moderate Pain Location: Left Location Body Site: Knee Pain Description: Throbbing Mental Status Patient Orientation: Person, Place, Time, Situation Transfers Functional [place] Measure 0=Not Assessed/NA 4=Minimal Assistance 1=Total Assistance 5=Supervision or Setup 2=Maximal Assistance 6=Modified [place] 3=Moderate Assistance 7=Complete IndependenceIRFPAI Quality Coding Scale 6 Independent with activity with or without an assistive device 5 Patient requires set up or clean up by helper. Patient completes activity by themselves 4 Supervision or touching assist (CGA). [place] provide cues , steadying assist 3 The helper provides less than half the effort to complete the activity 2 The helper provides more than half the effort to complete the activity 1 Dependent. The helper does all the effort to complete an activity 7 Patient refused to complete or attempt activity 9 The patient did not perform the activity before the current illness or injury 88 Not attempted due to Medical conditions or safety concerns Scootin Rollin Roll Left to Right (QC): 5 Supine to/from Sit: 5 Sit to/from Stand: 5 Sit to Lying (QC): 4 Sit to Stand (QC): 5 Weight Bearing Right Lower Extremity: Right Full Weight Bearing Left Lower Extremity: Left Touch Toe Bearing Wheelchair Training Does the Pt Use a Wheelchair?: Yes Wheelchair Distance: 3=150 ft Distance: 150' Wheelchair Level of Assist: 3 Wheel 50 ft with 2 turns (QC): 3 Wheel 150 ft (QC): 3 Type of Wheelchair: Manual Exercises Seated Therapy Exercises: Ankle pumps, Long arc quads, Hip flexion, Kicking activity, Hip abd/add Seated Reps: 20 Treatments Pt transfers from Supine to EOB then to Standing at SBA using FWW. Pt propelled to Therapy Gym in [facility]. Pt completed Seated Ex in chair. Pt returns to room to rest at end of tx with all needs met and call light in hand. Assessment Current Status: Good Progress Pt fatigued this afternoon and still reports pain in L knee. PT Short Term Goals Short Term Goals Wheelchair Distance: 150' PT Circular Knife Cutter Machine Goals Circular Knife Cutter Machine Goals PT Nursing Home Goals Time Frame: Oct 09, 2017 Transfers (B,C,W/C) (FIM): 6 Sit to Lying (QC): 6 Lying-Sitting on Side/Bed(QC): 6 Sit to Stand (QC): 6 Rollin Roll Left to Right (QC): 6 Chair/Hli-sk-[place]im[place] Xfer(QC): 6 Car Transfer (QC): 6 Does the Patient Walk: Yes Gait (FIM): 6 Gait distance (FIM): 3=150 ft Distance: 150' Walk 10 feet (QC): 6 Walk 10ft-Uneven Surface(QC): 6 Walk 50ft with 2 Turns (QC): 6 Walk 150 ft (QC): 6 Gait Level of Assist: 6 Gait Assistive Device: FWW Stairs (FIM): 2 # of Steps: 4 1 Step (curb) (QC): 5 4 Steps (QC): 5 12 Steps (QC): 9 Stairs Level Of Assist: 5 Picking up an Object (QC): 6 PT Plan Problem List Problem List: Activity Tolerance, Functional Strength, Safety, Balance, Gait Treatment/Plan Treatment Plan: Continue Plan of Care Treatment Plan: Bed Mobility, Education, Functional Activity [place], Functional Strength, Group Therapy, Gait, Safety, Therapeutic Exercise, Transfers Treatment Duration: Oct 09, 2017 Frequency: At least 5 of 7 days/Wk (IRF) Estimated Hrs Per Day: 1.5 hours per day Patient and/or Family Agrees t: Yes Safety Risks/Education Patient Education: Transfer Techniques, Correct Positioning, Safety Issues Teaching Recipient: Patient Teaching Methods: Discussion Response to Teaching: Verbalize Understanding Time/GCodes Time In: 1300 Time Out: 1330 Total Billed Treatment Time: 30 Total Billed Treatment 1, W[facility] (15m), EX (15m) SHIN WELCH RESCUE BOAT OPERATOR Sep 15, 2017 15:31
[2017-09-15 18:59] VITALS: BP 105/66
[2017-09-15] MEDS: LATANOPROST 0.005% (XALATAN) OPHTH SOLN 2.5 ML OU SCH (20:42)
[2017-09-15] MEDS: ATORVASTATIN 20 MG (LIPITOR) TABLET PO SCH (20:42)
[2017-09-15] MEDS: QUINAPRIL 20 MG (ACCUPRIL) TAB PO SCH (20:42)
[2017-09-15] MEDS: inSUlin DETERMIR 1 UNIT/0.01 ML (LEVEMIR) CHARGE PER UNIT SQ SCH (20:53)
[2017-09-15] MEDS: POLYETHYLENE GLYCOL 17 GM (MIRALAX) PACK PO SCH (20:53)
--- NOTE | 2017-09-15 21:16 | Individualized Plan of Care ---
Individualized Plan of Care Rehab Nursing IPOC Order Admission Date Sep 11, 2017 at 10:30 Current Orders Orders Admission Order(Inpt,Obs,Sdc) (09/11/17 10:39) Pt Evaluate/Treat Request (09/11/17 10:39) Request Ot Evaluate & Treat (09/11/17 10:39) Request For Cognitive Services (09/11/17 10:39) Admission Arrival Bed Request (09/11/17 10:55) Patient Visit (09/11/17 ) Speech Sound Lang Comp (09/11/17 ) Ambulate TID (09/11/17 11:37) Sequential Compression Device 08,20 (09/11/17 11:37) Dvt/Vte Risk - Notifiy Physici 08 (09/11/17 11:37) Patient Visit (09/11/17 ) Pt Eval Moderate Complexity (09/11/17 ) Code/Resuscitation (09/11/17 11:32) Accucheck Achs ACHS (09/11/17 11:32) Dressing Order & Int (Surg/Med Q48H (09/11/17 11:32) Elevate Affected Extremity (09/11/17 11:32) Ice: Apply To Affected Area (09/11/17 11:32) Incentive Spirometry (Nursing) Q2H (09/11/17 11:32) Oxygen-Administer 07,19 (09/11/17 11:32) Turn And Reposition Q2HR (09/11/17 11:32) Turn, Cough, And Deep Breathe (09/11/17 11:32) Up With Assistance As Tolerate DAILY PRN (09/11/17 11:32) Cho 60g/M 1snack (16-2000 Ángel) (09/11/17 Lunch) Aspirin Enteric Coated Tablet (Ecotrin T (09/13/17 09:00) Atorvastatin Tablet (Lipitor Tablet) (09/11/17 21:00) Cholecalciferol Capsule/Tablet (Vitamin (09/12/17 09:00) Diclofenac 1% Gel (Voltaren 1% Gel) (09/11/17 13:00) Dorzolamide/Timolol Ophth Soln (Cosopt O (09/11/17 21:00) Enoxaparin Injection (Lovenox Injection) (09/12/17 09:00) Furosemide Tablet (Lasix Tablet) (09/13/17 09:00) Gemfibrozil Tablet (Lopid Tablet) (09/11/17 21:00) Latanoprost 0.005% Ophth Soln (Xalatan 0 (09/11/17 21:00) Levothyroxine Tablet (Synthroid Tablet) (09/12/17 06:30) Liothyronine (Non-Formulary) (Cytomel (N (09/12/17 06:30) Loratadine Tablet (Claritin Tablet) (09/12/17 09:00) Magnesium Oxide Tablet (Mag Ox Tablet) (09/12/17 09:00) Pantoprazole Tablet (Protonix Tablet) (09/12/17 07:00) Patient May Use Own Med,Single (Patient (09/11/17 11:45) Oxycodone/Apap 5/325mg Tablet (Percocet (09/11/17 11:45) Sodium Chloride Flush (Catheter Flush Sy (09/11/17 11:45) Acetaminophen Tablet/Caplet (Tylenol T (09/11/17 11:45) Amlodipine Tablet (Norvasc Tablet) (09/12/17 09:00) Insulin (Regular) Human (Humulin R (Per (09/11/17 16:00) Insulin Aspart (Novolog) (Novolog (Charg (09/11/17 16:00) Insulin Determir (Per Unit) (Levemir (Pe (09/11/17 21:00) Consult Physician (09/11/17 11:32) Fluticasone Nasal [place] (Flonase Nasal S (09/12/17 09:00) Therapeutic Multivitamin Tab (Vitamins, (09/12/17 07:00) Quinapril Tablet (Accupril Tablet) (09/11/17 21:00) Pyridoxine Tablet (Vitamin B-6 Tablet) (09/12/17 09:00) Senna S Tablet (Senokot S Tablet) (09/11/17 21:00) Magnesium Hydroxide Oral Susp (Mom Oral (09/11/17 13:45) Polyethylene Glycol Powder Pkt (Miralax (09/11/17 21:00) Patient Visit (09/11/17 ) Patient Visit (09/12/17 ) Gait Training, Ea 15 Min (09/12/17 ) Insulin Aspart (Novolog) (Novolog (Charg (09/12/17 16:00) Insulin Aspart (Novolog) (Novolog (Charg (09/12/17 11:00) Patient Visit (09/14/17 ) Gait Training, Ea 15 Min (09/14/17 ) Functional Activities, Ea 15 (09/14/17 ) Exercise Therap, Ea 15 Min (09/14/17 ) Patient Visit (09/15/17 ) Exercise Therap, Ea 15 Min (09/15/17 ) Functional Activities, Ea 15 (09/15/17 ) Gait Training, Ea 15 Min (09/15/17 ) Patient Visit (09/15/17 ) Wheelchair Mgmt/Propulsn 15min (09/15/17 ) Exercise Therap, Ea 15 Min (09/15/17 ) Patient Visit (09/15/17 ) Pt Eval Moderate Complexity (09/15/17 ) Wheelchair Mgmt/Propulsn 15min (09/15/17 ) Functional Activities, Ea 15 (09/15/17 ) Other Nursing Orders: Monitor for postop constipation and urinary retention PT IPOC Problem List: Activity Tolerance, Functional Strength, Safety, Balance, Gait Treatment Plan: Continue Plan of Care Bed Mobility, Education, Functional Activity Phoebe, Functional Strength, Group Therapy, Gait, Safety, Therapeutic Exercise, Transfers Treatment Duration: Oct 09, 2017 Frequency: At least 5 of 7 days/Wk (IRF) Estimated Hrs Per Day: 1.5 hours per day OT IPOC Problems: Decreased Activ Tolerance, Dependent Transfers, Impaired I ADL's, Impaired Self-Care Skills OT Treatment, Training and Edu: Yes Plan of Care: ADL Retraining, Functional Mobility, UE Funct Exercise/Act Treatment Duration: Sep 25, 2017 Frequency: At least 5 of 7 days/Wk (IRF) Estimated Hrs Per Day: 1.[address] IPOC Speech Therapy Treatment Plan: Discontinue ST Treatment Duration: Sep 15, 2017 Frequency: Modified Program (IRF) Estimated Hrs Per Day: Other Bulk Delivery Driver/Case Mgmt Bulk Delivery Driver/Case Managemen: Discharge Planning, Patient/Family Counseling Physician IPOC Medical Issues being managed closely and that require the 24 hour availability of a physician: HTN DM Glaucoma GERD Medical Issues: Bowel/Bladder Function, DVT Prophylaxis, Falls Precautions, Infection Protection, Pain Management, Wound Care, Other (List) (as per above) Brief Synthesis of Preadmission Screen, Post-Admission Evaluation, and Therapy Evaluations: 66 yo female who had been Independent and living with her SO who fell at home sustaining a left hip fracture and now s/p Perc Pinning DR Wright ortho and TTWB LLE.PMH GERD HTN DM Chronic venousstasis changes both legs Hypercholesteremia Medical Prognosis: Good Anticipated Length of Stay: 09-25-17 Rehab Goals Modified Independent for adls and mobility at the w/c level due to TTWB LLE Anticipated discharge destinat: Home with [facility] and SO CLEVELAND KOROMA MD Sep 15, 2017 21:16
[2017-09-16 04:37] VITALS: BP 129/72
[2017-09-16] MEDS: inSUlin ASPART (NovoLOG) 1 UNIT/0.01 ML (CHARGE PER UNIT) SC SCH ×4 (06:10→21:49)
[2017-09-16] MEDS: LEVOTHYROXINE 50 MCG (LEVOTHROID) TAB PO SCH (06:11)
[2017-09-16] MEDS: MULTIVIT W/MINERALS TAB (THERAGRAN M) PO SCH (06:11)
[2017-09-16] MEDS: LIOTHYRONINE 5 MCG (CYTOMEL) TAB NON-FORMULARY PO SCH (06:11)
[2017-09-16] MEDS: PANTOPRAZOLE 20 MG TABLET (PROTONIX) PO SCH (06:12)
--- NOTE | 2017-09-16 07:30 | Progress Note-Standard ---
Standard Progress Note Progress Notes/Assess & Plan Date Seen by Provider: Sep 16, 2017 Time Seen by Provider: 07:30 Progress/Assessment & Plan No complaints Vital Signs Date Time Temp Pulse Resp B/P (MAP) Pulse Ox O2 Delivery O2 Flow Rate FiO2 09/12/17 06:00 97.6 84 20 113/70 (84) 97 Room Air 09/11/17 18:50 99.0 101 18 123/70 (87) 94 Room Air 09/11/17 13:29 Room Air 09/11/17 11:03 97.7 87 18 138/75 (96) 97 Room Air I & O 09/12/17 07:00 Intake Total 750 ml Balance 750 ml Laboratory Tests Test 09/11/17 15:58 09/11/17 20:20 09/12/17 04:55 Range/Units Glucometer 125 H 159 H 125 H 70-110 MG/DL LLE--unable to perform SLR. no calf tenderness. Neg Bentley's s/p ORIF L hip continue PT/OT Final Diagnosis No complaints LLE--incision clean and dry. no calf tenderness progressing well s/p L hip ORIF continue PT/OT YULIET SWEET MD Sep 16, 2017 07:30
[2017-09-16] MEDS: VITAMIN D3 5,000 UNITS (CHOLECALCIFEROL ) CAPSULE PO SCH (08:20)
[2017-09-16] MEDS: MAGNESIUM OXIDE (MAG-OX)400 MG TAB PO SCH (08:20)
[2017-09-16] MEDS: FLUTICASONE NASAL SPRAY (FLONASE) 16 GM BTL NS SCH (08:20)
[2017-09-16] MEDS: LORATADINE (CLARITIN) 10 MG TAB PO SCH (08:20)
[2017-09-16] MEDS: GEMFIBROZIL 600 MG (LOPID) TAB PO SCH ×2 (08:20→20:03)
[2017-09-16] MEDS: amLODIPine 2.5MG (NORVASC) TAB PO SCH (08:20)
[2017-09-16] MEDS: PYRIDOXINE (VITAMIN B-6) 50 MG TABLET PO SCH (08:20)
[2017-09-16] MEDS: DICLOFENAC 1% GEL 100 GM (VOLTAREN) TUBE TP SCH ×4 (08:20→20:04)
[2017-09-16] MEDS: DORZOLAMIDE/TIMOLOL (COSOPT) 2-0.68% 10 ML BTL OU SCH ×2 (08:20→20:02)
[2017-09-16] MEDS: ENOXAPARIN 40 MG/0.4 ML (LOVENOX) SYR SC SCH (08:20)
[2017-09-16] MEDS: SENNA W/DOCUSATE (SENOKOT S) TABLET PO SCH ×2 (08:20→20:04)
[2017-09-16] MEDS: oxyCODONE/APAP 5/325MG (PERCOCET 5) TABLET PO PRN ×3 (08:21→19:58)
--- NOTE | 2017-09-16 10:17 | PM & R (SOAP) Progress Note ---
Subjective Time Seen by Provider: 08:10 Subjective/Events-last exam Patient was seen in her room this AM.Patient SBA for dressing and Min assist for transfers Objective Exam Last Set of Vital Signs Vital Signs Date Time Temp Pulse Resp B/P (MAP) Pulse Ox O2 Delivery O2 Flow Rate FiO2 09/16/17 04:37 96.9 83 20 129/72 (91) 96 Room Air Capillary Refill : Less Than 3 Seconds I&O Intake and Output 09/16/17 00:00 Intake Total 1440 ml Balance 1440 ml Intake Oral 1440 ml # Voids 7 General: Alert, Oriented X3, Cooperative, No Acute Distress HEENT: Atraumatic, PERRLA, EOMI, Mucous Memb Moist/[place] Neck: Supple, No JVD Lungs: Clear to Auscultation Heart: Regular Rate Abdomen: Normal Bowel Sounds, Soft, No Tenderness Extremities: Other (trace edema left ankle) Skin: Other (Chronic venousstasis changes both legs) Neuro: Other (Strength LLE 3/5 RT %/5) Results Lab Laboratory Tests 09/13/17 11:44: Glucometer 256H 09/13/17 16:06: Glucometer 241H 09/13/17 20:16: Glucometer 231H 09/14/17 06:05: Glucometer 233H 09/14/17 12:12: Glucometer 271H 09/14/17 16:39: Glucometer 192H 09/14/17 20:23: Glucometer 257H 09/15/17 06:25: Glucometer 152H 09/15/17 11:56: Glucometer 259H 09/15/17 16:12: Glucometer 200H 09/15/17 20:23: Glucometer 312H 09/16/17 06:09: Glucometer 150H Assessment/Plan Assessment s/p orif Left nondispaced mid cervical femoral neck fracture dr rosario TTWB LLE Hypothyroidism on replacement GERD on meds HTN controlled obesity DM 2 glaucoma on eye drops Venoustasis discoloration both legs Plan ContinuePT/OT Current labs and therapy notes reviewed. Team Conference later today-See report for full functional update and POC and CLEVELAND STALEY MD Sep 16, 2017 10:17
--- NOTE | 2017-09-16 11:49 | Occupational Ther Daily Note ---
OT Current Status-Daily Note Subjective Pt seen in room, up in w/c, agreeable to OT. No pain mentioned. Appearance Alert, cooperative Mental Status/Objective Functional [place] Measure 0=Not Assessed/NA 4=Minimal Assistance 1=Total Assistance 5=Supervision or Setup 2=Maximal Assistance 6=Modified [place] 3=Moderate Assistance 7=Complete [place] ADL-Treatment Pt wanted to shower. She got up from w/c with SBA and walked SBA, FWW to bathroom. Got in and out of shower (bench) with CGA, FWW, grab bars. Pt washed and dried all parts with SBA when standing. Pt got dressed on flat BSC and got all clothes on with setup or SBA when standing. Pt brushed teeth and combed hair standing at sink, FWW, with SBA. No LOB observed. Pt sat in w/c with SBA Functional [place] Measure 0=Not Assessed/NA 4=Minimal Assistance 1=Total Assistance 5=Supervision or Setup 2=Maximal Assistance 6=Modified [place] 3=Moderate Assistance 7=Complete IndependenceIRFPAI Quality Coding Scale 6 Independent with activity with or without an assistive device 5 Patient requires set up or clean up by helper. Patient completes activity by themselves 4 Supervision or touching assist (CGA). Rowena provide cues , steadying assist 3 The helper provides less than half the effort to complete the activity 2 The helper provides more than half the effort to complete the activity 1 Dependent. The helper does all the effort to complete an activity 7 Patient refused to complete or attempt activity 9 The patient did not perform the activity before the current illness or injury 88 Not attempted due to Medical conditions or safety concerns Grooming (FIM): 5 (SBA standing at sink to brush teeth and comb hair, FWW. Washed face and hands in shower) Bathing (FIM): 5 (Washed and dried all parts with SBA when standing, setup. Turned water on and off and retrieved towel. Shower bench, grab bars, hand held shower, long handled sponge) Upper Body (FIM): 5 (Dressed upper body with setup,including bra and shirt) Lower Body Dressing (FIM): 5 (SBA when standing to pull pants up, FWW. Setup. used dressing stick to take socks off but did not need it for putting pants on. Used sock aid, without cues. ) Shower Transfer(FIM): 4 (CGA getting in and out of shower but SBA for sitting and standing from shower bench, with grab bars, FWW) Other Treatment Pt did 15 reps bilat UE exercise with yellow theraband with only triggering cues to do them correctly. Able to track reps and switch sides without difficulty. To strengthen arms to help with ADLs and using FWW. Pt left up in w/ c with all needs met. Education OT Patient Education: Exercise program, Progress toward Goal/Update tx plan, Purpose of tx/functional activities, Use of adapted equipment Teaching Recipient: Patient Teaching Methods: Discussion Response to Teaching: Verbalize Understanding, Return Demonstration OT Short Term Goals Short Term Goals 1=Demonstrate adherence to instructed precautions during ADL tasks. 2=Patient will verbalize/demonstrate understanding of assistive devices/ modifications for ADL. 3=Patient will improve strength/tolerance for activity to enable patient to perform ADL's. OT Network Intelligence Analyst Goals Network Intelligence Analyst Goals Time Frame: Sep 25, 2017 Eating (FIM): 6 Eating (QC): 6 Groomin Oral Hygiene (QC): 6 Bathing(FIM): 5 Shower/Bathe Self (QC): 5 Upper Body Dressing(FIM): 6 Upper Body Dressing (QC): 6 Lower Body Dressing(FIM): 6 Lower Body Dressing (QC): 6 On/Off Footwear (QC): 6 Toileting(FIM): 6 Toileting Hygiene (QC): 6 Transfers (B,C,W/C) (FIM): 6 Toilet/Commode Transfer(FIM): 6 Toilet/Commode Transfer (QC): 6 Shower Transfer(FIM): 5 Additional Goals: 1-Demonstrate ADL Tasks, 2-Verbalize Understanding, 3- ImproveStrength/Phoebe 1=Demonstrate adherence to instructed precautions during ADL tasks. 2=Patient will verbalize/demonstrate understanding of assistive devices/ modifications for ADL. 3=Patient will improve strength/tolerance for activity to enable patient to perform ADL's. OT Education/Plan Discharge Recommendations Plan/Recommendations: Continue POC Treatment Plan/Plan of Care Patient would benefit from OT for education, treatment and training to promote independence in ADL's, mobility, safety and/or upper extremity function for ADL' s. Plan of Care: ADL Retraining, Functional Mobility, UE Funct Exercise/Act Treatment Duration: Sep 25, 2017 Frequency: At least 5 of 7 days/Wk (IRF) Estimated Hrs Per Day: 1.5 hours per day Agreement: Yes Rehab Potential: Good Time/GCodes Start Time: 08:30 Stop Time: 09:30 Total Time Billed (hr/min): 60 Billed Treatment Time visit, 50 minutes ADL, 10 minutes exercise NIKIA DELUCA OT Sep 16, 2017 11:49
--- NOTE | 2017-09-16 12:01 | Physical Therapy Daily Note ---
PT Daily Note-Current Subjective Pt. states she felt like her pain might be a little better until this WOOD TECHNOLOGIST began Rx and then pain level increased from 5/10 to 8/10. Pt. c/o pain mainly in left knee lateral and posterior aspects. Pain Numeric Pain Scale: 8 Location: Left Location Body Site: Knee Pain Description: Stabbing Appearance nearly in tears, grimaces and pale palor Mental Status Patient Orientation: Normal For Age Transfers Functional [place] Measure 0=Not Assessed/NA 4=Minimal Assistance 1=Total Assistance 5=Supervision or Setup 2=Maximal Assistance 6=Modified [place] 3=Moderate Assistance 7=Complete IndependenceIRFPAI Quality Coding Scale 6 Independent with activity with or without an assistive device 5 Patient requires set up or clean up by helper. Patient completes activity by themselves 4 Supervision or touching assist (CGA). [place] provide cues , steadying assist 3 The helper provides less than half the effort to complete the activity 2 The helper provides more than half the effort to complete the activity 1 Dependent. The helper does all the effort to complete an activity 7 Patient refused to complete or attempt activity 9 The patient did not perform the activity before the current illness or injury 88 Not attempted due to Medical conditions or safety concerns Transfers (B, C, W/C) (FIM): 3 Scootin Rollin Supine to/from Sit: 3 Sit to/from Stand: 5 Bed to/from Chair: 5 Car Transfer (QC): 3 needs assist to lift LLE in out bed. Weight Bearing Right Lower Extremity: Right Full Weight Bearing Left Lower Extremity: Left Touch Toe Bearing Gait Training Does the Patient Walk?: Yes Gait (FIM): 2 Distance (FIM): 0=595-72 ft (60ftx2,40x2) Gait Level of Assist: 4 Gait Persons Needed: 1 Gait Assistive Device: FWW TTWB maintained well. pain increases with gait Exercises Supine Ex: Ankle pumps, Quad Set, Heel Slides, Short Arc Quads, Hip abd/add Supine Reps: 5 Seated Therapy Exercises: Ankle pumps, Sit to stand, Long arc quads Seated Reps: 10 Treatments pt. unable to achieve supine lying flat with LLE/hip extended, pain ensues and increases, just a few SAQs and attempts at Qsets and pt. is elevating pain. palpation reveals some tenderness at lateral aspect . [place]annone[place], DPT consulted, ROSETTA wrap was applied and request was made with nursing for XR of left knee. Assessment Current Status: Fair Progress pain greatly limits pts function and participation PT Short Term Goals Short Term Goals Wheelchair Distance: 150' PT Skilled Nursing Goals Skilled Nursing Goals PT Lower School Music Teacher Goals Time Frame: Oct 09, 2017 Transfers (B,C,W/C) (FIM): 6 Sit to Lying (QC): 6 Lying-Sitting on Side/Bed(QC): 6 Sit to Stand (QC): 6 Rollin Roll Left to Right (QC): 6 Chair/Mfj-cr-Lpeoe Xfer(QC): 6 Car Transfer (QC): 6 Does the Patient Walk: Yes Gait (FIM): 6 Gait distance (FIM): 3=150 ft Distance: 150' Walk 10 feet (QC): 6 Walk 10ft-Uneven Surface(QC): 6 Walk 50ft with 2 Turns (QC): 6 Walk 150 ft (QC): 6 Gait Level of Assist: 6 Gait Assistive Device: FWW Stairs (FIM): 2 # of Steps: 4 1 Step (curb) (QC): 5 4 Steps (QC): 5 12 Steps (QC): 9 Stairs Level Of Assist: 5 Picking up an Object (QC): 6 PT Plan Treatment/Plan Treatment Plan: Continue Plan of Care Treatment Plan: Bed Mobility, Education, Functional Activity Phoebe, Functional Strength, Group Therapy, Gait, Safety, Therapeutic Exercise, Transfers Treatment Duration: Oct 09, 2017 Frequency: At least 5 of 7 days/Wk (IRF) Estimated Hrs Per Day: 1.5 hours per day Patient and/or Family Agrees t: Yes Safety Risks/Education Patient Education: Gait Training, Transfer Techniques, Correct Positioning, Disease Process, Safety Issues Teaching Recipient: Patient Teaching Methods: Demonstration, Discussion Response to Teaching: Verbalize Understanding, Return Demonstration, Reinforcement Needed Time/GCodes Time In: 1100 Time Out: 1200 Total Billed Treatment Time: 60 Total Billed Treatment 1,GT25m,EX10m,FA25m G Codes Necessary: YOLANDA Gonzáles WOOD TECHNOLOGIST Sep 16, 2017 12:01
--- NOTE | 2017-09-16 14:28 | Therapy Group Daily Note ---
Therapy Daily Group Note Patient Education Topic Exercises (benefits of exercise, the rehab process), Other List Below Exercises LE Seated Exercise, UE Exercise Other/Notes Pt. participated in group PT OT session. Pt. came and went via w/c with leg rests. Pt. introduced herself and was social with others. Pts. participated in self lead exercise via written illustrated exercise cards that were distributed to each patient. Memory strategies and matching activity was conducted with all pts using bag toss to indicate the matches assembled on the floor. Pt. required mod assist to TRF in to bed after Rx. Grace at hand Start Time: 13:00 Stop Time: 14:15 Total Billed Treatment Time: 75 Total Billed Treatment 1,GRP YOLANDA SU HUMANITIES INSTRUCTOR Sep 16, 2017 14:28
[2017-09-16 18:58] VITALS: BP 130/78
[2017-09-16] MEDS: LATANOPROST 0.005% (XALATAN) OPHTH SOLN 2.5 ML OU SCH (20:02)
[2017-09-16] MEDS: QUINAPRIL 20 MG (ACCUPRIL) TAB PO SCH (20:03)
[2017-09-16] MEDS: ATORVASTATIN 20 MG (LIPITOR) TABLET PO SCH (20:03)
[2017-09-16] MEDS: POLYETHYLENE GLYCOL 17 GM (MIRALAX) PACK PO SCH (20:04)
--- NOTE | 2017-09-16 20:32 | Diagnostic Imaging Report ---
EXAM: KNEE, LEFT, 3 VIEWS INDICATION: Fall. Left knee pain. COMPARISON: None. FINDINGS: No fracture or malalignment. Mild tricompartmental degenerative changes. No effusion. Vascular calcifications. No radiopaque foreign bodies. IMPRESSION: No acute radiographic findings in the left knee. Mild tricompartmental degenerative changes. Dictated by: Dictated on workstation # [id number]
[2017-09-16] MEDS: inSUlin DETERMIR 1 UNIT/0.01 ML (LEVEMIR) CHARGE PER UNIT SQ SCH (21:48)
[2017-09-17] MEDS: oxyCODONE/APAP 5/325MG (PERCOCET 5) TABLET PO PRN ×4 (02:24→21:24)
[2017-09-17 06:26] VITALS: BP 124/72
[2017-09-17] MEDS: MULTIVIT W/MINERALS TAB (THERAGRAN M) PO SCH (06:39)
[2017-09-17] MEDS: PANTOPRAZOLE 20 MG TABLET (PROTONIX) PO SCH (06:39)
[2017-09-17] MEDS: LEVOTHYROXINE 50 MCG (LEVOTHROID) TAB PO SCH (06:39)
[2017-09-17] MEDS: LIOTHYRONINE 5 MCG (CYTOMEL) TAB NON-FORMULARY PO SCH (06:40)
[2017-09-17] MEDS: inSUlin ASPART (NovoLOG) 1 UNIT/0.01 ML (CHARGE PER UNIT) SC SCH ×4 (06:43→21:27)
[2017-09-17] MEDS: MAGNESIUM OXIDE (MAG-OX)400 MG TAB PO SCH (08:49)
[2017-09-17] MEDS: VITAMIN D3 5,000 UNITS (CHOLECALCIFEROL ) CAPSULE PO SCH (08:49)
[2017-09-17] MEDS: GEMFIBROZIL 600 MG (LOPID) TAB PO SCH ×2 (08:49→21:24)
[2017-09-17] MEDS: LORATADINE (CLARITIN) 10 MG TAB PO SCH (08:49)
[2017-09-17] MEDS: PYRIDOXINE (VITAMIN B-6) 50 MG TABLET PO SCH (08:49)
[2017-09-17] MEDS: DICLOFENAC 1% GEL 100 GM (VOLTAREN) TUBE TP SCH ×4 (08:49→21:27)
[2017-09-17] MEDS: amLODIPine 2.5MG (NORVASC) TAB PO SCH (08:49)
[2017-09-17] MEDS: ASPIRIN E.C. 81 MG (ECOTRIN) TAB PO SCH (08:49)
[2017-09-17] MEDS: ENOXAPARIN 40 MG/0.4 ML (LOVENOX) SYR SC SCH (08:50)
[2017-09-17] MEDS: FLUTICASONE NASAL SPRAY (FLONASE) 16 GM BTL NS SCH (08:54)
[2017-09-17] MEDS: SENNA W/DOCUSATE (SENOKOT S) TABLET PO SCH ×2 (08:54→21:24)
[2017-09-17] MEDS: FUROSEMIDE 20 MG (LASIX) TAB PO SCH (08:54)
[2017-09-17] MEDS: DORZOLAMIDE/TIMOLOL (COSOPT) 2-0.68% 10 ML BTL OU SCH ×2 (08:54→20:43)
--- NOTE | 2017-09-17 10:12 | PM & R (SOAP) Progress Note ---
Subjective Time Seen by Provider: 09:35 Subjective/Events-last exam Patient was seen in her room this AM Patient Mod assist for transfers Objective Exam Last Set of Vital Signs Vital Signs Date Time Temp Pulse Resp B/P (MAP) Pulse Ox O2 Delivery O2 Flow Rate FiO2 09/17/17 06:26 98.4 74 17 124/72 (89) 96 Room Air Capillary Refill : Less Than 3 Seconds I&O Intake and Output 09/17/17 00:00 Intake Total 950 ml Balance 950 ml Intake Oral 950 ml # Voids 5 # Bowel Movements 2 General: Alert, Oriented X3, Cooperative, No Acute Distress HEENT: Atraumatic, PERRLA, EOMI, Mucous Memb Moist/[place] Neck: Supple, No JVD Lungs: Clear to Auscultation Heart: Regular Rate Abdomen: Normal Bowel Sounds, Soft, No Tenderness Extremities: Other (trace edema left ankle) Skin: Other (Chronic venousstasis changes both legs) Neuro: Other (Strength LLE 3/5 RT %/5) Results Lab Laboratory Tests 09/14/17 12:12: Glucometer 271H 09/14/17 16:39: Glucometer 192H 09/14/17 20:23: Glucometer 257H 09/15/17 06:25: Glucometer 152H 09/15/17 11:56: Glucometer 259H 09/15/17 16:12: Glucometer 200H 09/15/17 20:23: Glucometer 312H 09/16/17 06:09: Glucometer 150H 09/16/17 11:28: Glucometer 252H 09/16/17 16:13: Glucometer 272H 09/16/17 20:49: Glucometer 222H 09/17/17 06:12: Glucometer 132H Assessment/Plan Assessment s/p orif Left nondispaced mid cervical femoral neck fracture dr rosario TTWB LLE Hypothyroidism on replacement GERD on meds HTN controlled obesity DM 2 glaucoma on eye drops Venoustasis discoloration both legs Plan ContinuePT/OT Current labs and therapy notes reviewed. Team Conference held yesterday-See report for full functional update and POC and ELOS Discharge set tentatively for the 13th CLEVELAND KOROMA MD Sep 17, 2017 10:12
--- NOTE | 2017-09-17 12:47 | Physical Therapy Daily Note ---
PT Daily Note-Current Subjective Pt sitting at EOB upon arrival. Pt agrees to PT. Pain Numeric Pain Scale: 7 Location: Left Location Body Site: Knee Pain Description: Ache, Stabbing, Sharp Comment: Pt reports constant pain in L knee w/intermittent sharp pain, inc. w/EX Mental Status Patient Orientation: Person, Place, Time, Situation Transfers Functional [place] Measure 0=Not Assessed/NA 4=Minimal Assistance 1=Total Assistance 5=Supervision or Setup 2=Maximal Assistance 6=Modified [place] 3=Moderate Assistance 7=Complete IndependenceIRFPAI Quality Coding Scale 6 Independent with activity with or without an assistive device 5 Patient requires set up or clean up by helper. Patient completes activity by themselves 4 Supervision or touching assist (CGA). [place] provide cues , steadying assist 3 The helper provides less than half the effort to complete the activity 2 The helper provides more than half the effort to complete the activity 1 Dependent. The helper does all the effort to complete an activity 7 Patient refused to complete or attempt activity 9 The patient did not perform the activity before the current illness or injury 88 Not attempted due to Medical conditions or safety concerns Scootin Sit to/from Stand: 5 Sit to Stand (QC): 5 Weight Bearing Right Lower Extremity: Right Full Weight Bearing Left Lower Extremity: Left Touch Toe Bearing Gait Training Does the Patient Walk?: Yes Distance (FIM): 3=150 ft Distance: 200' Walk 10 feet (QC): 5 Walk 50 ft with 2 Turns(QC): 5 Walk 150 ft (QC): 5 Gait Level of Assist: 5 Gait Persons Needed: 1 Gait Assistive Device: FWW Pt has slow but steady david, walks flat footed for increased comfort but very little WB on LLE. Wheelchair Training Does the Pt Use a Wheelchair?: Yes Wheelchair Distance: 3=150 ft Distance: 150' Wheelchair Level of Assist: 5 Wheel 50 ft with 2 turns (QC): 5 Wheel 150 ft (QC): 5 Type of Wheelchair: Manual Exercises Seated Therapy Exercises: Ankle pumps, Long arc quads, Hip flexion, Kicking activity, Hip abd/add (10 reps) Seated Reps: 20 NuStep Minutes: 10 NuStep Workload: 2 Treatments Pt transfers from recliner to standing using FWW at [facility]. Pt ambulates in hallway using FWW at [facility]. As pt tires from walk, pt transfers to [facility] and propels in hallway. Pt uses NuStep for 10m at WL 2 followed by Seated Ex with rest in between. Pt returns to room at end of tx with all needs met, including call light. Assessment Current Status: Good Progress Pt reports knee feeling better than yesterday although still experiencing increase in pain with EX. PT Short Term Goals Short Term Goals Wheelchair Distance: 150' PT Shear Assembler Goals Shear Assembler Goals PT Shear Assembler Goals Time Frame: Oct 09, 2017 Transfers (B,C,W/C) (FIM): 6 Sit to Lying (QC): 6 Lying-Sitting on Side/Bed(QC): 6 Sit to Stand (QC): 6 Rollin Roll Left to Right (QC): 6 Chair/Pkt-db-Tdkje Xfer(QC): 6 Car Transfer (QC): 6 Does the Patient Walk: Yes Gait (FIM): 6 Gait distance (FIM): 3=150 ft Distance: 150' Walk 10 feet (QC): 6 Walk 10ft-Uneven Surface(QC): 6 Walk 50ft with 2 Turns (QC): 6 Walk 150 ft (QC): 6 Gait Level of Assist: 6 Gait Assistive Device: FWW Stairs (FIM): 2 # of Steps: 4 1 Step (curb) (QC): 5 4 Steps (QC): 5 12 Steps (QC): 9 Stairs Level Of Assist: 5 Picking up an Object (QC): 6 PT Plan Problem List Problem List: Activity Tolerance, Functional Strength, Safety, Balance, Gait, Transfer Treatment/Plan Treatment Plan: Continue Plan of Care Treatment Plan: Bed Mobility, Education, Functional Activity Pho[place], Functional Strength, Group Therapy, Gait, Safety, Therapeutic Exercise, Transfers Treatment Duration: Oct 09, 2017 Frequency: At least 5 of 7 days/Wk (IRF) Estimated Hrs Per Day: 1.5 hours per day Patient and/or Family Agrees t: Yes Safety Risks/Education Patient Education: Gait Training, Transfer Techniques, Correct Positioning, W/ C Management, Safety Issues Teaching Recipient: Patient Teaching Methods: Discussion Response to Teaching: Verbalize Understanding Time/GCodes Time In: 900 Time Out: 1000 Total Billed Treatment Time: 60 Total Billed Treatment 1, GT (15m), EX x2 (30m) & WCH (15m) SHIN WELCH SEWAGE SCREEN OPERATOR Sep 17, 2017 12:47
--- NOTE | 2017-09-17 15:03 | Occupational Ther Daily Note ---
OT Current Status-Daily Note Subjective Pt seen in room, up in recliner, agreeable to OT. Requested pain meds from nursing prior to PT Appearance Alert, cooperative Mental Status/Objective Functional [place] Measure 0=Not Assessed/NA 4=Minimal Assistance 1=Total Assistance 5=Supervision or Setup 2=Maximal Assistance 6=Modified [place] 3=Moderate Assistance 7=Complete [place] ADL-Treatment Pt wanted to shower. Got up out of recliner with SBA, FWW and walked SBA, FWW to bathroom, Got on and off BSC with SBA and managed clothing with SBA, FWW. Also managed hygiene. Walked SBA, FWW to shower and got in shower with SBA, FWW. Pt washed and dried all parts and then walked back to BSC to dress with setup or SBA, FWW. Walked to sink to brush teeth FWW, SBA and then to w/c. No LOB observed and pt appears to be maintaining WB status. Functional [place] Measure 0=Not Assessed/NA 4=Minimal Assistance 1=Total Assistance 5=Supervision or Setup 2=Maximal Assistance 6=Modified [place] 3=Moderate Assistance 7=Complete IndependenceIRFPAI Quality Coding Scale 6 Independent with activity with or without an assistive device 5 Patient requires set up or clean up by helper. Patient completes activity by themselves 4 Supervision or touching assist (CGA). [place] provide cues , steadying assist 3 The helper provides less than half the effort to complete the activity 2 The helper provides more than half the effort to complete the activity 1 Dependent. The helper does all the effort to complete an activity 7 Patient refused to complete or attempt activity 9 The patient did not perform the activity before the current illness or injury 88 Not attempted due to Medical conditions or safety concerns Grooming (FIM): 5 (SBA, FWW to brush teeth at sink. Washed face and hands with setup, combed hair) Bathing (FIM): 5 (Washed and dried all parts. setup. Shower bench, sponge bath , grab bars, long handled sponge) Upper Body (FIM): 5 (Undressed and dressed with setup) Lower Body Dressing (FIM): 5 (SBA when standing tp manage clothing. Dressing stick, sock aid, FWW. No LOB observed) Toileting (FIM): 5 (SBA for clothing management. BSC, FWW. Also managed hygiene ) Transfers (B, C, W/C) (FIM): 5 (In and out of reclienr with SBA, FWW) Toilet/Commode Transfer (FIM): 5 (On and off BSC with SBA, FWW. Skilled cues for hand position) Other Treatment Once up in w/c, pt recalled 4 of 5 theraband exercises with no skilled cues and did them correctly. To strengthen arms to help with transfers and ADLs. Pt left up in w/c, all needs met. Education OT Patient Education: Exercise program, Progress toward Goal/Update tx plan, Purpose of tx/functional activities, Transfer techniques Teaching Recipient: Patient Teaching Methods: Discussion Response to Teaching: Verbalize Understanding, Return Demonstration OT Short Term Goals Short Term Goals 1=Demonstrate adherence to instructed precautions during ADL tasks. 2=Patient will verbalize/demonstrate understanding of assistive devices/ modifications for ADL. 3=Patient will improve strength/tolerance for activity to enable patient to perform ADL's. OT [facility] Goals Tableau Report Developer Goals Time Frame: Sep 25, 2017 Eating (FIM): 6 Eating (QC): 6 Groomin Oral Hygiene (QC): 6 Bathing(FIM): 5 Shower/Bathe Self (QC): 5 Upper Body Dressing(FIM): 6 Upper Body Dressing (QC): 6 Lower Body Dressing(FIM): 6 Lower Body Dressing (QC): 6 On/Off Footwear (QC): 6 Toileting(FIM): 6 Toileting Hygiene (QC): 6 Transfers (B,C,W/C) (FIM): 6 Toilet/Commode Transfer(FIM): 6 Toilet/Commode Transfer (QC): 6 Shower Transfer(FIM): 5 Additional Goals: 1-Demonstrate ADL Tasks, 2-Verbalize Understanding, 3- ImproveStrength/[place] 1=Demonstrate adherence to instructed precautions during ADL tasks. 2=Patient will verbalize/demonstrate understanding of assistive devices/ modifications for ADL. 3=Patient will improve strength/tolerance for activity to enable patient to perform ADL's. OT Education/Plan Discharge Recommendations Plan/Recommendations: Continue POC Treatment Plan/Plan of Care Patient would benefit from OT for education, treatment and training to promote independence in ADL's, mobility, safety and/or upper extremity function for ADL' s. Plan of Care: ADL Retraining, Functional Mobility, UE Funct Exercise/Act Treatment Duration: Sep 25, 2017 Frequency: At least 5 of 7 days/Wk (IRF) Estimated Hrs Per Day: 1.5 hours per day Agreement: Yes Rehab Potential: Good Time/GCodes Start Time: 08:00 Stop Time: 09:00 Total Time Billed (hr/min): 60 Billed Treatment Time visit, 50 minutes ADL, 10 minutes exercise NIKIA DELUCA OT Sep 17, 2017 15:03
--- NOTE | 2017-09-17 15:29 | Occupational Ther Daily Note ---
OT Current Status-Daily Note Subjective Pt seen in room, up in recliner, agreeable to OT. Pain not mentioned. Mental Status/Objective Functional [place] Measure 0=Not Assessed/NA 4=Minimal Assistance 1=Total Assistance 5=Supervision or Setup 2=Maximal Assistance 6=Modified [place] 3=Moderate Assistance 7=Complete [place] ADL-Treatment Pt got up out of recliner with SBA, FWW and walked to bathroom with SBA, FWW, no LOB. Pt toileted with SBA, BSC and then walked with SBA, FWW to w/c. Functional [place] Measure 0=Not Assessed/NA 4=Minimal Assistance 1=Total Assistance 5=Supervision or Setup 2=Maximal Assistance 6=Modified [place] 3=Moderate Assistance 7=Complete IndependenceIRFPAI Quality Coding Scale 6 Independent with activity with or without an assistive device 5 Patient requires set up or clean up by helper. Patient completes activity by themselves 4 Supervision or touching assist (CGA). [place] provide cues , steadying assist 3 The helper provides less than half the effort to complete the activity 2 The helper provides more than half the effort to complete the activity 1 Dependent. The helper does all the effort to complete an activity 7 Patient refused to complete or attempt activity 9 The patient did not perform the activity before the current illness or injury 88 Not attempted due to Medical conditions or safety concerns Toileting (FIM): 5 Toilet/Commode Transfer (FIM): 5 Other Treatment Pt helped propel w/c to gym. She did bilat UE activities with 1# weight on each arm, including graded clothespins and nuts and bolts. To strengthen arms to help with weight bearing with FWW when toileting and dressing. Care transferred to PT at end of tx. Education OT Patient Education: Progress toward Goal/Update tx plan, Purpose of tx/ functional activities Teaching Recipient: Patient Teaching Methods: Discussion Response to Teaching: Verbalize Understanding OT Short Term Goals Short Term Goals 1=Demonstrate adherence to instructed precautions during ADL tasks. 2=Patient will verbalize/demonstrate understanding of assistive devices/ modifications for ADL. 3=Patient will improve strength/tolerance for activity to enable patient to perform ADL's. OT [facility] Goals Senior Care Goals Time Frame: Sep 25, 2017 Eating (FIM): 6 Eating (QC): 6 Groomin Oral Hygiene (QC): 6 Bathing(FIM): 5 Shower/Bathe Self (QC): 5 Upper Body Dressing(FIM): 6 Upper Body Dressing (QC): 6 Lower Body Dressing(FIM): 6 Lower Body Dressing (QC): 6 On/Off Footwear (QC): 6 Toileting(FIM): 6 Toileting Hygiene (QC): 6 Transfers (B,C,W/C) (FIM): 6 Toilet/Commode Transfer(FIM): 6 Toilet/Commode Transfer (QC): 6 Shower Transfer(FIM): 5 Additional Goals: 1-Demonstrate ADL Tasks, 2-Verbalize Understanding, 3- ImproveStrength/[place] 1=Demonstrate adherence to instructed precautions during ADL tasks. 2=Patient will verbalize/demonstrate understanding of assistive devices/ modifications for ADL. 3=Patient will improve strength/tolerance for activity to enable patient to perform ADL's. OT Education/Plan Discharge Recommendations Plan/Recommendations: Continue POC Treatment Plan/Plan of Care Patient would benefit from OT for education, treatment and training to promote independence in ADL's, mobility, safety and/or upper extremity function for ADL' s. Plan of Care: ADL Retraining, Functional Mobility, UE Funct Exercise/Act Treatment Duration: Sep 25, 2017 Frequency: At least 5 of 7 days/Wk (IRF) Estimated Hrs Per Day: 1.5 hours per day Agreement: Yes Rehab Potential: Good Time/GCodes Start Time: 13:00 Stop Time: 13:30 Total Time Billed (hr/min): 30 Billed Treatment Time visit, 25 minutes exercise, 5 minutes NIKIA DELUCA OT Sep 17, 2017 15:28
--- NOTE | 2017-09-17 16:32 | Physical Therapy Daily Note ---
PT Daily Note-Current Subjective Pt sitting in [facility] in Therapy Gym after just finishing with OT upon arrival. Pt agrees to PT. Pain Numeric Pain Scale: 5-Moderate Pain Location: Left Location Body Site: Knee Pain Description: Ache Mental Status Patient Orientation: Person, Place, Time, Situation Transfers Functional [place] Measure 0=Not Assessed/NA 4=Minimal Assistance 1=Total Assistance 5=Supervision or Setup 2=Maximal Assistance 6=Modified [place] 3=Moderate Assistance 7=Complete IndependenceIRFPAI Quality Coding Scale 6 Independent with activity with or without an assistive device 5 Patient requires set up or clean up by helper. Patient completes activity by themselves 4 Supervision or touching assist (CGA). [place] provide cues , steadying assist 3 The helper provides less than half the effort to complete the activity 2 The helper provides more than half the effort to complete the activity 1 Dependent. The helper does all the effort to complete an activity 7 Patient refused to complete or attempt activity 9 The patient did not perform the activity before the current illness or injury 88 Not attempted due to Medical conditions or safety concerns Scootin Sit to/from Stand: 5 Sit to Stand (QC): 5 Weight Bearing Right Lower Extremity: Right Full Weight Bearing Left Lower Extremity: Left Touch Toe Bearing Gait Training Does the Patient Walk?: Yes Gait Level of Assist: 5 Gait Persons Needed: 1 Gait Assistive Device: FWW Wheelchair Training Does the Pt Use a Wheelchair?: No Stair Training Stair Training: Handrails/: 2 handrails #of Steps: 8 1 Step (curb) (QC): 4 4 Steps (QC): 4 Stairs: Pattern: Step to Level of Assist: 4 Pt completes 4 single pink steps in //bars before wanting to try the staircase. Pt completes 1 set of 4 stairs on staircase before resting. Exercises Seated Therapy Exercises: Ankle pumps, Long arc quads, Hip flexion, Kicking activity, Hip abd/add Seated Reps: 15 Treatments Pt completes Seated Ex in chair with rest. Pt then completes standing weight shifting before completing 4 pink steps in //bars. Pt then completes 1 set of 4 stairs on staircase then transfers back [facility] to rest. Pt propels WCh back to room and transfers to recliner at end of tx to rest. Pt has all needs met, including call light. Assessment Current Status: Good Progress Pt is motivated to get better and will push herself to progress. PT Short Term Goals Short Term Goals Wheelchair Distance: 150' PT Quarrying Specialist Goals Quarrying Specialist Goals PT Quarrying Specialist Goals Time Frame: Oct 09, 2017 Transfers (B,C,W/C) (FIM): 6 Sit to Lying (QC): 6 Lying-Sitting on Side/Bed(QC): 6 Sit to Stand (QC): 6 Rollin Roll Left to Right (QC): 6 Chair/Jhd-dd-Vmhpg Xfer(QC): 6 Car Transfer (QC): 6 Does the Patient Walk: Yes Gait (FIM): 6 Gait distance (FIM): 3=150 ft Distance: 150' Walk 10 feet (QC): 6 Walk 10ft-Uneven Surface(QC): 6 Walk 50ft with 2 Turns (QC): 6 Walk 150 ft (QC): 6 Gait Level of Assist: 6 Gait Assistive Device: FWW Stairs (FIM): 2 # of Steps: 4 1 Step (curb) (QC): 5 4 Steps (QC): 5 12 Steps (QC): 9 Stairs Level Of Assist: 5 Picking up an Object (QC): 6 PT Plan Problem List Problem List: Activity Tolerance, Functional Strength, Safety, Balance, Gait Treatment/Plan Treatment Plan: Continue Plan of Care Treatment Plan: Bed Mobility, Education, Functional Activity [place], Functional Strength, Group Therapy, Gait, Safety, Therapeutic Exercise, Transfers Treatment Duration: Oct 09, 2017 Frequency: At least 5 of 7 days/Wk (IRF) Estimated Hrs Per Day: 1.5 hours per day Patient and/or Family Agrees t: Yes Safety Risks/Education Patient Education: Gait Training, Transfer Techniques, Steps, Correct Positioning, Safety Issues Teaching Recipient: Patient Teaching Methods: Discussion Response to Teaching: Verbalize Understanding Time/GCodes Time In: 1330 Time Out: 1400 Total Billed Treatment Time: 30 Total Billed Treatment 1, EX (15m) & GT (15m) SHIN WELCH RAINBOW TROUT FARM MANAGER Sep 17, 2017 16:32
[2017-09-17 18:16] VITALS: BP 104/66
[2017-09-17] MEDS: POLYETHYLENE GLYCOL 17 GM (MIRALAX) PACK PO SCH (21:23)
[2017-09-17] MEDS: QUINAPRIL 20 MG (ACCUPRIL) TAB PO SCH (21:24)
[2017-09-17] MEDS: ATORVASTATIN 20 MG (LIPITOR) TABLET PO SCH (21:24)
[2017-09-17] MEDS: LATANOPROST 0.005% (XALATAN) OPHTH SOLN 2.5 ML OU SCH (21:25)
[2017-09-17] MEDS: inSUlin DETERMIR 1 UNIT/0.01 ML (LEVEMIR) CHARGE PER UNIT SQ SCH (21:27)
[2017-09-18] MEDS: oxyCODONE/APAP 5/325MG (PERCOCET 5) TABLET PO PRN ×4 (02:05→21:19)
[2017-09-18 05:16] VITALS: BP 118/69
[2017-09-18] MEDS: inSUlin ASPART (NovoLOG) 1 UNIT/0.01 ML (CHARGE PER UNIT) SC SCH ×4 (05:55→21:24)
[2017-09-18] MEDS: LEVOTHYROXINE 50 MCG (LEVOTHROID) TAB PO SCH (06:02)
[2017-09-18] MEDS: MULTIVIT W/MINERALS TAB (THERAGRAN M) PO SCH (06:02)
[2017-09-18] MEDS: PANTOPRAZOLE 20 MG TABLET (PROTONIX) PO SCH (06:02)
[2017-09-18] MEDS: LIOTHYRONINE 5 MCG (CYTOMEL) TAB NON-FORMULARY PO SCH (06:03)
--- NOTE | 2017-09-18 07:05 | Progress Note-Standard ---
Standard Progress Note Progress Notes/Assess & Plan Date Seen by Provider: Sep 18, 2017 Time Seen by Provider: 07:04 Progress/Assessment & Plan No complaints Vital Signs Date Time Temp Pulse Resp B/P (MAP) Pulse Ox O2 Delivery O2 Flow Rate FiO2 09/12/17 06:00 97.6 84 20 113/70 (84) 97 Room Air 09/11/17 18:50 99.0 101 18 123/70 (87) 94 Room Air 09/11/17 13:29 Room Air 09/11/17 11:03 97.7 87 18 138/75 (96) 97 Room Air I & O 09/12/17 07:00 Intake Total 750 ml Balance 750 ml Laboratory Tests Test 09/11/17 15:58 09/11/17 20:20 09/12/17 04:55 Range/Units Glucometer 125 H 159 H 125 H 70-110 MG/DL LLE--unable to perform SLR. no calf tenderness. Neg Bentley's s/p ORIF L hip continue PT/OT Final Diagnosis no complaints R hip incision clean and dry no calf tenderness s/p left hip ORIF continue PT/OT YULIET SWEET MD Sep 18, 2017 07:05
[2017-09-18] MEDS: PYRIDOXINE (VITAMIN B-6) 50 MG TABLET PO SCH (07:54)
[2017-09-18] MEDS: amLODIPine 2.5MG (NORVASC) TAB PO SCH (07:54)
[2017-09-18] MEDS: LORATADINE (CLARITIN) 10 MG TAB PO SCH (07:54)
[2017-09-18] MEDS: VITAMIN D3 5,000 UNITS (CHOLECALCIFEROL ) CAPSULE PO SCH (07:54)
[2017-09-18] MEDS: MAGNESIUM OXIDE (MAG-OX)400 MG TAB PO SCH (07:54)
[2017-09-18] MEDS: SENNA W/DOCUSATE (SENOKOT S) TABLET PO SCH ×2 (07:55→21:19)
[2017-09-18] MEDS: ENOXAPARIN 40 MG/0.4 ML (LOVENOX) SYR SC SCH (07:58)
[2017-09-18] MEDS: DICLOFENAC 1% GEL 100 GM (VOLTAREN) TUBE TP SCH ×4 (07:58→21:21)
[2017-09-18] MEDS: FLUTICASONE NASAL SPRAY (FLONASE) 16 GM BTL NS SCH (07:59)
[2017-09-18] MEDS: DORZOLAMIDE/TIMOLOL (COSOPT) 2-0.68% 10 ML BTL OU SCH ×2 (07:59→21:20)
--- NOTE | 2017-09-18 07:59 | PM & R (SOAP) Progress Note ---
Subjective Time Seen by Provider: 07:45 Subjective/Events-last exam Patient was seen in her room this AM Patient min assist for transfers Accucheks noted Discussed case with RN Dr Wright in to see this AM Xray left knee appreciated Review of Systems Musculoskeletal: leg pain Objective Exam Last Set of Vital Signs Vital Signs Date Time Temp Pulse Resp B/P (MAP) Pulse Ox O2 Delivery O2 Flow Rate FiO2 09/18/17 05:16 97.9 71 18 118/69 (85) 95 Room Air Capillary Refill : Less Than 3 Seconds I&O Intake and Output 09/18/17 00:00 Intake Total 1410 ml Balance 1410 ml Intake Oral 1410 ml # Voids 7 # Bowel Movements 1 General: Alert, Oriented X3, Cooperative, No Acute Distress HEENT: Atraumatic, PERRLA, EOMI, Mucous Memb Moist/[place] Neck: Supple, No JVD Lungs: Clear to Auscultation Heart: Regular Rate Abdomen: Normal Bowel Sounds, Soft, No Tenderness Extremities: Other (trace edema left ankle) Skin: Other (Chronic venousstasis changes both legs) Neuro: Other (Strength LLE 3/5 RT %/5) Results Lab Laboratory Tests 09/15/17 11:56: Glucometer 259H 09/15/17 16:12: Glucometer 200H 09/15/17 20:23: Glucometer 312H 09/16/17 06:09: Glucometer 150H 09/16/17 11:28: Glucometer 252H 09/16/17 16:13: Glucometer 272H 09/16/17 20:49: Glucometer 222H 09/17/17 06:12: Glucometer 132H 09/17/17 11:05: Glucometer 247H 09/17/17 15:51: Glucometer 172H 09/17/17 20:38: Glucometer 244H 09/18/17 04:33: Glucometer 167H Assessment/Plan Assessment s/p orif Left nondispaced mid cervical femoral neck fracture dr rosario TTWB LLE Hypothyroidism on replacement GERD on meds HTN controlled obesity DM 2 glaucoma on eye drops Venoustasis discoloration both legs Plan ContinuePT/OT Current labs and therapy notes reviewed. Team Conference held 09-16-17-See report for full functional update and POC and ELOS Discharge set tentatively for the th Xray left knee shows mild djd CLEVELAND KOROMA MD Sep 18, 2017 07:59
[2017-09-18] MEDS: GEMFIBROZIL 600 MG (LOPID) TAB PO SCH ×2 (08:03→21:19)
--- NOTE | 2017-09-18 10:00 | Physical Therapy Daily Note ---
PT Daily Note-Current Subjective Pt. states she feels she has made progress and is happy that she completed the stairs yesterday but doesnt want to do them today Pain Numeric Pain Scale: 4 Location: Left Location Body Site: Knee Pain Description: Ache, Stabbing, Throbbing, Burning Appearance appears in more pain with attempts at supine therex Mental Status Patient Orientation: Normal For Age Transfers Functional [place] Measure 0=Not Assessed/NA 4=Minimal Assistance 1=Total Assistance 5=Supervision or Setup 2=Maximal Assistance 6=Modified [place] 3=Moderate Assistance 7=Complete IndependenceIRFPAI Quality Coding Scale 6 Independent with activity with or without an assistive device 5 Patient requires set up or clean up by helper. Patient completes activity by themselves 4 Supervision or touching assist (CGA). [place] provide cues , steadying assist 3 The helper provides less than half the effort to complete the activity 2 The helper provides more than half the effort to complete the activity 1 Dependent. The helper does all the effort to complete an activity 7 Patient refused to complete or attempt activity 9 The patient did not perform the activity before the current illness or injury 88 Not attempted due to Medical conditions or safety concerns Transfers (B, C, W/C) (FIM): 5 Scootin Rollin Supine to/from Sit: 5 Sit to/from Stand: 5 Weight Bearing Right Lower Extremity: Right Full Weight Bearing Left Lower Extremity: Left Touch Toe Bearing Gait Training Does the Patient Walk?: Yes Gait (FIM): 5 Distance (FIM): 3=150 ft (x2) Gait Level of Assist: 5 Gait Persons Needed: 1 Gait Assistive Device: FWW Exercises Supine Ex: Ankle pumps, Rolling, Heel Slides, Short Arc Quads Supine Reps: 10 Seated Therapy Exercises: Ankle pumps, Sit to stand, Long arc quads Seated Reps: 10 NuStep Minutes: 10 NuStep Workload: 10 Treatments unable to tolerate supine therex, pain increases with attempts to QS or even extend hip to nuetral. on Nustep leg presses x 12 Assessment Current Status: Good Progress PT Short Term Goals Short Term Goals Wheelchair Distance: 150' PT Mcc Goals Mcc Goals PT Modular Home Crew Member Goals Time Frame: Oct 09, 2017 Transfers (B,C,W/C) (FIM): 6 Sit to Lying (QC): 6 Lying-Sitting on Side/Bed(QC): 6 Sit to Stand (QC): 6 Rollin Roll Left to Right (QC): 6 Chair/Naw-ig-Gihxl Xfer(QC): 6 Car Transfer (QC): 6 Does the Patient Walk: Yes Gait (FIM): 6 Gait distance (FIM): 3=150 ft Distance: 150' Walk 10 feet (QC): 6 Walk 10ft-Uneven Surface(QC): 6 Walk 50ft with 2 Turns (QC): 6 Walk 150 ft (QC): 6 Gait Level of Assist: 6 Gait Assistive Device: FWW Stairs (FIM): 2 # of Steps: 4 1 Step (curb) (QC): 5 4 Steps (QC): 5 12 Steps (QC): 9 Stairs Level Of Assist: 5 Picking up an Object (QC): 6 PT Plan Treatment/Plan Treatment Plan: Continue Plan of Care Treatment Plan: Bed Mobility, Education, Functional Activity [place], Functional Strength, Group Therapy, Gait, Safety, Therapeutic Exercise, Transfers Treatment Duration: Oct 09, 2017 Frequency: At least 5 of 7 days/Wk (IRF) Estimated Hrs Per Day: 1.5 hours per day Patient and/or Family Agrees t: Yes Safety Risks/Education Patient Education: Gait Training, Transfer Techniques, Correct Positioning, Disease Process, Safety Issues Teaching Recipient: Patient Teaching Methods: Demonstration, Discussion Response to Teaching: Verbalize Understanding, Return Demonstration, Reinforcement Needed Time/GCodes Time In: 900 Time Out: 1000 Total Billed Treatment Time: 60 Total Billed Treatment 1,FA25m,GT20m,EX15m G Codes Necessary: YOLANDA Gonzáles PTA Sep 18, 2017 09:59
--- NOTE | 2017-09-18 12:43 | Occupational Ther Daily Note ---
OT Current Status-Daily Note Subjective Pt seen in room, up in w/c, agreeable to OT. No pain mentioned. Appearance Alert, cooperative Mental Status/Objective Functional [place] Measure 0=Not Assessed/NA 4=Minimal Assistance 1=Total Assistance 5=Supervision or Setup 2=Maximal Assistance 6=Modified [place] 3=Moderate Assistance 7=Complete [place] ADL-Treatment Pt walked to closet to retrieved clean clothes, SBA, FWW then transported them to bathroom. Toileted, showered and dressed on BSC, then walked back to her w/ c. Pt left up in w/c, with all goals met. Functional [place] Measure 0=Not Assessed/NA 4=Minimal Assistance 1=Total Assistance 5=Supervision or Setup 2=Maximal Assistance 6=Modified [place] 3=Moderate Assistance 7=Complete IndependenceIRFPAI Quality Coding Scale 6 Independent with activity with or without an assistive device 5 Patient requires set up or clean up by helper. Patient completes activity by themselves 4 Supervision or touching assist (CGA). [place] provide cues , steadying assist 3 The helper provides less than half the effort to complete the activity 2 The helper provides more than half the effort to complete the activity 1 Dependent. The helper does all the effort to complete an activity 7 Patient refused to complete or attempt activity 9 The patient did not perform the activity before the current illness or injury 88 Not attempted due to Medical conditions or safety concerns Bathing (FIM): 5 (Pt washed and dried all parts, with SBA when standing. Shower bench, grab bar, hand held shower, long handled sponge. Pt lost her balance when drying her bottom and recognized that she needed to be holding on to grab bar. OT assisted her a little to correct it) Upper Body (FIM): 5 (Pt retrieved clean clothes from closet with SBA, FWW and pt education to keep walked in front and get close to load. Donned clothing without help) Lower Body Dressing (FIM): 5 (Pt retrieved clean clothes from closet with SBA, FWW. Donned clothing with dressing stick, sock aid, SBA FWW to pull pants up over hips) Toileting (FIM): 5 (SBA for clothing management. Managed hygiene. BSC, FWW) Toilet/Commode Transfer (FIM): 5 (SBA getting on and off BSC, with FWW. Skilled cue to push up from BSC, not pull up from walker) Shower Transfer(FIM): 5 (SBA getting in and out of shower and on/off shower bench, with grab bar, FWW) Education OT Patient Education: Progress toward Goal/Update tx plan, Purpose of tx/ functional activities, Safety issues Teaching Recipient: Patient Teaching Methods: Discussion Response to Teaching: Verbalize Understanding, Reinforcement Needed OT Short Term Goals Short Term Goals 1=Demonstrate adherence to instructed precautions during ADL tasks. 2=Patient will verbalize/demonstrate understanding of assistive devices/ modifications for ADL. 3=Patient will improve strength/tolerance for activity to enable patient to perform ADL's. OT Senior Care Goals Senior Care Goals Time Frame: Sep 25, 2017 Eating (FIM): 6 Eating (QC): 6 Groomin Oral Hygiene (QC): 6 Bathing(FIM): 5 Shower/Bathe Self (QC): 5 Upper Body Dressing(FIM): 6 Upper Body Dressing (QC): 6 Lower Body Dressing(FIM): 6 Lower Body Dressing (QC): 6 On/Off Footwear (QC): 6 Toileting(FIM): 6 Toileting Hygiene (QC): 6 Transfers (B,C,W/C) (FIM): 6 Toilet/Commode Transfer(FIM): 6 Toilet/Commode Transfer (QC): 6 Shower Transfer(FIM): 5 Additional Goals: 1-Demonstrate ADL Tasks, 2-Verbalize Understanding, 3- ImproveStrength/Phoebe 1=Demonstrate adherence to instructed precautions during ADL tasks. 2=Patient will verbalize/demonstrate understanding of assistive devices/ modifications for ADL. 3=Patient will improve strength/tolerance for activity to enable patient to perform ADL's. OT Education/Plan Discharge Recommendations Plan/Recommendations: Continue POC Treatment Plan/Plan of Care Patient would benefit from OT for education, treatment and training to promote independence in ADL's, mobility, safety and/or upper extremity function for ADL' s. Plan of Care: ADL Retraining, Functional Mobility, UE Funct Exercise/Act Treatment Duration: Sep 25, 2017 Frequency: At least 5 of 7 days/Wk (IRF) Estimated Hrs Per Day: 1.5 hours per day Agreement: Yes Rehab Potential: Good Time/GCodes Start Time: 08:00 Stop Time: 09:00 Total Time Billed (hr/min): 60 Billed Treatment Time visit, 60 minutes ADL NIKIA DELUCA OT Sep 18, 2017 12:43
--- NOTE | 2017-09-18 15:01 | Therapy Group Daily Note ---
Therapy Daily Group Note Patient Education Topic Energy Cons Exercises LE Seated Exercise, UE Exercise Other/Notes Pt was [facility]. Group consisted of introductions (name, place living, word association with 'wind'), socialization, ARU description/expectation, seated UE/LE exercises, education topic energy conservation/work simplification, pt stories about medical diagnoses and words of encouragement. Pt was able to introduce self appropriately and actively listened to peers. Pt was able to complete UE/LE seated exercises. Pt contributed to conversations during discussions to demonstrated knowledge of educational topics. Pt was able to give one word of encouragement to fellow patients. After therapy, pt lying in bed with call light/phone in reach. All needs met in room. Start Time: 13:00 Stop Time: 14:15 Total Billed Treatment Time: 75 Total Billed Treatment 1-GRP FREDA WAKEFIELD Sep 18, 2017 15:01
[2017-09-18 18:10] VITALS: BP 144/75
[2017-09-18] MEDS: QUINAPRIL 20 MG (ACCUPRIL) TAB PO SCH (21:19)
[2017-09-18] MEDS: POLYETHYLENE GLYCOL 17 GM (MIRALAX) PACK PO SCH (21:19)
[2017-09-18] MEDS: ATORVASTATIN 20 MG (LIPITOR) TABLET PO SCH (21:19)
[2017-09-18] MEDS: LATANOPROST 0.005% (XALATAN) OPHTH SOLN 2.5 ML OU SCH (21:21)
[2017-09-18] MEDS: inSUlin DETERMIR 1 UNIT/0.01 ML (LEVEMIR) CHARGE PER UNIT SQ SCH (21:24)
[2017-09-19] MEDS: oxyCODONE/APAP 5/325MG (PERCOCET 5) TABLET PO PRN ×4 (00:54→21:09)
[2017-09-19] MEDS: inSUlin ASPART (NovoLOG) 1 UNIT/0.01 ML (CHARGE PER UNIT) SC SCH ×4 (05:38→21:08)
[2017-09-19 06:00] VITALS: BP 118/71
[2017-09-19] MEDS: MULTIVIT W/MINERALS TAB (THERAGRAN M) PO SCH (06:01)
[2017-09-19] MEDS: LEVOTHYROXINE 50 MCG (LEVOTHROID) TAB PO SCH (06:01)
[2017-09-19] MEDS: PANTOPRAZOLE 20 MG TABLET (PROTONIX) PO SCH (06:01)
[2017-09-19] MEDS: LIOTHYRONINE 5 MCG (CYTOMEL) TAB NON-FORMULARY PO SCH (06:02)
[2017-09-19] MEDS: PYRIDOXINE (VITAMIN B-6) 50 MG TABLET PO SCH (08:05)
[2017-09-19] MEDS: SENNA W/DOCUSATE (SENOKOT S) TABLET PO SCH ×2 (08:05→21:10)
[2017-09-19] MEDS: ASPIRIN E.C. 81 MG (ECOTRIN) TAB PO SCH (08:05)
[2017-09-19] MEDS: VITAMIN D3 5,000 UNITS (CHOLECALCIFEROL ) CAPSULE PO SCH (08:05)
[2017-09-19] MEDS: amLODIPine 2.5MG (NORVASC) TAB PO SCH (08:05)
[2017-09-19] MEDS: GEMFIBROZIL 600 MG (LOPID) TAB PO SCH ×2 (08:05→21:09)
[2017-09-19] MEDS: FUROSEMIDE 20 MG (LASIX) TAB PO SCH (08:06)
[2017-09-19] MEDS: LORATADINE (CLARITIN) 10 MG TAB PO SCH (08:06)
[2017-09-19] MEDS: MAGNESIUM OXIDE (MAG-OX)400 MG TAB PO SCH (08:06)
[2017-09-19] MEDS: FLUTICASONE NASAL SPRAY (FLONASE) 16 GM BTL NS SCH (08:07)
[2017-09-19] MEDS: DORZOLAMIDE/TIMOLOL (COSOPT) 2-0.68% 10 ML BTL OU SCH ×2 (08:08→21:12)
[2017-09-19] MEDS: DICLOFENAC 1% GEL 100 GM (VOLTAREN) TUBE TP SCH ×4 (08:08→21:12)
[2017-09-19] MEDS: ENOXAPARIN 40 MG/0.4 ML (LOVENOX) SYR SC SCH (08:10)
--- NOTE | 2017-09-19 11:16 | Progress Note-Hospitalist ---
Subjective HPI/CC On Admission Date Seen by Provider: Sep 19, 2017 Time Seen by Provider: 10:30 Subjective/Events-last exam Patient doing well with physical therapy and standing and using walker Reviewed blood sugar trends Denies any significant pain except for after therapy Reviewed therapy protocol documentation BM+ Review of Systems Musculoskeletal: leg pain Objective Exam Vital Signs Vital Signs Date Time Temp Pulse Resp B/P (MAP) Pulse Ox O2 Delivery O2 Flow Rate FiO2 09/13/17 05:36 96.7 80 19 133/78 (96) 96 Room Air Capillary Refill : Less Than 3 Seconds General Appearance: No Apparent Distress, WD/WN Respiratory: Lungs Clear, Normal Breath Sounds Cardiovascular: Regular Rate, Rhythm, No Edema Neurologic/Psychiatric: Alert, Oriented x3, No Motor/Sensory Deficits, Normal Mood/Affect Results/Procedures Lab Patient resulted labs reviewed. Assessment/Plan Assessment and Plan Assess & Plan/Chief Complaint Status post femoral neck fracture in need of inpatient rehabilitation for strengthening prior to going home Diabetes mellitus with frequent hypoglycemia Hypertension Hypothyroidism GERD Plan: Monitor bowel function Monitor for falls Clinical Quality Measures DVT/VTE Risk/Contraindication: Risk Factor Score Per Nursin RFS Level Per Nursing on Admit: 4+=Very High MIKE PEREA DO Sep 19, 2017 11:16
--- NOTE | 2017-09-19 12:35 | Physical Therapy Daily Note ---
PT Daily Note-Current Subjective Pt agreeable to treatment. Transfers Functional [place] Measure 0=Not Assessed/NA 4=Minimal Assistance 1=Total Assistance 5=Supervision or Setup 2=Maximal Assistance 6=Modified [place] 3=Moderate Assistance 7=Complete IndependenceIRFPAI Quality Coding Scale 6 Independent with activity with or without an assistive device 5 Patient requires set up or clean up by helper. Patient completes activity by themselves 4 Supervision or touching assist (CGA). [place] provide cues , steadying assist 3 The helper provides less than half the effort to complete the activity 2 The helper provides more than half the effort to complete the activity 1 Dependent. The helper does all the effort to complete an activity 7 Patient refused to complete or attempt activity 9 The patient did not perform the activity before the current illness or injury 88 Not attempted due to Medical conditions or safety concerns Weight Bearing Right Lower Extremity: Right Full Weight Bearing Left Lower Extremity: Left Touch Toe Bearing Gait Training Distance: 75 Gait Persons Needed: 1 Gait Assistive Device: FWW Ambulated 75 ft x 2 trials with FWW and SBA. Verbal cues to maintain ttwb. Stair Training Stair Training: Handrails/: 2 handrails #of Steps: 4 Stairs: Pattern: Step to Level of Assist: 4 Difficulty maintaining TTWB during stair training. Exercises Seated Therapy Exercises: Ankle pumps, Long arc quads, Hip flexion Seated Reps: 10 Assessment Patient is gaining strength and function as a result of therapy. She will benefit from continued PT. PT Short Term Goals Short Term Goals Wheelchair Distance: 150' PT Radiation Therapy Technician Goals Radiation Therapy Technician Goals PT Radiation Therapy Technician Goals Time Frame: Oct 09, 2017 Transfers (B,C,W/C) (FIM): 6 Sit to Lying (QC): 6 Lying-Sitting on Side/Bed(QC): 6 Sit to Stand (QC): 6 Rollin Roll Left to Right (QC): 6 Chair/[id number]-[id number] Xfer(QC): 6 Car Transfer (QC): 6 Does the Patient Walk: Yes Gait (FIM): 6 Gait distance (FIM): 3=150 ft Distance: 150' Walk 10 feet (QC): 6 Walk 10ft-Uneven Surface(QC): 6 Walk 50ft with 2 Turns (QC): 6 Walk 150 ft (QC): 6 Gait Level of Assist: 6 Gait Assistive Device: FWW Stairs (FIM): 2 # of Steps: 4 1 Step (curb) (QC): 5 4 Steps (QC): 5 12 Steps (QC): 9 Stairs Level Of Assist: 5 Picking up an Object (QC): 6 PT Plan Treatment/Plan Treatment Plan: Continue Plan of Care Treatment Plan: Bed Mobility, Education, Functional Activity Phoebe, Functional Strength, Group Therapy, Gait, Safety, Therapeutic Exercise, Transfers Treatment Duration: Oct 09, 2017 Frequency: At least 5 of 7 days/Wk (IRF) Estimated Hrs Per Day: 1.5 hours per day Patient and/or Family Agrees t: Yes Time/GCodes Time In: 1050 Time Out: 1105 Total Billed Treatment Time: 15 Total Billed Treatment visit, gait 15 BRIANNA ESPINAL PT Sep 19, 2017 12:35
[2017-09-19 17:50] VITALS: BP 123/72
[2017-09-19] MEDS: inSUlin DETERMIR 1 UNIT/0.01 ML (LEVEMIR) CHARGE PER UNIT SQ SCH (21:08)
[2017-09-19] MEDS: QUINAPRIL 20 MG (ACCUPRIL) TAB PO SCH (21:09)
[2017-09-19] MEDS: ATORVASTATIN 20 MG (LIPITOR) TABLET PO SCH (21:10)
[2017-09-19] MEDS: POLYETHYLENE GLYCOL 17 GM (MIRALAX) PACK PO SCH (21:11)
[2017-09-19] MEDS: LATANOPROST 0.005% (XALATAN) OPHTH SOLN 2.5 ML OU SCH (21:11)
[2017-09-20] MEDS: oxyCODONE/APAP 5/325MG (PERCOCET 5) TABLET PO PRN ×3 (05:01→20:22)
[2017-09-20] MEDS: inSUlin ASPART (NovoLOG) 1 UNIT/0.01 ML (CHARGE PER UNIT) SC SCH ×4 (05:06→20:34)
[2017-09-20] MEDS: LIOTHYRONINE 5 MCG (CYTOMEL) TAB NON-FORMULARY PO SCH (05:08)
[2017-09-20] MEDS: LEVOTHYROXINE 50 MCG (LEVOTHROID) TAB PO SCH (05:08)
[2017-09-20] MEDS: PANTOPRAZOLE 20 MG TABLET (PROTONIX) PO SCH (05:08)
[2017-09-20] MEDS: MULTIVIT W/MINERALS TAB (THERAGRAN M) PO SCH (05:08)
[2017-09-20 05:40] VITALS: BP 124/73
[2017-09-20] MEDS: LORATADINE (CLARITIN) 10 MG TAB PO SCH (08:15)
[2017-09-20] MEDS: MAGNESIUM OXIDE (MAG-OX)400 MG TAB PO SCH (08:15)
[2017-09-20] MEDS: VITAMIN D3 5,000 UNITS (CHOLECALCIFEROL ) CAPSULE PO SCH (08:15)
[2017-09-20] MEDS: amLODIPine 2.5MG (NORVASC) TAB PO SCH (08:15)
[2017-09-20] MEDS: GEMFIBROZIL 600 MG (LOPID) TAB PO SCH ×2 (08:15→20:23)
[2017-09-20] MEDS: PYRIDOXINE (VITAMIN B-6) 50 MG TABLET PO SCH (08:15)
[2017-09-20] MEDS: SENNA W/DOCUSATE (SENOKOT S) TABLET PO SCH ×2 (08:15→20:22)
[2017-09-20] MEDS: ENOXAPARIN 40 MG/0.4 ML (LOVENOX) SYR SC SCH (08:16)
[2017-09-20] MEDS: DICLOFENAC 1% GEL 100 GM (VOLTAREN) TUBE TP SCH ×4 (08:17→20:34)
[2017-09-20] MEDS: FLUTICASONE NASAL SPRAY (FLONASE) 16 GM BTL NS SCH (08:18)
[2017-09-20] MEDS: DORZOLAMIDE/TIMOLOL (COSOPT) 2-0.68% 10 ML BTL OU SCH ×2 (08:18→20:35)
--- NOTE | 2017-09-20 10:45 | Progress Note-Standard ---
Standard Progress Note Progress Notes/Assess & Plan Date Seen by Provider: Sep 20, 2017 Time Seen by Provider: 10:43 Progress/Assessment & Plan No complaints Vital Signs Date Time Temp Pulse Resp B/P (MAP) Pulse Ox O2 Delivery O2 Flow Rate FiO2 09/12/17 06:00 97.6 84 20 113/70 (84) 97 Room Air 09/11/17 18:50 99.0 101 18 123/70 (87) 94 Room Air 09/11/17 13:29 Room Air 09/11/17 11:03 97.7 87 18 138/75 (96) 97 Room Air I & O 09/12/17 07:00 Intake Total 750 ml Balance 750 ml Laboratory Tests Test 09/11/17 15:58 09/11/17 20:20 09/12/17 04:55 Range/Units Glucometer 125 H 159 H 125 H 70-110 MG/DL LLE--unable to perform SLR. no calf tenderness. Neg Bentley's s/p ORIF L hip continue PT/OT Final Diagnosis no complaints Vital Signs Date Time Temp Pulse Resp B/P (MAP) Pulse Ox O2 Delivery O2 Flow Rate FiO2 09/20/17 05:40 97.3 70 19 124/73 (90) 97 Room Air 09/19/17 17:50 98.0 74 18 123/72 (89) 96 Room Air I & O 09/20/17 07:00 Intake Total 1790 ml Balance 1790 ml Laboratory Tests Test 09/19/17 16:03 09/19/17 21:04 09/20/17 05:00 Range/Units Glucometer 186 H 230 H 162 H 70-110 MG/DL L hip incision benign no calf tenderness s/p ORIF L hip continue PT/OT DC hip sutures Thursday YULIET SWEET MD Sep 20, 2017 10:45
--- NOTE | 2017-09-20 12:44 | Progress Note-Hospitalist ---
Subjective HPI/CC On Admission Date Seen by Provider: Sep 20, 2017 Time Seen by Provider: 13:00 Subjective/Events-last exam Patient doing very well Eating soup Pain is controlled Got out of bed on her own this morning Walks with walker Objective Exam Vital Signs Vital Signs Date Time Temp Pulse Resp B/P (MAP) Pulse Ox O2 Delivery O2 Flow Rate FiO2 09/14/17 05:43 98.2 85 18 127/73 (91) 97 Room Air Capillary Refill : Less Than 3 Seconds General Appearance: No Apparent Distress, WD/WN Respiratory: Lungs Clear, Normal Breath Sounds Cardiovascular: Regular Rate, Rhythm Neurologic/Psychiatric: Alert, Oriented x3, Normal Mood/Affect Results/Procedures Lab Patient resulted labs reviewed. Assessment/Plan Assessment and Plan Assess & Plan/Chief Complaint Status post femoral neck fracture in need of inpatient rehabilitation for strengthening prior to going home Diabetes mellitus with frequent hypoglycemia Hypertension Hypothyroidism GERD Plan: Monitor bowel function Monitor for falls Clinical Quality Measures DVT/VTE Risk/Contraindication: Risk Factor Score Per Nursin RFS Level Per Nursing on Admit: 4+=Very High MIKE PEREA DO Sep 20, 2017 12:43
[2017-09-20 18:10] VITALS: BP 118/72
[2017-09-20] MEDS: POLYETHYLENE GLYCOL 17 GM (MIRALAX) PACK PO SCH (20:18)
[2017-09-20] MEDS: QUINAPRIL 20 MG (ACCUPRIL) TAB PO SCH (20:22)
[2017-09-20] MEDS: ATORVASTATIN 20 MG (LIPITOR) TABLET PO SCH (20:22)
[2017-09-20] MEDS: inSUlin DETERMIR 1 UNIT/0.01 ML (LEVEMIR) CHARGE PER UNIT SQ SCH (20:33)
[2017-09-20] MEDS: LATANOPROST 0.005% (XALATAN) OPHTH SOLN 2.5 ML OU SCH (20:37)
[2017-09-21 05:55] VITALS: BP 122/71
[2017-09-21] MEDS: inSUlin ASPART (NovoLOG) 1 UNIT/0.01 ML (CHARGE PER UNIT) SC SCH ×4 (05:57→21:01)
[2017-09-21] MEDS: LEVOTHYROXINE 50 MCG (LEVOTHROID) TAB PO SCH (06:18)
[2017-09-21] MEDS: MULTIVIT W/MINERALS TAB (THERAGRAN M) PO SCH (06:18)
[2017-09-21] MEDS: LIOTHYRONINE 5 MCG (CYTOMEL) TAB NON-FORMULARY PO SCH (06:18)
[2017-09-21] MEDS: PANTOPRAZOLE 20 MG TABLET (PROTONIX) PO SCH (06:18)
[2017-09-21] MEDS: PYRIDOXINE (VITAMIN B-6) 50 MG TABLET PO SCH (08:28)
[2017-09-21] MEDS: LORATADINE (CLARITIN) 10 MG TAB PO SCH (08:28)
[2017-09-21] MEDS: GEMFIBROZIL 600 MG (LOPID) TAB PO SCH ×2 (08:28→20:49)
[2017-09-21] MEDS: ASPIRIN E.C. 81 MG (ECOTRIN) TAB PO SCH (08:28)
[2017-09-21] MEDS: VITAMIN D3 5,000 UNITS (CHOLECALCIFEROL ) CAPSULE PO SCH (08:28)
[2017-09-21] MEDS: MAGNESIUM OXIDE (MAG-OX)400 MG TAB PO SCH (08:28)
[2017-09-21] MEDS: amLODIPine 2.5MG (NORVASC) TAB PO SCH (08:28)
[2017-09-21] MEDS: oxyCODONE/APAP 5/325MG (PERCOCET 5) TABLET PO PRN ×3 (08:29→20:56)
[2017-09-21] MEDS: FUROSEMIDE 20 MG (LASIX) TAB PO SCH (08:29)
[2017-09-21] MEDS: ENOXAPARIN 40 MG/0.4 ML (LOVENOX) SYR SC SCH (08:32)
[2017-09-21] MEDS: DORZOLAMIDE/TIMOLOL (COSOPT) 2-0.68% 10 ML BTL OU SCH ×2 (08:33→20:58)
[2017-09-21] MEDS: FLUTICASONE NASAL SPRAY (FLONASE) 16 GM BTL NS SCH (08:33)
[2017-09-21] MEDS: DICLOFENAC 1% GEL 100 GM (VOLTAREN) TUBE TP SCH ×4 (08:34→20:50)
[2017-09-21] MEDS: SENNA W/DOCUSATE (SENOKOT S) TABLET PO SCH ×2 (10:07→20:50)
--- NOTE | 2017-09-21 10:08 | Physical Therapy Daily Note ---
PT Daily Note-Current Subjective Pt. agrees to Rx. States she feels better. Still has pain in supine while attempting to extend hip to neutral. Pt. states she has some bathroom construction going on at her home and hopes to wait til Sun to DC Pain Numeric Pain Scale: 5-Moderate Pain Location: Left Location Body Site: Hip Pain Description: Ache Comment: in estension Transfers Functional [place] Measure 0=Not Assessed/NA 4=Minimal Assistance 1=Total Assistance 5=Supervision or Setup 2=Maximal Assistance 6=Modified [place] 3=Moderate Assistance 7=Complete IndependenceIRFPAI Quality Coding Scale 6 Independent with activity with or without an assistive device 5 Patient requires set up or clean up by helper. Patient completes activity by themselves 4 Supervision or touching assist (CGA). [place] provide cues , steadying assist 3 The helper provides less than half the effort to complete the activity 2 The helper provides more than half the effort to complete the activity 1 Dependent. The helper does all the effort to complete an activity 7 Patient refused to complete or attempt activity 9 The patient did not perform the activity before the current illness or injury 88 Not attempted due to Medical conditions or safety concerns Transfers (B, C, W/C) (FIM): 6 Scootin Rollin Supine to/from Sit: 6 Sit to/from Stand: 6 Bed to/from Chair: 6 Weight Bearing Right Lower Extremity: Right Full Weight Bearing Left Lower Extremity: Left Touch Toe Bearing Gait Training Does the Patient Walk?: Yes Gait (FIM): 6 Distance (FIM): 3=150 ft (175x2) Gait Level of Assist: 6 Gait Persons Needed: 0 Gait Assistive Device: FWW slow, practiced side stepping left and right to prep for home in small bthrm Stair Training Stair Training: Handrails/: 2 handrails Stairs (FIM): 5 #of Steps: 4 Stairs: Pattern: Step to Level of Assist: 5 household exception Exercises Supine Ex: Ankle pumps, Quad Set, Rolling, Heel Slides, Short Arc Quads, Scooting, Hip abd/add Supine Reps: 12 Seated Therapy Exercises: Ankle pumps, Sit to stand, Long arc quads Seated Reps: 12 Assessment Current Status: Good Progress PT Short Term Goals Short Term Goals Wheelchair Distance: 150' PT Sprinkling System Installer Goals Chcf Goals PT Chcf Goals Time Frame: Oct 09, 2017 Transfers (B,C,W/C) (FIM): 6 Sit to Lying (QC): 6 Lying-Sitting on Side/Bed(QC): 6 Sit to Stand (QC): 6 Rollin Roll Left to Right (QC): 6 Chair/Xis-pw-Bxeqb Xfer(QC): 6 Car Transfer (QC): 6 Does the Patient Walk: Yes Gait (FIM): 6 Gait distance (FIM): 3=150 ft Distance: 150' Walk 10 feet (QC): 6 Walk 10ft-Uneven Surface(QC): 6 Walk 50ft with 2 Turns (QC): 6 Walk 150 ft (QC): 6 Gait Level of Assist: 6 Gait Assistive Device: FWW Stairs (FIM): 2 # of Steps: 4 1 Step (curb) (QC): 5 4 Steps (QC): 5 12 Steps (QC): 9 Stairs Level Of Assist: 5 Picking up an Object (QC): 6 PT Plan Treatment/Plan Treatment Plan: Continue Plan of Care Treatment Plan: Bed Mobility, Education, Functional Activity [place], Functional Strength, Group Therapy, Gait, Safety, Therapeutic Exercise, Transfers Treatment Duration: Oct 09, 2017 Frequency: At least 5 of 7 days/Wk (IRF) Estimated Hrs Per Day: 1.5 hours per day Patient and/or Family Agrees t: Yes Safety Risks/Education Patient Education: Gait Training, Transfer Techniques, Steps, Correct Positioning, Safety Issues Teaching Recipient: Patient Teaching Methods: Demonstration, Discussion Response to Teaching: Verbalize Understanding, Return Demonstration, Reinforcement Needed Time/GCodes Time In: 900 Time Out: 1000 Total Billed Treatment Time: 60 Total Billed Treatment 1,FA25m,GT20m,EX15m G Codes Necessary: YOLANDA Gonzáles FIRST LINE PRODUCTION SUPERVISOR Sep 21, 2017 10:08
--- NOTE | 2017-09-21 11:30 | Occupational Ther Daily Note ---
OT Current Status-Daily Note Subjective Pt seen in room, up in bed, agreeable to OT. No pain mentioned but she reported having muscle spasms in her hip over the weekend. Appearance Alert, cooperative Mental Status/Objective Functional [place] Measure 0=Not Assessed/NA 4=Minimal Assistance 1=Total Assistance 5=Supervision or Setup 2=Maximal Assistance 6=Modified [place] 3=Moderate Assistance 7=Complete [place] ADL-Treatment Pt got out of bed without help and sit to stand without assistance or cues. Walked to bathroom with FWW and did toilet and shower transfers. Walked back to room and brushed teeth at sink. Returned to w/c without help, FWW. Functional [place] Measure 0=Not Assessed/NA 4=Minimal Assistance 1=Total Assistance 5=Supervision or Setup 2=Maximal Assistance 6=Modified [place] 3=Moderate Assistance 7=Complete IndependenceIRFPAI Quality Coding Scale 6 Independent with activity with or without an assistive device 5 Patient requires set up or clean up by helper. Patient completes activity by themselves 4 Supervision or touching assist (CGA). [place] provide cues , steadying assist 3 The helper provides less than half the effort to complete the activity 2 The helper provides more than half the effort to complete the activity 1 Dependent. The helper does all the effort to complete an activity 7 Patient refused to complete or attempt activity 9 The patient did not perform the activity before the current illness or injury 88 Not attempted due to Medical conditions or safety concerns Grooming (FIM): 6 (Brushed teeth and combed hair, standing at sink, with FWW for balance and support. Washed face and hands in shower) Bathing (FIM): 6 (Washed and dried all parts except back. SHower bench, grab gar, long handled sponge) Upper Body (FIM): 5 (Doffed and donned clothing, including bra, without assistance except setup) Lower Body Dressing (FIM): 5 (Doffed and donned clothing without assistance, except setup. Used dressign stick to take socks off and sock aide to put socks on. FWW for balancing when standing) Toileting (FIM): 6 (Managed clothing and hygiene, BSC, FWW for balance when standing) Toilet/Commode Transfer (FIM): 6 (On/off BSC, using FWW. Uses flat top BSC) Shower Transfer(FIM): 5 (SBA getting in and out of shower, on and off shower bench, with grab bar and FWW.) Other Treatment Theraband upgraded to red (moderate resistance). pt did 10 reps bilat UE ex and recalled all the exercises. Reps dropped to 10 due to increasing resistance. Pt left up in recliner, all needs met. Education OT Patient Education: Home exercise program, Progress toward Goal/Update tx plan, Purpose of tx/functional activities Teaching Recipient: Patient Teaching Methods: Discussion Response to Teaching: Verbalize Understanding, Reinforcement Needed OT Short Term Goals Short Term Goals 1=Demonstrate adherence to instructed precautions during ADL tasks. 2=Patient will verbalize/demonstrate understanding of assistive devices/ modifications for ADL. 3=Patient will improve strength/tolerance for activity to enable patient to perform ADL's. OT Long-Term Goals Nursery Helper Goals Time Frame: Sep 25, 2017 Eating (FIM): 6 Eating (QC): 6 Groomin Oral Hygiene (QC): 6 Bathing(FIM): 5 Shower/Bathe Self (QC): 5 Upper Body Dressing(FIM): 6 Upper Body Dressing (QC): 6 Lower Body Dressing(FIM): 6 Lower Body Dressing (QC): 6 On/Off Footwear (QC): 6 Toileting(FIM): 6 Toileting Hygiene (QC): 6 Transfers (B,C,W/C) (FIM): 6 Toilet/Commode Transfer(FIM): 6 Toilet/Commode Transfer (QC): 6 Shower Transfer(FIM): 5 Additional Goals: 1-Demonstrate ADL Tasks, 2-Verbalize Understanding, 3- ImproveStrength/Phoebe 1=Demonstrate adherence to instructed precautions during ADL tasks. 2=Patient will verbalize/demonstrate understanding of assistive devices/ modifications for ADL. 3=Patient will improve strength/tolerance for activity to enable patient to perform ADL's. OT Education/Plan Discharge Recommendations Plan/Recommendations: Continue POC Treatment Plan/Plan of Care Patient would benefit from OT for education, treatment and training to promote independence in ADL's, mobility, safety and/or upper extremity function for ADL' s. Plan of Care: ADL Retraining, Functional Mobility, UE Funct Exercise/Act Treatment Duration: Sep 25, 2017 Frequency: At least 5 of 7 days/Wk (IRF) Estimated Hrs Per Day: 1.5 hours per day Agreement: Yes Rehab Potential: Good Time/GCodes Start Time: 08:00 Stop Time: 09:00 Total Time Billed (hr/min): 60 Billed Treatment Time visit, 50 minutes ADL, 10 minutes exercise NIKIA DELUCA OT Sep 21, 2017 11:30
--- NOTE | 2017-09-21 14:30 | Therapy Group Daily Note ---
Therapy Daily Group Note Patient Education Topic Other List Below (memory strategies, ) Exercises Other (eye exercises, neck/cervical exercises) Other/Notes Pt. participated in group PT OT session this date. Pt. ambulated to from with FWW. Pts. introduced selves and were social sharing names and discussing their strategies for memory for important everyday life ie, medications, Dr appointments, food on/in stove. Pts. participated in memory activity as well as eye exercises and neck/cervical exercises. Pt. to room after groups . Grace at hand Start Time: 13:00 Stop Time: 14:00 Total Billed Treatment Time: 60 Total Billed Treatment 1,GRP YOLANDA SU DIETARY DIRECTOR Sep 21, 2017 14:30
[2017-09-21 17:45] VITALS: BP 126/72
--- NOTE | 2017-09-21 18:27 | PM & R (SOAP) Progress Note ---
Subjective Time Seen by Provider: 18:20 Subjective/Events-last exam Patient was seen in her room this evening Appreciate DR Rodriguez note Patient modified Independent for transfers Xray of knee shows only mild DJD Objective Exam Last Set of Vital Signs Vital Signs Date Time Temp Pulse Resp B/P (MAP) Pulse Ox O2 Delivery O2 Flow Rate FiO2 09/21/17 08:46 Room Air 09/21/17 05:55 97.4 68 18 122/71 (88) 98 Capillary Refill : Less Than 3 Seconds I&O Intake and Output 09/21/17 00:00 Intake Total 1490 ml Balance 1490 ml Intake Oral 1490 ml # Voids 6 # Bowel Movements 1 General: Alert, Oriented X3, Cooperative, No Acute Distress HEENT: Atraumatic, PERRLA, EOMI, Mucous Memb Moist/[place] Neck: Supple, No JVD Lungs: Clear to Auscultation Heart: Regular Rate Abdomen: Normal Bowel Sounds, Soft, No Tenderness Extremities: Other (trace edema left ankle) Skin: Other (Chronic venousstasis changes both legs) Neuro: Other (Strength LLE 3/5 RT %/5) Results Lab Laboratory Tests 09/18/17 21:21: Glucometer 254H 09/19/17 05:08: Glucometer 178H 09/19/17 10:30: Glucometer 333H 09/19/17 16:03: Glucometer 186H 09/19/17 21:04: Glucometer 230H 09/20/17 05:00: Glucometer 162H 09/20/17 11:09: Glucometer 192H 09/20/17 15:55: Glucometer 219H 09/20/17 20:21: Glucometer 414*H 09/21/17 05:33: Glucometer 126H 09/21/17 11:16: Glucometer 262H 09/21/17 17:20: Glucometer 192H Assessment/Plan Assessment s/p orif Left nondispaced mid cervical femoral neck fracture dr rosario TTWB LLE Hypothyroidism on replacement GERD on meds HTN controlled obesity DM 2-controlled glaucoma on eye drops Venoustasis discoloration both legs Plan ContinuePT/OT Current labs and therapy notes reviewed. Discharge remains set tentatively for the 13th Xray left knee shows mild djd Next Team Conference set for 09-23-17 CLEVELAND KOROMA MD Sep 21, 2017 18:27
[2017-09-21] MEDS: ATORVASTATIN 20 MG (LIPITOR) TABLET PO SCH (20:49)
[2017-09-21] MEDS: POLYETHYLENE GLYCOL 17 GM (MIRALAX) PACK PO SCH (20:50)
[2017-09-21] MEDS: QUINAPRIL 20 MG (ACCUPRIL) TAB PO SCH (20:50)
[2017-09-21] MEDS: LATANOPROST 0.005% (XALATAN) OPHTH SOLN 2.5 ML OU SCH (20:58)
[2017-09-21] MEDS: inSUlin DETERMIR 1 UNIT/0.01 ML (LEVEMIR) CHARGE PER UNIT SQ SCH (21:01)
[2017-09-22 06:00] VITALS: BP 112/70
[2017-09-22] MEDS: LIOTHYRONINE 5 MCG (CYTOMEL) TAB NON-FORMULARY PO SCH (06:08)
[2017-09-22] MEDS: LEVOTHYROXINE 50 MCG (LEVOTHROID) TAB PO SCH (06:08)
[2017-09-22] MEDS: MULTIVIT W/MINERALS TAB (THERAGRAN M) PO SCH (06:08)
[2017-09-22] MEDS: inSUlin ASPART (NovoLOG) 1 UNIT/0.01 ML (CHARGE PER UNIT) SC SCH ×4 (06:08→20:07)
[2017-09-22] MEDS: PANTOPRAZOLE 20 MG TABLET (PROTONIX) PO SCH (06:08)
--- NOTE | 2017-09-22 08:11 | PM & R (SOAP) Progress Note ---
Subjective Time Seen by Provider: 07:30 Subjective/Events-last exam Patient was seen in her room this AM Patient Modified Independent for transfers Discussed case with RN yesterday Patient managing her own sliding scale insulin regimen as she has done at home Patient indicates that she will be going home Thursday with SO rather then Thursday09-25-17 as modification to home need more time.Accucheks monitored Objective Exam Last Set of Vital Signs Vital Signs Date Time Temp Pulse Resp B/P (MAP) Pulse Ox O2 Delivery O2 Flow Rate FiO2 09/22/17 06:00 97.0 68 18 112/70 (84) 99 Room Air Capillary Refill : Less Than 3 Seconds I&O Intake and Output 09/22/17 00:00 Intake Total 1460 ml Balance 1460 ml Intake Oral 1460 ml # Voids 7 # Bowel Movements 1 General: Alert, Oriented X3, Cooperative, No Acute Distress HEENT: Atraumatic, PERRLA, EOMI, Mucous Memb Moist/[place] Neck: Supple, No JVD Lungs: Clear to Auscultation Heart: Regular Rate Abdomen: Normal Bowel Sounds, Soft, No Tenderness Extremities: Other (trace edema left ankle) Skin: Other (Chronic venousstasis changes both legs) Neuro: Other (Strength LLE 3/5 RT %/5) Results Lab Laboratory Tests 09/19/17 10:30: Glucometer 333H 09/19/17 16:03: Glucometer 186H 09/19/17 21:04: Glucometer 230H 09/20/17 05:00: Glucometer 162H 09/20/17 11:09: Glucometer 192H 09/20/17 15:55: Glucometer 219H 09/20/17 20:21: Glucometer 414*H 09/21/17 05:33: Glucometer 126H 09/21/17 11:16: Glucometer 262H 09/21/17 17:20: Glucometer 192H 09/21/17 21:00: Glucometer 315H 09/22/17 05:12: Glucometer 100 Assessment/Plan Assessment s/p orif Left nondispaced mid cervical femoral neck fracture dr rosario TTWB LLE Hypothyroidism on replacement GERD on meds HTN controlled obesity DM 2-controlled glaucoma on eye drops Venoustasis discoloration both legs Plan ContinuePT/OT Current labs and therapy notes reviewed. Discharge remains reset tentatively to Thursday the as per above Xray left knee shows mild djd Next Team Conference set for tomorrow 09-23-17 CLEVELAND KOROMA MD Sep 22, 2017 08:11
[2017-09-22] MEDS: LORATADINE (CLARITIN) 10 MG TAB PO SCH (08:54)
[2017-09-22] MEDS: PYRIDOXINE (VITAMIN B-6) 50 MG TABLET PO SCH (08:54)
[2017-09-22] MEDS: VITAMIN D3 5,000 UNITS (CHOLECALCIFEROL ) CAPSULE PO SCH (08:54)
[2017-09-22] MEDS: amLODIPine 2.5MG (NORVASC) TAB PO SCH (08:54)
[2017-09-22] MEDS: GEMFIBROZIL 600 MG (LOPID) TAB PO SCH ×2 (08:54→19:53)
[2017-09-22] MEDS: MAGNESIUM OXIDE (MAG-OX)400 MG TAB PO SCH (08:55)
[2017-09-22] MEDS: FLUTICASONE NASAL SPRAY (FLONASE) 16 GM BTL NS SCH (08:57)
[2017-09-22] MEDS: SENNA W/DOCUSATE (SENOKOT S) TABLET PO SCH ×2 (08:57→19:54)
[2017-09-22] MEDS: DORZOLAMIDE/TIMOLOL (COSOPT) 2-0.68% 10 ML BTL OU SCH ×2 (08:59→19:54)
[2017-09-22] MEDS: ENOXAPARIN 40 MG/0.4 ML (LOVENOX) SYR SC SCH (08:59)
[2017-09-22] MEDS: DICLOFENAC 1% GEL 100 GM (VOLTAREN) TUBE TP SCH ×4 (09:00→19:56)
[2017-09-22] MEDS: oxyCODONE/APAP 5/325MG (PERCOCET 5) TABLET PO PRN ×3 (09:09→19:56)
--- NOTE | 2017-09-22 10:10 | Occupational Ther Daily Note ---
OT Current Status-Daily Note Subjective Pt sitting in w/c, agrees to treatment. Reports 4/10 pain in left hip. Mental Status/Objective Functional [place] Measure 0=Not Assessed/NA 4=Minimal Assistance 1=Total Assistance 5=Supervision or Setup 2=Maximal Assistance 6=Modified [place] 3=Moderate Assistance 7=Complete [place] ADL-Treatment Pt requests bathing this morning. Sit to stand with modified independence. Pt retrieved underwear from closet using FWW for balance. Other clothes are already in bathroom. Gait to restroom with FWW, TTWB left LE. Pt transferred to shower with SBA using grab bars for safety. Doffed gown without assistance. Used dressing stick to doff underwear and socks. Sponge bath completed seated on shower bench. Pt able to wash/dry all areas with modified independence. Don bra and shirt after set up. Pt donned underwear and pants after set up. Dons socks without assistance using sock aid. Grooming tasks completed standing at sink. Pt brushed teeth and combed hair with modified independence. Functional [place] Measure 0=Not Assessed/NA 4=Minimal Assistance 1=Total Assistance 5=Supervision or Setup 2=Maximal Assistance 6=Modified [place] 3=Moderate Assistance 7=Complete IndependenceIRFPAI Quality Coding Scale 6 Independent with activity with or without an assistive device 5 Patient requires set up or clean up by helper. Patient completes activity by themselves 4 Supervision or touching assist (CGA). [place] provide cues , steadying assist 3 The helper provides less than half the effort to complete the activity 2 The helper provides more than half the effort to complete the activity 1 Dependent. The helper does all the effort to complete an activity 7 Patient refused to complete or attempt activity 9 The patient did not perform the activity before the current illness or injury 88 Not attempted due to Medical conditions or safety concerns Grooming (FIM): 6 Oral Hygiene (QC): 6 Bathing (FIM): 6 Shower/Bathe Self (QC): 6 Upper Body (FIM): 5 Upper Body Dressing (QC): 5 Lower Body Dressing (QC): 5 Shower Transfer(FIM): 5 Other Treatment Pt completed bilateral UE exercises to promote increased strength needed for ADLs and transfers. Pt completed five UE exercises x15 reps with moderate resistance (red) theraband. Pt able to recall all exercises from previous treatment. Brief rest breaks between exercises. Pt siting in w/c with needs met after session. OT Short Term Goals Short Term Goals 1=Demonstrate adherence to instructed precautions during ADL tasks. 2=Patient will verbalize/demonstrate understanding of assistive devices/ modifications for ADL. 3=Patient will improve strength/tolerance for activity to enable patient to perform ADL's. OT Custodial Goals Custodial Goals Time Frame: Sep 25, 2017 Eating (FIM): 6 Eating (QC): 6 Groomin Oral Hygiene (QC): 6 Bathing(FIM): 5 Shower/Bathe Self (QC): 5 Upper Body Dressing(FIM): 6 Upper Body Dressing (QC): 6 Lower Body Dressing(FIM): 6 Lower Body Dressing (QC): 6 On/Off Footwear (QC): 6 Toileting(FIM): 6 Toileting Hygiene (QC): 6 Transfers (B,C,W/C) (FIM): 6 Toilet/Commode Transfer(FIM): 6 Toilet/Commode Transfer (QC): 6 Shower Transfer(FIM): 5 Additional Goals: 1-Demonstrate ADL Tasks, 2-Verbalize Understanding, 3- ImproveStrength/[place] 1=Demonstrate adherence to instructed precautions during ADL tasks. 2=Patient will verbalize/demonstrate understanding of assistive devices/ modifications for ADL. 3=Patient will improve strength/tolerance for activity to enable patient to perform ADL's. OT Education/Plan Discharge Recommendations Plan/Recommendations: Continue POC Treatment Plan/Plan of Care Patient would benefit from OT for education, treatment and training to promote independence in ADL's, mobility, safety and/or upper extremity function for ADL' s. Plan of Care: ADL Retraining, Functional Mobility, UE Funct Exercise/Act Treatment Duration: Sep 25, 2017 Frequency: At least 5 of 7 days/Wk (IRF) Estimated Hrs Per Day: 1.5 hours per day Agreement: Yes Rehab Potential: Good Time/GCodes Start Time: 08:00 Stop Time: 09:00 Total Time Billed (hr/min): 60 Billed Treatment Time 1 visit, ADLx3(40minutes), EX(20minutes) BERKLEY NEVES OT Sep 22, 2017 10:10
--- NOTE | 2017-09-22 12:14 | Physical Therapy Daily Note ---
PT Daily Note-Current Subjective Pt sitting in recliner upon arrival. Pt agrees to PT. Pt reports pain is managing better with taking pain med about 1 hr. before PT. Pain Numeric Pain Scale: 3 Location: Left Location Body Site: Knee Pain Description: Ache Mental Status Patient Orientation: Person, Place, Time, Situation Transfers Functional [place] Measure 0=Not Assessed/NA 4=Minimal Assistance 1=Total Assistance 5=Supervision or Setup 2=Maximal Assistance 6=Modified [place] 3=Moderate Assistance 7=Complete IndependenceIRFPAI Quality Coding Scale 6 Independent with activity with or without an assistive device 5 Patient requires set up or clean up by helper. Patient completes activity by themselves 4 Supervision or touching assist (CGA). [place] provide cues , steadying assist 3 The helper provides less than half the effort to complete the activity 2 The helper provides more than half the effort to complete the activity 1 Dependent. The helper does all the effort to complete an activity 7 Patient refused to complete or attempt activity 9 The patient did not perform the activity before the current illness or injury 88 Not attempted due to Medical conditions or safety concerns Scootin Sit to/from Stand: 5 Sit to Stand (QC): 5 Weight Bearing Right Lower Extremity: Right Full Weight Bearing Left Lower Extremity: Left Touch Toe Bearing Gait Training Does the Patient Walk?: Yes Distance (FIM): 3=150 ft Distance: 150 Walk 10 feet (QC): 5 Walk 50 ft with 2 Turns(QC): 5 Walk 150 ft (QC): 5 Gait Level of Assist: 5 Gait Persons Needed: 1 Gait Assistive Device: FWW Wheelchair Training Does the Pt Use a Wheelchair?: Yes Type of Wheelchair: Manual Exercises Seated Therapy Exercises: Ankle pumps, Long arc quads, Hip flexion, Kicking activity Seated Reps: 20 Standing: Side steps Treatments Pt transfers using FWW at SBA. Pt ambulates in hallway using FWW at SBA. Pt completes Seated EX in chair followed by sidestepping in therapy commons. Pt and CASTING TECHNICIAN discuss pain management improvement, discharge for Thursday, as well as pts upcoming appts and home health, upon discharge. Pt returns to room to rest in recliner at end of tx with all needs met, including call light in hand. Assessment Current Status: Good Progress Pt reports pain is better managed during treatment today and attributes to taking pain med approx 1 hr before tx. Pt and CASTING TECHNICIAN discuss ways to continue to better manage pts pain. PT Short Term Goals Short Term Goals Wheelchair Distance: 150' PT Fbi Sharpshooter Goals Usp Goals PT Fbi Sharpshooter Goals Time Frame: Oct 09, 2017 Transfers (B,C,W/C) (FIM): 6 Sit to Lying (QC): 6 Lying-Sitting on Side/Bed(QC): 6 Sit to Stand (QC): 6 Rollin Roll Left to Right (QC): 6 Chair/Kwb-zv-Grauw Xfer(QC): 6 Car Transfer (QC): 6 Does the Patient Walk: Yes Gait (FIM): 6 Gait distance (FIM): 3=150 ft Distance: 150' Walk 10 feet (QC): 6 Walk 10ft-Uneven Surface(QC): 6 Walk 50ft with 2 Turns (QC): 6 Walk 150 ft (QC): 6 Gait Level of Assist: 6 Gait Assistive Device: FWW Stairs (FIM): 2 # of Steps: 4 1 Step (curb) (QC): 5 4 Steps (QC): 5 12 Steps (QC): 9 Stairs Level Of Assist: 5 Picking up an Object (QC): 6 PT Plan Problem List Problem List: Activity Tolerance, Functional Strength, Gait Treatment/Plan Treatment Plan: Continue Plan of Care Treatment Plan: Bed Mobility, Education, Functional Activity Pho[place]be, Functional Strength, Group Therapy, Gait, Safety, Therapeutic Exercise, Transfers Treatment Duration: Oct 09, 2017 Frequency: At least 5 of 7 days/Wk (IRF) Estimated Hrs Per Day: 1.5 hours per day Patient and/or Family Agrees t: Yes Safety Risks/Education Patient Education: Gait Training, Correct Positioning, Safety Issues Teaching Recipient: Patient Teaching Methods: Discussion Response to Teaching: Verbalize Understanding Time/GCodes Time In: 1000 Time Out: 1100 Total Billed Treatment Time: 60 Total Billed Treatment 1, GT (15m), EX (15m), FA x2 (30m) G Codes Necessary: SHIN Hendricks CASTING TECHNICIAN Sep 22, 2017 12:14
--- NOTE | 2017-09-22 13:36 | Occupational Ther Daily Note ---
OT Current Status-Daily Note Subjective Pt sitting in w/c, agrees to treatment. Pt reports pain in left hip, states she is sore from being in bed. Mental Status/Objective Functional [place] Measure 0=Not Assessed/NA 4=Minimal Assistance 1=Total Assistance 5=Supervision or Setup 2=Maximal Assistance 6=Modified [place] 3=Moderate Assistance 7=Complete [place] ADL-Treatment Functional [place] Measure 0=Not Assessed/NA 4=Minimal Assistance 1=Total Assistance 5=Supervision or Setup 2=Maximal Assistance 6=Modified [place] 3=Moderate Assistance 7=Complete IndependenceIRFPAI Quality Coding Scale 6 Independent with activity with or without an assistive device 5 Patient requires set up or clean up by helper. Patient completes activity by themselves 4 Supervision or touching assist (CGA). [place] provide cues , steadying assist 3 The helper provides less than half the effort to complete the activity 2 The helper provides more than half the effort to complete the activity 1 Dependent. The helper does all the effort to complete an activity 7 Patient refused to complete or attempt activity 9 The patient did not perform the activity before the current illness or injury 88 Not attempted due to Medical conditions or safety concerns Other Treatment Pt performed w/c mobility to therapy gym without assistance. Arm bike x12 minutes to increase overall strength and activity tolerance needed for functional tasks. Pt completed task with moderate resistance and steady pace. No rest breaks needed. Pt completed fine motor task with nuts and bolts using bilateral UE with 1# weights in place to increase strength and coordination/ manipulation skills. Pt returned to room, sitting in w/c with needs met after session. OT Short Term Goals Short Term Goals 1=Demonstrate adherence to instructed precautions during ADL tasks. 2=Patient will verbalize/demonstrate understanding of assistive devices/ modifications for ADL. 3=Patient will improve strength/tolerance for activity to enable patient to perform ADL's. OT Alf Goals Alf Goals Time Frame: Sep 25, 2017 Eating (FIM): 6 Eating (QC): 6 Groomin Oral Hygiene (QC): 6 Bathing(FIM): 5 Shower/Bathe Self (QC): 5 Upper Body Dressing(FIM): 6 Upper Body Dressing (QC): 6 Lower Body Dressing(FIM): 6 Lower Body Dressing (QC): 6 On/Off Footwear (QC): 6 Toileting(FIM): 6 Toileting Hygiene (QC): 6 Transfers (B,C,W/C) (FIM): 6 Toilet/Commode Transfer(FIM): 6 Toilet/Commode Transfer (QC): 6 Shower Transfer(FIM): 5 Additional Goals: 1-Demonstrate ADL Tasks, 2-Verbalize Understanding, 3- ImproveStrength/[place] 1=Demonstrate adherence to instructed precautions during ADL tasks. 2=Patient will verbalize/demonstrate understanding of assistive devices/ modifications for ADL. 3=Patient will improve strength/tolerance for activity to enable patient to perform ADL's. OT Education/Plan Discharge Recommendations Plan/Recommendations: Continue POC Treatment Plan/Plan of Care Patient would benefit from OT for education, treatment and training to promote independence in ADL's, mobility, safety and/or upper extremity function for ADL' s. Plan of Care: ADL Retraining, Functional Mobility, UE Funct Exercise/Act Treatment Duration: Sep 25, 2017 Frequency: At least 5 of 7 days/Wk (IRF) Estimated Hrs Per Day: 1.5 hours per day Agreement: Yes Rehab Potential: Good Time/GCodes Start Time: 13:00 Stop Time: 13:30 Total Time Billed (hr/min): 30 Billed Treatment Time 1 visit, EXx2(30minutes) BERKLEY NEVES OT Sep 22, 2017 13:36
--- NOTE | 2017-09-22 15:24 | Physical Therapy Daily Note ---
PT Daily Note-Current Subjective Pt in [facility] upon arrival. Pt reports increased pain after morning treatment, when returning to bed. Pt reports taking pain med approx 1 hr previous to treatment. Pt agrees to PT. Pain Numeric Pain Scale: 3 Location: Left Location Body Site: Knee Pain Description: Ache Mental Status Patient Orientation: Person, Place, Time, Situation Transfers Functional [place] Measure 0=Not Assessed/NA 4=Minimal Assistance 1=Total Assistance 5=Supervision or Setup 2=Maximal Assistance 6=Modified [place] 3=Moderate Assistance 7=Complete IndependenceIRFPAI Quality Coding Scale 6 Independent with activity with or without an assistive device 5 Patient requires set up or clean up by helper. Patient completes activity by themselves 4 Supervision or touching assist (CGA). [place] provide cues , steadying assist 3 The helper provides less than half the effort to complete the activity 2 The helper provides more than half the effort to complete the activity 1 Dependent. The helper does all the effort to complete an activity 7 Patient refused to complete or attempt activity 9 The patient did not perform the activity before the current illness or injury 88 Not attempted due to Medical conditions or safety concerns Scootin Sit to/from Stand: 6 Sit to Stand (QC): 6 Weight Bearing Right Lower Extremity: Right Full Weight Bearing Left Lower Extremity: Left Touch Toe Bearing Gait Training Does the Patient Walk?: Yes Distance (FIM): 1=up to 49 ft Distance: 25 Walk 10 feet (QC): 6 Gait Level of Assist: 6 Gait Persons Needed: 1 Gait Assistive Device: FWW Wheelchair Training Does the Pt Use a Wheelchair?: Yes Wheelchair Distance: 3=150 ft Distance: 150 Wheelchair Level of Assist: 6 Wheel 50 ft with 2 turns (QC): 6 Wheel 150 ft (QC): 6 Type of Wheelchair: Manual Exercises NuStep Minutes: 11 NuStep Workload: 5 Treatments Pt propels self to therapy gym. Pt transfers using SPT at Mod I, to the NuStep. Pt uses NuStep for 11m at WL5. Pt returns to room to use restroom, then rest [facility] at end of tx, with all needs met, including call light in hand. Assessment Current Status: Good Progress Pt strength is improving and pt is only limited by increased pain, at this time. PT Short Term Goals Short Term Goals Wheelchair Distance: 150' PT Detention Goals Fluid Power Mechanic Goals PT Fluid Power Mechanic Goals Time Frame: Oct 09, 2017 Transfers (B,C,W/C) (FIM): 6 Sit to Lying (QC): 6 Lying-Sitting on Side/Bed(QC): 6 Sit to Stand (QC): 6 Rollin Roll Left to Right (QC): 6 Chair/Ocf-co-Zxcjh Xfer(QC): 6 Car Transfer (QC): 6 Does the Patient Walk: Yes Gait (FIM): 6 Gait distance (FIM): 3=150 ft Distance: 150' Walk 10 feet (QC): 6 Walk 10ft-Uneven Surface(QC): 6 Walk 50ft with 2 Turns (QC): 6 Walk 150 ft (QC): 6 Gait Level of Assist: 6 Gait Assistive Device: FWW Stairs (FIM): 2 # of Steps: 4 1 Step (curb) (QC): 5 4 Steps (QC): 5 12 Steps (QC): 9 Stairs Level Of Assist: 5 Picking up an Object (QC): 6 PT Plan Problem List Problem List: Activity Tolerance, Functional Strength, Gait Treatment/Plan Treatment Plan: Continue Plan of Care Treatment Plan: Bed Mobility, Education, Functional Activity [place], Functional Strength, Group Therapy, Gait, Safety, Therapeutic Exercise, Transfers Treatment Duration: Oct 09, 2017 Frequency: At least 5 of 7 days/Wk (IRF) Estimated Hrs Per Day: 1.5 hours per day Patient and/or Family Agrees t: Yes Safety Risks/Education Patient Education: Gait Training, Correct Positioning, Safety Issues Teaching Recipient: Patient Teaching Methods: Discussion Response to Teaching: Verbalize Understanding Time/GCodes Time In: 1415 Time Out: 1445 Total Billed Treatment Time: 30 Total Billed Treatment 1, FA (15m), EX (15m) G Codes Necessary: SHIN Hendricks CARPET TECHNICIAN Sep 22, 2017 15:24
[2017-09-22 17:30] VITALS: BP 102/65
[2017-09-22] MEDS: QUINAPRIL 20 MG (ACCUPRIL) TAB PO SCH (19:53)
[2017-09-22] MEDS: ATORVASTATIN 20 MG (LIPITOR) TABLET PO SCH (19:53)
[2017-09-22] MEDS: POLYETHYLENE GLYCOL 17 GM (MIRALAX) PACK PO SCH (19:54)
[2017-09-22] MEDS: LATANOPROST 0.005% (XALATAN) OPHTH SOLN 2.5 ML OU SCH (19:54)
[2017-09-22] MEDS: inSUlin DETERMIR 1 UNIT/0.01 ML (LEVEMIR) CHARGE PER UNIT SQ SCH (20:07)
[2017-09-23 05:51] VITALS: BP 111/71
[2017-09-23] MEDS: LEVOTHYROXINE 50 MCG (LEVOTHROID) TAB PO SCH (05:55)
[2017-09-23] MEDS: LIOTHYRONINE 5 MCG (CYTOMEL) TAB NON-FORMULARY PO SCH (05:55)
[2017-09-23] MEDS: MULTIVIT W/MINERALS TAB (THERAGRAN M) PO SCH (05:55)
[2017-09-23] MEDS: PANTOPRAZOLE 20 MG TABLET (PROTONIX) PO SCH (05:55)
[2017-09-23] MEDS: inSUlin ASPART (NovoLOG) 1 UNIT/0.01 ML (CHARGE PER UNIT) SC SCH ×4 (05:55→21:27)
--- NOTE | 2017-09-23 07:48 | Progress Note-Standard ---
Standard Progress Note Progress Notes/Assess & Plan Date Seen by Provider: Sep 23, 2017 Time Seen by Provider: 07:47 Progress/Assessment & Plan No complaints Vital Signs Date Time Temp Pulse Resp B/P (MAP) Pulse Ox O2 Delivery O2 Flow Rate FiO2 09/12/17 06:00 97.6 84 20 113/70 (84) 97 Room Air 09/11/17 18:50 99.0 101 18 123/70 (87) 94 Room Air 09/11/17 13:29 Room Air 09/11/17 11:03 97.7 87 18 138/75 (96) 97 Room Air I & O 09/12/17 07:00 Intake Total 750 ml Balance 750 ml Laboratory Tests Test 09/11/17 15:58 09/11/17 20:20 09/12/17 04:55 Range/Units Glucometer 125 H 159 H 125 H 70-110 MG/DL LLE--unable to perform SLR. no calf tenderness. Neg Bentley's s/p ORIF L hip continue PT/OT Final Diagnosis no complaints L hip incision clean and dry no calf tenderness s/p ORIF l hip continue PT/OT YULIET SWEET MD Sep 23, 2017 07:48
[2017-09-23] MEDS: PYRIDOXINE (VITAMIN B-6) 50 MG TABLET PO SCH (08:00)
[2017-09-23] MEDS: amLODIPine 2.5MG (NORVASC) TAB PO SCH (08:01)
[2017-09-23] MEDS: ENOXAPARIN 40 MG/0.4 ML (LOVENOX) SYR SC SCH (08:01)
[2017-09-23] MEDS: oxyCODONE/APAP 5/325MG (PERCOCET 5) TABLET PO PRN ×3 (08:01→21:26)
[2017-09-23] MEDS: FUROSEMIDE 20 MG (LASIX) TAB PO SCH (08:01)
[2017-09-23] MEDS: VITAMIN D3 5,000 UNITS (CHOLECALCIFEROL ) CAPSULE PO SCH (08:01)
[2017-09-23] MEDS: MAGNESIUM OXIDE (MAG-OX)400 MG TAB PO SCH (08:01)
[2017-09-23] MEDS: GEMFIBROZIL 600 MG (LOPID) TAB PO SCH ×2 (08:01→21:19)
[2017-09-23] MEDS: DICLOFENAC 1% GEL 100 GM (VOLTAREN) TUBE TP SCH ×4 (08:01→21:19)
[2017-09-23] MEDS: ASPIRIN E.C. 81 MG (ECOTRIN) TAB PO SCH (08:01)
[2017-09-23] MEDS: LORATADINE (CLARITIN) 10 MG TAB PO SCH (08:01)
[2017-09-23] MEDS: DORZOLAMIDE/TIMOLOL (COSOPT) 2-0.68% 10 ML BTL OU SCH ×2 (08:03→21:17)
[2017-09-23] MEDS: FLUTICASONE NASAL SPRAY (FLONASE) 16 GM BTL NS SCH (08:03)
[2017-09-23] MEDS: SENNA W/DOCUSATE (SENOKOT S) TABLET PO SCH ×2 (08:04→21:19)
--- NOTE | 2017-09-23 08:19 | PM & R (SOAP) Progress Note ---
Subjective Time Seen by Provider: 08:00 Subjective/Events-last exam Patient was seen in her rrom this AM.Patient Modified Independent for transfers Appreciate DR Luo note Objective Exam Last Set of Vital Signs Vital Signs Date Time Temp Pulse Resp B/P (MAP) Pulse Ox O2 Delivery O2 Flow Rate FiO2 09/23/17 05:51 96.9 73 20 111/71 (84) 97 Room Air Capillary Refill : Less Than 3 Seconds I&O Intake and Output 09/23/17 00:00 Intake Total 1340 ml Balance 1340 ml Intake Oral 1340 ml # Voids 4 # Bowel Movements 1 General: Alert, Oriented X3, Cooperative, No Acute Distress HEENT: Atraumatic, PERRLA, EOMI, Mucous Memb Moist/[place] Neck: Supple, No JVD Lungs: Clear to Auscultation Heart: Regular Rate Abdomen: Normal Bowel Sounds, Soft, No Tenderness Extremities: Other (trace edema left ankle) Skin: Other (Chronic venousstasis changes both legs) Neuro: Other (Strength LLE 3/5 RT %/5) Results Lab Laboratory Tests 09/20/17 11:09: Glucometer 192H 09/20/17 15:55: Glucometer 219H 09/20/17 20:21: Glucometer 414*H 09/21/17 05:33: Glucometer 126H 09/21/17 11:16: Glucometer 262H 09/21/17 17:20: Glucometer 192H 09/21/17 21:00: Glucometer 315H 09/22/17 05:12: Glucometer 100 09/22/17 11:26: Glucometer 257H 09/22/17 16:05: Glucometer 152H 09/22/17 20:02: Glucometer 393H 09/23/17 05:36: Glucometer 146H Assessment/Plan Assessment s/p orif Left nondispaced mid cervical femoral neck fracture dr rosario TTWB LLE Hypothyroidism on replacement GERD on meds HTN controlled obesity DM 2-controlled glaucoma on eye drops Venoustasis discoloration both legs Plan ContinuePT/OT Current labs and therapy notes reviewed. Discharge remains reset tentatively to Thursday the as per above Xray left knee shows mild djd Team Conference set for later today-See report for full functional update and POC and to confirm discharge date Dr Patti Crabtree/Thomas covering my service while I am away from 09/24/17 -thru CLEVELAND KOROMA MD Sep 23, 2017 08:19
--- NOTE | 2017-09-23 10:08 | Occupational Ther Daily Note ---
OT Current Status-Daily Note Subjective Pt sitting in w/c, agrees to treatment. 2/10 left hip pain Mental Status/Objective Functional [place] Measure 0=Not Assessed/NA 4=Minimal Assistance 1=Total Assistance 5=Supervision or Setup 2=Maximal Assistance 6=Modified [place] 3=Moderate Assistance 7=Complete [place] ADL-Treatment Pt sit to stand with modified independence. Pt retrieved clothing from closet using FWW for balance. Gait to restroom with FWW, TTWB left LE. Transfer to [facility] with modified independence. Pt able to complete toileting hygiene and clothing management with modified independence. Pt completed seated sponge bath, able to wash/dry all areas. Don bra and pullover shirt with modified independence. Pt able to start pants over bilateral feet. Stood with modified independence for pant hike using FWW for balance. Pt donned socks with cues for use of sock aid. Grooming tasks completed standing at sink. Pt brushed teeth and combed hair with modified independence. Functional [place] Measure 0=Not Assessed/NA 4=Minimal Assistance 1=Total Assistance 5=Supervision or Setup 2=Maximal Assistance 6=Modified [place] 3=Moderate Assistance 7=Complete IndependenceIRFPAI Quality Coding Scale 6 Independent with activity with or without an assistive device 5 Patient requires set up or clean up by helper. Patient completes activity by themselves 4 Supervision or touching assist (CGA). [place] provide cues , steadying assist 3 The helper provides less than half the effort to complete the activity 2 The helper provides more than half the effort to complete the activity 1 Dependent. The helper does all the effort to complete an activity 7 Patient refused to complete or attempt activity 9 The patient did not perform the activity before the current illness or injury 88 Not attempted due to Medical conditions or safety concerns Grooming (FIM): 6 Oral Hygiene (QC): 6 Bathing (FIM): 6 Upper Body (FIM): 6 Upper Body Dressing (QC): 6 Lower Body Dressing (FIM): 5 Toileting (FIM): 6 Toileting Hygiene (QC): 6 Toilet/Commode Transfer (FIM): 6 Other Treatment Pt completed bilateral UE exercises to increase strength needed for ADLs and transfers. Pt performed shoulder flexion, forward press, biceps curls, and wrist flex/ext x15 reps with 2# dowel ella. Brief rest breaks between exercises. Pt sitting in w/c with needs met after session. OT Short Term Goals Short Term Goals 1=Demonstrate adherence to instructed precautions during ADL tasks. 2=Patient will verbalize/demonstrate understanding of assistive devices/ modifications for ADL. 3=Patient will improve strength/tolerance for activity to enable patient to perform ADL's. OT Exceptional Children Teacher Assistant Goals Exceptional Children Teacher Assistant Goals Time Frame: Sep 25, 2017 Eating (FIM): 6 Eating (QC): 6 Groomin Oral Hygiene (QC): 6 Bathing(FIM): 5 Shower/Bathe Self (QC): 5 Upper Body Dressing(FIM): 6 Upper Body Dressing (QC): 6 Lower Body Dressing(FIM): 6 Lower Body Dressing (QC): 6 On/Off Footwear (QC): 6 Toileting(FIM): 6 Toileting Hygiene (QC): 6 Transfers (B,C,W/C) (FIM): 6 Toilet/Commode Transfer(FIM): 6 Toilet/Commode Transfer (QC): 6 Shower Transfer(FIM): 5 Additional Goals: 1-Demonstrate ADL Tasks, 2-Verbalize Understanding, 3- ImproveStrength/Phoebe 1=Demonstrate adherence to instructed precautions during ADL tasks. 2=Patient will verbalize/demonstrate understanding of assistive devices/ modifications for ADL. 3=Patient will improve strength/tolerance for activity to enable patient to perform ADL's. OT Education/Plan Discharge Recommendations Plan/Recommendations: Continue POC Treatment Plan/Plan of Care Patient would benefit from OT for education, treatment and training to promote independence in ADL's, mobility, safety and/or upper extremity function for ADL' s. Plan of Care: ADL Retraining, Functional Mobility, UE Funct Exercise/Act Treatment Duration: Sep 25, 2017 Frequency: At least 5 of 7 days/Wk (IRF) Estimated Hrs Per Day: 1.5 hours per day Agreement: Yes Rehab Potential: Good Time/GCodes Start Time: 08:00 Stop Time: 09:00 Total Time Billed (hr/min): 60 Billed Treatment Time 1 visit, ADLx3(45minutes), EX(15minutes) BERKLEY NEVES OT Sep 23, 2017 10:08
--- NOTE | 2017-09-23 10:55 | Physical Therapy Daily Note ---
PT Daily Note-Current Subjective Pt. states she still notes increased pain in left hip with attempts to lay supine with hip at neutral. Still not sleeping well and has poor appetite Pain Numeric Pain Scale: 6 Location: Left Location Body Site: Hip Pain Description: Ache Mental Status Patient Orientation: Normal For Age Transfers Functional [place] Measure 0=Not Assessed/NA 4=Minimal Assistance 1=Total Assistance 5=Supervision or Setup 2=Maximal Assistance 6=Modified [place] 3=Moderate Assistance 7=Complete IndependenceIRFPAI Quality Coding Scale 6 Independent with activity with or without an assistive device 5 Patient requires set up or clean up by helper. Patient completes activity by themselves 4 Supervision or touching assist (CGA). [place] provide cues , steadying assist 3 The helper provides less than half the effort to complete the activity 2 The helper provides more than half the effort to complete the activity 1 Dependent. The helper does all the effort to complete an activity 7 Patient refused to complete or attempt activity 9 The patient did not perform the activity before the current illness or injury 88 Not attempted due to Medical conditions or safety concerns Transfers (B, C, W/C) (FIM): 6 Scootin Rollin Supine to/from Sit: 6 Sit to/from Stand: 6 Bed to/from Chair: 6 Car Transfer (QC): 6 Weight Bearing Right Lower Extremity: Right Full Weight Bearing Left Lower Extremity: Left Touch Toe Bearing Gait Training Does the Patient Walk?: Yes Gait (FIM): 6 Distance (FIM): 3=150 ft (175x2) Gait Level of Assist: 6 Gait Persons Needed: 0 Gait Assistive Device: FWW Wheelchair Training Does the Pt Use a Wheelchair?: No Exercises Supine Ex: Ankle pumps, Quad Set, Rolling, Glut sets, Knee to chest, Short Arc Quads, Scooting, Hip abd/add Supine Reps: 12 Seated Therapy Exercises: Ankle pumps, Sit to stand, Long arc quads Seated Reps: 10 NuStep Minutes: 10 NuStep Workload: 5 Treatments pt. was introduced to indep living apt but tried the bed and decided it was not to her advantage for comfort Assessment Current Status: Good Progress still battling comfortable supine position PT Short Term Goals Short Term Goals Wheelchair Distance: 150 PT Mcfp Goals Mcfp Goals PT Production Dispatcher Goals Time Frame: Oct 09, 2017 Transfers (B,C,W/C) (FIM): 6 Sit to Lying (QC): 6 Lying-Sitting on Side/Bed(QC): 6 Sit to Stand (QC): 6 Rollin Roll Left to Right (QC): 6 Chair/Rmm-rs-[place] Xfer(QC): 6 Car Transfer (QC): 6 Does the Patient Walk: Yes Gait (FIM): 6 Gait distance (FIM): 3=150 ft Distance: 150' Walk 10 feet (QC): 6 Walk 10ft-Uneven Surface(QC): 6 Walk 50ft with 2 Turns (QC): 6 Walk 150 ft (QC): 6 Gait Level of Assist: 6 Gait Assistive Device: FWW Stairs (FIM): 2 # of Steps: 4 1 Step (curb) (QC): 5 4 Steps (QC): 5 12 Steps (QC): 9 Stairs Level Of Assist: 5 Picking up an Object (QC): 6 PT Plan Treatment/Plan Treatment Plan: Continue Plan of Care Treatment Plan: Bed Mobility, Education, Functional Activity Phoebe, Functional Strength, Group Therapy, Gait, Safety, Therapeutic Exercise, Transfers Treatment Duration: Oct 09, 2017 Frequency: At least 5 of 7 days/Wk (IRF) Estimated Hrs Per Day: 1.5 hours per day Patient and/or Family Agrees t: Yes Safety Risks/Education Patient Education: Gait Training, Transfer Techniques, Correct Positioning, Safety Issues Teaching Recipient: Patient Teaching Methods: Demonstration, Discussion Response to Teaching: Verbalize Understanding, Return Demonstration Time/GCodes Time In: 1000 Time Out: 1100 Total Billed Treatment Time: 60 Total Billed Treatment 1,FA30m,EX15m,GT15m G Codes Necessary: YOLANDA Gonzáles SCREW MACHINE OPERATOR Sep 23, 2017 10:55
--- NOTE | 2017-09-23 13:41 | Occupational Ther Daily Note ---
OT Current Status-Daily Note Subjective Pt sitting in w/c, agrees to treatment. Reports 4/10 left hip pain Mental Status/Objective Functional [place] Measure 0=Not Assessed/NA 4=Minimal Assistance 1=Total Assistance 5=Supervision or Setup 2=Maximal Assistance 6=Modified [place] 3=Moderate Assistance 7=Complete [place] ADL-Treatment Pt transferred to [facility] with modified independence. Pt able to complete toileting hygiene and clothing management with modified independence. Stood at sink to wash hands with modified independence. Functional [place] Measure 0=Not Assessed/NA 4=Minimal Assistance 1=Total Assistance 5=Supervision or Setup 2=Maximal Assistance 6=Modified [place] 3=Moderate Assistance 7=Complete IndependenceIRFPAI Quality Coding Scale 6 Independent with activity with or without an assistive device 5 Patient requires set up or clean up by helper. Patient completes activity by themselves 4 Supervision or touching assist (CGA). [place] provide cues , steadying assist 3 The helper provides less than half the effort to complete the activity 2 The helper provides more than half the effort to complete the activity 1 Dependent. The helper does all the effort to complete an activity 7 Patient refused to complete or attempt activity 9 The patient did not perform the activity before the current illness or injury 88 Not attempted due to Medical conditions or safety concerns Toileting (FIM): 6 Toileting Hygiene (QC): 6 Toilet/Commode Transfer (FIM): 6 Toilet Transfer (QC): 6 Other Treatment Gait to therapy gym with FWW, no LOB noted, TTWB left LE. Arm bike x12 minutes to increase overall strength and activity tolerance needed for functional tasks. Pt completed activity with moderate resistance and steady pace. No rest breaks needed. Arm arc activity with bilateral UE with 1# weights in place to increase strength for ADLs and transfers. Pt completed graded clothespins task with bilateral UE with 1# weights in place to increase strength and curriculum coordinator/pinch strength. Pt returned to room, sitting in w/c with needs met after session. OT Short Term Goals Short Term Goals 1=Demonstrate adherence to instructed precautions during ADL tasks. 2=Patient will verbalize/demonstrate understanding of assistive devices/ modifications for ADL. 3=Patient will improve strength/tolerance for activity to enable patient to perform ADL's. OT Pump Tester Goals [place] Goals Time Frame: Sep 25, 2017 Eating (FIM): 6 Eating (QC): 6 Groomin Oral Hygiene (QC): 6 Bathing(FIM): 5 Shower/Bathe Self (QC): 5 Upper Body Dressing(FIM): 6 Upper Body Dressing (QC): 6 Lower Body Dressing(FIM): 6 Lower Body Dressing (QC): 6 On/Off Footwear (QC): 6 Toileting(FIM): 6 Toileting Hygiene (QC): 6 Transfers (B,C,W/C) (FIM): 6 Toilet/Commode Transfer(FIM): 6 Toilet/Commode Transfer (QC): 6 Shower Transfer(FIM): 5 Additional Goals: 1-Demonstrate ADL Tasks, 2-Verbalize Understanding, 3- ImproveStrength/Phoebe 1=Demonstrate adherence to instructed precautions during ADL tasks. 2=Patient will verbalize/demonstrate understanding of assistive devices/ modifications for ADL. 3=Patient will improve strength/tolerance for activity to enable patient to perform ADL's. OT Education/Plan Discharge Recommendations Plan/Recommendations: Continue POC Treatment Plan/Plan of Care Patient would benefit from OT for education, treatment and training to promote independence in ADL's, mobility, safety and/or upper extremity function for ADL' s. Plan of Care: ADL Retraining, Functional Mobility, UE Funct Exercise/Act Treatment Duration: Sep 25, 2017 Frequency: At least 5 of 7 days/Wk (IRF) Estimated Hrs Per Day: 1.5 hours per day Agreement: Yes Rehab Potential: Good Time/GCodes Start Time: 13:00 Stop Time: 13:30 Total Time Billed (hr/min): 30 Billed Treatment Time 1 visit, EXx2(30minutes) BERKLEY NEVES OT Sep 23, 2017 13:41
--- NOTE | 2017-09-23 14:49 | Physical Therapy Daily Note ---
PT Daily Note-Current Subjective Pt. agrees to rx. Wants to lay down after Pain Numeric Pain Scale: 0-No Pain Mental Status Patient Orientation: Normal For Age Transfers Functional [place] Measure 0=Not Assessed/NA 4=Minimal Assistance 1=Total Assistance 5=Supervision or Setup 2=Maximal Assistance 6=Modified [place] 3=Moderate Assistance 7=Complete IndependenceIRFPAI Quality Coding Scale 6 Independent with activity with or without an assistive device 5 Patient requires set up or clean up by helper. Patient completes activity by themselves 4 Supervision or touching assist (CGA). [place] provide cues , steadying assist 3 The helper provides less than half the effort to complete the activity 2 The helper provides more than half the effort to complete the activity 1 Dependent. The helper does all the effort to complete an activity 7 Patient refused to complete or attempt activity 9 The patient did not perform the activity before the current illness or injury 88 Not attempted due to Medical conditions or safety concerns All TRFs Mod I Weight Bearing Right Lower Extremity: Right Full Weight Bearing Left Lower Extremity: Left Touch Toe Bearing Gait Training Does the Patient Walk?: Yes Gait Assistive Device: FWW 150x2 Stair Training Stair Training: Handrails/: 2 handrails Stairs (FIM): 5 #of Steps: 4 Stairs: Pattern: Step to Level of Assist: 5 household exception Exercises Seated Therapy Exercises: Ankle pumps, Sit to stand, Long arc quads, Hip flexion, Hip abd/add Seated Reps: 12 Assessment Current Status: Good Progress PT Short Term Goals Short Term Goals Wheelchair Distance: 150 PT Mcfp Goals Mcfp Goals PT Shotblast Equipment Operator Goals Time Frame: Oct 09, 2017 Transfers (B,C,W/C) (FIM): 6 Sit to Lying (QC): 6 Lying-Sitting on Side/Bed(QC): 6 Sit to Stand (QC): 6 Rollin Roll Left to Right (QC): 6 Chair/Ykh-ag-Xbzxh Xfer(QC): 6 Car Transfer (QC): 6 Does the Patient Walk: Yes Gait (FIM): 6 Gait distance (FIM): 3=150 ft Distance: 150' Walk 10 feet (QC): 6 Walk 10ft-Uneven Surface(QC): 6 Walk 50ft with 2 Turns (QC): 6 Walk 150 ft (QC): 6 Gait Level of Assist: 6 Gait Assistive Device: FWW Stairs (FIM): 2 # of Steps: 4 1 Step (curb) (QC): 5 4 Steps (QC): 5 12 Steps (QC): 9 Stairs Level Of Assist: 5 Picking up an Object (QC): 6 PT Plan Treatment/Plan Treatment Plan: Continue Plan of Care Treatment Plan: Bed Mobility, Education, Functional Activity Phoebe, Functional Strength, Group Therapy, Gait, Safety, Therapeutic Exercise, Transfers Treatment Duration: Oct 09, 2017 Frequency: At least 5 of 7 days/Wk (IRF) Estimated Hrs Per Day: 1.5 hours per day Patient and/or Family Agrees t: Yes Safety Risks/Education Patient Education: Gait Training, Transfer Techniques, Steps Teaching Recipient: Patient Teaching Methods: Demonstration, Discussion Response to Teaching: Verbalize Understanding, Return Demonstration Time/GCodes Time In: 1400 Time Out: 1430 Total Billed Treatment Time: 30 Total Billed Treatment 1,EX15m,FA15m G Codes Necessary: YOLANDA Gonzáles SPECIAL EDUCATION CASE MANAGER Sep 23, 2017 14:49
--- NOTE | 2017-09-23 14:52 | D/C HH Face to Face Order ---
D/C Face to Face Orders Instructions for Patient Patient Instructions/FollowUp: Dr. Loree Wright Physician to follow Patient: Dr. Wright Discharge Diet for Home: Regular Diet Patient Problems: Left Hip fracture Patient Data-Allergies,Ht & Wt Patient Allergies: Coded Allergies: Penicillins (Verified Allergy, Unknown, RASH, 09/10/17) RASH codeine (Verified Adverse Reaction, Unknown, N/V, 09/10/17) NAUSEA/VOMING Height (Feet): 5 Height (Inches): 6.00 Weight (Pounds): 261 Weight (Ounces): 1.0 Home Health Need/Face to Face Date of Face to Face: Sep 27, 2017 Clinical Findings: Generalized weakness and fatigue, Muscle weakness, Non or partial weight bearing, Unsteady gait I have seen Pt [id number]: Yes Discharged To: Home Diagnosis/Conditions: L hip fracture Patient is Homebound due to: Rupal fall risk due to instabilty, Muscle weakness , Non-weight bearing (toe touch wb) Homebound Status Due to the above stated illness, injury or surgical procedure (medical condition or diagnosis) and associated clinical findings, the patient is homebound because of his/her inability to leave home except with aid of a supportive device and/or person AND leaving the home requires a considerable and taxing effort or is medically contraindicated. Pt req the following assistanc: Walker, Wheelchair Home Health Nursing Orders Home Health Services Order: Physical Therapy-Evaluate & Treat Therapy Orders Therapy Orders: Physical Therapy Therapy Specific Orders: Eval assistive deivces, Teach enviro modifications/ safety, Gait training, Increase strength/endurance [facility] that this patient is under my care and that I, a nurse practitioner or a physician; a music library assistant working with me, had a face to face encounter that - meets the physician face to face encounter requirements with this patient as dated. I personally scribed for CLEVELAND KOROMA MD ([facility]) on 09/23/17 at 14:52. Electronically submitted by Martha Palmer ([id number]). CLEVELAND KOROMA MD Sep 23, 2017 14:52
[2017-09-23 17:49] VITALS: BP 123/69
[2017-09-23] MEDS: LATANOPROST 0.005% (XALATAN) OPHTH SOLN 2.5 ML OU SCH (21:17)
[2017-09-23] MEDS: QUINAPRIL 20 MG (ACCUPRIL) TAB PO SCH (21:18)
[2017-09-23] MEDS: ATORVASTATIN 20 MG (LIPITOR) TABLET PO SCH (21:18)
[2017-09-23] MEDS: POLYETHYLENE GLYCOL 17 GM (MIRALAX) PACK PO SCH (21:19)
[2017-09-23] MEDS: inSUlin DETERMIR 1 UNIT/0.01 ML (LEVEMIR) CHARGE PER UNIT SQ SCH (21:27)
[2017-09-24 06:00] VITALS: BP 119/67
[2017-09-24] MEDS: LEVOTHYROXINE 50 MCG (LEVOTHROID) TAB PO SCH (06:03)
[2017-09-24] MEDS: LIOTHYRONINE 5 MCG (CYTOMEL) TAB NON-FORMULARY PO SCH (06:03)
[2017-09-24] MEDS: PANTOPRAZOLE 20 MG TABLET (PROTONIX) PO SCH (06:03)
[2017-09-24] MEDS: MULTIVIT W/MINERALS TAB (THERAGRAN M) PO SCH (06:03)
[2017-09-24] MEDS: inSUlin ASPART (NovoLOG) 1 UNIT/0.01 ML (CHARGE PER UNIT) SC SCH ×4 (06:13→21:00)
[2017-09-24] MEDS: SENNA W/DOCUSATE (SENOKOT S) TABLET PO SCH ×2 (08:43→20:16)
[2017-09-24] MEDS: PYRIDOXINE (VITAMIN B-6) 50 MG TABLET PO SCH (08:43)
[2017-09-24] MEDS: GEMFIBROZIL 600 MG (LOPID) TAB PO SCH ×2 (08:43→20:16)
[2017-09-24] MEDS: LORATADINE (CLARITIN) 10 MG TAB PO SCH (08:43)
[2017-09-24] MEDS: MAGNESIUM OXIDE (MAG-OX)400 MG TAB PO SCH (08:43)
[2017-09-24] MEDS: amLODIPine 2.5MG (NORVASC) TAB PO SCH (08:43)
[2017-09-24] MEDS: ENOXAPARIN 40 MG/0.4 ML (LOVENOX) SYR SC SCH (08:43)
[2017-09-24] MEDS: VITAMIN D3 5,000 UNITS (CHOLECALCIFEROL ) CAPSULE PO SCH (08:43)
[2017-09-24] MEDS: DICLOFENAC 1% GEL 100 GM (VOLTAREN) TUBE TP SCH ×4 (08:44→21:17)
[2017-09-24] MEDS: DORZOLAMIDE/TIMOLOL (COSOPT) 2-0.68% 10 ML BTL OU SCH ×2 (08:44→20:17)
[2017-09-24] MEDS: FLUTICASONE NASAL SPRAY (FLONASE) 16 GM BTL NS SCH (08:44)
--- NOTE | 2017-09-24 08:48 | Occupational Ther Daily Note ---
OT Current Status-Daily Note Subjective Pt in bed, states she is ready to get up. Reports 3/10 left hip pain. Mental Status/Objective Functional [place] Measure 0=Not Assessed/NA 4=Minimal Assistance 1=Total Assistance 5=Supervision or Setup 2=Maximal Assistance 6=Modified [place] 3=Moderate Assistance 7=Complete [place] ADL-Treatment Supine to sit with modified independence. Sit to stand with modified independence. Pt retrieved clothing from closet with FWW for balance. Gait to restroom with FWW. Pt transferred to toilet with modified independence. Toileting hygiene and clothing management completed with modified independence. Pt completed seated sponge bath. Able to wash/dry all parts with modified independence. Don bra and pullover shirt with modified independence. Pt able to thread bilateral LE into pants without assistance. Stood with good balance during pant hike. Don bilateral socks with modified independence using sock aid. Grooming tasks completed standing at sink. Pt brushed teeth and combed hair independently. Functional [place] Measure 0=Not Assessed/NA 4=Minimal Assistance 1=Total Assistance 5=Supervision or Setup 2=Maximal Assistance 6=Modified [place] 3=Moderate Assistance 7=Complete IndependenceIRFPAI Quality Coding Scale 6 Independent with activity with or without an assistive device 5 Patient requires set up or clean up by helper. Patient completes activity by themselves 4 Supervision or touching assist (CGA). [place] provide cues , steadying assist 3 The helper provides less than half the effort to complete the activity 2 The helper provides more than half the effort to complete the activity 1 Dependent. The helper does all the effort to complete an activity 7 Patient refused to complete or attempt activity 9 The patient did not perform the activity before the current illness or injury 88 Not attempted due to Medical conditions or safety concerns Grooming (FIM): 6 Oral Hygiene (QC): 6 Bathing (FIM): 6 Shower/Bathe Self (QC): 6 Upper Body (FIM): 6 Upper Body Dressing (QC): 6 Lower Body Dressing (FIM): 6 Lower Body Dressing (QC): 6 On/Off Footwear (QC): 6 Toileting (FIM): 6 Toileting Hygiene (QC): 6 Toilet/Commode Transfer (FIM): 6 Other Treatment Pt performed w/c mobility to therapy gym without assistance. Arm bike x12 minutes to increase overall strength and activity tolerance needed for functional tasks. Pt completed activity with moderate resistance and slow pace. No rest breaks needed. Pt completed bilateral UE exercises to increase strength needed for ADLs and transfers. Pt completed shoulder flexion, forward press, and biceps curls x15 reps with 2# dowel ella. Pt returned to room, sitting in w/ c with needs met after session. OT Short Term Goals Short Term Goals 1=Demonstrate adherence to instructed precautions during ADL tasks. 2=Patient will verbalize/demonstrate understanding of assistive devices/ modifications for ADL. 3=Patient will improve strength/tolerance for activity to enable patient to perform ADL's. OT Group Home Goals System Development Manager Goals Time Frame: Sep 25, 2017 Eating (FIM): 6 Eating (QC): 6 Groomin Oral Hygiene (QC): 6 Bathing(FIM): 5 Shower/Bathe Self (QC): 5 Upper Body Dressing(FIM): 6 Upper Body Dressing (QC): 6 Lower Body Dressing(FIM): 6 Lower Body Dressing (QC): 6 On/Off Footwear (QC): 6 Toileting(FIM): 6 Toileting Hygiene (QC): 6 Transfers (B,C,W/C) (FIM): 6 Toilet/Commode Transfer(FIM): 6 Toilet/Commode Transfer (QC): 6 Shower Transfer(FIM): 5 Additional Goals: 1-Demonstrate ADL Tasks, 2-Verbalize Understanding, 3- ImproveStrength/Phoebe 1=Demonstrate adherence to instructed precautions during ADL tasks. 2=Patient will verbalize/demonstrate understanding of assistive devices/ modifications for ADL. 3=Patient will improve strength/tolerance for activity to enable patient to perform ADL's. OT Education/Plan Discharge Recommendations Plan/Recommendations: Continue POC Treatment Plan/Plan of Care Patient would benefit from OT for education, treatment and training to promote independence in ADL's, mobility, safety and/or upper extremity function for ADL' s. Plan of Care: ADL Retraining, Functional Mobility, UE Funct Exercise/Act Treatment Duration: Sep 25, 2017 Frequency: At least 5 of 7 days/Wk (IRF) Estimated Hrs Per Day: 1.5 hours per day Agreement: Yes Rehab Potential: Good Time/GCodes Start Time: 09:00 Stop Time: 10:00 Total Time Billed (hr/min): 60 Billed Treatment Time 1 visit, ADLx2(35minutes), EXx2(25minutes) BERKLEY NEVES OT Sep 24, 2017 08:48
[2017-09-24] MEDS: oxyCODONE/APAP 5/325MG (PERCOCET 5) TABLET PO PRN ×2 (10:35→19:31)
--- NOTE | 2017-09-24 12:14 | Physical Therapy Daily Note ---
PT Daily Note-Current Subjective Pt sitting in [facility] upon arrival. Pt reports taking pain medication approx 1 hr before treatment for better pain management. Pt agrees to PT TX. Pain Numeric Pain Scale: 3 Location: Left Location Body Site: Knee Pain Description: Ache, Tightness Mental Status Patient Orientation: Person, Place, Time, Situation Transfers Functional [place] Measure 0=Not Assessed/NA 4=Minimal Assistance 1=Total Assistance 5=Supervision or Setup 2=Maximal Assistance 6=Modified [place] 3=Moderate Assistance 7=Complete IndependenceIRFPAI Quality Coding Scale 6 Independent with activity with or without an assistive device 5 Patient requires set up or clean up by helper. Patient completes activity by themselves 4 Supervision or touching assist (CGA). [place] provide cues , steadying assist 3 The helper provides less than half the effort to complete the activity 2 The helper provides more than half the effort to complete the activity 1 Dependent. The helper does all the effort to complete an activity 7 Patient refused to complete or attempt activity 9 The patient did not perform the activity before the current illness or injury 88 Not attempted due to Medical conditions or safety concerns Scootin Sit to/from Stand: 6 Sit to Stand (QC): 6 Weight Bearing Right Lower Extremity: Right Full Weight Bearing Left Lower Extremity: Left Touch Toe Bearing Gait Training Does the Patient Walk?: Yes Distance (FIM): 3=150 ft Distance: 150' Walk 10 feet (QC): 6 Walk 50 ft with 2 Turns(QC): 6 Walk 150 ft (QC): 5 Gait Assistive Device: FWW Stair Training Stair Training: Handrails/: 2 handrails #of Steps: 12 1 Step (curb) (QC): 5 4 Steps (QC): 5 12 Steps (QC): 5 Stairs: Pattern: Step to Level of Assist: 5 Exercises Seated Therapy Exercises: Ankle pumps, Long arc quads, Hip flexion, Kicking activity Seated Reps: 20 NuStep Minutes: 15 NuStep Workload: 2 Treatments Pt transferred Mod I w/ FWW. Pt requested to use restroom before leaving for TX. Pt ambulates in hallway using FWW to Therapy Gym. Uses NuStep for 15m at WL2 , followed by Seated EX and 3 sets of 4 stairs. Pt returns to room to rest in [facility] at end of TX w/ all needs met, including call light in hand. Assessment Current Status: Good Progress Pt demonstrates better pain management and reports pain continues to stay at a 3 /10 during TX. PT Short Term Goals Short Term Goals Wheelchair Distance: 150 PT Medieval English Literature Professor Goals Fpc Goals PT Fpc Goals Time Frame: Oct 09, 2017 Transfers (B,C,W/C) (FIM): 6 Sit to Lying (QC): 6 Lying-Sitting on Side/Bed(QC): 6 Sit to Stand (QC): 6 Rollin Roll Left to Right (QC): 6 Chair/Nbo-na-Egdrf Xfer(QC): 6 Car Transfer (QC): 6 Does the Patient Walk: Yes Gait (FIM): 6 Gait distance (FIM): 3=150 ft Distance: 150' Walk 10 feet (QC): 6 Walk 10ft-Uneven Surface(QC): 6 Walk 50ft with 2 Turns (QC): 6 Walk 150 ft (QC): 6 Gait Level of Assist: 6 Gait Assistive Device: FWW Stairs (FIM): 2 # of Steps: 4 1 Step (curb) (QC): 5 4 Steps (QC): 5 12 Steps (QC): 9 Stairs Level Of Assist: 5 Picking up an Object (QC): 6 PT Plan Problem List Problem List: Activity Tolerance, Functional Strength Treatment/Plan Treatment Plan: Continue Plan of Care Treatment Plan: Bed Mobility, Education, Functional Activity Phoebe, Functional Strength, Group Therapy, Gait, Safety, Therapeutic Exercise, Transfers Treatment Duration: Oct 09, 2017 Frequency: At least 5 of 7 days/Wk (IRF) Estimated Hrs Per Day: 1.5 hours per day Patient and/or Family Agrees t: Yes Safety Risks/Education Patient Education: Gait Training, Steps, Correct Positioning, Safety Issues Teaching Recipient: Patient Teaching Methods: Discussion Response to Teaching: Verbalize Understanding Time/GCodes Time In: 1100 Time Out: 1200 Total Billed Treatment Time: 60 Total Billed Treatment 1, GT (15m), EX x2 (30m), FA (15m) G Codes Necessary: SHIN Hendricks HIGH TENSION TESTER Sep 24, 2017 12:14
--- NOTE | 2017-09-24 15:03 | Therapy Group Daily Note ---
Therapy Daily Group Note Patient Education Topic Home Safety, Other List Below (Proper Handwashing ) Exercises LE Seated Exercise, UE Exercise Other/Notes Pt propels [facility] to PT/OT group. Group consisted of introductions (name, where you 're from, what you like to do during the summer), socialization, Proper Handwashing, Home Safety and Seated UE/LE exercise. Pt actively participated in group by giving examples of safety items w/in the home and ways to correct and completing UE/LE exercises. Pt propels [facility] back to room to rest at end of group TX. Start Time: 13:00 Stop Time: 14:10 Total Billed Treatment Time: 70 Total Billed Treatment 1, GRP SHIN WELCH SLOPE TENDER Sep 24, 2017 15:03
[2017-09-24 17:23] VITALS: BP 119/71
[2017-09-24] MEDS: QUINAPRIL 20 MG (ACCUPRIL) TAB PO SCH (20:16)
[2017-09-24] MEDS: ATORVASTATIN 20 MG (LIPITOR) TABLET PO SCH (20:16)
[2017-09-24] MEDS: LATANOPROST 0.005% (XALATAN) OPHTH SOLN 2.5 ML OU SCH (20:17)
[2017-09-24] MEDS: POLYETHYLENE GLYCOL 17 GM (MIRALAX) PACK PO SCH (20:18)
[2017-09-24] MEDS: inSUlin DETERMIR 1 UNIT/0.01 ML (LEVEMIR) CHARGE PER UNIT SQ SCH (21:01)
[2017-09-25 05:56] VITALS: BP 101/64
[2017-09-25] MEDS: inSUlin ASPART (NovoLOG) 1 UNIT/0.01 ML (CHARGE PER UNIT) SC SCH ×4 (06:04→20:45)
[2017-09-25] MEDS: LIOTHYRONINE 5 MCG (CYTOMEL) TAB NON-FORMULARY PO SCH (06:13)
[2017-09-25] MEDS: PANTOPRAZOLE 20 MG TABLET (PROTONIX) PO SCH (06:13)
[2017-09-25] MEDS: MULTIVIT W/MINERALS TAB (THERAGRAN M) PO SCH (06:13)
[2017-09-25] MEDS: LEVOTHYROXINE 50 MCG (LEVOTHROID) TAB PO SCH (06:13)
[2017-09-25] MEDS: ASPIRIN E.C. 81 MG (ECOTRIN) TAB PO SCH (08:09)
[2017-09-25] MEDS: MAGNESIUM OXIDE (MAG-OX)400 MG TAB PO SCH (08:09)
[2017-09-25] MEDS: DICLOFENAC 1% GEL 100 GM (VOLTAREN) TUBE TP SCH ×4 (08:09→21:00)
[2017-09-25] MEDS: DORZOLAMIDE/TIMOLOL (COSOPT) 2-0.68% 10 ML BTL OU SCH ×2 (08:09→20:39)
[2017-09-25] MEDS: FLUTICASONE NASAL SPRAY (FLONASE) 16 GM BTL NS SCH (08:09)
[2017-09-25] MEDS: LORATADINE (CLARITIN) 10 MG TAB PO SCH (08:10)
[2017-09-25] MEDS: PYRIDOXINE (VITAMIN B-6) 50 MG TABLET PO SCH (08:10)
[2017-09-25] MEDS: SENNA W/DOCUSATE (SENOKOT S) TABLET PO SCH ×2 (08:10→21:00)
[2017-09-25] MEDS: amLODIPine 2.5MG (NORVASC) TAB PO SCH (08:10)
[2017-09-25] MEDS: FUROSEMIDE 20 MG (LASIX) TAB PO SCH (08:10)
[2017-09-25] MEDS: VITAMIN D3 5,000 UNITS (CHOLECALCIFEROL ) CAPSULE PO SCH (08:10)
[2017-09-25] MEDS: GEMFIBROZIL 600 MG (LOPID) TAB PO SCH ×2 (08:10→20:42)
[2017-09-25] MEDS: ENOXAPARIN 40 MG/0.4 ML (LOVENOX) SYR SC SCH (08:10)
[2017-09-25] MEDS: oxyCODONE/APAP 5/325MG (PERCOCET 5) TABLET PO PRN ×2 (08:49→20:41)
--- NOTE | 2017-09-25 09:56 | Physical Therapy Daily Note ---
PT Daily Note-Current Subjective Pt sitting in recliner upon arrival. Pt states she slept good and took pain medication approx 30m before PT arrival. Pt agrees to PT RX. Pain Numeric Pain Scale: 0-No Pain Location: No Pain Reported Mental Status Patient Orientation: Person, Place, Time, Situation, Normal For Age Transfers Functional [place] Measure 0=Not Assessed/NA 4=Minimal Assistance 1=Total Assistance 5=Supervision or Setup 2=Maximal Assistance 6=Modified [place] 3=Moderate Assistance 7=Complete IndependenceIRFPAI Quality Coding Scale 6 Independent with activity with or without an assistive device 5 Patient requires set up or clean up by helper. Patient completes activity by themselves 4 Supervision or touching assist (CGA). [place] provide cues , steadying assist 3 The helper provides less than half the effort to complete the activity 2 The helper provides more than half the effort to complete the activity 1 Dependent. The helper does all the effort to complete an activity 7 Patient refused to complete or attempt activity 9 The patient did not perform the activity before the current illness or injury 88 Not attempted due to Medical conditions or safety concerns Transfers (B, C, W/C) (FIM): 6 Scootin Rollin Roll Left to Right (QC): 6 Supine to/from Sit: 6 Sit to/from Stand: 6 Sit to Lying (QC): 6 Sit to Stand (QC): 6 Chair/Hyb-ty-Adyus Xfer(QC): 6 Bed to/from Chair: 6 Car Transfer (QC): 6 TRFs taking extra time to complete Weight Bearing Right Lower Extremity: Right Full Weight Bearing Left Lower Extremity: Left Touch Toe Bearing Gait Training Does the Patient Walk?: Yes Gait (FIM): 6 Distance (FIM): 3=150 ft Distance: 150 ft plus Walk 10 feet (QC): 6 Walk 50 ft with 2 Turns(QC): 6 Walk 150 ft (QC): 6 Walking 10ft/uneven surface-QC: 6 Gait Level of Assist: 6 Gait Persons Needed: 0 Gait Assistive Device: FWW slow, maintains TTWB consistently Stair Training Stair Training: Handrails/: 2 handrails Stairs (FIM): 5 #of Steps: 4 1 Step (curb) (QC): 5 4 Steps (QC): 5 Stairs: Pattern: Step to Level of Assist: 5 Household Exception, pt. with TTWB limitations unsafe to ask pt to attempt 12 steps Balance Special Test Comments unsafe to bend for object Exercises NuStep Minutes: 10 NuStep Workload: 2 Treatments Pt transferred Mod I w/ FWW. Pt ambulated from room to Therapy Gym. Pt completed Bed Mobility, Transfers, Stairs, Walking on uneven surface, Car transfer, and NuStep for 10m at WL2. Pt returned to room to rest in [facility], with all needs met, including call light in hand. Assessment Current Status: Good Progress Pt excited and pleased w/ progress. Pt comfortable and ready for dc on Thursday. PT Short Term Goals Short Term Goals Wheelchair Distance: 150 PT Mcc Goals Roll Filler Goals PT Mcc Goals Time Frame: Oct 09, 2017 Transfers (B,C,W/C) (FIM): 6 Sit to Lying (QC): 6 Lying-Sitting on Side/Bed(QC): 6 Sit to Stand (QC): 6 Rollin Roll Left to Right (QC): 6 Chair/Axl-xn-Watro Xfer(QC): 6 Car Transfer (QC): 6 Does the Patient Walk: Yes Gait (FIM): 6 Gait distance (FIM): 3=150 ft Distance: 150' Walk 10 feet (QC): 6 Walk 10ft-Uneven Surface(QC): 6 Walk 50ft with 2 Turns (QC): 6 Walk 150 ft (QC): 6 Gait Level of Assist: 6 Gait Assistive Device: FWW Stairs (FIM): 2 # of Steps: 4 1 Step (curb) (QC): 5 4 Steps (QC): 5 12 Steps (QC): 9 Stairs Level Of Assist: 5 Picking up an Object (QC): 6 PT Plan Treatment/Plan Treatment Plan: Continue Plan of Care Treatment Plan: Bed Mobility, Education, Functional Activity Phoebe, Functional Strength, Group Therapy, Gait, Safety, Therapeutic Exercise, Transfers Treatment Duration: Oct 09, 2017 Frequency: At least 5 of 7 days/Wk (IRF) Estimated Hrs Per Day: 1.5 hours per day Patient and/or Family Agrees t: Yes Safety Risks/Education Patient Education: Gait Training, Transfer Techniques, Steps, Correct Positioning, Safety Issues Teaching Recipient: Patient Teaching Methods: Demonstration, Discussion Response to Teaching: Verbalize Understanding, Return Demonstration Time/GCodes Time In: 900 Time Out: 1000 Total Billed Treatment Time: 60 Total Billed Treatment 1, GT (15m), EX 20m,, FA (25m) G Codes Necessary: YOLANDA Gonzáles TAX ACCOUNTING ASSISTANT Sep 25, 2017 09:56
--- NOTE | 2017-09-25 11:45 | Occupational Ther Daily Note ---
OT Current Status-Daily Note Subjective Pt sitting in w/c, agrees to treatment. Pt reports 2/10 pain in left hip. Mental Status/Objective Functional [place] Measure 0=Not Assessed/NA 4=Minimal Assistance 1=Total Assistance 5=Supervision or Setup 2=Maximal Assistance 6=Modified [place] 3=Moderate Assistance 7=Complete [place] ADL-Treatment Sit to stand with modified independence. Pt has already retrieved clothing from closet and placed in restroom. Gait to restroom with FWW, TTWB left LE. Transfer to [facility] with modified independence. Pt doffed clothing without assistance while seated on BSC. Used dressing stick to doff socks. Pt states she completed toileting earlier this morning without assistance. Transfer to walk in shower with modified independence. Seated bathing completed using hand held shower and long handled sponge. Pt able to wash/dry all areas with modified independence. Don bra and pullover shirt with modified independence. Pt donned underwear and pants with modified independence. Stood with good balance using FWW during pant hike. Pt donned bilateral socks with modified independence using sock aid. Grooming tasks completed standing at sink without assistance. Transfer to w/c with modified independence. Functional [place] Measure 0=Not Assessed/NA 4=Minimal Assistance 1=Total Assistance 5=Supervision or Setup 2=Maximal Assistance 6=Modified [place] 3=Moderate Assistance 7=Complete IndependenceIRFPAI Quality Coding Scale 6 Independent with activity with or without an assistive device 5 Patient requires set up or clean up by helper. Patient completes activity by themselves 4 Supervision or touching assist (CGA). [place] provide cues , steadying assist 3 The helper provides less than half the effort to complete the activity 2 The helper provides more than half the effort to complete the activity 1 Dependent. The helper does all the effort to complete an activity 7 Patient refused to complete or attempt activity 9 The patient did not perform the activity before the current illness or injury 88 Not attempted due to Medical conditions or safety concerns Eating (FIM): 7 (Pt reports feeding self, managing containers, and cutting food without assistance) Eating (QC): 6 Grooming (FIM): 7 Oral Hygiene (QC): 6 Bathing (FIM): 6 Shower/Bathe Self (QC): 6 Upper Body (FIM): 6 Upper Body Dressing (QC): 6 Lower Body Dressing (FIM): 6 Lower Body Dressing (QC): 6 On/Off Footwear (QC): 6 Toileting (FIM): 6 Toileting Hygiene (QC): 6 Toilet/Commode Transfer (FIM): 6 Toilet Transfer (QC): 6 Shower Transfer(FIM): 6 Other Treatment Pt completed bilateral UE exercises to increase strength needed for ADLs and transfers. Pt performed three UE exercises x15 reps with moderate resistance ( red) theraband with rest breaks between exercises. Pt sitting in w/c with needs met after session. Plan is for pt to d/c home on Thursday. Pt has no questions or concerns at this time. OT Short Term Goals Short Term Goals 1=Demonstrate adherence to instructed precautions during ADL tasks. 2=Patient will verbalize/demonstrate understanding of assistive devices/ modifications for ADL. 3=Patient will improve strength/tolerance for activity to enable patient to perform ADL's. OT Aluminum Boat Assembly Supervisor Goals Aluminum Boat Assembly Supervisor Goals Time Frame: Sep 25, 2017 Eating (FIM): 6 Eating (QC): 6 Groomin Oral Hygiene (QC): 6 Bathing(FIM): 5 Shower/Bathe Self (QC): 5 Upper Body Dressing(FIM): 6 Upper Body Dressing (QC): 6 Lower Body Dressing(FIM): 6 Lower Body Dressing (QC): 6 On/Off Footwear (QC): 6 Toileting(FIM): 6 Toileting Hygiene (QC): 6 Transfers (B,C,W/C) (FIM): 6 Toilet/Commode Transfer(FIM): 6 Toilet/Commode Transfer (QC): 6 Shower Transfer(FIM): 5 Additional Goals: 1-Demonstrate ADL Tasks, 2-Verbalize Understanding, 3- ImproveStrength/[place]hoebe 1=Demonstrate adherence to instructed precautions during ADL tasks. 2=Patient will verbalize/demonstrate understanding of assistive devices/ modifications for ADL. 3=Patient will improve strength/tolerance for activity to enable patient to perform ADL's. OT Education/Plan Discharge Recommendations Plan/Recommendations: Continue POC Treatment Plan/Plan of Care Patient would benefit from OT for education, treatment and training to promote independence in ADL's, mobility, safety and/or upper extremity function for ADL' s. Plan of Care: ADL Retraining, Functional Mobility, UE Funct Exercise/Act Treatment Duration: Sep 25, 2017 Frequency: At least 5 of 7 days/Wk (IRF) Estimated Hrs Per Day: 1.5 hours per day Agreement: Yes Rehab Potential: Good Time/GCodes Start Time: 08:00 Stop Time: 09:00 Total Time Billed (hr/min): 60 Billed Treatment Time 1 visit, ADLx3(50minutes), EX(10minutes) BERKLEY NEVES OT Sep 25, 2017 11:45
--- NOTE | 2017-09-25 14:27 | Therapy Group Daily Note ---
Therapy Daily Group Note Patient Education Topic Home Safety, Other List Below (What is a Stroke, S/S, Risk Factors, Prevention, BP & P taken ) Exercises LE Seated Exercise, UE Exercise Other/Notes Pt propelled self via [facility] to Group. Group consisted of introductions and daily question (Name, Where From, answered question that involved memory and critical thinking), UE/LE EX, Topic of Discussion "What is a Stroke, S/S, Risk Factors, Prevention". Pt actively participated in introductions, UE/LE EX, answered questions and participated in the Topic Discussion. Per part of the Topic Discussion, pts BP & P were taken. BP 92/56 P 73 Pt propelled self to room at end of group, transferred to bed to rest, with all needs met including call light in hand. Start Time: 13:00 Stop Time: 14:00 Total Billed Treatment Time: 60 Total Billed Treatment 1, GRP MIGNON ZHANG PT Sep 25, 2017 14:26
[2017-09-25 17:30] VITALS: BP 122/70
[2017-09-25] MEDS: ATORVASTATIN 20 MG (LIPITOR) TABLET PO SCH (20:41)
[2017-09-25] MEDS: QUINAPRIL 20 MG (ACCUPRIL) TAB PO SCH (20:42)
[2017-09-25] MEDS: inSUlin DETERMIR 1 UNIT/0.01 ML (LEVEMIR) CHARGE PER UNIT SQ SCH (20:46)
[2017-09-25] MEDS: POLYETHYLENE GLYCOL 17 GM (MIRALAX) PACK PO SCH (21:00)
[2017-09-25] MEDS: LATANOPROST 0.005% (XALATAN) OPHTH SOLN 2.5 ML OU SCH (21:07)
[2017-09-26] MEDS: oxyCODONE/APAP 5/325MG (PERCOCET 5) TABLET PO PRN ×3 (03:45→19:42)
[2017-09-26 06:00] VITALS: BP 122/68
[2017-09-26] MEDS: inSUlin ASPART (NovoLOG) 1 UNIT/0.01 ML (CHARGE PER UNIT) SC SCH ×4 (06:00→21:21)
[2017-09-26] MEDS: MULTIVIT W/MINERALS TAB (THERAGRAN M) PO SCH (06:23)
[2017-09-26] MEDS: LEVOTHYROXINE 50 MCG (LEVOTHROID) TAB PO SCH (06:23)
[2017-09-26] MEDS: PANTOPRAZOLE 20 MG TABLET (PROTONIX) PO SCH (06:23)
[2017-09-26] MEDS: LIOTHYRONINE 5 MCG (CYTOMEL) TAB NON-FORMULARY PO SCH (06:23)
[2017-09-26] MEDS: MAGNESIUM OXIDE (MAG-OX)400 MG TAB PO SCH (08:08)
[2017-09-26] MEDS: PYRIDOXINE (VITAMIN B-6) 50 MG TABLET PO SCH (08:08)
[2017-09-26] MEDS: SENNA W/DOCUSATE (SENOKOT S) TABLET PO SCH ×2 (08:08→21:16)
[2017-09-26] MEDS: GEMFIBROZIL 600 MG (LOPID) TAB PO SCH ×2 (08:08→21:17)
[2017-09-26] MEDS: amLODIPine 2.5MG (NORVASC) TAB PO SCH (08:08)
[2017-09-26] MEDS: LORATADINE (CLARITIN) 10 MG TAB PO SCH (08:08)
[2017-09-26] MEDS: VITAMIN D3 5,000 UNITS (CHOLECALCIFEROL ) CAPSULE PO SCH (08:08)
[2017-09-26] MEDS: DORZOLAMIDE/TIMOLOL (COSOPT) 2-0.68% 10 ML BTL OU SCH ×2 (08:10→21:16)
[2017-09-26] MEDS: DICLOFENAC 1% GEL 100 GM (VOLTAREN) TUBE TP SCH ×4 (08:10→21:23)
[2017-09-26] MEDS: ENOXAPARIN 40 MG/0.4 ML (LOVENOX) SYR SC SCH (08:10)
[2017-09-26] MEDS: FLUTICASONE NASAL SPRAY (FLONASE) 16 GM BTL NS SCH (08:10)
--- NOTE | 2017-09-26 09:41 | Physical Therapy Daily Note ---
PT Daily Note-Current Subjective Pt. agrees to Rx and wants to trial the new 4WW with brakes she just got and talk about whether it is the appropriate device for her. Pain Numeric Pain Scale: 0-No Pain Mental Status Patient Orientation: Normal For Age Transfers Functional [place] Measure 0=Not Assessed/NA 4=Minimal Assistance 1=Total Assistance 5=Supervision or Setup 2=Maximal Assistance 6=Modified [place] 3=Moderate Assistance 7=Complete IndependenceIRFPAI Quality Coding Scale 6 Independent with activity with or without an assistive device 5 Patient requires set up or clean up by helper. Patient completes activity by themselves 4 Supervision or touching assist (CGA). [place] provide cues , steadying assist 3 The helper provides less than half the effort to complete the activity 2 The helper provides more than half the effort to complete the activity 1 Dependent. The helper does all the effort to complete an activity 7 Patient refused to complete or attempt activity 9 The patient did not perform the activity before the current illness or injury 88 Not attempted due to Medical conditions or safety concerns Transfers (B, C, W/C) (FIM): 6 Scootin Rollin Supine to/from Sit: 6 Sit to/from Stand: 6 Weight Bearing Right Lower Extremity: Right Full Weight Bearing Left Lower Extremity: Left Touch Toe Bearing Gait Training Does the Patient Walk?: Yes Gait (FIM): 6 Distance (FIM): 3=150 ft (175x2) Gait Level of Assist: 6 Gait Persons Needed: 0 Gait Assistive Device: FWW progressed to up ad fern Exercises Seated Therapy Exercises: Ankle pumps, Sit to stand, Long arc quads Seated Reps: 10 Treatments pt. assessed for gait using $WW. not appropriate at this time, pt. does own std FWW and has it at home. Friend to bring it. Pt. plans to use FWW until TTWB is lifted as gait with free wheeling 4ww not as safe as FWW. Assessment Current Status: Excellent Progress DC 4-15 PT Short Term Goals Short Term Goals Wheelchair Distance: 150 PT Basket Grader Goals Alf Goals PT Alf Goals Time Frame: Oct 09, 2017 Transfers (B,C,W/C) (FIM): 6 Sit to Lying (QC): 6 Lying-Sitting on Side/Bed(QC): 6 Sit to Stand (QC): 6 Rollin Roll Left to Right (QC): 6 Chair/Fgt-ib-Usnbn Xfer(QC): 6 Car Transfer (QC): 6 Does the Patient Walk: Yes Gait (FIM): 6 Gait distance (FIM): 3=150 ft Distance: 150' Walk 10 feet (QC): 6 Walk 10ft-Uneven Surface(QC): 6 Walk 50ft with 2 Turns (QC): 6 Walk 150 ft (QC): 6 Gait Level of Assist: 6 Gait Assistive Device: FWW Stairs (FIM): 2 # of Steps: 4 1 Step (curb) (QC): 5 4 Steps (QC): 5 12 Steps (QC): 9 Stairs Level Of Assist: 5 Picking up an Object (QC): 6 PT Plan Treatment/Plan Treatment Plan: Continue Plan of Care Treatment Plan: Bed Mobility, Education, Functional Activity Phoebe, Functional Strength, Group Therapy, Gait, Safety, Therapeutic Exercise, Transfers Treatment Duration: Oct 09, 2017 Frequency: At least 5 of 7 days/Wk (IRF) Estimated Hrs Per Day: 1.5 hours per day Patient and/or Family Agrees t: Yes Safety Risks/Education Patient Education: Gait Training, Transfer Techniques Teaching Recipient: Patient Teaching Methods: Demonstration, Discussion Response to Teaching: Verbalize Understanding, Return Demonstration, Reinforcement Needed Time/GCodes Time In: 855 Time Out: 925 Total Billed Treatment Time: 30 Total Billed Treatment 1,FA10m,GT20m G Codes Necessary: YOLANDA Gonzáles SHOE COVERER Sep 26, 2017 09:41
--- NOTE | 2017-09-26 12:55 | Progress Note-Hospitalist ---
Subjective HPI/CC On Admission Date Seen by Provider: Sep 26, 2017 Time Seen by Provider: 12:30 Subjective/Events-last exam Patient doing well Discharge plan for tomorrow Denies any pain Bowels are moving Objective Exam Vital Signs Vital Signs Date Time Temp Pulse Resp B/P (MAP) Pulse Ox O2 Delivery O2 Flow Rate FiO2 09/20/17 05:40 97.3 70 19 124/73 (90) 97 Room Air Capillary Refill : Less Than 3 Seconds General Appearance: No Apparent Distress, WD/WN Respiratory: Lungs Clear, Normal Breath Sounds Cardiovascular: Regular Rate, Rhythm, No Edema Neurologic/Psychiatric: Alert, Oriented x3, No Motor/Sensory Deficits, yard clerk II- XII Norm as Tested, Depressed Affect Results/Procedures Lab Patient resulted labs reviewed. Assessment/Plan Assessment and Plan Assess & Plan/Chief Complaint Status post femoral neck fracture in need of inpatient rehabilitation for strengthening prior to going home Diabetes mellitus with frequent hypoglycemia Hypertension Hypothyroidism GERD Plan: Monitor bowel function Monitor for falls Discharge plan for tomorrow Clinical Quality Measures DVT/VTE Risk/Contraindication: Risk Factor Score Per Nursin RFS Level Per Nursing on Admit: 4+=Very High MIKE PEREA DO Sep 26, 2017 12:55
[2017-09-26 17:35] VITALS: BP 92/59
[2017-09-26] MEDS: ATORVASTATIN 20 MG (LIPITOR) TABLET PO SCH (21:16)
[2017-09-26] MEDS: LATANOPROST 0.005% (XALATAN) OPHTH SOLN 2.5 ML OU SCH (21:16)
[2017-09-26] MEDS: QUINAPRIL 20 MG (ACCUPRIL) TAB PO SCH (21:16)
[2017-09-26] MEDS: POLYETHYLENE GLYCOL 17 GM (MIRALAX) PACK PO SCH (21:17)
[2017-09-26] MEDS: inSUlin DETERMIR 1 UNIT/0.01 ML (LEVEMIR) CHARGE PER UNIT SQ SCH (21:18)
[2017-09-27] MEDS: oxyCODONE/APAP 5/325MG (PERCOCET 5) TABLET PO PRN ×2 (02:33→03:10)
[2017-09-27] MEDS: inSUlin ASPART (NovoLOG) 1 UNIT/0.01 ML (CHARGE PER UNIT) SC SCH ×2 (05:42→11:10)
[2017-09-27 05:43] VITALS: BP 114/69
[2017-09-27] MEDS: LEVOTHYROXINE 50 MCG (LEVOTHROID) TAB PO SCH (06:19)
[2017-09-27] MEDS: MULTIVIT W/MINERALS TAB (THERAGRAN M) PO SCH (06:19)
[2017-09-27] MEDS: LIOTHYRONINE 5 MCG (CYTOMEL) TAB NON-FORMULARY PO SCH (06:19)
[2017-09-27] MEDS: PANTOPRAZOLE 20 MG TABLET (PROTONIX) PO SCH (06:19)
[2017-09-27] MEDS: LORATADINE (CLARITIN) 10 MG TAB PO SCH (09:12)
[2017-09-27] MEDS: DORZOLAMIDE/TIMOLOL (COSOPT) 2-0.68% 10 ML BTL OU SCH (09:12)
[2017-09-27] MEDS: GEMFIBROZIL 600 MG (LOPID) TAB PO SCH (09:12)
[2017-09-27] MEDS: FLUTICASONE NASAL SPRAY (FLONASE) 16 GM BTL NS SCH (09:12)
[2017-09-27] MEDS: amLODIPine 2.5MG (NORVASC) TAB PO SCH (09:12)
[2017-09-27] MEDS: SENNA W/DOCUSATE (SENOKOT S) TABLET PO SCH (09:12)
[2017-09-27] MEDS: PYRIDOXINE (VITAMIN B-6) 50 MG TABLET PO SCH (09:13)
[2017-09-27] MEDS: MAGNESIUM OXIDE (MAG-OX)400 MG TAB PO SCH (09:13)
[2017-09-27] MEDS: VITAMIN D3 5,000 UNITS (CHOLECALCIFEROL ) CAPSULE PO SCH (09:13)
[2017-09-27] MEDS: ENOXAPARIN 40 MG/0.4 ML (LOVENOX) SYR SC SCH (09:13)
[2017-09-27] MEDS: DICLOFENAC 1% GEL 100 GM (VOLTAREN) TUBE TP SCH (09:14)
[2017-09-27] MEDS: ASPIRIN E.C. 81 MG (ECOTRIN) TAB PO SCH (09:16)
[2017-09-27] MEDS: FUROSEMIDE 20 MG (LASIX) TAB PO SCH (09:16)
[2017-09-27 12:53] VITALS: BP 114/69
--- NOTE | 2017-09-28 09:54 | Therapy Team Discharge Summary ---
Therapy Discharge Summary Discharge Recommendations Date of Discharge Sep 27, 2017 at 14:17 Therapy D/C Recommendations: Home w/ Family Support, Occupational Therapy Home Care Physical Therapy This patient was transferred to ARU post an acute hospital stay due to a trip at home in which she sustained a left femur fracture. Prior to the initial incident, she was indep with all functional mobility and active with community mobility. Upon admission to ARU, she required min asssit with transfers, was able to walk 50 ft with min assist with FWW TTWB and was only able to attempt 1 step. Treatment focused on functional strength and mobility training with focus on TTWB and functional independence. She has made excellent progress and at discharge is mod indep with gait, tranfers and stairs at a household level. She has met all goals to a satisfactory level. She is to discharge home with follow up [facility] PT. DC PT at this time. Occupational Therapy Decreased Activ Tolerance, Dependent Transfers, Impaired I ADL's, Impaired Self- Care Skills PT Telegraph Office Route Aide Goals Telegraph Office Route Aide Goals PT Telegraph Office Route Aide Goals Time Frame: Oct 09, 2017 Transfers (B,C,W/C) (FIM): 6 (met) Roll Left to Right (QC): 6 (met) Sit to Lying (QC): 6 (met) Lying-Sitting on Side/Bed(QC): 6 (met) Sit to Stand (QC): 6 (met) Chair/Zlq-sj-Nhujl Xfer(QC): 6 (met) Car Transfer (QC): 6 (met) Does the Patient Walk: Yes Gait (FIM): 6 (met) Gait distance (FIM): 3=150 ft Distance: 150' Walk 10 feet (QC): 6 (met) Walk 10ft-Uneven Surface(QC): 6 (met) Walk 50ft with 2 Turns (QC): 6 (met) Walk 150 ft (QC): 6 (met) Gait Level of Assist: 6 Gait Assistive Device: FWW Stairs (FIM): 2 (exceeded) # of Steps: 4 1 Step (curb) (QC): 5 (met) 4 Steps (QC): 5 (met) 12 Steps (QC): 9 Stairs Level Of Assist: 5 Picking up an Object (QC): 6 (unmet; unsafe to attmpt) Pt has met all LTG's to a satisfactory level. Good functional progress OT Usp Goals Telegraph Office Route Aide Goals Time Frame: Sep 25, 2017 Eating (FIM): 6 Eating (QC): 6 Oral Hygiene (QC): 6 Grooming(FIM): 6 Bathing(FIM): 5 Shower/Bathe Self (QC): 5 Upper Body Dressing(FIM): 6 Upper Body Dressing (QC): 6 Lower Body Dressing(FIM): 6 Lower Body Dressing (QC): 6 On/Off Footwear (QC): 6 Toileting(FIM): 6 Toileting Hygiene (QC): 6 Transfers (B,C,W/C) (FIM): 6 Toilet/Commode Transfer(FIM): 6 Toilet/Commode Transfer (QC): 6 Shower Transfer(FIM): 5 Additional Goals: 1-Demonstrate ADL Tasks, 2-Verbalize Understanding, 3- ImproveStrength/Phoebe 1=Demonstrate adherence to instructed precautions during ADL tasks. 2=Patient will verbalize/demonstrate understanding of assistive devices/ modifications for ADL. 3=Patient will improve strength/tolerance for activity to enable patient to perform ADL's. FREDA DIAL PT Sep 28, 2017 09:54
--- NOTE | 2017-09-28 13:43 | Therapy Team Discharge Summary ---
Therapy Discharge Summary Discharge Recommendations Date of Discharge Sep 27, 2017 at 14:17 Therapy D/C Recommendations: Home w/ Family Support, Occupational Therapy Home Care Occupational Therapy Pt admitted to ARU following acute hospitalization for left hip fracture with TTWB left LE. On admission pt required mod assist for LE dressing and min assist for transfers, bathing, and toileting. Skilled OT intervention focused on ADL training, transfers, strengthening, adaptive equipment training, and home safety education. Pt made good progress with therapy and by discharge is completing eating and grooming independently and all other basic ADLs and transfers with modified independence. Pt met all OT LTG. Pt discharged home with support. D/C ARU OT. Decreased Activ Tolerance, Dependent Transfers, Impaired I ADL's, Impaired Self- Care Skills PT Residential Goals Tie Tape Machine Operator Goals PT Residential Goals Time Frame: Oct 09, 2017 Transfers (B,C,W/C) (FIM): 6 (met) Roll Left to Right (QC): 6 (met) Sit to Lying (QC): 6 (met) Lying-Sitting on Side/Bed(QC): 6 (met) Sit to Stand (QC): 6 (met) Chair/Crx-tf-Dcfiw Xfer(QC): 6 (met) Car Transfer (QC): 6 (met) Does the Patient Walk: Yes Gait (FIM): 6 (met) Gait distance (FIM): 3=150 ft Distance: 150' Walk 10 feet (QC): 6 (met) Walk 10ft-Uneven Surface(QC): 6 (met) Walk 50ft with 2 Turns (QC): 6 (met) Walk 150 ft (QC): 6 (met) Gait Level of Assist: 6 Gait Assistive Device: FWW Stairs (FIM): 2 (exceeded) # of Steps: 4 1 Step (curb) (QC): 5 (met) 4 Steps (QC): 5 (met) 12 Steps (QC): 9 Stairs Level Of Assist: 5 Picking up an Object (QC): 6 (unmet; unsafe to attmpt) OT Residential Goals Tie Tape Machine Operator Goals Time Frame: Sep 25, 2017 Eating (FIM): 6 Eating (QC): 6 Oral Hygiene (QC): 6 Grooming(FIM): 6 Bathing(FIM): 5 Shower/Bathe Self (QC): 5 Upper Body Dressing(FIM): 6 Upper Body Dressing (QC): 6 Lower Body Dressing(FIM): 6 Lower Body Dressing (QC): 6 On/Off Footwear (QC): 6 Toileting(FIM): 6 Toileting Hygiene (QC): 6 Transfers (B,C,W/C) (FIM): 6 Toilet/Commode Transfer(FIM): 6 Toilet/Commode Transfer (QC): 6 Shower Transfer(FIM): 5 Additional Goals: 1-Demonstrate ADL Tasks, 2-Verbalize Understanding, 3- ImproveStrength/Phoebe 1=Demonstrate adherence to instructed precautions during ADL tasks. 2=Patient will verbalize/demonstrate understanding of assistive devices/ modifications for ADL. 3=Patient will improve strength/tolerance for activity to enable patient to perform ADL's. BERKLEY NEVES OT Sep 28, 2017 13:43
[2017-10-07] MEDS ORDERED: FLUT9.9S NS (11:14)
[2017-10-07] MEDS ORDERED: OMEP20TA7 PO (11:18)
--- NOTE | 2017-10-14 06:20 | DISCHARGE SUMMARY ---
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 The patient was admitted [facility] and seen by orthopedics and underwent percutaneous cannulated hip screw fixation and left femoral neck fracture on 09/09/2017. The patient was made toe-touch weightbearing left lower extremity postoperatively. The patient was started on therapies and felt to be appropriate for inpatient rehabilitation. She had been independent prior to this. PAST MEDICAL HISTORY: Hypercholesterolemia, hypertension, hypothyroidism, diabetes mellitus, glaucoma, cataract extraction with intraocular lens implant, hysterectomy. Denies any prior joint or spinal surgery. MEDICAL COURSE: The patient was followed by Dr. Mena and Dr. Hurley while on the rehab unit. She complained of some left knee pain. X-ray revealed mild compartmental degenerative changes, no effusion. She progressed well, had decreased pain. Her incision site was healing well. She was afebrile during her stay. Her pulse was 76 on 09/28/2017, respirations 18, blood pressure 114/69, O2 sat 97% on room air. Glucometer readings from 09/26/2017 to 09/27/2017 varied between 158 and 275. REHABILITATION COURSE: She progressed well with the therapies. She had increased strength and endurance. She was assessed by speech therapy upon admission to rehab and found to be cognitively intact. They signed off. OT notes upon admission: The patient required mod assist for lower body dressing, min assist for transfers, bathing and toileting. The patient made good progress and by discharge was completing eating and grooming independently and all other basic ADLs and transfers with modified independence. PT notes that upon admission, she required min assist for transfers, was able walk 50 feet with min assist with front wheel walker toe touch weightbearing and was only able to attempt one step. She made excellent progress and at discharge was modified independent with gait, transfers and stairs at household level. DISCHARGE INSTRUCTIONS: The patient will have home health services and follow up with orthopedics and PCP as per the schedule. Continue current diet and home Accu-Cheks. DISCHARGE MEDICATIONS: ASA 81 mg p.o. q. 48 hours, Lipitor 20 mg p.o. each day at bedtime, Lumigan eyedrops one drop both eyes at bedtime, Zyrtec 10 mg p.o. daily, vitamin D3 at 5000 units p.o. daily, Voltaren topically q.i.d., Cosopt eyedrops 1 drop both eyes b.i.d., gemfibrozil 600 mg p.o. b.i.d., Levothyroxine 50 mcg p.o. daily, liothyronine 10 mcg p.o. daily, mag ox 400 mg p.o. daily, Centrum Silver tablets one tablet p.o. daily, quinapril 40 mg p.o. each day at bedtime, vitamin B complex one capsule p.o. daily, furosemide 40 mg p.o. daily, NovoLog FlexPen 8 to 12 units subcutaneously before meals as per patient's sliding scale, Tresiba Flextouch 8-15 units subcutaneous each day at bedtime p.r.n. blood sugar above 140 as per sliding scale regimen patient follows at home. DISCHARGE DIAGNOSES: 1. Rehabilitation ambulatory dysfunction secondary to left femoral neck fracture, nondisplaced, status post fixation, orthopedics toe touch weightbearing left lower extremity. 2. Diabetes mellitus type 2, controlled. 3. Hypertension with chronic kidney disease. 4. Hypothyroidism, on replacement. 5. Hyperlipidemia, on statin. 6. Constipation, treated. 7. Obesity. BMI 42.1. 9. Hypercholesterolemia. 10. GERD. 11. Glaucoma. 12. Long-term use insulin. 13. Fall from stairs. CONDITION AT DISCHARGE: Improved and stable. PROGNOSIS: Rehab prognosis appears good for continued improvement at home and return to independent living with some assistance from significant other as needed. Job ID: [id number] DocumentID: [id number] Dictated Date: 10/13/2017 09:56:53 Payroll Representative Date: 10/14/2017 06:18:52 Dictated By: CLEVELAND MENA MD
== END 2017-09-27 14:17 | disposition home health service (06) | DRG 560 ==
PROVIDERS: ADMIT Physical Medicine & Rehabilitation; ATTEND Physical Medicine & Rehabilitation
DX: S72.002D Fracture of unspecified part of neck of left femur, subsequent encounter for closed fracture with routine healing (principal); E11.9 Type 2 diabetes mellitus without complications; I12.9 Hypertensive chronic kidney disease with stage 1 through stage 4 chronic kidney disease, or unspecified chronic kidney disease; N18.9 Chronic kidney disease, unspecified; E03.9 Hypothyroidism, unspecified; E78.5 Hyperlipidemia, unspecified; K59.00 Constipation, unspecified; E66.9 Obesity, unspecified; Z68.41 Body mass index [BMI] 40.0-44.9, adult; E78.00 Pure hypercholesterolemia, unspecified; K21.9 Gastro-esophageal reflux disease without esophagitis; H40.9 Unspecified glaucoma; Z79.4 Long term (current) use of insulin; W10.9XXD Fall (on) (from) unspecified stairs and steps, subsequent encounter
CPT/HCPCS: 73562; 82962

== ENCOUNTER → 2017-11-18 | Outpatient (CLI) | payer MEDICARE, OTHER ==
[~2017-11-18] MED LIST changes: +FLUT9.9S NS; +OMEP20TA7 PO
== END ==
LOC: LAB 10:45
PROVIDERS: ATTEND Surgery
DX: L89.622 Pressure ulcer of left heel, stage 2 (principal); E11.621 Type 2 diabetes mellitus with foot ulcer
CPT/HCPCS: 36415; 84134

== ENCOUNTER → 2017-11-18 | Outpatient (CLI) | payer MEDICARE, OTHER | LOC: WOUNDCARE 08:40 | PROVIDERS: ATTEND Surgery | DX: L89.622 Pressure ulcer of left heel, stage 2 (principal); E11.621 Type 2 diabetes mellitus with foot ulcer | CPT/HCPCS: 97597 ==

== ENCOUNTER → 2017-11-23 | Outpatient (CLI) | payer MEDICARE, OTHER | LOC: WOUNDCARE 08:57 | PROVIDERS: ATTEND Surgery | DX: L89.622 Pressure ulcer of left heel, stage 2 (principal); E11.621 Type 2 diabetes mellitus with foot ulcer; L97.429 Non-pressure chronic ulcer of left heel and midfoot with unspecified severity; S72.002D Fracture of unspecified part of neck of left femur, subsequent encounter for closed fracture with routine healing | CPT/HCPCS: 99212 ==

== ENCOUNTER → 2017-11-30 | Outpatient (CLI) | payer MEDICARE, OTHER | LOC: WOUNDCARE 08:56 | PROVIDERS: ATTEND Surgery | DX: E11.621 Type 2 diabetes mellitus with foot ulcer (principal); L89.622 Pressure ulcer of left heel, stage 2; S72.002D Fracture of unspecified part of neck of left femur, subsequent encounter for closed fracture with routine healing | CPT/HCPCS: 99212 ==

== ENCOUNTER → 2018-04-09 | Outpatient (CLI) | payer MEDICARE, OTHER ==
[~2018-04-09] MED LIST changes: -AMLO2.5T PO; +AMLO2.5T3 PO; -GEMF600T3 PO; +GEMF600T4 PO
--- NOTE | 2018-04-09 15:23 | Diagnostic Imaging Report ---
INDICATION: Routine screening. COMPARISON: 08/15/2016 and 07/10/2015. TECHNIQUE: 2D and 3D bilateral screening mammography was performed with CAD. FINDINGS: Both breasts remain heterogeneously dense, limiting the sensitivity of mammography. Extensive vascular and parenchymal calcifications are again noted bilaterally. Parenchymal nodularity, particularly involving the left breast, appears stable. No new mass or malignant appearing microcalcifications are seen. The axillae are unremarkable. IMPRESSION: No mammographic features suspicious for malignancy are identified. ACR BI-RADS Category 2: Benign findings. Result letter will be mailed to the patient. Note: At least 10% of breast cancer is not imaged by mammography. Dictated by: Dictated on workstation # [id number]
== END ==
LOC: RAD 13:35
PROVIDERS: ATTEND Nurse Practitioner Family
DX: Z12.31 Encounter for screening mammogram for malignant neoplasm of breast (principal)
CPT/HCPCS: 77067

== ENCOUNTER 2018-09-17 09:19 | Outpatient (RCR) | payer MEDICARE, OTHER ==
[~2018-09-17 09:19] MED LIST changes: -AMLO2.5T3 PO; +AMLO2.5T4 PO; -GEMF600T4 PO; +GEMF600T8 PO
== END 2018-09-17 09:44 | disposition home or self-care (01) ==
PROVIDERS: ATTEND Orthopaedic Surgery
DX: M70.72 Other bursitis of hip, left hip (principal)

== ENCOUNTER → 2018-10-18 | Outpatient (CLI) | payer MEDICARE, OTHER ==
--- NOTE | 2018-10-18 11:05 | Diagnostic Imaging Report ---
PROCEDURE: US carotid duplex, bilateral. TECHNIQUE: Multiple real-time grayscale images were obtained over the carotid arteries in various projections, bilaterally. Additional spectral analysis and color Doppler duplex images were also obtained. INDICATION: Hypertension and diabetes. Minimal plaquing is seen at the bifurcations. The velocities are normal bilaterally. No velocity elevation or stenosis is identified. Both vertebral arteries show antegrade flow. Parameters based on the consensus panel Bean-Scale and Doppler ultrasound criteria published April 2003, Radiology, Volume 229. DOPPLER (peak systolic velocity M/S Right Left CCA .79 .86 ICA Proximal .84 .91 ICA Mid .73 .94 ICA Distal .78 1.1 RATIO 1.06 1.28 ECA .82 .73 VERT .46 .54 IMPRESSION: No evidence of a hemodynamically significant stenosis. Dictated by: Dictated on workstation # [id number]
--- NOTE | 2018-10-20 14:25 | Physician Query-Final Dx ---
GENNA MCKOY 10/20/18 1424: Final Diagnosis Give Final Diagnosis Please give Final Diagnosis Diagnosis given - hemorrhage retina - please specify rt, lt, or bilat eye/eyes thank you MEDHAT MELENDEZ MD 10/21/18 1942: Final Diagnosis Give Final Diagnosis left GENNA MCKOY October 20, 2018 14:24 MEDHAT MELENDEZ MD October 21, 2018 19:42
== END ==
LOC: CARD 09:55
PROVIDERS: ATTEND Family Medicine
DX: H35.62 Retinal hemorrhage, left eye (principal); H53.8 Other visual disturbances; I10 Essential (primary) hypertension; E11.9 Type 2 diabetes mellitus without complications
CPT/HCPCS: 93306; 93880

== ENCOUNTER → 2018-12-02 | Outpatient (CLI) | payer MEDICARE, OTHER ==
--- NOTE | 2018-12-02 10:45 | Diagnostic Imaging Report ---
PROCEDURE: MR angiography of the brain without the use of contrast. TECHNIQUE: 3D [id number] non contrast enhanced MR angiography of the head was performed. A source data was reformatted into rotating MIP projections. INDICATION: Visual loss in the right eye several times a day. FINDINGS: The distal internal carotid arteries are widely patent. The anterior and middle cerebral arteries are patent. No definite stenosis or aneurysm is seen. Bilateral posterior cerebral arteries and basilar artery are unremarkable. The visualized distal vertebrals are unremarkable. IMPRESSION: Unremarkable MRA of the brain. Dictated by: Dictated on workstation # [id number]
--- NOTE | 2018-12-02 11:39 | Diagnostic Imaging Report ---
PROCEDURE: MR angiography neck without contrast. TECHNIQUE: Non contrast enhanced MR angiography of the neck was performed. Source data was reformatted into rotating MIP projections. INDICATION: Visual loss in the right eye. Both common carotid arteries appear to be widely patent. The carotid bifurcations are unremarkable. No common or internal carotid artery stenosis is seen. Vertebral arteries appear to be codominant. The distal right vertebral artery is not well seen on this study which appears to be artifactual. IMPRESSION: Unremarkable MRA of the neck. Dictated by: Dictated on workstation # [id number]
== END ==
LOC: RAD 09:15
PROVIDERS: ATTEND Ophthalmology
DX: H54.7 Unspecified visual loss (principal); H57.89 Other specified disorders of eye and adnexa
CPT/HCPCS: 70544; 70547

== ENCOUNTER 2019-05-20 09:55 | Outpatient (RCR) | payer MEDICARE, OTHER ==
[2019-05-11 10:03] VITALS: BP 119/62
[2019-05-11] MEDS: IRON SUCROSE 200 MG/10 ML (VENOFER) VIAL IV SCH (10:52)
[2019-05-13 09:50] VITALS: BP 118/53
[2019-05-13] MEDS: IRON SUCROSE 200 MG/10 ML (VENOFER) VIAL IV SCH (10:15)
[2019-05-16] MEDS: IRON SUCROSE 200 MG/10 ML (VENOFER) VIAL IV SCH (10:12)
[2019-05-16 10:48] VITALS: BP 118/61
[2019-05-18] MEDS: IRON SUCROSE 200 MG/10 ML (VENOFER) VIAL IV SCH (10:15)
[2019-05-18 10:55] VITALS: BP 121/57
[~2019-05-20] VITALS: Ht 167.7 cm; Wt 97.7 kg
[2019-05-20 09:55] VITALS: BP 112/50
[~2019-05-20 09:55] MED LIST changes: +ACETAMINOPHEN 500 MG TAB (TYLENOL) PO PRN; +DOCU100C37 PO; +GABA-488 PO; +LIOT5TAB10 PO; -MAGN400T6 PO; +MAGN400T8 PO; +MAGN500C16 PO; +OMEP-280 PO; +QUIN5TAB11 PO; +diphenhydrAMINE 50 MG/ML INJ (BENADRYL) IV PRN
[2019-05-20] MEDS ORDERED: IRON SUCROSE 200 MG/10 ML (VENOFER) VIAL IV ONE (10:02)
[2019-05-20] MEDS: IRON SUCROSE 200 MG/10 ML (VENOFER) VIAL IV SCH (10:45)
== END 2019-05-20 11:15 | disposition home or self-care (01) ==
LOC: SDC 09:55
PROVIDERS: ATTEND Internal Medicine Nephrology
DX: N18.3 Chronic kidney disease, stage 3 (moderate) (principal); D63.1 Anemia in chronic kidney disease; D50.9 Iron deficiency anemia, unspecified
CPT/HCPCS: 96365

== ENCOUNTER → 2019-06-27 | Outpatient (CLI) | payer MEDICARE, OTHER ==
[~2019-06-27] MED LIST changes: -ACETAMINOPHEN 500 MG TAB (TYLENOL) PO PRN; -diphenhydrAMINE 50 MG/ML INJ (BENADRYL) IV PRN
--- NOTE | 2019-06-27 09:49 | Diagnostic Imaging Report ---
INDICATION: Routine screening. Comparison is made with prior mammogram from 04/09/2018 and 08/15/2016. 2-D and 3-D bilateral screening mammography was performed with a Computer Aided Detection (CAD) system. 3-D tomosynthesis was also performed and reviewed. FINDINGS: Both breasts remain heterogeneously dense, limiting the sensitivity of mammography. Fibronodular parenchymal pattern appears similar. Extensive parenchymal and vascular calcifications are noted bilaterally. No spiculated mass or malignant appearing microcalcifications are seen. The axillae are unremarkable. IMPRESSION: No mammographic features suspicious for malignancy are identified. ACR BI-RADS Category 2: Benign findings. Result letter will be mailed to the patient. Note: At least 10% of breast cancer is not imaged by mammography. Dictated by: Dictated on workstation # [id number]
== END ==
LOC: RAD 08:21
PROVIDERS: ATTEND Nurse Practitioner Family
DX: Z12.31 Encounter for screening mammogram for malignant neoplasm of breast (principal)
CPT/HCPCS: 77067

== ENCOUNTER → 2019-08-18 | Outpatient (CLI) | payer MEDICARE, OTHER ==
[~2019-08-18] MED LIST changes: -OMEP-280 PO; +OMEP20CA18 PO
--- NOTE | 2019-08-18 12:16 | Diagnostic Imaging Report ---
INDICATION: Hip pain after fall. Two views were obtained. FINDINGS: There are stable postsurgical changes of the left hip arthroplasty. Hardware is in satisfactory position. There is no fracture dislocation. Soft tissues are unremarkable. IMPRESSION: Stable left hip arthroplasty. Dictated by: Dictated on workstation # [id number]
--- NOTE | 2019-08-18 13:11 | Diagnostic Imaging Report ---
PROCEDURE: US right lower extremity venous. TECHNIQUE: Multiple real-time grayscale images were obtained over the right lower extremity in various projections. Additional spectral analysis and color Doppler duplex images were also obtained. INDICATION: Right leg pain. FINDINGS: There is no evidence of right lower extremity DVT. Right lower extremity deep venous system shows normal compressibility with normal response to augmentation and Valsalva. No fluid collection or mass is detected. IMPRESSION: No evidence of right lower extremity DVT. Dictated by: Dictated on workstation # [id number]
== END ==
LOC: RAD 11:46
PROVIDERS: ATTEND Nurse Practitioner Family
DX: R60.0 Localized edema (principal); M25.552 Pain in left hip; W19.XXXA Unspecified fall, initial encounter; Z96.642 Presence of left artificial hip joint
CPT/HCPCS: 73502

== ENCOUNTER → 2020-05-04 | Outpatient (CLI) | payer MEDICARE, OTHER ==
[~2020-05-04] MED LIST changes: +ASPI-1238 PO; -ASPI-983 PO
== END ==
LOC: LABNPT 06:09
PROVIDERS: ATTEND Family Medicine
DX: J34.89 Other specified disorders of nose and nasal sinuses (principal); R53.83 Other fatigue; Z20.828 Contact with and (suspected) exposure to other viral communicable diseases
CPT/HCPCS: 87635

== ENCOUNTER → 2020-08-14 | Outpatient (CLI) | payer MEDICARE, OTHER ==
[~2020-08-14] MED LIST changes: -GEMF600T8 PO; +GEMF600T88 PO
--- NOTE | 2020-08-14 12:54 | Diagnostic Imaging Report ---
Indication: Routine screening. Comparison is made with prior mammogram 06/27/2019 and 04/09/2018. 2-D and 3-D bilateral screening mammography was performed with CAD. Both breasts remain heterogeneously dense, limiting the sensitivity of mammography. Extensive vascular and parenchymal calcifications are again noted. The fibronodular probable pattern appears stable. The cluster microcalcifications in the posterior right breast appear to be stable. No new mass is identified. Axillae are unremarkable. IMPRESSION: BI-RADS Category 2 No mammographic features suspicious for malignancy are identified. ACR BI-RADS Category 2: Benign findings. Result letter will be mailed to the patient. Note: At least 10% of breast cancer is not imaged by mammography. Dictated by: Dictated on workstation # [id number]
== END ==
LOC: RAD 10:00
PROVIDERS: ATTEND Nurse Practitioner Family
DX: Z12.31 Encounter for screening mammogram for malignant neoplasm of breast (principal)
CPT/HCPCS: 77063; 77067

== ENCOUNTER → 2021-02-25 | Outpatient (CLI) | payer MEDICARE, OTHER ==
[~2021-02-25] MED LIST changes: +ASCO500C17 PO; +BIOT5000 PO; +BRIM5DRO OP; +CYAN250010 PO; +LATA5DRO OP; +MAGN500C15 PO; +ZINC220T3 PO
--- NOTE | 2021-02-25 11:52 | Diagnostic Imaging Report ---
EXAMINATION: Right knee radiographs, 3 views. COMPARISON: None. HISTORY: 70-year-old female, right knee pain. FINDINGS: The bones appear demineralized. There is a moderate sized knee joint effusion. There is severe patellofemoral compartment joint space loss. There is no identified acute fracture. There are vascular calcifications. IMPRESSION: 1. Severe predominantly patellofemoral compartment arthritis with moderate sized knee joint effusion. 2. The bones appear demineralized. Dictated by: Dictated on workstation # [id number]
--- NOTE | 2021-02-25 11:55 | Diagnostic Imaging Report ---
PROCEDURE: US right lower extremity venous. TECHNIQUE: Multiple real-time grayscale images were obtained over the right lower extremity in various projections. Additional spectral analysis and color Doppler duplex images were also obtained. INDICATION: Right leg pain and swelling EXAMINATION: Grayscale and color Doppler evaluation of the deep veins of the right lower extremity were performed with waveform analysis. FINDINGS: Continuous venous flow is present. No intraluminal filling defect is identified. There is normal compressibility and response to augmentation. No abnormal perivascular fluid collection is identified. Swelling does limit evaluation in the calf regions. IMPRESSION: No ultrasound evidence of right lower extremity deep venous thrombosis. Dictated by: Dictated on workstation # [id number]
== END ==
LOC: RAD 11:00
PROVIDERS: ATTEND Nurse Practitioner Family
DX: M17.11 Unilateral primary osteoarthritis, right knee (principal); M25.461 Effusion, right knee; M79.604 Pain in right leg
CPT/HCPCS: 73562

== ENCOUNTER 2021-02-27 05:40 | Outpatient (CLI) | payer MEDICARE, OTHER ==
[~2021-02-27] VITALS: Ht 165.1 cm; Wt 99.8 kg
[~2021-02-27 05:40] MED LIST changes: -ASCO500C17 PO; -BIOT5000 PO; -BRIM5DRO OP; -CYAN250010 PO; -LATA5DRO OP; -MAGN500C15 PO; -ZINC220T3 PO
[2021-02-27] MEDS ORDERED: BRIM5DRO OP (12:09)
[2021-02-27] MEDS ORDERED: ZINC220T3 PO (12:09)
[2021-02-27] MEDS ORDERED: CYAN250010 PO (12:09)
[2021-02-27] MEDS ORDERED: ASCO500C17 PO (12:09)
[2021-02-27] MEDS ORDERED: LATA5DRO OP (12:09)
[2021-02-27] MEDS ORDERED: BIOT5000 PO (12:09)
[2021-02-27] MEDS ORDERED: MAGN500C15 PO (12:09)
== END 2021-02-28 14:08 | disposition home or self-care (01) ==
LOC: PREOP 05:40
PROVIDERS: ATTEND Surgery
DX: Z01.818 Encounter for other preprocedural examination (principal)

== ENCOUNTER 2021-03-06 11:15 | Day surgery (SDC) | payer MEDICARE, OTHER ==
[~2021-03-06] VITALS: Ht 165.1 cm; Wt 99.8 kg
[~2021-03-06 11:15] MED LIST changes: +ASCO500C17 PO; +BIOT5000 PO; +BRIM5DRO OP; +CYAN250010 PO; +LATA5DRO OP; +MAGN500C15 PO; +ZINC220T3 PO
--- NOTE | 2021-03-06 11:44 | Progress Note-Pre Operative ---
Pre-Operative Progress Note H&P Reviewed The H&P was reviewed, patient examined and no changes noted. Date Seen by Provider: Mar 06, 2021 Time Seen by Provider: 11:30 Date H&P Reviewed: Mar 06, 2021 Time H&P Reviewed: 11:30 Pre-Operative Diagnosis: screening LUCIO Duque MD Mar 06, 2021 11:44
[2021-03-06] MEDS ORDERED: ONDANSETRON 4 MG/2 ML (SDV) Z0FRAN IVP PRN (11:45)
[2021-03-06] MEDS ORDERED: ONDANSETRON 4 MG (ZOFRAN) ORAL DISSOLVE TAB PO PRN (11:45)
--- NOTE | 2021-03-06 11:45 | Discharge Inst-Surgical ---
D/C Lap Instructions-ARMANI Follow Up Activity as tolerated High Fiber Diet 25g or more per day Avoid Alcohol, Caffeine, Spicy [place] and Acid foods. Drink 64 fluid oz or more of fluids per day. Symptoms to Report: Fever over 101 degree F, Nausea/Vomiting If any problems/questions: Contact your physician or go to Emergency Room LUCIO LOMELI MD Mar 06, 2021 11:45
[2021-03-06] MEDS ORDERED: LACTATED RINGERS 1,000 ML IV ONE (12:24)
[2021-03-06 12:35] VITALS: BP 130/62
[2021-03-06] MEDS ORDERED: LACTATED RINGERS 1,000 ML IV STA (12:41)
[2021-03-06] MEDS ORDERED: LIDOCAINE JELLY 2% 6 ML SYRINGE MM PRN (12:45)
[2021-03-06] MEDS ORDERED: MIDAZOLAM 2 MG/2 ML (VERSED) VIAL ONE (13:02)
[2021-03-06] MEDS ORDERED: proPOfol 200 MG/20 ML (DIPRIVAN) VIAL IV ONE ×2 (13:02→14:04)
[2021-03-06 14:15] VITALS: BP 127/59
[2021-03-06 14:20] VITALS: BP_SYST 133; BP_DIAS 33; BP_DIAS 63
[2021-03-06 14:40] VITALS: BP 134/76
[2021-03-06 14:51] VITALS: BP 134/76
--- NOTE | 2021-03-06 22:17 | OPERATIVE REPORT ---
DATE OF SERVICE: 03/06/2021 ATTENDING PRIMARY CARE PHYSICIAN: Dr. Loree Hurley. PREOPERATIVE DIAGNOSIS: Screening colonoscopy. POSTOPERATIVE DIAGNOSES: Mild chronic stage II external and internal hemorrhoids. PROCEDURE: Colonoscopy. SURGEON: Lucio Lomeli MD ANESTHESIA: Monitored anesthesia care. ESTIMATED BLOOD LOSS: Minimal. FINDINGS: Mild chronic stage II external and internal hemorrhoids. DISPOSITION: The patient tolerated the procedure well. INDICATIONS: The patient is a 70-year-old female referred over to us for followup colonoscopy. Her last colonoscopy was 13 years ago and she believes at the time that this was normal and no polyps were identified. She does not report any major issues with diarrhea nor constipation as well as no red blood per rectum nor any dark tarry stools. She also does not report any family history of colon cancer. DESCRIPTION OF PROCEDURE: The patient was brought to the endoscopy suite, laid in left lateral decubitus position. After adequate IV pain and sedative medications and monitored anesthesia care, a digital rectal examination was performed. Mild stage II chronic external and internal hemorrhoids were identified, which were not actively edematous nor inflamed and no bleeding. Normal sphincter tone was felt and there were no palpable masses. The endoscope was then intubated to the anus and rectum gently insufflated. The endoscope was then advanced through the valves of Ott of the rectum with no polyps or any neoplasms identified. Through the sigmoid colon, no diverticulosis identified. The endoscope was then advanced to the remainder of the descending, transverse and ascending colon to the cecum. These segments were normal. No polyps or any neoplasms identified. The endoscope was then slowly withdrawn while taking a second look and suctioning of residual air with no additional findings. The patient tolerated the procedure well. We will recommend continued medical management with a high fiber diet with at least 25 grams of fiber daily as well as significant amounts of water to promote soft stools on a daily basis. If she is asymptomatic, she does not need another colonoscopy for another 10 years. Job ID: [id number] DocumentID: [id number] Dictated Date: 03/06/2021 14:13:10 Water Valve Repairer Date: 03/06/2021 22:16:09 Dictated By: LUCIO LOMELI MD
--- NOTE | 2021-03-07 07:36 | Anesthesia-General Post-Op ---
MAC Patient Condition Mental Status/LOC: Same as Preop Cardiovascular: Satisfactory Nausea/Vomiting: Absent Respiratory: Satisfactory Pain: Controlled Complications: Absent Post Op Complications Complications None Follow Up Care/Instructions Patient Instructions None needed. Anesthesiology Discharge Order Discharge Order Patient is doing well, no complaints, stable vital signs, no apparent adverse anesthesia problems. No complications reported per nursing. LUIS A RICHMOND CRNA Mar 07, 2021 07:36
== END 2021-03-06 14:50 | disposition home or self-care (01) ==
LOC: ENDO 11:15
PROVIDERS: ATTEND Surgery
DX: Z12.11 Encounter for screening for malignant neoplasm of colon (principal); K64.1 Second degree hemorrhoids; E11.22 Type 2 diabetes mellitus with diabetic chronic kidney disease; I12.9 Hypertensive chronic kidney disease with stage 1 through stage 4 chronic kidney disease, or unspecified chronic kidney disease; N18.30 Chronic kidney disease, stage 3 unspecified; E03.9 Hypothyroidism, unspecified; E78.5 Hyperlipidemia, unspecified; Z79.82 Long term (current) use of aspirin; Z79.899 Other long term (current) drug therapy; Z79.4 Long term (current) use of insulin; Z79.890 Hormone replacement therapy
CPT/HCPCS: 82947; G0105

== ENCOUNTER → 2021-03-07 | Outpatient (CLI) | payer MEDICARE, OTHER ==
--- NOTE | 2021-03-07 10:40 | Diagnostic Imaging Report ---
EXAMINATION: Magnetic resonance imaging of the right knee without intravenous contrast DATE: March 07, 2021. COMPARISON: Right knee radiographs February 25, 2021. INDICATION: 70-year-old female, right knee pain and swelling. TECHNIQUE: Multiplanar, multisequence non contrast enhanced MR imaging was accomplished. FINDINGS: MENISCI: There is a radially oriented tear involving the posterior root attachment of the medial meniscus. There is a 4 mm medial meniscal extrusion. There is a longitudinal horizontal type tear involving the anterior horn, body, and posterior horn of the lateral meniscus. LIGAMENTS AND TENDONS: The anterior and posterior cruciate ligaments are intact. The medial collateral ligament is intact. The iliotibial band, mid third lateral capsular ligament, fibular collateral ligament, biceps femoris tendon and conjoined tendon are intact. The quadriceps tendon and patella ligament are intact. JOINT: There are broad areas of full-thickness or near full-thickness cartilage loss of the lateral patellar facet. There is mild generalized surface irregularity of the patellar cartilage. There is no discretely identified defect of the cartilage of the femoral trochlea. Best seen on sagittal T2 ACL sequence image 1, there is a 6 mm near full-thickness cartilage defect at the posterior weightbearing portion of the lateral femoral condyle. There is minimal thinning and irregularity of the mid weightbearing portion of the cartilage of the medial femoral condyle. There is a small to moderate knee joint effusion without identified intra-articular body or prominent synovitis. BONE: There is unremarkable bone marrow signal. Specifically, negative for fracture, osteomyelitis, osteonecrosis, or marrow replacing process. BURSAE AND SOFT TISSUES: There is no Castaneda's cyst. There is low-level edema in the soleus muscle. The additional intramuscular signal is unremarkable. There is normal muscle bulk. IMPRESSION: 1. Radially oriented tear of the posterior horn of the medial meniscus with 4 mm medial meniscal extrusion. 2. Longitudinal horizontal type tear involving the entire lateral meniscus. 3. Intact anterior and posterior cruciate ligaments. Additional ligaments and tendons are intact. 4. Moderate to severe medial and mild medial and lateral compartment osteoarthritis. Small to moderate knee joint effusion without identified intra-articular body or prominent synovitis. 5. No acute fracture, bone contusion, or evidence of osteonecrosis. 6. There is low-level edema in the soleus muscle which most likely reflects a low-grade muscle strain, early denervation related signal changes. There is no fatty muscle atrophy. Additional intramuscular signal is unremarkable. Dictated by: Dictated on workstation # [id number]
== END ==
LOC: RAD 08:45
PROVIDERS: ATTEND Nurse Practitioner Family
DX: S83.241A Other tear of medial meniscus, current injury, right knee, initial encounter (principal); M17.11 Unilateral primary osteoarthritis, right knee; M25.461 Effusion, right knee; X58.XXXA Exposure to other specified factors, initial encounter
CPT/HCPCS: 73721

== ENCOUNTER → 2021-12-03 | Outpatient (CLI) | payer MEDICARE, OTHER ==
[~2021-12-03] MED LIST changes: -MAGN400T8 PO; +MGX400T PO; +OMEP20TA56 PO; -OMEP20TA7 PO; -QUIN40TA14 PO; +QUIN40TA34 PO; -QUIN5TAB11 PO; +QUIN5TAB26 PO
--- NOTE | 2021-12-03 13:28 | Diagnostic Imaging Report ---
INDICATION: Routine screening. COMPARISON: 08/14/2020 and 06/27/2019. TECHNIQUE: 2D and 3D bilateral screening mammography was performed with CAD. FINDINGS: Both breasts are heterogeneously dense, limiting the sensitivity of mammography. The fibronodular parenchymal pattern appears stable. Parenchymal and vascular calcifications appear stable. No new mass or malignant appearing microcalcifications are seen. The axillae are unremarkable. IMPRESSION: No mammographic features suspicious for malignancy are identified. ACR BI-RADS Category 2: Benign findings. Result letter will be mailed to the patient. Note: At least 10% of breast cancer is not imaged by mammography. Dictated by: Dictated on workstation # [id number]
== END ==
LOC: RAD 08:15
PROVIDERS: ATTEND Nurse Practitioner Family
DX: Z12.31 Encounter for screening mammogram for malignant neoplasm of breast (principal)
CPT/HCPCS: 77063; 77067

== ENCOUNTER → 2023-01-08 | Outpatient (CLI) | payer MEDICARE, OTHER ==
[~2023-01-08] MED LIST changes: +DORZ1DRO12 OU; -DORZ1DRO6 OU
--- NOTE | 2023-01-09 13:02 | Diagnostic Imaging Report ---
Indication: Bilateral digital 2-D and 3-D screening with CAD. The current study was also evaluated with a Computer Aided Detection (CAD) system. COMPARISON: 11/2021, 06/2019 and 03/2018 FINDINGS: density 3. Extensive vascular and parenchymal calcifications unchanged from previous exams. No new microcalcification. No suspicious mass or architectural distortion or spiculation found. There are no changes to suggest development of breast cancer. IMPRESSION: BI-RADS Category 2 ACR BI-RADS Category 2: Benign findings. Result letter will be mailed to the patient. Note: At least 10% of breast cancer is not imaged by mammography. Dictated by: Dictated on workstation # [id number]
== END ==
LOC: RAD 10:00
PROVIDERS: ATTEND Physician Assistant
DX: Z12.31 Encounter for screening mammogram for malignant neoplasm of breast (principal)
CPT/HCPCS: 77063; 77067